=== PATIENT | female | born 1990 | race Caucasian/White ===

== ENCOUNTER 2017-12-28 11:51 | Emergency (ER) | payer MEDICAID ==
[2017-12-28] MEDS ORDERED: Cyclobenzaprine 10 MG Tab PO ONE (13:08)
[2017-12-28] MEDS ORDERED: Ketorolac 60 MG/2 ML SDV IM ONE (13:08)
--- NOTE | 2017-12-28 13:14 | EDM.PDOC ---
ED HPI GENERAL MEDICAL PROBLEM - General Chief Complaint: Back Pain or Injury Stated Complaint: BACK PAIN Time Seen by Provider: 12/28/17 13:09 Source of Information: Reports: Patient History Limitations: Reports: No Limitations - History of Present Illness INITIAL COMMENTS - FREE TEXT/NARRATIVE: HISTORY AND PHYSICAL: []27 y/o female presenting with right lower back sciatic pain History of Present Illness: []Yesterday patient was picking up her 4-year-old and felt the pain instantly in her back and now involves her sciatic History of having sciatica Review of Systems: As per history of present illness and below otherwise all systems reviewed and negative. Past medical history: As per history of present illness and as reviewed below otherwise noncontributory. Surgical history: As per history of present illness and as reviewed below otherwise noncontributory. Social history: No reported history of drug or alcohol abuse. Family history: As per history of present illness and as reviewed below otherwise noncontributory. Physical exam: Alert and oriented female obese answering questions fully without any shortness of breath. HEENT: Atraumatic, normocehpalic, pupils reactive, negative for conjunctival pallor or scleral icterus, mucous membranes moist, throat clear, neck supple, nontender, trachea midline. Lungs: Clear to auscultation, breath sounds equal bilaterally, chest non tender. Heart: S1S2, regular, negative for clicks, rubs, or JVD. Abdomen: Soft, nondistended, nontender. Negative for masses or hepatossplenmegaly. positive for right costovertebral tenderness.Sciatic tender with palpationmild radiculopathy Pelvis: Stable nontender. Genitourinary: Deferred. Rectal: Deferred Extremities: Atraumatic, negative for cords or calf pain. Neurovascular unremarkable. Neuro: Awake, alert, oriented. Cranial nerves II through XII unremarkable. Cerebellum unremarkable. Motor and sensory unremarkable throughout. Exam nonfocal. Diagnostics: [] Therapeutics: []flexeril toradal Impression: []Right lower back with sciatica and mild radiculopathy Plan: []Discharge home Prescription for diclofenac 75 mg twice a day prescription for flexeril 10 mg tid Follow-up with your primary care next week Return to emergency room as discussed and directed Work note 48 hours If you do not have a primary care call one of these numbers and establish care [facility] [address] [place] [address] [place] [address] Definitive disposition and diagnosis as appropriate pending reevaluation and review of above. lower back Pain Score (Numeric/FACES): 7 - Related Data Allergies Allergy/AdvReac Type Severity Reaction Status Date / Time methimazole [From Tapazole] Allergy Hives Verified 12/28/17 12:34 metronidazole [From Flagyl] Allergy Swollen Verified 12/28/17 12:34 Tongue proventil Liquid Allergy Other Uncoded 12/28/17 12:34 ptu Allergy Hives Uncoded 12/28/17 12:34 Home Meds: Home Meds . [No Known Home Meds] 12/28/17 [History] Past Medical History Neurological 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: Migraines Psychiatric 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: Anxiety, Depression, Other (See Below) Other Psychiatric History: Tarretts Endocrine/Metabolic 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: Hypothyroidism - Infectious Disease History Infectious Disease 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: Chicken Pox - Past Surgical History Female Surgical 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: Section Social & Family History - Family History Family Medical History: Noncontributory - Tobacco Use Smoking Status *Q: Current Every Day Smoker Years of Tobacco use: 16 Packs/Tins Daily: 0.1 - Caffeine Use Caffeine Use: Reports: Coffee, Soda - Recreational Drug Use Recreational Drug Use: No ED ROS GENERAL - Review of Systems Review Of Systems: ROS reveals no pertinent complaints other than HPI. ED EXAM,LOWER BACK PAIN/INJURY - Physical Exam Exam: See Below (See dictation) Course - Vital Signs Last Recorded V/S: Last Vital Signs Temp 36.4 C 12/28/17 12:30 Pulse 95 12/28/17 12:30 Resp 18 12/28/17 12:30 BP 138/80 12/28/17 12:30 Pulse Ox 99 12/28/17 12:30 - Orders/Labs/Meds Meds: Medications Discontinued Medications Generic Name Dose Route Start Last Admin Trade Name Freq PRN Reason Stop Dose Admin Cyclobenzaprine HCl 10 mg 12/28/17 13:08 Flexeril PO 12/28/17 13:09 ONETIME ONE Ketorolac Tromethamine 60 mg 12/28/17 13:08 Toradol IM 12/28/17 13:09 ONETIME ONE Departure - Departure Time of Disposition: 13:13 Disposition: Home, Self-Care 01 Condition: Good Clinical Impression: Sciatica Qualifiers: Laterality: right Qualified Code(s): M54.31 - Sciatica, right side Low back strain Qualifiers: Encounter type: initial encounter Qualified Code(s): S39.012A - Strain of muscle, fascia and tendon of lower back, initial encounter - Discharge Information Referrals: Rosio Preston DO [Primary Care Provider] - Additional Instructions: The following information is given to patients seen in the emergency department who are being discharged to home. This information is to outline your options for follow-up care. We provide all patients seen in our emergency department with a follow-up referral. The need for follow-up, as well as the timing and circumstances, are variable depending upon the specifics of your emergency department visit. If you don't have a primary care physician on staff, we will provide you with a referral. We always advise you to contact your personal physician following an emergency department visit to inform them of the circumstance of the visit and for follow-up with them and/or the need for any referrals to a consulting specialist. The emergency department will also refer you to a specialist when appropriate. This referral assures that you have the opportunity for followup care with a specialist. All of these measure are taken in an effort to provide you with optimal care, which includes your followup. Under all circumstances we always encourage you to contact your private physician who remains a resource for coordinating your care. When calling for followup care, please make the office aware that this follow-up is from your recent emergency room visit. If for any reason you are refused follow-up, please contact the [facility] emergency department at and asked to speak to the emergency department charge nurse. Given Toradol and Flexeril in ER Prescriptions were sent to your pharmacy for Flexeril and diclofenac Follow-up with your primary care next week D you do not have a primary care please call 1 of these numbers and establish care [facility] [address] [place] [id number] [place] [id number] Note has been written for off work 48 hours first 24 hours please ice your sciatic and then use heat or ice depending on which is feeling better
== END 2017-12-28 13:47 | disposition home or self-care (01) ==
LOC: MW.ED 11:51
DX: S39.012A Strain of muscle, fascia and tendon of lower back, initial encounter (principal); M54.31 Sciatica, right side; F32.9 Major depressive disorder, single episode, unspecified; F41.9 Anxiety disorder, unspecified; E03.9 Hypothyroidism, unspecified; F17.210 Nicotine dependence, cigarettes, uncomplicated; Z88.8 Allergy status to other drugs, medicaments and biological substances; X50.0XXA Overexertion from strenuous movement or load, initial encounter
CPT/HCPCS: 96372; 99283; A9270; J1885

== ENCOUNTER 2019-03-02 00:45 | Emergency (ER) | payer SELFPAY ==
[2019-03-02] MEDS ORDERED: Ketorolac 60 MG/2 ML SDV IM ONE (00:53)
--- NOTE | 2019-03-02 02:14 | CR ---
Indication: Left ankle pain Technique: Left ankle 3 views Comparison: None Findings: Bones: Alignment is normal. No fractures or bone lesions. Joint spaces: Joint spaces are well maintained. No degenerative changes. Soft tissues: Unremarkable. Impression: No findings to explain pain. Dictated by Saad Casillas MD @ Mar 02 2019 2:12AM Signed by Dr. Saad Casillas @ Mar 02 2019 2:13AM
--- NOTE | 2019-03-02 02:37 | EDM.PDOC ---
ED HPI GENERAL MEDICAL PROBLEM - General Chief Complaint: Lower Extremity Injury/Pain Stated Complaint: FALL Time Seen by Provider: 03/02/19 02:35 Source of Information: Reports: Patient - History of Present Illness INITIAL COMMENTS - FREE TEXT/NARRATIVE: HISTORY AND PHYSICAL: History of present illness: []Kathia presents with left ankle pain 10 out of 10 unable to bear weight tearful on arrival, Toradol provided doing much better She had fallen while going up some stairs and twisted her ankle she does have swelling over the lateral malleolus otherwise no open lesion or bruising entirely limb is neurovascularly intact Review of systems: As per history of present illness and below otherwise all systems reviewed and negative. Past medical history: As per history of present illness and as reviewed below otherwise noncontributory. Surgical history: As per history of present illness and as reviewed below otherwise noncontributory. Social history: No reported history of drug or alcohol abuse. Family history: As per history of present illness and as reviewed below otherwise noncontributory. Physical exam: HEENT: Atraumatic, normocephalic, pupils reactive, negative for conjunctival pallor or scleral icterus, mucous membranes moist, throat clear, neck supple, nontender, trachea midline. Lungs: Clear to auscultation, breath sounds equal bilaterally, chest nontender. Heart: S1S2, regular, negative for clicks, rubs, or JVD. Abdomen: Soft, nondistended, nontender. Negative for masses or hepatosplenomegaly. Negative for costovertebral tenderness. Pelvis: Stable nontender. Genitourinary: Deferred. Rectal: Deferred. Extremities: Atraumatic, negative for cords or calf pain. Neurovascular unremarkable. Neuro: Awake, alert, oriented. Cranial nerves II through XII unremarkable. Cerebellum unremarkable. Motor and sensory unremarkable throughout. Exam nonfocal. Diagnostics: [Left ankle 3 views Tib-fib left ] Therapeutics: [ CAM boot crutches nonweightbearing Rest ice ibuprofen ] Impress iLeft ankle injury ] Definitive disposition and diagnosis as appropriate pending reevaluation and review of above. left ankle Pain Score (Numeric/FACES): 10 - Related Data Allergies Allergy/AdvReac Type Severity Reaction Status Date / Time methimazole [From Tapazole] Allergy Hives Verified 03/02/19 01:01 metronidazole [From Flagyl] Allergy Swollen Verified 03/02/19 01:01 Tongue proventil Liquid Allergy Other Uncoded 03/02/19 01:01 ptu Allergy Hives Uncoded 03/02/19 01:01 Home Meds: Home Meds Levothyroxine [Synthroid] 1 tab PO DAILY 03/02/19 [History] Propranolol [Inderal] 1 tab PO BID 03/02/19 [History] Sertraline [Zoloft] 150 mg PO DAILY 03/02/19 [History] Topiramate [Topamax] 1 tab PO DAILY 03/02/19 [History] traZODone HCl [Trazodone HCl] 1 tab PO ASDIRECTED PRN 03/02/19 [History] Past Medical History REHAB RN 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: Neurological 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: Migraines, Other (See Below) Other Neuro History: Tourettes Psychiatric 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: Anxiety, Depression Other Psychiatric History: Tarretts Endocrine/Metabolic 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: Hypothyroidism - Infectious Disease History Infectious Disease 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: Chicken Pox - Past Surgical History Female Surgical 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: Section Social & Family History - Family History Family Medical History: Noncontributory - Tobacco Use Smoking Status *Q: Current Every Day Smoker Years of Tobacco use: 17 Packs/Tins Daily: 1 - Caffeine Use Caffeine Use: Reports: Coffee, Soda - Recreational Drug Use Recreational Drug Use: Yes Drug Use in Last 12 Months: Yes Recreational Drug Type: Reports: Marijuana/Hashish Recreational Drug Use Frequency: Rarely Review of Systems - Review of Systems Review Of Systems: See Below ED EXAM, GENERAL - Physical Exam Exam: See Below Course - Vital Signs Last Recorded V/S: Last Vital Signs Temp 96.8 F 03/02/19 00:45 Pulse 78 03/02/19 00:45 Resp 18 03/02/19 00:45 BP 129/83 03/02/19 00:45 Pulse Ox 98 03/02/19 00:45 - Orders/Labs/Meds Orders: Active Orders 24 hr Category Date Time Status Tibia Fibula Lt [CR] Stat Exams 03/02/19 02:09 Taken Meds: Medications Discontinued Medications Generic Name Dose Route Start Last Admin Trade Name Freq PRN Reason Stop Dose Admin Ketorolac Tromethamine 60 mg 03/02/19 00:53 03/02/19 01:09 Toradol IM 03/02/19 00:54 60 mg ONETIME ONE Administration Departure - Departure Time of Disposition: 02:36 Disposition: Home, Self-Care 01 Condition: Good Clinical Impression: Left ankle injury - Discharge Information Referrals: PCP,None [Primary Care Provider] - Additional Instructions: Cam boot crutches nonweightbearing Rest ice ibuprofen Return if symptoms persist or worsen Follow-up with orthopedist, call phone number below to schedule appropriate follow-up [facility] [address], [address] [place] [address] my orthopedic The following information is given to patients seen in the emergency department who are being discharged to home. This information is to outline your options for follow-up care. We provide all patients seen in our emergency department with a follow-up referral. The need for follow-up, as well as the timing and circumstances, are variable depending upon the specifics of your emergency department visit. If you don't have a primary care physician on staff, we will provide you with a referral. We always advise you to contact your personal physician following an emergency department visit to inform them of the circumstance of the visit and for follow-up with them and/or the need for any referrals to a consulting specialist. The emergency department will also refer you to a specialist when appropriate. This referral assures that you have the opportunity for follow-up care with a specialist. All of these measure are taken in an effort to provide you with optimal care, which includes your follow-up. Under all circumstances we always encourage you to contact your private physician who remains a resource for coordinating your care. When calling for follow-up care, please make the office aware that this follow-up is from your recent emergency room visit. If for any reason you are refused follow-up, please contact the [facility] emergency department at and asked to speak to the emergency department charge nurse. - My Orders Last 24 Hours: My Active Orders 03/02/19 02:09 Tibia Fibula Lt [CR] Stat - Assessment/Plan Last 24 Hours: My Active Orders 03/02/19 02:09 Tibia Fibula Lt [CR] Stat
--- NOTE | 2019-03-02 02:40 | CR ---
Indication: Pain after tripping Technique: Frontal and lateral views left tibia and fibula Comparison: Left ankle radiographs performed earlier today Findings: Note that the distal aspects of the tibia and fibula are not included on this exam. These areas were included on the left ankle radiographs performed earlier today which were reviewed at time of dictation. Bones: Alignment is normal. No fractures or bone lesions. Joint spaces: Unremarkable. Soft tissues: Unremarkable. Impression: Negative. Dictated by Kate De La Rosa MD @ Mar 02 2019 2:35AM Signed by Dr. Kate De La Rosa @ Mar 02 2019 2:37AM
== END 2019-03-02 03:17 | disposition home or self-care (01) ==
LOC: MW.ED 00:45
DX: S99.912A Unspecified injury of left ankle, initial encounter (principal); F17.210 Nicotine dependence, cigarettes, uncomplicated; F41.9 Anxiety disorder, unspecified; F32.9 Major depressive disorder, single episode, unspecified; E03.9 Hypothyroidism, unspecified; Z79.899 Other long term (current) drug therapy; Z88.8 Allergy status to other drugs, medicaments and biological substances; W10.9XXA Fall (on) (from) unspecified stairs and steps, initial encounter
CPT/HCPCS: 73590; 73610; 96372; 99283; J1885

== ENCOUNTER 2019-04-23 21:01 | Emergency (ER) | payer MEDICAID ==
[2019-04-23] MEDS ORDERED: Sodium Chloride 0.9% 1,000 ML IV ONE (21:33)
[2019-04-23 22:23] LABS: CHLORIDE,CL 105 mmol/L (98-107); SODIUM,NA 140 mmol/L (136-145)
--- NOTE | 2019-04-23 22:40 | EDM.PDOC ---
ED HPI GENERAL MEDICAL PROBLEM - General Chief Complaint: Genitourinary Problem Stated Complaint: BACK PAIN AND CRAMPING Time Seen by Provider: 04/23/19 21:02 Source of Information: Reports: Patient History Limitations: Reports: No Limitations - History of Present Illness INITIAL COMMENTS - FREE TEXT/NARRATIVE: HISTORY AND PHYSICAL: History of present illness: Patient is a 29-year-old female who states she found that she was one week ago, who presents to the ED today with concern of lower abdominal pain and slight vaginal bleeding yesterday and today. Patient states she's had 5 other pregnancies and none of them have presented how she feels today. Patient states she has an appointment with [facility] but has not yet been evaluated during this . Patient states the abdominal pain is lower tends to localize more to the right. Patient states yesterday and today she has had some pinkish vaginal bleeding but has not required any tampon or pad. Patient states she has been nauseous and has not been able to eat and drink much today but is unsure if this is related to typical nausea. Patient denies passing any clots. Patient denies any other symptoms or concerns at this time. Patient plans to see [facility] and has an appointment in 2 weeks. Patient denies fever, chills, chest pain, shortness of breath, or cough. Denies headache, neck stiff ness, change in vision, syncope, or near syncope. Denies vomiting, diarrhea, constipation, or dysuria. Has not noted any blood in urine or stool. Review of systems: As per history of present illness and below otherwise all systems reviewed and negative. Past medical history: As per history of present illness and as reviewed below otherwise noncontributory. Surgical history: As per history of present illness and as reviewed below otherwise noncontributory. Social history: See social history for further information Family history: As per history of present illness and as reviewed below otherwise noncontributory. Physical exam: Physical exam is limited due to body habitus. General: Patient is alert, oriented, and in no acute distress. Patient laying comfortably on exam table. HEENT: Atraumatic, normocephalic, pupils equal and reactive bilaterally, negative for conjunctival pallor or scleral icterus, mucous membranes dry, TMs normal bilaterally, throat clear, neck supple, nontender, trachea midline. No drooling or trismus noted. No meningeal signs. No hot potato voice noted. Lungs: Clear to auscultation, breath sounds equal bilaterally, chest nontender. Heart: S1S2, regular rate and rhythm without overt murmur Abdomen: Morbidly obese, soft, nondistended. Moderate suprapubic tenderness without guarding. Negative for masses or hepatosplenomegaly. Negative for costovertebral tenderness. Pelvis: Stable nontender. Genitourinary: Deferred. Rectal: Deferred. Skin: Intact, warm, dry. No lesions or rashes noted. Extremities: Atraumatic, negative for cords or calf pain. Neurovascular unremarkable. Neuro: Awake, alert, oriented. Cranial nerves II through XII unremarkable. Cerebellum unremarkable. Motor and sensory unremarkable throughout. Exam nonfocal. Notes: Dr. Stanley verbally involved in patient care. Rh is O+ Had thorough discussion with patient that ectopic is not ruled out with the limitations of today's diagnostics. Discussed with patient and per the importance of returning with worsening pain or increasing vaginal bleeding. Patient is given a prescription for repeat hCG Quant in 48 hours. Discussed the importance for follow-up with her LYE BATH OPERATOR. Voices understanding and is agreeable to plan of care. Denies any further questions or concerns at this time. Diagnostics: CBC, CMP, UA, hcg, first trimester ultrasound, Rh/blood type Therapeutics: NS Prescription: None Impression: Spotting in early Abdominal pain in early , unspecified Dehydration Plan: 1. Please start and/or continue to take your vitamin with folic acid once daily. 2. Pelvic rest until cleared by your OBGYN (no tampons, sex, etc...) Return in 48 hours to have your repeat lab draw. 3. Tylenol as needed for pain management. This is safe to use in . 4. Follow up with your LYE BATH OPERATOR as scheduled and as discussed. Return to the ED for worsening abdominal pain or increase in vaginal bleeding, and as needed and as further discussed. Definitive disposition and diagnosis as appropriate pending reevaluation and review of above. lower abdomen Pain Score (Numeric/FACES): 8 - Related Data Allergies Allergy/AdvReac Type Severity Reaction Status Date / Time methimazole [From Tapazole] Allergy Hives Verified 04/23/19 21:10 metronidazole [From Flagyl] Allergy Swollen Verified 04/23/19 21:10 Tongue proventil Liquid Allergy Other Uncoded 04/23/19 21:10 ptu Allergy Hives Uncoded 04/23/19 21:10 Home Meds: Home Meds Folic Acid 0.4 mg PO DAILY 04/23/19 [History] Pnv No.95/Ferrous Fum/Folic AC [ Caplet] 1 tab PO DAILY 04/23/19 [ History] Past Medical History Genitourinary 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: None LYE BATH OPERATOR 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: , Other (See Below) Other LYE BATH OPERATOR History: Termination of 1 Neurological 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: Migraines, Other (See Below) Other Neuro History: Tourettes Psychiatric 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: Anxiety, Depression Other Psychiatric History: Tarretts Endocrine/Metabolic 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: Hypothyroidism - Infectious Disease History Infectious Disease 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: Chicken Pox - Past Surgical History Female Surgical 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: Section Endocrine Surgical 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: None Neurological Surgical 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: None Social & Family History - Family History Family Medical History: Noncontributory - Tobacco Use Smoking Status *Q: Current Every Day Smoker Years of Tobacco use: 17 Packs/Tins Daily: 0.1 - Caffeine Use Caffeine Use: Reports: Soda - Recreational Drug Use Recreational Drug Use: Yes Recreational Drug Type: Reports: Marijuana/Hashish Recreational Drug Use Frequency: Socially Recreational Drug Last Use: "couple of weeks ago" ED ROS GENERAL - Review of Systems Review Of Systems: ROS reveals no pertinent complaints other than HPI. ED EXAM, GENERAL - Physical Exam Exam: See Below (See dictation) Course - Vital Signs Last Recorded V/S: Last Vital Signs Temp 36.3 C 04/23/19 21:08 Pulse 109 H 04/23/19 21:08 Resp 19 04/23/19 21:08 BP Pulse Ox 98 04/23/19 21:08 - Orders/Labs/Meds Labs: Laboratory Tests 04/23/19 04/23/19 04/23/19 Range/Units 21:00 21:00 21:00 WBC 10.58 (4.0-11.0) K/uL RBC 4.28 L (4.30-5.90) M/uL Hgb 11.3 L (12.0-16.0) g/dL Hct 35.5 L (36.0-46.0) % MCV 82.9 (80.0-98.0) fL MCH 26.4 L (27.0-32.0) pg MCHC 31.8 (31.0-37.0) g/dL RDW Std Deviation 52.5 (28.0-62.0) fl RDW Coeff of Rosa Maria 17 H (11.0-15.0) % Plt Count 236 (150-400) K/uL MPV 10.50 (7.40-12.00) fL Neut % (Auto) 75.3 (48.0-80.0) % Lymph % (Auto) 17.8 (16.0-40.0) % [place] % (Auto) 5.3 (0.0-15.0) % Eos % (Auto) 1.4 (0.0-7.0) % Baso % (Auto) 0.2 (0.0-1.5) % Neut # (Auto) 8.0 H (1.4-5.7) K/uL Lymph # (Auto) 1.9 (0.6-2.4) K/uL [place] # (Auto) 0.6 (0.0-0.8) K/uL Eos # (Auto) 0.2 (0.0-0.7) K/uL Baso # (Auto) 0.0 (0.0-0.1) K/uL Nucleated RBC % 0.0 /100WBC Nucleated RBCs # 0 K/uL Sodium (136-145) mmol/L Potassium (3.5-5.1) mmol/L Chloride (98-107) mmol/L Carbon Dioxide (21.0-32.0) mmol/L BUN (7.0-18.0) mg/dL Creatinine (0.6-1.0) mg/dL Est Cr Clr Drug Dosing mL/min Estimated GFR (MDRD) ml/min Glucose (74-106) mg/dL Calcium (8.5-10.1) mg/dL Total Bilirubin (0.2-1.0) mg/dL AST (15-37) IU/L ALT (14-63) IU/L Alkaline Phosphatase (46-116) U/L Total Protein (6.4-8.2) g/dL Albumin (3.4-5.0) g/dL Globulin (2.6-4.0) g/dL Albumin/Globulin Ratio (0.9-1.6) HCG, Qual (NEG) HCG, Quant 3015.0 mIU/mL Urine Color Urine Appearance Urine pH (5.0-8.0) Ur Specific [place] (1.001-1.035) Urine Protein (NEGATIVE) mg/dL Urine Glucose (UA) (NEGATIVE) mg/dL Urine Ketones (NEGATIVE) mg/dL Urine Occult Blood (NEGATIVE) Urine Nitrite (NEGATIVE) Urine Bilirubin (NEGATIVE) Urine Urobilinogen (<2.0) EU/dL Ur Leukocyte Esterase (NEGATIVE) Blood Type O POSITIVE 04/23/19 04/23/19 04/23/19 Range/Units 21:00 21:00 21:15 WBC (4.0-11.0) K/uL RBC (4.30-5.90) M/uL Hgb (12.0-16.0) g/dL Hct (36.0-46.0) % MCV (80.0-98.0) fL MCH (27.0-32.0) pg MCHC (31.0-37.0) g/dL RDW Std Deviation (28.0-62.0) fl RDW Coeff of Rosa Maria (11.0-15.0) % Plt Count (150-400) K/uL MPV (7.40-12.00) fL Neut % (Auto) (48.0-80.0) % Lymph % (Auto) (16.0-40.0) % [place] % (Auto) (0.0-15.0) % Eos % (Auto) (0.0-7.0) % Baso % (Auto) (0.0-1.5) % Neut # (Auto) (1.4-5.7) K/uL Lymph # (Auto) (0.6-2.4) K/uL [place] # (Auto) (0.0-0.8) K/uL Eos # (Auto) (0.0-0.7) K/uL Baso # (Auto) (0.0-0.1) K/uL Nucleated RBC % /100WBC Nucleated RBCs # K/uL Sodium 140 (136-145) mmol/L Potassium 3.5 (3.5-5.1) mmol/L Chloride 105 (98-107) mmol/L Carbon Dioxide 26.5 (21.0-32.0) mmol/L BUN 11 (7.0-18.0) mg/dL Creatinine 0.9 (0.6-1.0) mg/dL Est Cr Clr Drug Dosing 87.12 mL/min Estimated GFR (MDRD) > 60.0 ml/min Glucose 99 (74-106) mg/dL Calcium 9.5 (8.5-10.1) mg/dL Total Bilirubin 0.2 (0.2-1.0) mg/dL AST 12 L (15-37) IU/L ALT 16 (14-63) IU/L Alkaline Phosphatase 75 (46-116) U/L Total Protein 7.5 (6.4-8.2) g/dL Albumin 3.5 (3.4-5.0) g/dL Globulin 4.0 (2.6-4.0) g/dL Albumin/Globulin Ratio 0.9 (0.9-1.6) HCG, Qual POSITIVE H (NEG) HCG, Quant mIU/mL Urine Color YELLOW Urine Appearance SLT CLOUDY Urine pH 7.0 (5.0-8.0) Ur Specific [place] 1.025 (1.001-1.035) Urine Protein NEGATIVE (NEGATIVE) mg/dL Urine Glucose (UA) NEGATIVE (NEGATIVE) mg/dL Urine Ketones NEGATIVE (NEGATIVE) mg/dL Urine Occult Blood NEGATIVE (NEGATIVE) Urine Nitrite NEGATIVE (NEGATIVE) Urine Bilirubin NEGATIVE (NEGATIVE) Urine Urobilinogen 1.0 (<2.0) EU/dL Ur Leukocyte Esterase NEGATIVE (NEGATIVE) Blood Type Meds: Medications Discontinued Medications Generic Name Dose Route Start Last Admin Trade Name Michael PRN Reason Stop Dose Admin Sodium Chloride 1,000 mls @ 999 mls/hr 04/23/19 21:33 04/23/19 21:50 Normal Saline IV 04/23/19 22:33 999 mls/hr STAT ONE Administration Departure - Departure Time of Disposition: 00:02 Disposition: Home, Self-Care 01 Clinical Impression: Spotting in early , Abdominal pain affecting , Dehydration - Discharge Information Referrals: PCP,None [Primary Care Provider] - Forms: ED Department Discharge Additional Instructions: The following information is given to patients seen in the emergency department who are being discharged to home. This information is to outline your options for follow-up care. We provide all patients seen in our emergency department with a follow-up referral. The need for follow-up, as well as the timing and circumstances, are variable depending upon the specifics of your emergency department visit. If you don't have a primary care physician on staff, we will provide you with a referral. We always advise you to contact your personal physician following an emergency department visit to inform them of the circumstance of the visit and for follow-up with them and/or the need for any referrals to a consulting specialist. The emergency department will also refer you to a specialist when appropriate. This referral assures that you have the opportunity for follow-up care with a specialist. All of these measure are taken in an effort to provide you with optimal care, which includes your follow-up. Under all circumstances we always encourage you to contact your private physician who remains a resource for coordinating your care. When calling for follow-up care, please make the office aware that this follow-up is from your recent emergency room visit. If for any reason you are refused follow-up, please contact the [facility] Emergency Department at and asked to speak to the emergency department charge nurse. [facility] [address] [place] [address] [facility] [address] [place] [id number] [facility] [address], [place] [address] 1. Please start and/or continue to take your vitamin with folic acid once daily. 2. Pelvic rest until cleared by your OBGYN (no tampons, sex, etc...) Return in 48 hours to have your repeat lab draw. 3. Tylenol as needed for pain management. This is safe to use in . 4. Follow up with your LYE BATH OPERATOR as scheduled and as discussed. Return to the ED for worsening abdominal pain or increase in vaginal bleeding, and as needed and as further discussed.
--- NOTE | 2019-04-23 23:45 | US ---
INDICATION: Back pain. . TECHNIQUE: Ultrasound OB pelvis transvaginal. Real-time del rio-scale imaging of the pelvis was performed. COMPARISON: None available FINDINGS: There is a small sac-like structure within the endometrium with a mean sac diameter corresponding to 5 weeks and 0 days. No pole or yolk sac are seen. A 9 x 3 x 9 mm irregular hypoechoic area adjacent to the gestational sac could represent a small subchorionic hemorrhage. There is tiny fluid in the endocervical canal. The right ovary measures 2.2 x 1.7 x 2.6 cm and the left ovary measures 1.3 x 1.2 x 1.7 cm. There is small free fluid in the cul-de-sac. IMPRESSION: A small sac-like structure within the endometrium, corresponding to 5 weeks and 0 days by mean sac diameter. The findings could represent an early intrauterine gestation, however an ectopic gestation or an anembryonic gestation are not excluded. Correlate with beta hCG levels and a short-term follow-up study. Dictated by Og Dean MD @ 04/23/2019 11:44:41 PM Dictated by: Og Dean MD @ 04/23/2019 23:44:49 (Electronically Signed)
== END 2019-04-24 00:24 | disposition home or self-care (01) ==
LOC: MW.ED 21:01
DX: O26.851 Spotting complicating pregnancy, first trimester (principal); O26.891 Other specified pregnancy related conditions, first trimester; R10.31 Right lower quadrant pain; O99.89 Other specified diseases and conditions complicating pregnancy, childbirth and the puerperium; E86.0 Dehydration; O99.331 Smoking (tobacco) complicating pregnancy, first trimester; F17.210 Nicotine dependence, cigarettes, uncomplicated; E03.9 Hypothyroidism, unspecified; Z88.1 Allergy status to other antibiotic agents; Z88.8 Allergy status to other drugs, medicaments and biological substances; Z3A.01 Less than 8 weeks gestation of pregnancy
CPT/HCPCS: 36415; 76801; 80053; 81003; 84702; 84703; 85025; 86900; 86901; 96360; 99284; J7040; 99283

== ENCOUNTER 2019-04-29 10:21 | Emergency (ER) | payer MEDICAID ==
--- NOTE | 2019-04-29 10:37 | EDM.PDOC ---
ED HPI GENERAL MEDICAL PROBLEM - General Chief Complaint: HOME CARE COMPANION Problem Stated Complaint: SPOTTING/CRAMPING Time Seen by Provider: 04/29/19 10:22 Source of Information: Reports: Patient History Limitations: Reports: No Limitations - History of Present Illness INITIAL COMMENTS - FREE TEXT/NARRATIVE: HISTORY AND PHYSICAL: History of present illness: Patient is a 29-year-old female who presents to the emergency room with complaints of vaginal spotting in . Vaginal bleeding has been light and intermittent over the past 7-10 days. She states she was seen last week for this complaint and was told she is approximately 5 weeks . The ultrasound showed possible subchorionic hemorrhage, could not rule out an ectopic . She has had serial quantitative hCGs, which are trending upward. She is concerned as the bleeding has not resolved and concerned of the previous ultrasound findings. Spotting had stopped last week, but started again last night. She denies any injury, trauma or falls. States her boyfriend attempted sexual intercourse; but states she did not have any penetration. , P: 5 - Unable to get into the [facility] until next week. Review of systems: As per history of present illness and below otherwise all systems reviewed and negative. Past medical history: As per history of present illness and as reviewed below otherwise noncontributory. Surgical history: As per history of present illness and as reviewed below otherwise noncontributory. Social history: See social history for further information Family history: As per history of present illness and as reviewed below otherwise noncontributory. Physical exam: General: Well-developed and well-nourished 21 H old female. Alert and oriented. Nontoxic appearing and in no acute distress. HEENT: Atraumatic, normocephalic, pupils equal and reactive bilaterally, negative for conjunctival pallor or scleral icterus, mucous membranes moist, TMs normal bilaterally, throat clear, neck supple, nontender, trachea midline. No drooling or trismus noted. No meningeal signs. No hot potato voice noted. Lungs: Clear to auscultation, breath sounds equal bilaterally, chest nontender. Heart: S1S2, regular rate and rhythm without overt murmur Abdomen: Soft, nondistended, nontender. Negative for masses or hepatosplenomegaly. Negative for costovertebral tenderness. Skin: Intact, warm, dry. No lesions or rashes noted. Extremities: Atraumatic, moves all extremities per self without difficulty or deficits, negative for cords or calf pain. Neurovascular unremarkable. Neuro: Awake, alert, oriented. Cranial nerves II through XII unremarkable. Cerebellum unremarkable. Motor and sensory unremarkable throughout. Exam nonfocal. Notes: Previous labs show she is Rh 0+. Quant HCG on 04/23 was 3015, 04/25 was 5113, was 8422. Today's quant is 14,869. Ultrasound shows IUP with gestational age of 6 weeks and 1 day. No cardiac activity evident. pole not visible on the exam 1 week ago. Apparent intramural or subserosal anterior uterine fundal fibroid measuring 5.0 x 3.7 x 2.0 cm. discussed the need for follow-up with her HOME CARE COMPANION, has an appointment next week. Supportive care measures were reviewed and discussed. Voices understanding and is agreeable to plan of care. Denies any further questions or concerns at this time. Diagnostics: CBC, CMP, UA, Quant HCG, OB u/s Therapeutics: None Prescription: None Impression: Spotting in early Plan: 1. Please start and/or continue to take your vitamin with folic acid once daily. 2. Pelvic rest until cleared by your OBGYN (no tampons, sex, etc...) 3. Tylenol as needed for pain management. 4. Follow up with her HOME CARE COMPANION in the next 1-2 days. Return to the ED as needed and as discussed. Definitive disposition and diagnosis as appropriate pending reevaluation and review of above. cramping in lower abdomen Pain Score (Numeric/FACES): 7 - Related Data Allergies Allergy/AdvReac Type Severity Reaction Status Date / Time metronidazole [From Flagyl] Allergy Anaphylactic Verified 04/29/19 10:37 Shock proventil liquid Allergy Seizure Uncoded 04/29/19 10:37 ptu Allergy Hives Uncoded 04/29/19 10:37 tapazole Allergy Hives Uncoded 04/29/19 10:37 Home Meds: Home Meds Folic Acid 0.4 mg PO DAILY 04/23/19 [History] Pnv No.95/Ferrous Fum/Folic AC [ Caplet] 1 tab PO DAILY 04/23/19 [ History] Past Medical History Genitourinary 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: None HOME CARE COMPANION 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: , Other (See Below) Other HOME CARE COMPANION History: Termination of 1 Neurological 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: Migraines, Other (See Below) Other Neuro History: Tourettes Psychiatric 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: Anxiety, Depression Other Psychiatric History: Tarretts Endocrine/Metabolic 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: Hypothyroidism - Infectious Disease History Infectious Disease 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: Chicken Pox - Past Surgical History Female Surgical 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: Section Endocrine Surgical 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: None Neurological Surgical 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: None Social & Family History - Family History Family Medical History: Noncontributory - Caffeine Use Caffeine Use: Reports: Soda ED ROS GENERAL - Review of Systems Review Of Systems: ROS reveals no pertinent complaints other than HPI. ED EXAM - Physical Exam Exam: See Below (See dictation) Course - Vital Signs Last Recorded V/S: Last Vital Signs Temp 98.1 F 04/29/19 10:32 Pulse 108 H 04/29/19 10:32 Resp 20 04/29/19 10:32 BP 117/77 04/29/19 10:32 Pulse Ox 98 04/29/19 10:32 - Orders/Labs/Meds Orders: Active Orders 24 hr Category Date Time Status OB Transvaginal [US] Stat Exams 04/29/19 10:35 Taken Labs: Laboratory Tests 04/29/19 04/29/19 04/29/19 Range/Units 10:35 10:35 11:47 WBC 9.92 (4.0-11.0) K/uL RBC 4.64 (4.30-5.90) M/uL Hgb 12.4 (12.0-16.0) g/dL Hct 38.7 (36.0-46.0) % MCV 83.4 (80.0-98.0) fL MCH 26.7 L (27.0-32.0) pg MCHC 32.0 (31.0-37.0) g/dL RDW Std Deviation 53.7 (28.0-62.0) fl RDW Coeff of Rosa Maria 18 H (11.0-15.0) % Plt Count 242 (150-400) K/uL MPV 10.40 (7.40-12.00) fL Neut % (Auto) 64.3 (48.0-80.0) % Lymph % (Auto) 29.9 (16.0-40.0) % [place] % (Auto) 4.1 (0.0-15.0) % Eos % (Auto) 1.5 (0.0-7.0) % Baso % (Auto) 0.2 (0.0-1.5) % Neut # (Auto) 6.4 H (1.4-5.7) K/uL Lymph # (Auto) 3.0 H (0.6-2.4) K/uL [place] # (Auto) 0.4 (0.0-0.8) K/uL Eos # (Auto) 0.2 (0.0-0.7) K/uL Baso # (Auto) 0.0 (0.0-0.1) K/uL Nucleated RBC % 0.0 /100WBC Nucleated RBCs # 0 K/uL Sodium 139 (136-145) mmol/L Potassium 3.6 (3.5-5.1) mmol/L Chloride 103 (98-107) mmol/L Carbon Dioxide 24.3 (21.0-32.0) mmol/L BUN 11 (7.0-18.0) mg/dL Creatinine 0.7 (0.6-1.0) mg/dL Est Cr Clr Drug Dosing 107.67 mL/min Estimated GFR (MDRD) > 60.0 ml/min Glucose 101 (74-106) mg/dL Calcium 9.5 (8.5-10.1) mg/dL Total Bilirubin 0.4 (0.2-1.0) mg/dL AST 11 L (15-37) IU/L ALT 15 (14-63) IU/L Alkaline Phosphatase 63 (46-116) U/L Total Protein 8.2 (6.4-8.2) g/dL Albumin 3.7 (3.4-5.0) g/dL Globulin 4.5 H (2.6-4.0) g/dL Albumin/Globulin Ratio 0.8 L (0.9-1.6) HCG, Quant 37312.0 mIU/mL Urine Color YELLOW Urine Appearance SLT CLOUDY Urine pH 5.5 (5.0-8.0) Ur Specific [place] >= 1.030 (1.001-1.035) Urine Protein NEGATIVE (NEGATIVE) mg/dL Urine Glucose (UA) NEGATIVE (NEGATIVE) mg/dL Urine Ketones NEGATIVE (NEGATIVE) mg/dL Urine Occult Blood MODERATE H (NEGATIVE) Urine Nitrite NEGATIVE (NEGATIVE) Urine Bilirubin NEGATIVE (NEGATIVE) Urine Urobilinogen 0.2 (<2.0) EU/dL Ur Leukocyte Esterase NEGATIVE (NEGATIVE) Urine RBC 1-3 (0-2/HPF) Urine WBC 0-3 (0-5/HPF) Ur Epithelial Cells FEW (NONE-FEW) Amorphous Sediment LIGHT (NEGATIVE) Urine Bacteria FEW (NEGATIVE) Urine Mucus LIGHT (NONE-MOD) Departure - Departure Time of Disposition: 12:42 Disposition: Home, Self-Care 01 Clinical Impression: Spotting in early - Discharge Information Instructions: Vaginal Bleeding During , First Trimester, [id number] Referrals: PCP,Unknown [Primary Care Provider] - Forms: ED Department Discharge Additional Instructions: The following information is given to patients seen in the emergency department who are being discharged to home. This information is to outline your options for follow-up care. We provide all patients seen in our emergency department with a follow-up referral. The need for follow-up, as well as the timing and circumstances, are variable depending upon the specifics of your emergency department visit. If you don't have a primary care physician on staff, we will provide you with a referral. We always advise you to contact your personal physician following an emergency department visit to inform them of the circumstance of the visit and for follow-up with them and/or the need for any referrals to a consulting specialist. The emergency department will also refer you to a specialist when appropriate. This referral assures that you have the opportunity for follow-up care with a specialist. All of these measure are taken in an effort to provide you with optimal care, which includes your follow-up. Under all circumstances we always encourage you to contact your private physician who remains a resource for coordinating your care. When calling for follow-up care, please make the office aware that this follow-up is from your recent emergency room visit. If for any reason you are refused follow-up, please contact the [facility] Emergency Department at and asked to speak to the emergency department charge nurse. [facility] [address] [place] [id number] [facility] [address] [place] [id number] 1. Please start and/or continue to take your vitamin with folic acid once daily. 2. Pelvic rest until cleared by your OBGYN (no tampons, sex, etc...) 3. Tylenol as needed for pain management. 4. Follow up with her HOME CARE COMPANION in the next 1-2 days. Return to the ED as needed and as discussed. - My Orders Last 24 Hours: My Active Orders 04/29/19 10:35 OB Transvaginal [US] Stat - Assessment/Plan Last 24 Hours: My Active Orders 04/29/19 10:35 OB Transvaginal [US] Stat
[2019-04-29 11:32] LABS: CHLORIDE,CL 103 mmol/L (98-107); SODIUM,NA 139 mmol/L (136-145)
--- NOTE | 2019-04-29 12:41 | US ---
INDICATION: Vaginal bleeding. TECHNIQUE: Transvaginal scanning was performed to optimally evaluate the IUP and adnexa. Ovarian blood flow was evaluated with color-flow and pulsed Doppler. COMPARISON: 04/23/2019. FINDINGS: An intrauterine is demonstrated with 2 station age of 11 weeks by LMP and 6 weeks 1 day by today`s crown-rump length. EDC based on today`s crown-rump length . No cardiac activity is evident. The placenta is not yet formed. No implantation hemorrhage is evident. An intramural or subserosal anterior uterine fundal fibroid measuring 5.0 x 3.7 x 2.0 cm appears be present. The ovaries are normal is size and shape. The right ovary measures 3.1 x 2.6 x 2.2 cm and the left 2.1 x 1.9 x 1.7 cm. Ovarian blood flow is demonstrated with color-flow and pulsed Doppler. No adnexal mass or free fluid is apparent. IMPRESSION: 1. Intrauterine with gestational age of 6 weeks 1 day by today`s crown-rump length. No cardiac activity evident. pole not visible on the exam 1 week ago. Correlate with HCG levels. Follow up ultrasound in 1 week suggested if the clinical picture remains unclear. 2. Apparent intramural or subserosal anterior uterine fundal fibroid measuring 5.0 x 3.7 x 2.0 cm. Dictated by Dominick Messer MD @ Apr 29 2019 12:14PM Signed by Dr. Dominick Messer @ Apr 29 2019 12:39PM
== END 2019-04-29 12:56 | disposition home or self-care (01) ==
LOC: MW.ED 10:21
DX: O26.851 Spotting complicating pregnancy, first trimester (principal); Z3A.01 Less than 8 weeks gestation of pregnancy; Z88.8 Allergy status to other drugs, medicaments and biological substances
CPT/HCPCS: 36415; 76817; 76817-26; 80053; 81001; 84702; 85025; 99284-25

== ENCOUNTER 2019-05-03 08:59 | Emergency (ER) | payer MEDICAID ==
[2019-05-03] MEDS ORDERED: Sodium Chloride 0.9% 1,000 ML IV ONE (09:07)
[2019-05-03] MEDS ORDERED: Ondansetron 4 MG/2 ML SDV IVPUSH ONE (09:07)
--- NOTE | 2019-05-03 09:10 | EDM.PDOC ---
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 she has experienced webber related nausea prior to this but has been able take by mouth well she states over last day or 2 she feels she's been getting dehydrated with inability to take significant amount of fluids. She still does report intermittent cramping and spotting no different than her prior visits. Ultrasound on prior visit did demonstrate intrauterine Review of systems: As per history of present illness and below otherwise all systems reviewed and negative. Past medical history: As per history of present illness and as reviewed below otherwise noncontributory. Surgical history: As per history of present illness and as reviewed below otherwise noncontributory. Social history: No reported history of drug or alcohol abuse. Family history: As per history of present illness and as reviewed below otherwise noncontributory. Physical exam: HEENT: Atraumatic, normocephalic, pupils reactive, negative for conjunctival pallor or scleral icterus, mucous membranes dry, throat clear, neck supple, nontender, trachea midline. Lungs: Clear to auscultation, breath sounds equal bilaterally, chest nontender. Heart: S1S2, regular, negative for clicks, rubs, or JVD. Abdomen: Soft, nondistended, nontender. Negative for masses or hepatosplenomegaly. Negative for costovertebral tenderness. Pelvis: Stable nontender. Genitourinary: Deferred. Rectal: Deferred. Extremities: Atraumatic, negative for cords or calf pain. Neurovascular unremarkable. Neuro: Awake, alert, oriented. Cranial nerves II through XII unremarkable. Cerebellum unremarkable. Motor and sensory unremarkable throughout. Exam nonfocal. Diagnostics: CBC CMP and lipase UA UDS Therapeutics: Saline 1 L bolus Zofran 4 mg IV Impression: #1 hyperemesis gravidarum #2 dehydration #3 threatened Definitive disposition and diagnosis as appropriate pending reevaluation and review of above. 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: , Other (See Below) Other CLINICAL SUPERVISOR History: Termination of 1 Neurological 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: Migraines, Other (See Below) Other Neuro History: Tourettes Psychiatric 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: Anxiety, Depression Other Psychiatric History: Tarretts Endocrine/Metabolic 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: Hypothyroidism - Infectious Disease History Infectious Disease 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: Chicken Pox - Past Surgical History Female Surgical 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: Section Endocrine Surgical 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: None Neurological Surgical 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: None Social & Family History - Family History Family Medical History: Noncontributory - Caffeine Use Caffeine Use: Reports: Soda ED ROS GENERAL - Review of Systems Review Of Systems: ROS reveals no pertinent complaints other than HPI. ED EXAM, GENERAL - Physical Exam Exam: See Below (See dictation) Course - Vital Signs Last Recorded V/S: Last Vital Signs Temp 35.7 C 05/03/19 09:04 Pulse 84 05/03/19 09:04 Resp 16 05/03/19 09:04 BP 113/62 05/03/19 09:04 Pulse Ox 96 05/03/19 09:04 - Orders/Labs/Meds Orders: Active Orders 24 hr Category Date Time Status COMPREHENSIVE METABOLIC PN,CMP [CHEM] Stat Lab 05/03/19 09:14 Received DRUG SCREEN, URINE [URCHEM] Stat Lab 05/03/19 09:07 Ordered LIPASE [CHEM] Stat Lab 05/03/19 09:14 Received UA RFX DARSHAN AND CULT IF INDIC [URIN] Stat Lab 05/03/19 09:07 Ordered Sodium Chloride 0.9% [Normal Saline] 1,000 ml Med 05/03/19 09:07 Active IV STAT Medication Orders Sodium Chloride (Normal Saline) 1,000 mls @ 999 mls/hr IV STAT ONE Stop: 05/03/19 10:07 Last Admin: 05/03/19 09:16 Dose: 999 mls/hr Labs: Laboratory Tests 05/03/19 Range/Units 09:14 WBC 9.57 (4.0-11.0) K/uL RBC 4.18 L (4.30-5.90) M/uL Hgb 11.2 L (12.0-16.0) g/dL Hct 34.9 L (36.0-46.0) % MCV 83.5 (80.0-98.0) fL MCH 26.8 L (27.0-32.0) pg MCHC 32.1 (31.0-37.0) g/dL RDW Std Deviation 53.5 (28.0-62.0) fl RDW Coeff of Rosa Maria 17 H (11.0-15.0) % Plt Count 244 (150-400) K/uL MPV 10.20 (7.40-12.00) fL Neut % (Auto) 66.9 (48.0-80.0) % Lymph % (Auto) 25.9 (16.0-40.0) % [place] % (Auto) 6.0 (0.0-15.0) % Eos % (Auto) 0.9 (0.0-7.0) % Baso % (Auto) 0.3 (0.0-1.5) % Neut # (Auto) 6.4 H (1.4-5.7) K/uL Lymph # (Auto) 2.5 H (0.6-2.4) K/uL [place] # (Auto) 0.6 (0.0-0.8) K/uL Eos # (Auto) 0.1 (0.0-0.7) K/uL Baso # (Auto) 0.0 (0.0-0.1) K/uL Nucleated RBC % 0.0 /100WBC Nucleated RBCs # 0 K/uL Meds: Medications Generic Name Dose Route Start Last Admin Trade Name Freq PRN Reason Stop Dose Admin Sodium Chloride 1,000 mls @ 999 mls/hr 05/03/19 09:07 05/03/19 09:16 Normal Saline IV 05/03/19 10:07 999 mls/hr STAT ONE Administration Discontinued Medications Generic Name Dose Route Start Last Admin Trade Name Michael PRN Reason Stop Dose Admin Ondansetron HCl 4 mg 05/03/19 09:07 05/03/19 09:17 Zofran IVPUSH 05/03/19 09:08 4 mg ONETIME ONE Administration Departure - Departure Time of Disposition: 09:35 Disposition: Home, Self-Care 01 Condition: Good Clinical Impression: Hyperemesis gravidarum, Dehydration, Threatened - Discharge Information Referrals: PCP,Unknown [Primary Care Provider] - Forms: ED Department Discharge Additional Instructions: The following information is given to patients seen in the emergency department who are being discharged to home. This information is to outline your options for follow-up care. We provide all patients seen in our emergency department with a follow-up referral. The need for follow-up, as well as the timing and circumstances, are variable depending upon the specifics of your emergency department visit. If you don't have a primary care physician on staff, we will provide you with a referral. We always advise you to contact your personal physician following an emergency department visit to inform them of the circumstance of the visit and for follow-up with them and/or the need for any referrals to a consulting specialist. The emergency department will also refer you to a specialist when appropriate. This referral assures that you have the opportunity for followup care with a specialist. All of these measure are taken in an effort to provide you with optimal care, which includes your followup. Under all circumstances we always encourage you to contact your private physician who remains a resource for coordinating your care. When calling for followup care, please make the office aware that this follow-up is from your recent emergency room visit. If for any reason you are refused follow-up, please contact the [facility] emergency department at and asked to speak to the emergency department charge nurse. Zofran as prescribed push fluids follow-up COMPUTER GAME TESTER vaginal rest as discussed return as needed as discussed - My Orders Last 24 Hours: My Active Orders 05/03/19 09:07 DRUG SCREEN, URINE [URCHEM] Stat UA RFX DARSHAN AND CULT IF INDIC [URIN] Stat Sodium Chloride 0.9% [Normal Saline] 1,000 ml IV STAT 05/03/19 09:14 COMPREHENSIVE METABOLIC PN,CMP [CHEM] Stat LIPASE [CHEM] Stat - Assessment/Plan Last 24 Hours: My Active Orders 05/03/19 09:07 DRUG SCREEN, URINE [URCHEM] Stat UA RFX DARSHAN AND CULT IF INDIC [URIN] Stat Sodium Chloride 0.9% [Normal Saline] 1,000 ml IV STAT 05/03/19 09:14 COMPREHENSIVE METABOLIC PN,CMP [CHEM] Stat LIPASE [CHEM] Stat
[2019-05-03 10:19] LABS: BLOOD UREA NITROGEN,BUN 7 mg/dL (7.0-18.0); CARBON DIOXIDE,CO2 23.5 mmol/L (21.0-32.0); CHLORIDE,CL 106 mmol/L (98-107); GLUCOSE RANDOM 97 mg/dL (74-106); POTASSIUM,K 3.6 mmol/L (3.5-5.1); SODIUM,NA 139 mmol/L (136-145)
== END 2019-05-03 10:32 | disposition home or self-care (01) ==
LOC: MW.ED 08:59
DX: O20.0 Threatened abortion (principal); O21.1 Hyperemesis gravidarum with metabolic disturbance; Z88.1 Allergy status to other antibiotic agents; Z88.8 Allergy status to other drugs, medicaments and biological substances
CPT/HCPCS: 36415; 80053; 80305; 81001; 83690; 85025; 96361; 96374; 99284; J2405; J7040; 99283

== ENCOUNTER 2019-05-05 01:15 | Emergency (ER) | payer MEDICAID ==
--- NOTE | 2019-05-05 01:23 | EDM.PDOC ---
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 Stated Complaint: SPOTTING Time Seen by Provider: 05/05/19 01:22 Source of Information: Reports: Patient - History of Present Illness INITIAL COMMENTS - FREE TEXT/NARRATIVE: HISTORY AND PHYSICAL: History of present illness: [Patient with history of threatened presents with spotting small clots passing but increased 8 out of 10 pain today No fever vomiting chills sweats mild nausea which is also kind of normal for her course over the last week she has multiple visits on file and ultrasound within last few days demonstrating an intrauterine ] Review of systems: As per history of present illness and below otherwise all systems reviewed and negative. Past medical history: As per history of present illness and as reviewed below otherwise noncontributory. Surgical history: As per history of present illness and as reviewed below otherwise noncontributory. Social history: No reported history of drug or alcohol abuse. Family history: As per history of present illness and as reviewed below otherwise noncontributory. Physical exam: HEENT: Atraumatic, normocephalic, pupils reactive, negative for conjunctival pallor or scleral icterus, mucous membranes moist, throat clear, neck supple, nontender, trachea midline. Lungs: Clear to auscultation, breath sounds equal bilaterally, chest nontender. Heart: S1S2, regular, negative for clicks, rubs, or JVD. Abdomen: Soft, nondistended, nontender. Negative for masses or hepatosplenomegaly. Negative for costovertebral tenderness. Pelvis: Stable nontender. Genitourinary: Deferred. Rectal: Deferred. Extremities: Atraumatic, negative for cords or calf pain. Neurovascular unremarkable. Neuro: Awake, alert, oriented. Cranial nerves II through XII unremarkable. Cerebellum unremarkable. Motor and sensory unremarkable throughout. Exam nonfocal. Diagnostics: [Ultrasound on file 4 days prior CBC CMP UA hCG ] Therapeutics: [Normal saline morphine 2 mg IV ] Impression: [ threatened O positive blood type ] 6-5/7 weeks by ultrasound Definitive disposition and diagnosis as appropriate pending reevaluation and review of above. Lower Abdomen Pain Score (Numeric/FACES): 8 - Related Data Allergies Allergy/AdvReac Type Severity Reaction Status Date / Time metronidazole [From Flagyl] Allergy Anaphylactic Verified 05/05/19 01:20 Shock proventil liquid Allergy Seizure Uncoded 05/05/19 01:20 ptu Allergy Hives Uncoded 05/05/19 01:20 tapazole Allergy Hives Uncoded 05/05/19 01:20 Home Meds: Home Meds Folic Acid 0.4 mg PO DAILY 04/23/19 [History] Pnv No.95/Ferrous Fum/Folic AC [ Caplet] 1 tab PO DAILY 04/23/19 [ History] Past Medical History - Past Health History Medical/Surgical History: Denies Medical/Surgical History Cardiovascular 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: Other (See Below) Other Cardiovascular History: "cyst in my heart" Genitourinary 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: None 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 TELLER 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: , Other (See Below) 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 VAULT TELLER History: Termination of 1 Neurological 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: Migraines, Other (See Below) Other Neuro History: Tourettes Psychiatric 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: Anxiety, Depression Other Psychiatric History: Tarretts Endocrine/Metabolic 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: Hypothyroidism - Infectious Disease History Infectious Disease 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: Chicken Pox - Past Surgical History Female Surgical 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: Section Endocrine Surgical 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: None Neurological Surgical 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: None Social & Family History - Family History Family Medical History: Noncontributory - Caffeine Use Caffeine Use: Reports: Soda ED ROS GENERAL - Review of Systems Review Of Systems: See Below ED EXAM, GENERAL - Physical Exam Exam: See Below Course - Vital Signs Last Recorded V/S: Last Vital Signs Temp 96.6 F 05/05/19 01:21 Pulse 75 05/05/19 01:21 Resp 17 05/05/19 01:21 BP 107/59 L 05/05/19 01:21 Pulse Ox 98 05/05/19 01:21 - Orders/Labs/Meds Orders: Active Orders 24 hr Category Date Time Status CULTURE URINE [RM] Stat Lab 05/05/19 01:34 Received Labs: Laboratory Tests 05/05/19 05/05/19 05/05/19 Range/Units 01:34 01:57 01:57 WBC 10.33 (4.0-11.0) K/uL RBC 4.09 L (4.30-5.90) M/uL Hgb 11.0 L (12.0-16.0) g/dL Hct 34.0 L (36.0-46.0) % MCV 83.1 (80.0-98.0) fL MCH 26.9 L (27.0-32.0) pg MCHC 32.4 (31.0-37.0) g/dL RDW Std Deviation 51.9 (28.0-62.0) fl RDW Coeff of Rosa Maria 17 H (11.0-15.0) % Plt Count 254 (150-400) K/uL MPV 10.50 (7.40-12.00) fL Neut % (Auto) 60.7 (48.0-80.0) % Lymph % (Auto) 31.3 (16.0-40.0) % [place] % (Auto) 6.0 (0.0-15.0) % Eos % (Auto) 1.7 (0.0-7.0) % Baso % (Auto) 0.3 (0.0-1.5) % Neut # (Auto) 6.3 H (1.4-5.7) K/uL Lymph # (Auto) 3.2 H (0.6-2.4) K/uL [place] # (Auto) 0.6 (0.0-0.8) K/uL Eos # (Auto) 0.2 (0.0-0.7) K/uL Baso # (Auto) 0.0 (0.0-0.1) K/uL Sodium 140 (136-145) mmol/L Potassium 3.5 (3.5-5.1) mmol/L Chloride 105 (98-107) mmol/L Carbon Dioxide 24.0 (21.0-32.0) mmol/L BUN 9 (7.0-18.0) mg/dL Creatinine 0.7 (0.6-1.0) mg/dL Est Cr Clr Drug Dosing 107.67 mL/min Estimated GFR (MDRD) > 60.0 ml/min Glucose 93 (74-106) mg/dL Calcium 9.0 (8.5-10.1) mg/dL Total Bilirubin 0.3 (0.2-1.0) mg/dL AST 12 L (15-37) IU/L ALT 19 (14-63) IU/L Alkaline Phosphatase 58 (46-116) U/L Total Protein 6.7 (6.4-8.2) g/dL Albumin 3.1 L (3.4-5.0) g/dL Globulin 3.6 (2.6-4.0) g/dL Albumin/Globulin Ratio 0.9 (0.9-1.6) HCG, Quant 21884.0 mIU/mL Urine Color YELLOW Urine Appearance SLT CLOUDY Urine pH 7.0 (5.0-8.0) Ur Specific [place] 1.025 (1.001-1.035) Urine Protein NEGATIVE (NEGATIVE) mg/dL Urine Glucose (UA) NEGATIVE (NEGATIVE) mg/dL Urine Ketones 15 H (NEGATIVE) mg/dL Urine Occult Blood LARGE H (NEGATIVE) Urine Nitrite NEGATIVE (NEGATIVE) Urine Bilirubin NEGATIVE (NEGATIVE) Urine Urobilinogen 0.2 (<2.0) EU/dL Ur Leukocyte Esterase TRACE H (NEGATIVE) Urine RBC 0-1 (0-2/HPF) Urine WBC 8-10 (0-5/HPF) Ur Epithelial Cells OCCASIONAL (NONE-FEW) Amorphous Sediment LIGHT (NEGATIVE) Urine Bacteria 1+ H (NEGATIVE) Urine Mucus LIGHT (NONE-MOD) Meds: Medications Discontinued Medications Generic Name Dose Route Start Last Admin Trade Name Freq PRN Reason Stop Dose Admin Sodium Chloride 1,000 mls @ 999 mls/hr 05/05/19 01:38 05/05/19 01:49 Normal Saline IV 05/05/19 02:38 999 mls/hr STAT ONE Administration Morphine Sulfate 2 mg 05/05/19 01:40 05/05/19 01:52 Morphine IVPUSH 05/05/19 01:41 2 mg ONETIME ONE Administration Ondansetron HCl 8 mg 05/05/19 01:40 05/05/19 01:52 Zofran IVPUSH 05/05/19 01:41 8 mg ONETIME ONE Administration Departure - Departure Time of Disposition: 02:57 Disposition: Home, Self-Care 01 Condition: Good Clinical Impression: Threatened , UTI (urinary tract infection) - Discharge Information Referrals: PCP,None [Primary Care Provider] - Forms: ED Department Discharge Additional Instructions: The following information is given to patients seen in the emergency department who are being discharged to home. This information is to outline your options for follow-up care. We provide all patients seen in our emergency department with a follow-up referral. The need for follow-up, as well as the timing and circumstances, are variable depending upon the specifics of your emergency department visit. If you don't have a primary care physician on staff, we will provide you with a referral. We always advise you to contact your personal physician following an emergency department visit to inform them of the circumstance of the visit and for follow-up with them and/or the need for any referrals to a consulting specialist. The emergency department will also refer you to a specialist when appropriate. This referral assures that you have the opportunity for follow-up care with a specialist. All of these measure are taken in an effort to provide you with optimal care, which includes your follow-up. Under all circumstances we always encourage you to contact your private physician who remains a resource for coordinating your care. When calling for follow-up care, please make the office aware that this follow-up is from your recent emergency room visit. If for any reason you are refused follow-up, please contact the [facility] emergency department at and asked to speak to the emergency department charge nurse. - My Orders Last 24 Hours: My Active Orders 05/05/19 01:34 CULTURE URINE [RM] Stat - Assessment/Plan Last 24 Hours: My Active Orders 05/05/19 01:34 CULTURE URINE [RM] Stat
[2019-05-05] MEDS ORDERED: Sodium Chloride 0.9% 1,000 ML IV ONE (01:38)
[2019-05-05] MEDS ORDERED: Morphine 2 MG/ML Syringe IVPUSH ONE (01:40)
[2019-05-05] MEDS ORDERED: Ondansetron 4 MG/2 ML SDV IVPUSH ONE (01:40)
[2019-05-05 02:48] LABS: BLOOD UREA NITROGEN,BUN 9 mg/dL (7.0-18.0); CHLORIDE,CL 105 mmol/L (98-107); GLUCOSE RANDOM 93 mg/dL (74-106); POTASSIUM,K 3.5 mmol/L (3.5-5.1); SODIUM,NA 140 mmol/L (136-145)
== END 2019-05-05 03:07 | disposition home or self-care (01) ==
LOC: MW.ED 01:15
DX: O20.0 Threatened abortion (principal); O23.41 Unspecified infection of urinary tract in pregnancy, first trimester; Z88.8 Allergy status to other drugs, medicaments and biological substances; Z91.09 Other allergy status, other than to drugs and biological substances; Z3A.01 Less than 8 weeks gestation of pregnancy
CPT/HCPCS: 36415; 80053; 81001; 84702; 85025; 87086; 96361; 96374; 96375; 99284; J2270; J2405; J7040

== ENCOUNTER 2019-06-19 09:05 | Emergency (ER) | payer MEDICAID ==
--- NOTE | 2019-06-19 09:47 | EDM.PDOC ---
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 Past medical history: As per history of present illness and as reviewed below otherwise noncontributory. Surgical history: As per history of present illness and as reviewed below otherwise noncontributory. Social history: No reported history of drug or alcohol abuse. Family history: As per history of present illness and as reviewed below otherwise noncontributory. Physical exam: HEENT: Atraumatic, normocephalic, pupils reactive, negative for conjunctival pallor or scleral icterus, mucous membranes moist, throat clear, neck supple, nontender, trachea midline. Lungs: Clear to auscultation, breath sounds equal bilaterally, chest nontender. Heart: S1S2, regular, negative for clicks, rubs, or JVD. Abdomen: Soft, nondistended, nontender. Negative for masses or hepatosplenomegaly. Negative for costovertebral tenderness. Pelvis: Stable nontender. Genitourinary: Deferred. Rectal: Deferred. Extremities: Atraumatic, negative for cords or calf pain. Neurovascular unremarkable. Neuro: Awake, alert, oriented. Cranial nerves II through XII unremarkable. Cerebellum unremarkable. Motor and sensory unremarkable throughout. Exam nonfocal. Diagnostics: CBC Therapeutics: None Impression: #1 threatened miscarriage #2 second trimester Definitive disposition and diagnosis as appropriate pending reevaluation and review of above. Lower Back Pain Score (Numeric/FACES): 5 - Related Data Allergies Allergy/AdvReac Type Severity Reaction Status Date / Time metronidazole [From Flagyl] Allergy Anaphylactic Verified 06/19/19 09:11 Shock proventil liquid Allergy Seizure Uncoded 06/19/19 09:11 ptu Allergy Hives Uncoded 06/19/19 09:11 tapazole Allergy Hives Uncoded 06/19/19 09:11 Home Meds: Home Meds Folic Acid 0.4 mg PO DAILY 04/23/19 [History] Pnv No.95/Ferrous Fum/Folic AC [ Caplet] 1 tab PO DAILY 04/23/19 [ History] Levothyroxine 150 mcg PO DAILY 06/19/19 [History] Past Medical History - Past Health History Medical/Surgical History: Denies Medical/Surgical History Cardiovascular 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: Other (See Below) Other Cardiovascular History: "cyst in my heart" Genitourinary 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: None 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: , Other (See Below) Other CLINICAL LABORATORY MEDICAL DIRECTOR History: Termination of 1 Neurological 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: Migraines, Other (See Below) Other Neuro History: Tourettes Psychiatric 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: Anxiety, Depression Other Psychiatric History: Tarretts Endocrine/Metabolic 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: Hypothyroidism - Infectious Disease History Infectious Disease 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: None - Past Surgical History Female Surgical 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: Section Endocrine Surgical 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: None Neurological Surgical 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: None Social & Family History - Family History Family Medical History: Noncontributory - Tobacco Use Smoking Status *Q: Current Every Day Smoker Years of Tobacco use: 18 Packs/Tins Daily: 0.5 - Caffeine Use Caffeine Use: Reports: Coffee - Recreational Drug Use Recreational Drug Use: No ED ROS GENERAL - Review of Systems Review Of Systems: ROS reveals no pertinent complaints other than HPI. ED EXAM, GENERAL - Physical Exam Exam: See Below (See dictation) Course - Vital Signs Last Recorded V/S: Last Vital Signs Temp 36.0 C 06/19/19 09:12 Pulse 99 06/19/19 09:12 Resp 16 06/19/19 09:12 BP 117/69 06/19/19 09:12 Pulse Ox 98 06/19/19 09:12 - Orders/Labs/Meds Labs: Laboratory Tests 06/19/19 Range/Units 09:52 WBC 10.19 (4.0-11.0) K/uL RBC 4.52 (4.30-5.90) M/uL Hgb 12.5 (12.0-16.0) g/dL Hct 38.0 (36.0-46.0) % MCV 84.1 (80.0-98.0) fL MCH 27.7 (27.0-32.0) pg MCHC 32.9 (31.0-37.0) g/dL RDW Std Deviation 51.8 (28.0-62.0) fl RDW Coeff of Rosa Maria 17 H (11.0-15.0) % Plt Count 238 (150-400) K/uL MPV 10.20 (7.40-12.00) fL Neut % (Auto) 69.7 (48.0-80.0) % Lymph % (Auto) 24.0 (16.0-40.0) % Hayes % (Auto) 4.7 (0.0-15.0) % Eos % (Auto) 1.4 (0.0-7.0) % Baso % (Auto) 0.2 (0.0-1.5) % Neut # (Auto) 7.1 H (1.4-5.7) K/uL Lymph # (Auto) 2.5 H (0.6-2.4) K/uL Hayes # (Auto) 0.5 (0.0-0.8) K/uL Eos # (Auto) 0.1 (0.0-0.7) K/uL Baso # (Auto) 0.0 (0.0-0.1) K/uL Nucleated RBC % 0.0 /100WBC Nucleated RBCs # 0 K/uL Departure - Departure Time of Disposition: 10:12 Disposition: Home, Self-Care 01 Condition: Good Clinical Impression: Threatened - Discharge Information Referrals: Cindy Arita CNM [Primary Care Provider] - Forms: ED Department Discharge Additional Instructions: The following information is given to patients seen in the emergency department who are being discharged to home. This information is to outline your options for follow-up care. We provide all patients seen in our emergency department with a follow-up referral. The need for follow-up, as well as the timing and circumstances, are variable depending upon the specifics of your emergency department visit. If you don't have a primary care physician on staff, we will provide you with a referral. We always advise you to contact your personal physician following an emergency department visit to inform them of the circumstance of the visit and for follow-up with them and/or the need for any referrals to a consulting specialist. The emergency department will also refer you to a specialist when appropriate. This referral assures that you have the opportunity for followup care with a specialist. All of these measure are taken in an effort to provide you with optimal care, which includes your followup. Under all circumstances we always encourage you to contact your private physician who remains a resource for coordinating your care. When calling for followup care, please make the office aware that this follow-up is from your recent emergency room visit. If for any reason you are refused follow-up, please contact the [facility] emergency department at and asked to speak to the emergency department charge nurse. Vaginal rest as discussed follow-up OB as discussed return as needed as discussed
== END 2019-06-19 10:26 | disposition home or self-care (01) ==
LOC: MW.ED 09:05
DX: O20.0 Threatened abortion (principal); O99.331 Smoking (tobacco) complicating pregnancy, first trimester; F17.210 Nicotine dependence, cigarettes, uncomplicated; O99.281 Endocrine, nutritional and metabolic diseases complicating pregnancy, first trimester; E03.9 Hypothyroidism, unspecified; O34.219 Maternal care for unspecified type scar from previous cesarean delivery; Z3A.13 13 weeks gestation of pregnancy; Z79.890 Hormone replacement therapy; Z88.1 Allergy status to other antibiotic agents; Z88.8 Allergy status to other drugs, medicaments and biological substances
CPT/HCPCS: 36415; 85025; 99284

== ENCOUNTER 2019-06-19 23:46 | Emergency (ER) | payer MEDICAID ==
[2019-06-20] MEDS ORDERED: Ondansetron 4 MG Tab.DIS PO ONE (00:10)
--- NOTE | 2019-06-20 00:11 | EDM.PDOC ---
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 Stated Complaint: AND BLEEDING Time Seen by Provider: 06/20/19 00:11 Source of Information: Reports: Patient - History of Present Illness INITIAL COMMENTS - FREE TEXT/NARRATIVE: HISTORY AND PHYSICAL: History of present illness: [Patient with 13 week IUP presents with vaginal bleeding, she was seen earlier today with similar complaint heart rate she has developed cramping with 3-4 out of 10 pain/discomfort no apparent distress but obviously uncomfortable No fever vomiting chills sweats she does complain of some nausea no chest pain shortness breath headache dizziness palpitation no bowel or urine symptoms ] Review of systems: As per history of present illness and below otherwise all systems reviewed and negative. Past medical history: As per history of present illness and as reviewed below otherwise noncontributory. Surgical history: As per history of present illness and as reviewed below otherwise noncontributory. Social history: No reported history of drug or alcohol abuse. Family history: As per history of present illness and as reviewed below otherwise noncontributory. Physical exam: HEENT: Atraumatic, normocephalic, pupils reactive, negative for conjunctival pallor or scleral icterus, mucous membranes moist, throat clear, neck supple, nontender, trachea midline. Lungs: Clear to auscultation, breath sounds equal bilaterally, chest nontender. Heart: S1S2, regular, negative for clicks, rubs, or JVD. Abdomen: Soft, nondistended, nontender. Negative for masses or hepatosplenomegaly. Negative for costovertebral tenderness. Pelvis: Stable nontender. Genitourinary: External and vaginal exam no mass or lesion internal exam cervix is closed scant blood in the vaginal vault no mass scar or lesion, no products of conception Rectal: Deferred. Extremities: Atraumatic, negative for cords or calf pain. Neurovascular unremarkable. Neuro: Awake, alert, oriented. Cranial nerves II through XII unremarkable. Cerebellum unremarkable. Motor and sensory unremarkable throughout. Exam nonfocal. Diagnostics: [Ultrasound on file with intrauterine CBC on file from this morning ] Therapeutics: [ Elsie Zofran ] Impression: [ threatened 13weeks with IUP Blood type O positive] CVX closed Definitive disposition and diagnosis as appropriate pending reevaluation and review of above. lower abdomen Pain Score (Numeric/FACES): 7 - Related Data Allergies Allergy/AdvReac Type Severity Reaction Status Date / Time metronidazole [From Flagyl] Allergy Anaphylactic Verified 06/19/19 23:59 Shock proventil liquid Allergy Seizure Uncoded 06/19/19 23:59 ptu Allergy Hives Uncoded 06/19/19 23:59 tapazole Allergy Hives Uncoded 06/19/19 23:59 Home Meds: Home Meds Folic Acid 0.4 mg PO DAILY 04/23/19 [History] Pnv No.95/Ferrous Fum/Folic AC [ Caplet] 1 tab PO DAILY 04/23/19 [ History] Levothyroxine 150 mcg PO DAILY 06/19/19 [History] Past Medical History - Past Health History Medical/Surgical History: Denies Medical/Surgical History Cardiovascular 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: Other (See Below) Other Cardiovascular History: "cyst in my heart" Genitourinary 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: None 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: , 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 MORTGAGE CLOSING CLERK History: Termination of 1 Neurological 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: Migraines, Other (See Below) Other Neuro History: Tourettes Psychiatric 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: Anxiety, Depression Other Psychiatric History: Tourettes Endocrine/Metabolic 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: Hypothyroidism - Infectious Disease History Infectious Disease 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: None - Past Surgical History Female Surgical 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: Section Endocrine Surgical 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: None Neurological Surgical 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: None Social & Family History - Family History Family Medical History: Noncontributory - Tobacco Use Smoking Status *Q: Current Every Day Smoker Years of Tobacco use: 6 Packs/Tins Daily: 1 - Caffeine Use Caffeine Use: Reports: Coffee - Recreational Drug Use Recreational Drug Use: No ED ROS GENERAL - Review of Systems Review Of Systems: See Below ED EXAM, GENERAL - Physical Exam Exam: See Below Course - Vital Signs Last Recorded V/S: Last Vital Signs Temp 97.1 F 06/19/19 23:50 Pulse 65 06/19/19 23:50 Resp 18 06/19/19 23:50 BP 154/89 H 06/19/19 23:50 Pulse Ox 95 06/19/19 23:50 - Orders/Labs/Meds Meds: Medications Discontinued Medications Generic Name Dose Route Start Last Admin Trade Name Freq PRN Reason Stop Dose Admin Hydrocodone Bitart/Acetaminophen 1 tab 06/20/19 00:55 Elsie 325-5 Mg PO 06/20/19 00:56 ONETIME ONE Ondansetron HCl 4 mg 06/20/19 00:10 06/20/19 00:21 Zofran Odt PO 06/20/19 00:11 4 mg ONETIME ONE Administration Departure - Departure Time of Disposition: 00:57 Disposition: Home, Self-Care 01 Condition: Good Clinical Impression: Threatened , Abdominal cramping - Discharge Information Referrals: PCP,None [Primary Care Provider] - Forms: ED Department Discharge Additional Instructions: The following information is given to patients seen in the emergency department who are being discharged to home. This information is to outline your options for follow-up care. We provide all patients seen in our emergency department with a follow-up referral. The need for follow-up, as well as the timing and circumstances, are variable depending upon the specifics of your emergency department visit. If you don't have a primary care physician on staff, we will provide you with a referral. We always advise you to contact your personal physician following an emergency department visit to inform them of the circumstance of the visit and for follow-up with them and/or the need for any referrals to a consulting specialist. The emergency department will also refer you to a specialist when appropriate. This referral assures that you have the opportunity for follow-up care with a specialist. All of these measure are taken in an effort to provide you with optimal care, which includes your follow-up. Under all circumstances we always encourage you to contact your private physician who remains a resource for coordinating your care. When calling for follow-up care, please make the office aware that this follow-up is from your recent emergency room visit. If for any reason you are refused follow-up, please contact the [facility] emergency department at and asked to speak to the emergency department charge nurse.
[2019-06-20] MEDS ORDERED: Acetaminophen/HYDROcodone 325-5 MG Tab PO ONE (00:55)
== END 2019-06-20 01:29 | disposition home or self-care (01) ==
LOC: MW.ED 23:46
DX: O20.0 Threatened abortion (principal); O99.281 Endocrine, nutritional and metabolic diseases complicating pregnancy, first trimester; E03.9 Hypothyroidism, unspecified; O99.331 Smoking (tobacco) complicating pregnancy, first trimester; F17.210 Nicotine dependence, cigarettes, uncomplicated; Z3A.13 13 weeks gestation of pregnancy; Z88.1 Allergy status to other antibiotic agents; Z88.8 Allergy status to other drugs, medicaments and biological substances; Z91.048 Other nonmedicinal substance allergy status; Z79.899 Other long term (current) drug therapy
CPT/HCPCS: 99283; A9270

== ENCOUNTER 2019-08-01 13:06 | Emergency (ER) | payer MEDICAID | END 2019-08-01 13:18 | disposition left against medical advice (07) | LOC: MW.ED 13:06 | DX: Z53.21 Procedure and treatment not carried out due to patient leaving prior to being seen by health care provider (principal) ==

== ENCOUNTER 2019-09-24 12:01 | Emergency (ER) | payer MEDICAID ==
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
[2019-09-24 12:48] LABS: BLOOD UREA NITROGEN,BUN 8 mg/dL (7.0-18.0); CARBON DIOXIDE,CO2 21.1 mmol/L (21.0-32.0); CHLORIDE,CL 104 mmol/L (98-107); GLUCOSE RANDOM 122 mg/dL (74-106); POTASSIUM,K 3.4 mmol/L (3.5-5.1); SODIUM,NA 139 mmol/L (136-145)
--- NOTE | 2019-09-24 14:17 | CR ---
Left ankle: 3 views left ankle were obtained. Comparison: Previous left ankle study of 03/02/19. Plantar spur is again noted. Ankle mortise is symmetric. No fracture, dislocation or other bony abnormality is seen. Impression: 1. Stable plantar spur from prior exam. 2. No additional abnormality is appreciated on left ankle exam. Diagnostic code #2 Study was dictated in [place] Standard Time
[2019-09-24] MEDS ORDERED: Ondansetron 4 MG Tab.DIS PO ONE (15:24)
[2019-09-24] MEDS ORDERED: diphenhydrAMINE 50 MG Cap PO ONE (15:33)
[2019-09-24] MEDS ORDERED: LORazepam 1 MG Tab PO ONE (15:34)
== END 2019-09-24 17:00 | disposition home or self-care (01) ==
LOC: MW.ED 12:01
DX: O9A.212 Injury, poisoning and certain other consequences of external causes complicating pregnancy, second trimester (principal); S93.402A Sprain of unspecified ligament of left ankle, initial encounter; O99.282 Endocrine, nutritional and metabolic diseases complicating pregnancy, second trimester; E03.9 Hypothyroidism, unspecified; Z79.899 Other long term (current) drug therapy; Z3A.27 27 weeks gestation of pregnancy; V47.5XXA Car driver injured in collision with fixed or stationary object in traffic accident, initial encounter
CPT/HCPCS: 29515; 36415; 73610; 80053; 81001; 85025; 87086; 99283; A9270

== ENCOUNTER 2019-09-26 17:23 | Emergency (ER) | payer MEDICAID ==
--- NOTE | 2019-09-26 19:52 | EDM.PDOC ---
ED HPI GENERAL MEDICAL PROBLEM - General Chief Complaint: Respiratory Problem Stated Complaint: FLU SYMPTOMS Time Seen by Provider: 09/26/19 19:37 - History of Present Illness INITIAL COMMENTS - FREE TEXT/NARRATIVE: HISTORY AND PHYSICAL: History of present illness: The patient is a 29-year-old female who is here with her 6 children all who have upper respiratory symptoms of dry cough and runny nose for 4 days. This patient is a smoker but has no pulmonary history and she is 28 weeks . She has no related complaints such as abdominal pain vaginal bleeding vaginal discharge and the baby has been moving. He is eating and drinking normally and does not have a sore throat. She did get her influenza shot Review of systems: As per history of present illness and below otherwise all systems reviewed and negative. Past medical history: As per history of present illness and as reviewed below otherwise noncontributory. Surgical history: As per history of present illness and as reviewed below otherwise noncontributory. Social history: No reported history of drug or alcohol abuse. Family history: As per history of present illness and as reviewed below otherwise noncontributory. Physical exam: No: Well-developed well-nourished female who is nontoxic and vital signs are noted by me. She speaking clearly without breathlessness or hoarse voice HEENT: Atraumatic, normocephalic, pupils reactive, negative for conjunctival pallor or scleral icterus, mucous membranes moist, throat clear, neck supple, nontender, trachea midline. Lungs: Clear to auscultation, breath sounds equal bilaterally, chest nontender. Heart: S1S2, regular rhythm no overt murmurs Abdomen: Soft, nondistended, nontender. Negative for masses or hepatosplenomegaly. Negative for costovertebral tenderness. Pelvis: Deferred Genitourinary: Deferred. Rectal: Deferred. Extremities: Atraumatic, negative for cords or calf pain. Neurovascular unremarkable. Neuro: Awake, alert, oriented. Cranial nerves II through XII unremarkable. Cerebellum unremarkable. Motor and sensory unremarkable throughout. Exam nonfocal. Diagnostics: influenza rapid strep heart tones FHT = 130's per RN Therapeutics: [] Impression: URI, early third trimester stable Definitive disposition and diagnosis as appropriate pending reevaluation and review of above. - Related Data Allergies Allergy/AdvReac Type Severity Reaction Status Date / Time metronidazole [From Flagyl] Allergy Anaphylactic Verified 09/26/19 19:02 Shock proventil liquid Allergy Seizure Uncoded 09/26/19 19:02 ptu Allergy Hives Uncoded 09/26/19 19:02 tapazole Allergy Hives Uncoded 09/26/19 19:02 Home Meds: Home Meds Folic Acid 0.4 mg PO DAILY 04/23/19 [History] Pnv No.95/Ferrous Fum/Folic AC [ Caplet] 1 tab PO DAILY 04/23/19 [ History] Levothyroxine 150 mcg PO DAILY 06/19/19 [History] Past Medical History - Past Health History Medical/Surgical History: Denies Medical/Surgical History Cardiovascular 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: Other (See Below) Other Cardiovascular History: "cyst in my heart" Genitourinary 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: None 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: , 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 DEPUTY DIRECTOR OF FINANCE History: Termination of 1 Neurological 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: Migraines, Other (See Below) Other Neuro History: Tourettes Psychiatric 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: Anxiety, Depression Other Psychiatric History: Tourettes Endocrine/Metabolic 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: Hypothyroidism - Infectious Disease History Infectious Disease 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: None - Past Surgical History Female Surgical 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: Section Endocrine Surgical 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: None Neurological Surgical 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: None Social & Family History - Family History Family Medical History: Noncontributory - Tobacco Use Smoking Status *Q: Never Smoker Second Hand Smoke Exposure: No - Caffeine Use Caffeine Use: Reports: Coffee - Recreational Drug Use Recreational Drug Use: No ED ROS GENERAL - Review of Systems Review Of Systems: Comprehensive ROS is negative, except as noted in HPI. ED EXAM, GENERAL - Physical Exam Exam: See Below (see dictation) Course - Vital Signs Last Recorded V/S: Last Vital Signs Temp 36.4 C 09/26/19 19:02 Pulse 105 H 09/26/19 19:02 Resp 16 09/26/19 19:02 BP 119/71 09/26/19 19:02 Pulse Ox 98 09/26/19 19:02 - Orders/Labs/Meds Orders: Active Orders 24 hr Category Date Time Status CULTURE STREP A CONFIRMATION [RM] Stat Lab 09/26/19 18:41 Results STREP SCRN A RAPID W CULT CONF [RM] Stat Lab 09/26/19 18:41 Results Departure - Departure Time of Disposition: 20:15 Disposition: Home, Self-Care 01 Condition: Good Clinical Impression: Third trimester URI (upper respiratory infection) Qualifiers: URI type: unspecified URI Qualified Code(s): J06.9 - Acute upper respiratory infection, unspecified - Discharge Information Referrals: Tony Hutson MD [Primary Care Provider] - Forms: ED Department Discharge Additional Instructions: The following information is given to patients seen in the emergency department who are being discharged to home. This information is to outline your options for follow-up care. We provide all patients seen in our emergency department with a follow-up referral. The need for follow-up, as well as the timing and circumstances, are variable depending upon the specifics of your emergency department visit. If you don't have a primary care physician on staff, we will provide you with a referral. We always advise you to contact your personal physician following an emergency department visit to inform them of the circumstance of the visit and for follow-up with them and/or the need for any referrals to a consulting specialist. The emergency department will also refer you to a specialist when appropriate. This referral assures that you have the opportunity for followup care with a specialist. All of these measure are taken in an effort to provide you with optimal care, which includes your followup. Under all circumstances we always encourage you to contact your private physician who remains a resource for coordinating your care. When calling for followup care, please make the office aware that this follow-up is from your recent emergency room visit. If for any reason you are refused follow-up, please contact the [facility] emergency department at and ask to speak to the emergency department charge nurse. [facility] [address] [address] Please follow-up with your provider in the clinic for your and you may discuss these other symptoms with her as well. Push hydration and use over- the-counter Tylenol as you choose and any other preps. Return to ER as needed and as discussed. Sepsis Event Note - Evaluation Sepsis Screening Result: No Definite Risk - Focused Exam Vital Signs: Vital Signs Temp Pulse Resp BP Pulse Ox 09/26/19 19:02 36.4 C 105 H 16 119/71 98 Date Exam was Performed: 09/26/19 Time Exam was Performed: 20:14
== END 2019-09-26 20:30 | disposition home or self-care (01) ==
LOC: MW.ED 17:23
DX: O99.513 Diseases of the respiratory system complicating pregnancy, third trimester (principal); J06.9 Acute upper respiratory infection, unspecified; O99.283 Endocrine, nutritional and metabolic diseases complicating pregnancy, third trimester; E03.9 Hypothyroidism, unspecified; Z88.8 Allergy status to other drugs, medicaments and biological substances; Z79.899 Other long term (current) drug therapy; Z3A.28 28 weeks gestation of pregnancy
CPT/HCPCS: 87081; 87804; 87880-QW; 99282; 99284-25

== ENCOUNTER 2019-09-26 23:28 | Emergency (ER) | payer MEDICAID ==
[2019-09-27] MEDS ORDERED: Sodium Chloride 0.9% 1,000 ML IV ONE (00:08)
[2019-09-27] MEDS ORDERED: Sodium Chloride 0.9% 2.5 ML Syringe FLUSH PRN (00:08)
[2019-09-27] MEDS ORDERED: Sodium Chloride 0.9% 10 ML Syringe FLUSH PRN (00:08)
[2019-09-27] MEDS ORDERED: Ondansetron 4 MG/2 ML SDV IVPUSH ONE (00:09)
--- NOTE | 2019-09-27 00:15 | EDM.PDOC ---
ED HPI GENERAL MEDICAL PROBLEM - General Chief Complaint: Neuro Symptoms/Deficits Stated Complaint: DIZZY Time Seen by Provider: 09/26/19 23:56 - History of Present Illness INITIAL COMMENTS - FREE TEXT/NARRATIVE: HISTORY AND PHYSICAL: History of present illness: The patient is a 29-year-old female who was seen here earlier by me with 6 other family members with flulike symptoms, dry cough and runny nose for the last 4 days. The patient is 28 weeks and follows with our nurse producer assistant and had no abdominal complaints and had good heart tones. She denied any vomiting or diarrhea to me on the prior visit but is now saying that she has had some intermittent nausea and occasional vomiting over the last 2 days. She says she has been drinking fluids but she is not sure if she is behind. She is had no urinary complaints and the baby is moving and she has no vaginal bleeding or abdominal pain. Earlier she had influenza and strep testing which were negative. She came back here this evening for a second visit because as she was going home and going up the stairs she felt lightheaded but she did not pass out or blackout. She had no chest pain or shortness of breath no headache neck pain or neurosensory changes with this event. She still is having good movement and has no abdominal pain or vaginal bleeding. She said that she wanted to just go to bed but her boyfriend insisted she come back and get rechecked. She said that she had some ringing in her ears which is now improved Review of systems: As per history of present illness and below otherwise all systems reviewed and negative. Past medical history: As per history of present illness and as reviewed below otherwise noncontributory. Surgical history: As per history of present illness and as reviewed below otherwise noncontributory. Social history: No reported history of drug or alcohol abuse. Family history: As per history of present illness and as reviewed below otherwise noncontributory. Physical exam: HEENT: Atraumatic, normocephalic, pupils reactive, negative for conjunctival pallor or scleral icterus, mucous membranes moist, throat clear, neck supple, nontender, trachea midline. TMs are normal bilaterally Lungs: Clear to auscultation, breath sounds equal bilaterally, chest nontender. Heart: S1S2, regular, negative for clicks, rubs, or JVD. Abdomen: Soft, nondistended, nontender. Gravid uterus but the patient is obese so exam is challenging. Negative for masses or hepatosplenomegaly. Negative for costovertebral tenderness. Pelvis: Stable nontender. Genitourinary: Deferred. Rectal: Deferred. Extremities: Atraumatic, negative for cords or calf pain. Neurovascular unremarkable. Neuro: Awake, alert, oriented. Cranial nerves II through XII unremarkable. Cerebellum unremarkable. Motor and sensory unremarkable throughout. Exam nonfocal. Diagnostics: CMP UA with reflex orthostatic vitals urine culture Therapeutics: IV fluids Orthostatic vitals the patient did not have a change in her blood pressure but her heart rate did go up from 94-1 15. We will proceed with IV fluids Patient is feeling better and is resting comfortably Impression: LightHeadedness, third trimester early UTI Definitive disposition and diagnosis as appropriate pending reevaluation and review of above. - Related Data Allergies Allergy/AdvReac Type Severity Reaction Status Date / Time metronidazole [From Flagyl] Allergy Anaphylactic Verified 09/27/19 00:06 Shock proventil liquid Allergy Seizure Uncoded 09/27/19 00:06 ptu Allergy Hives Uncoded 09/27/19 00:06 tapazole Allergy Hives Uncoded 09/27/19 00:06 Home Meds: Home Meds Folic Acid 0.4 mg PO DAILY 04/23/19 [History] Pnv No.95/Ferrous Fum/Folic AC [ Caplet] 1 tab PO DAILY 04/23/19 [ History] Levothyroxine 150 mcg PO DAILY 06/19/19 [History] Past Medical History - Past Health History Medical/Surgical History: Denies Medical/Surgical History Cardiovascular 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: Other (See Below) Other Cardiovascular History: "cyst in my heart" Genitourinary 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: None 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: , 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 BANDER AND CELLOPHANER HELPER MACHINE History: Termination of 1 Neurological 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: Migraines, Other (See Below) Other Neuro History: Tourettes Psychiatric 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: Anxiety, Depression Other Psychiatric History: Tourettes Endocrine/Metabolic 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: Hypothyroidism - Infectious Disease History Infectious Disease 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: Chicken Pox - Past Surgical History Cardiovascular Surgical 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: None Female Surgical 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: Section Endocrine Surgical 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: None Neurological Surgical 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: None Social & Family History - Family History Family Medical History: Noncontributory - Tobacco Use Smoking Status *Q: Current Every Day Smoker Years of Tobacco use: 17 Packs/Tins Daily: 0.2 - Caffeine Use Caffeine Use: Reports: Soda - Recreational Drug Use Recreational Drug Use: No ED ROS GENERAL - Review of Systems Review Of Systems: Comprehensive ROS is negative, except as noted in HPI. ED EXAM, GENERAL - Physical Exam Exam: See Below (See dictation) Course - Vital Signs Last Recorded V/S: Last Vital Signs Temp 36.4 C 09/26/19 23:40 Pulse 87 09/26/19 23:40 Resp 21 H 09/26/19 23:40 BP 116/82 09/26/19 23:40 Pulse Ox 97 09/26/19 23:40 Orthostatic Blood Pressure [ 125/77 Standing] Orthostatic Blood Pressure [ 113/74 Sitting] Orthostatic Blood Pressure [ 111/68 Supine] - Orders/Labs/Meds Orders: Active Orders 24 hr Category Date Time Status EKG Documentation Completion [RC] STAT Care 09/27/19 00:08 Active Orthostatic Vital Signs [RC] ASDIRECTED Care 09/27/19 00:10 Active CULTURE URINE [RM] Stat Lab 09/26/19 23:45 Received Sodium Chloride 0.9% [Saline Flush] Med 09/27/19 00:08 Active 10 ml FLUSH ASDIRECTED PRN Sodium Chloride 0.9% [Saline Flush] Med 09/27/19 00:08 Active 2.5 ml FLUSH ASDIRECTED PRN Saline Lock Insert [OM.PC] Stat Oth 09/27/19 00:08 Ordered Medication Orders Sodium Chloride (Saline Flush) 10 ml FLUSH ASDIRECTED PRN PRN Reason: Keep Vein Open Last Admin: 09/27/19 00:40 Dose: 10 ml Sodium Chloride (Saline Flush) 2.5 ml FLUSH ASDIRECTED PRN PRN Reason: Keep Vein Open Last Admin: 09/27/19 00:40 Dose: 2.5 ml Labs: Laboratory Tests 09/26/19 09/27/19 09/27/19 Range/Units 23:45 00:30 00:30 WBC 12.41 H (4.0-11.0) K/uL RBC 3.63 L (4.30-5.90) M/uL Hgb 10.7 L (12.0-16.0) g/dL Hct 31.4 L (36.0-46.0) % MCV 86.5 (80.0-98.0) fL MCH 29.5 (27.0-32.0) pg MCHC 34.1 (31.0-37.0) g/dL RDW Std Deviation 45.1 (28.0-62.0) fl RDW Coeff of [place] 15 (11.0-15.0) % Plt Count 225 (150-400) K/uL MPV 9.90 (7.40-12.00) fL Neut % (Auto) 82.1 H (48.0-80.0) % Lymph % (Auto) 12.8 L (16.0-40.0) % [place] % (Auto) 4.0 (0.0-15.0) % Eos % (Auto) 0.9 (0.0-7.0) % Baso % (Auto) 0.2 (0.0-1.5) % Neut # (Auto) 10.2 H (1.4-5.7) K/uL Lymph # (Auto) 1.6 (0.6-2.4) K/uL [place] # (Auto) 0.5 (0.0-0.8) K/uL Eos # (Auto) 0.1 (0.0-0.7) K/uL Baso # (Auto) 0.0 (0.0-0.1) K/uL Sodium 139 (136-145) mmol/L Potassium 3.5 (3.5-5.1) mmol/L Chloride 104 (98-107) mmol/L Carbon Dioxide 24.5 (21.0-32.0) mmol/L BUN 11 (7.0-18.0) mg/dL Creatinine 0.6 (0.6-1.0) mg/dL Est Cr Clr Drug Dosing 125.61 mL/min Estimated GFR (MDRD) > 60.0 ml/min Glucose 107 H (74-106) mg/dL Calcium 8.8 (8.5-10.1) mg/dL Total Bilirubin 0.2 (0.2-1.0) mg/dL AST 15 (15-37) IU/L ALT 19 (14-63) IU/L Alkaline Phosphatase 104 (46-116) U/L Total Protein 7.2 (6.4-8.2) g/dL Albumin 2.4 L (3.4-5.0) g/dL Globulin 4.8 H (2.6-4.0) g/dL Albumin/Globulin Ratio 0.5 L (0.9-1.6) Urine Color YELLOW Urine Appearance CLEAR Urine pH 6.0 (5.0-8.0) Ur Specific [place] >= 1.030 (1.001-1.035) Urine Protein NEGATIVE (NEGATIVE) mg/dL Urine Glucose (UA) NEGATIVE (NEGATIVE) mg/dL Urine Ketones TRACE H (NEGATIVE) mg/dL Urine Occult Blood NEGATIVE (NEGATIVE) Urine Nitrite NEGATIVE (NEGATIVE) Urine Bilirubin NEGATIVE (NEGATIVE) Urine Urobilinogen 1.0 (<2.0) EU/dL Ur Leukocyte Esterase SMALL H (NEGATIVE) Urine RBC 0-1 (0-2/HPF) Urine WBC 1-2 (0-5/HPF) Ur Epithelial Cells MODERATE (NONE-FEW) Urine Bacteria FEW (NEGATIVE) Meds: Medications Generic Name Dose Route Start Last Admin Trade Name Freq PRN Reason Stop Dose Admin Sodium Chloride 10 ml 09/27/19 00:08 09/27/19 00:40 Saline Flush FLUSH 10 ml ASDIRECTED PRN Administration Keep Vein Open Sodium Chloride 2.5 ml 09/27/19 00:08 09/27/19 00:40 Saline Flush FLUSH 2.5 ml ASDIRECTED PRN Administration Keep Vein Open Discontinued Medications Generic Name Dose Route Start Last Admin Trade Name Freq PRN Reason Stop Dose Admin Sodium Chloride 1,000 mls @ 999 mls/hr 09/27/19 00:08 09/27/19 00:30 Normal Saline IV 09/27/19 01:08 999 mls/hr STAT ONE Administration Ondansetron HCl 4 mg 09/27/19 00:09 09/27/19 00:30 Zofran IVPUSH 09/27/19 00:10 4 mg ONETIME ONE Administration Departure - Departure Time of Disposition: 01:15 Disposition: Home, Self-Care 01 Condition: Good Clinical Impression: Light headedness, Third trimester URI (upper respiratory infection) Qualifiers: URI type: unspecified URI Qualified Code(s): J06.9 - Acute upper respiratory infection, unspecified UTI (urinary tract infection) Qualifiers: Urinary tract infection type: site unspecified Hematuria presence: without hematuria Qualified Code(s): N39.0 - Urinary tract infection, site not specified - Discharge Information Referrals: Tony Hutson MD [Primary Care Provider] - Forms: ED Department Discharge Additional Instructions: The following information is given to patients seen in the emergency department who are being discharged to home. This information is to outline your options for follow-up care. We provide all patients seen in our emergency department with a follow-up referral. The need for follow-up, as well as the timing and circumstances, are variable depending upon the specifics of your emergency department visit. If you don't have a primary care physician on staff, we will provide you with a referral. We always advise you to contact your personal physician following an emergency department visit to inform them of the circumstance of the visit and for follow-up with them and/or the need for any referrals to a consulting specialist. The emergency department will also refer you to a specialist when appropriate. This referral assures that you have the opportunity for followup care with a specialist. All of these measure are taken in an effort to provide you with optimal care, which includes your followup. Under all circumstances we always encourage you to contact your private physician who remains a resource for coordinating your care. When calling for followup care, please make the office aware that this follow-up is from your recent emergency room visit. If for any reason you are refused follow-up, please contact the [facility] emergency department at and ask to speak to the emergency department charge nurse. [facility] Primary care-[facility]'s Health [address] [address] Push Hydration and call and schedule follow-up telling your provider about tonight's 2 visits. Return to ER as needed and as discussed. Use over-the- counter symptomatic meds as you choose. Please take antibiotics you have been given from [facility], Keflex, for your early UTI. You will movements slowly and carefully so as to avoid lightheadedness. Sepsis Event Note - Evaluation Sepsis Screening Result: No Definite Risk - Focused Exam Vital Signs: Vital Signs Temp Pulse Resp BP Pulse Ox 09/26/19 23:40 36.4 C 87 21 H 116/82 97 Date Exam was Performed: 09/27/19 Time Exam was Performed: 01:15 - My Orders Last 24 Hours: My Active Orders 09/26/19 23:45 CULTURE URINE [RM] Stat 09/27/19 00:08 EKG Documentation Completion [RC] STAT Sodium Chloride 0.9% [Saline Flush] 10 ml FLUSH ASDIRECTED PRN Sodium Chloride 0.9% [Saline Flush] 2.5 ml FLUSH ASDIRECTED PRN Saline Lock Insert [OM.PC] Stat 09/27/19 00:10 Orthostatic Vital Signs [RC] ASDIRECTED - Assessment/Plan Last 24 Hours: My Active Orders 09/26/19 23:45 CULTURE URINE [RM] Stat 09/27/19 00:08 EKG Documentation Completion [RC] STAT Sodium Chloride 0.9% [Saline Flush] 10 ml FLUSH ASDIRECTED PRN Sodium Chloride 0.9% [Saline Flush] 2.5 ml FLUSH ASDIRECTED PRN Saline Lock Insert [OM.PC] Stat 09/27/19 00:10 Orthostatic Vital Signs [RC] ASDIRECTED
[2019-09-27 01:09] LABS: BLOOD UREA NITROGEN,BUN 11 mg/dL (7.0-18.0); CARBON DIOXIDE,CO2 24.5 mmol/L (21.0-32.0); CHLORIDE,CL 104 mmol/L (98-107); GLUCOSE RANDOM 107 mg/dL (74-106); POTASSIUM,K 3.5 mmol/L (3.5-5.1); SODIUM,NA 139 mmol/L (136-145)
== END 2019-09-27 01:40 | disposition home or self-care (01) ==
LOC: MW.ED 23:28
DX: O99.513 Diseases of the respiratory system complicating pregnancy, third trimester (principal); J06.9 Acute upper respiratory infection, unspecified; O23.43 Unspecified infection of urinary tract in pregnancy, third trimester; O99.89 Other specified diseases and conditions complicating pregnancy, childbirth and the puerperium; R42 Dizziness and giddiness; O99.283 Endocrine, nutritional and metabolic diseases complicating pregnancy, third trimester; E03.9 Hypothyroidism, unspecified; O99.333 Smoking (tobacco) complicating pregnancy, third trimester; F17.210 Nicotine dependence, cigarettes, uncomplicated; Z88.8 Allergy status to other drugs, medicaments and biological substances; Z79.899 Other long term (current) drug therapy; Z91.048 Other nonmedicinal substance allergy status; Z3A.28 28 weeks gestation of pregnancy
CPT/HCPCS: 36415; 80053; 81001; 85025; 87086; 93005; 96361; 96374; 99284; J2405; J7030; 99283

== ENCOUNTER 2019-11-01 08:35 | Emergency (ER) | payer MEDICAID ==
[2019-11-01] MEDS ORDERED: Acetaminophen 500 MG Tab PO ONE (09:08)
--- NOTE | 2019-11-01 09:49 | EDM.PDOC ---
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 No vaginal bleeding, pelvic pain, or cramping. Patient reports that she does not have any acetaminophen home and present for pain control. Patient denies a history of recent (additional other than catching her child) trauma, fevers, chills, unexpected weight loss, decreased perineal sensation when toileting, difficulty urinating or incontinence, morning stiffness, IV drug use, alcoholism, recent invasive medical procedures, presyncope, abdominal pain, or dysuria. Anticoagulation: denies anticoagulation and Plavix, denies stents. M/S/F/SocHx notable for: please see HPI; remainder reviewed with patient and in chart. ROS: Negative constitutional, eye, cardiovascular, pulmonary, GI, , MSK, skin , neurologic, psychiatric, endocrine unless noted in the HPI. Exam HR 124, RR 18, BP 129/67, T 36.8C, SaO2 98% on room air. Gen: Pleasant, non-toxic appearing, resting comfortably. HEENT: NC, AT, PEERL, EOMI. Resp: Clear to auscultation bilaterally. Card: RRR GI: ND, non-tender to palpation, no palpable midline masses, no palpable midline pulsatility. : No CVA tenderness to percussion bilaterally. MSK: No visible deformities, strength and tone WNL. No lower thoracic or lumbar spinal TTP, step offs or deformities. No paraspinal TTP. Skin: Normal color with no visible lesions. Neuro: alert and oriented 3, no facial asymmetry, vision and hearing WNL. Straight leg raise test - negative right, negative left. BLE distal sensation intact, 5/5 dorsiflexion / plantarflexion bilaterally. Gait: nonantalgic, normal, narrow based gait, able to walk unassisted and stand on heels and toes with full apparent strength. Psych: Mood and affect appropriate. Labs / Imaging (pertinent): post void residual 24 ML. UA for few bacteria, moderate epithelial cells, moderate leukocyte esterase, 8- 12 WBC, negative nitrate. MDM Previous chart, nursing note, and vitals reviewed. A: 29-year-old morbidly obese female ~33 weeks gestation presents for evaluation of recurrent low back pain that occurred yesterday when her child jumped up and she caught the child. DDx: muscle strain, muscle spasm, sciatica, lumbar radiculopathy, cauda equina syndrome, spinal cord abscess, vertebral osteomyelitis, vertebral diskitis, fracture, seronegative spondyloarthropathy, abdominal aortic aneurysm, abdominal aortic dissection, spontaneous hematoma, malignant spinal cord compression. Evaluation: * Cauda equina - consider unlikely given normal perineal sensation, lack of incontinence or urinary retention. * Infection - abscess, vertebral osteomyelitis, and diskitis are unlikely as the patient is immunocompetent and is with an absence of infectious signs and risk factors on ROS, and a lack of point tenderness. * Fracture - doubt given the absence of spinal TTP and lack of prior trauma * Seronegative spondyloarthropathy - unlikely, no further evaluation currently indicated given the absence of morning stiffness and negative RA, psoriatic arthritis, and autoimmune disease history. * AAA or Dissection - given the lack of a palpable pulsatile abdominal mass, abdominal pain, presyncope, an abdominal aortic aneurysm as well as dissection is considered unlikely and further investigation is not currently indicated. * Spinal Metastases - given the unremarkable ROS, absence of point spinal tenderness on exam and the lack of discernible neurological deficit, no further testing regarding this etiology is currently indicated. * complications - benign abdominal/pelvic region exam, no features on history or exam to warrant further emergency department intervention, patient transferred to L & D for further related evaluations appropriate. * Urinary - no dysuria or urinary frequency, UA concerning for contamination. Recommend repeat urinalysis at L&D. * Consider musculoskeletal etiology the patients symptoms given the above history and exam. 1 g acetaminophen given for pain control the emergency department. Counseled patient regarding natural course of back pain, given return to care instructions, and recommendation for primary care physician follow up. Disposition: patient transferred to L & D for further evaluation as appropriate. Impression: Back Pain. back Pain Score (Numeric/FACES): 9 - Related Data Allergies Allergy/AdvReac Type Severity Reaction Status Date / Time metronidazole [From Flagyl] Allergy Anaphylactic Verified 11/01/19 08:59 Shock proventil liquid Allergy Seizure Uncoded 09/27/19 00:06 ptu Allergy Hives Uncoded 09/27/19 00:06 tapazole Allergy Hives Uncoded 09/27/19 00:06 Home Meds: Home Meds Folic Acid 0.4 mg PO DAILY 04/23/19 [History] Pnv No.95/Ferrous Fum/Folic AC [ Caplet] 1 tab PO DAILY 04/23/19 [ History] Levothyroxine 150 mcg PO DAILY 06/19/19 [History] Past Medical History - Past Health History Medical/Surgical History: Denies Medical/Surgical History HEENT 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: None Cardiovascular 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: Other (See Below) Other Cardiovascular History: "cyst in my heart" Respiratory 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: None Gastrointestinal 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: None Genitourinary 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: None 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: , 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 FICTION AND NONFICTION PROSE WRITER History: Termination of 1 Musculoskeletal 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: None Neurological 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: Migraines, Other (See Below) Other Neuro History: Tourettes Psychiatric 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: Anxiety, Depression Other Psychiatric History: Tourettes Endocrine/Metabolic 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: Hypothyroidism Hematologic 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: None Immunologic 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: None Oncologic (Cancer) 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: None Dermatologic 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: None - Infectious Disease History Infectious Disease 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: None - Past Surgical History Head Surgeries/Procedures: Reports: None HEENT Surgical 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: None Cardiovascular Surgical 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: None Respiratory Surgical 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: None GI Surgical 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: None Female Surgical 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: Section Endocrine Surgical 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: None Neurological Surgical 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: None Musculoskeletal Surgical 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: None Oncologic Surgical 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: None Dermatological Surgical 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: None Social & Family History - Family History Family Medical History: Noncontributory - Tobacco Use Smoking Status *Q: Current Every Day Smoker Years of Tobacco use: 17 Packs/Tins Daily: 0.1 - Caffeine Use Caffeine Use: Reports: Soda - Recreational Drug Use Recreational Drug Use: No ED ROS GENERAL - Review of Systems Review Of Systems: See Below ED EXAM, GENERAL - Physical Exam Exam: See Below Course - Vital Signs Last Recorded V/S: Last Vital Signs Temp 36.8 C 11/01/19 08:55 Pulse 126 H 11/01/19 08:55 Resp 18 11/01/19 08:55 BP 129/67 11/01/19 08:55 Pulse Ox 98 03/03/20 08:55 - Orders/Labs/Meds Orders: Active Orders 24 hr Category Date Time Status Communication Order [RC] STAT Care 11/01/19 09:08 Active Labs: Laboratory Tests 11/01/19 Range/Units 09:05 Urine Color YELLOW Urine Appearance SLT CLOUDY Urine pH 6.5 (5.0-8.0) Ur Specific [place] >= 1.030 (1.001-1.035) Urine Protein NEGATIVE (NEGATIVE) mg/dL Urine Glucose (UA) NEGATIVE (NEGATIVE) mg/dL Urine Ketones NEGATIVE (NEGATIVE) mg/dL Urine Occult Blood NEGATIVE (NEGATIVE) Urine Nitrite NEGATIVE (NEGATIVE) Urine Bilirubin NEGATIVE (NEGATIVE) Urine Urobilinogen 1.0 (<2.0) EU/dL Ur Leukocyte Esterase MODERATE H (NEGATIVE) Urine RBC 0-2 (0-2/HPF) Urine WBC 8-12 (0-5/HPF) Ur Epithelial Cells MODERATE (NONE-FEW) Urine Bacteria FEW (NEGATIVE) Meds: Medications Discontinued Medications Generic Name Dose Route Start Last Admin Trade Name Michael PRN Reason Stop Dose Admin Acetaminophen 1,000 mg 11/01/19 09:08 11/01/19 09:44 Tylenol Extra Strength PO 11/01/19 09:09 1,000 mg ONETIME ONE Administration Departure - Departure Time of Disposition: 09:48 Disposition: DC/Tfer to Other 70 Clinical Impression: Back pain - Discharge Information Referrals: Cindy Arita CNM [Primary Care Provider] - Sepsis Event Note - Evaluation Sepsis Screening Result: No Definite Risk - Focused Exam Vital Signs: Vital Signs Temp Pulse Resp BP Pulse Ox 11/01/19 08:55 36.8 C 126 H 18 129/67 98 Date Exam was Performed: 11/01/19 Time Exam was Performed: 09:48 - My Orders Last 24 Hours: My Active Orders 11/01/19 09:08 Communication Order [RC] STAT - Assessment/Plan Last 24 Hours: My Active Orders 11/01/19 09:08 Communication Order [RC] STAT
== END 2019-11-01 09:59 | disposition other institution (70) ==
LOC: MW.ED 08:35 → MW.OB 09:59
DX: M54.5 Low back pain (principal); E03.9 Hypothyroidism, unspecified; F17.210 Nicotine dependence, cigarettes, uncomplicated; Z88.8 Allergy status to other drugs, medicaments and biological substances; Z79.899 Other long term (current) drug therapy
CPT/HCPCS: 51798; 81001; 99284; A9270; 99283

== ENCOUNTER 2019-11-27 03:04 | Observation (INO) | payer MEDICAID ==
[2019-11-27] MEDS ORDERED: Ondansetron 4 MG/2 ML SDV IVPUSH ONE ×2 (03:51→07:46)
[2019-11-27] MEDS ORDERED: Atropine/Diphenoxylate 0.025-2.5 MG Tab PO ONE (03:52)
[2019-11-27] MEDS: Lactated Ringers 1,000 ML IV ONE ×2 (04:15→05:20)
[2019-11-27] MEDS ORDERED: Calcium Carbonate 500 MG Tab.Chew PO ONE (05:45)
[2019-11-27] MEDS ORDERED: Acetaminophen 500 MG Tab PO ONE (05:45)
[2019-11-27] MEDS ORDERED: Calcium Carbonate 500 MG Tab.Chew ONE (05:49)
[2019-11-27] MEDS ORDERED: Acetaminophen 500 MG Tab ONE ×2 (05:49→22:30)
[2019-11-27] MEDS ORDERED: Lactated Ringers 1,000 ML IV SCH (10:45)
--- NOTE | 2019-11-27 11:27 | PCM.LDHP ---
L&D History of Present Illness - General Date of Service: 11/27/19 Admit Problem/Dx: Patient Status Order with Admit Dx/Problem 11/27/19 03:29 Patient Status [ADT] Routine Admission Diagnosis/Problem Admission Diagnosis/Problem Source of Information: Patient History Limitations: Reports: No Limitations - History of Present Illness Pain Score: 5 Improves with: Reports: None Worsens with: Reports: None Associated Symptoms: Reports: N - Related Data Allergies/Adverse Reactions: Allergies Allergy/AdvReac Type Severity Reaction Status Date / Time metronidazole [From Flagyl] Allergy Anaphylactic Verified 11/01/19 08:59 Shock proventil liquid Allergy Seizure Uncoded 09/27/19 00:06 ptu Allergy Hives Uncoded 09/27/19 00:06 tapazole Allergy Hives Uncoded 09/27/19 00:06 Home Medications: Home Meds Folic Acid 0.4 mg PO DAILY 04/23/19 [History] Pnv No.95/Ferrous Fum/Folic AC [ Caplet] 1 tab PO DAILY 04/23/19 [ History] Levothyroxine 150 mcg PO DAILY 06/19/19 [History] Cyclobenzaprine [Flexeril] 10 mg PO BID 7 Days #14 tab 11/01/19 [Rx] Sertraline HCl [Zoloft] 100 mg PO DAILY 11/12/19 [History] Past Medical History - Past Health History Medical/Surgical History: Denies Medical/Surgical History HEENT 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: None Cardiovascular 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: Other (See Below) Other Cardiovascular History: "cyst in my heart" Respiratory 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: None Gastrointestinal 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: None Genitourinary 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: None 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: , 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 OB/BYN History: Termination of 1 Musculoskeletal 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: None Neurological 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: Migraines, Other (See Below) Other Neuro History: Tourettes Psychiatric 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: Anxiety, Depression Other Psychiatric History: Tourettes Endocrine/Metabolic 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: Hypothyroidism Hematologic 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: None Immunologic 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: None Oncologic (Cancer) 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: None Dermatologic 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: None - Infectious Disease History Infectious Disease 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: None - Past Surgical History Head Surgeries/Procedures: Reports: None HEENT Surgical 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: None Cardiovascular Surgical 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: None Respiratory Surgical 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: None GI Surgical 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: None Female Surgical 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: Section Endocrine Surgical 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: None Neurological Surgical 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: None Musculoskeletal Surgical 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: None Oncologic Surgical 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: None Dermatological Surgical 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: None Social & Family History - Family History Family Medical History: Noncontributory - Caffeine Use Caffeine Use: Reports: Soda H&P Review of Systems - Review of Systems: Review Of Systems: See Below General: Reports: No Symptoms HEENT: Reports: No Symptoms Pulmonary: Reports: No Symptoms Cardiovascular: Reports: No Symptoms Gastrointestinal: Reports: No Symptoms Genitourinary: Reports: No Symptoms Musculoskeletal: Reports: No Symptoms Skin: Reports: No Symptoms Psychiatric: Reports: No Symptoms Neurological: Reports: No Symptoms Hematologic/Lymphatic: Reports: No Symptoms Immunologic: Reports: No Symptoms L&D Exam - Exam Exam: See Below - Vital Signs Weight: 151.5 kg - OB Specific Contraction Intensity: Mild Movement: Active Presentation: Vertex - Garcia Score Garcia Score Cervix Position: Midposition Garcia Score Consistency: Firm Garcia Score Effacement: 31-50% Garcia Score Dilation: Closed Garcia Score 's Station: -3 Garcia Score Total: 2 - Exam General: Alert, Oriented HEENT: PERRLA, Conjunctiva Clear, EACs Clear, EOMI, Hearing Intact, Mucosa Moist & [place], Nares Patent, Normal Nasal Septum, Posterior Pharynx Clear, TMs Clear Neck: Supple, Trachea Midline Lungs: Clear to Auscultation, Normal Respiratory Effort Cardiovascular: Regular Rate, Regular Rhythm GI/Abdominal Exam: Normal Bowel Sounds, Soft, Non-Tender, No Organomegaly, No Distention, No Abnormal Bruit, No Mass, Pelvis Stable Rectal Exam: Normal Exam, Normal Rectal Tone Genitourinary: Normal external exam, Normal bimanual exam, Normal speculum exam Back Exam: Normal Inspection, Full Range of Motion Extremities: Normal Inspection, Normal Range of Motion, Non-Tender, No Pedal Edema, Normal Capillary Refill Skin: Warm, Dry, Intact Neurological: Cranial Nerves Intact, Reflexes Equal Bilateral Psychiatric: Alert, Normal Affect, Normal Mood - Patient Data Lab Results Last 24 hrs: Laboratory Results - last 24 hr 11/27/19 Range/Units 03:15 Urine Opiates Screen NEGATIVE (NEGATIVE) Ur Oxycodone Screen NEGATIVE (NEGATIVE) Urine Methadone Screen NEGATIVE (NEGATIVE) Ur Barbiturates Screen NEGATIVE (NEGATIVE) Ur Phencyclidine Scrn NEGATIVE (NEGATIVE) Ur Amphetamine Screen NEGATIVE (NEGATIVE) U Methamphetamines Scrn NEGATIVE (NEGATIVE) U Benzodiazepines Scrn NEGATIVE (NEGATIVE) U Cocaine Metab Screen NEGATIVE (NEGATIVE) U Marijuana (THC) Screen NEGATIVE (NEGATIVE) Problem List Initiated/Reviewed/Updated: Yes Orders Last 24hrs: Active Orders 24 hr Category Date Time Status Patient Status [ADT] Routine ADT 11/27/19 03:29 Active Non Stress Test [RC] PER UNIT ROUTINE Care 11/27/19 03:29 Active Up ad Pamela [RC] ASDIRECTED Care 11/27/19 03:29 Active Vaginal Exam [RC] Click to Edit Care 11/27/19 03:29 Active Vital Signs [RC] PER UNIT ROUTINE Care 11/27/19 03:29 Active Lactated Ringers [Ringers, Lactated] 1,000 ml Med 11/27/19 10:45 Active IV ASDIRECTED Resuscitation Status Routine Resus Stat 11/27/19 03:29 Ordered Medication Orders Lactated Ringer's (Ringers, Lactated) 1,000 mls @ 125 mls/hr IV ASDIRECTED DONI Assessment/Plan Comment:: IUP 36 wks S/P C/section X2 admitted because of sever Gi sympyum pt admitted for suppoeteve and hydration therapy.
[2019-11-27] MEDS: Nalbuphine 10 MG/1 ML Vial IVPUSH PRN ×2 (11:54→22:39)
[2019-11-27] MEDS ORDERED: Loperamide 2 MG Cap PO PRN ×2 (12:00→13:00)
[2019-11-27 12:18] LABS: BLOOD UREA NITROGEN,BUN 13 mg/dL (7.0-18.0); CARBON DIOXIDE,CO2 21.9 mmol/L (21.0-32.0); CHLORIDE,CL 103 mmol/L (98-107); GLUCOSE RANDOM 79 mg/dL (74-106); POTASSIUM,K 3.9 mmol/L (3.5-5.1); SODIUM,NA 137 mmol/L (136-145)
[2019-11-27] MEDS: Lactated Ringers 1,000 ML IV SCH ×2 (14:15→17:23)
--- NOTE | 2019-11-28 08:47 | PCM.DCSUM1 ---
Discharge Summary - Hospital Course Free Text/Narrative:: Hannah is a 29 yo at 36.4 weeks that presented to L&D 1 day ago for supportive hydration therapy for severe N/V/D. O pos, RNI, GBS unknown. Pertinent hx: N/V/D x 2 days, depression with anxiety, hx of CS, hypothyroidism in . HR managed in office by Dr. Clayton. Patient received supportive hydration in L&D with Imodium for loose stools. Seen by Dr. Clayton and No Peralta CNM this am. NST Cat I, no contractions. Patient able to PO intake water and food, reports "I am feeling so much better, thank you", is urinating, and verbalizes readiness to be D/Cd home today. Warning S/Ss, when to call for help discussed with patient, she has no questions, comments, or concerns at this time. D/C home today. Diagnosis: Stroke: No - Discharge Data Discharge Date: 11/28/19 Discharge Disposition: Home, Self-Care 01 Condition: Good - Referral to Home Health Primary Care Physician: Moise Keller MD - Discharge Diagnosis/Problem(s) (1) Nausea vomiting and diarrhea SNOMED Code(s): 0800882 ICD Code: R11.2 - NAUSEA WITH VOMITING, UNSPECIFIED; R19.7 - DIARRHEA, UNSPECIFIED Status: Acute Priority: High Current Visit: Yes (2) High-risk in third trimester SNOMED Code(s): 66490424, 23881285 ICD Code: O09.93 - SUPERVISION OF HIGH RISK , UNSP, THIRD TRIMESTER Status: Acute Priority: High Current Visit: Yes (3) 36 weeks gestation of SNOMED Code(s): 92681668 ICD Code: Z3A.36 - 36 WEEKS GESTATION OF Status: Acute Priority : High Current Visit: Yes - Patient Instructions Diet: Drink 8-10+ Glasses/Day Diet, Other: BRAT Diet (Bananas, rice, applesauce, plain toast); Advance as tolerated Activity: As Tolerated, No Lifting Over 20 Pounds Driving: May Drive Today Showering/Bathing: May Shower Notify Provider of: Fever, Increased Pain, Nausea and/or Vomiting - Discharge Plan *PRESCRIPTION DRUG MONITORING PROGRAM REVIEWED*: Not Applicable *COPY OF PRESCRIPTION DRUG MONITORING REPORT IN PATIENT DENISE: Not Applicable Home Medications: Home Meds Folic Acid 0.4 mg PO DAILY 04/23/19 [History] Pnv No.95/Ferrous Fum/Folic AC [ Caplet] 1 tab PO DAILY 04/23/19 [ History] Levothyroxine 150 mcg PO DAILY 06/19/19 [History] Cyclobenzaprine [Flexeril] 10 mg PO BID 7 Days #14 tab 11/01/19 [Rx] Sertraline HCl [Zoloft] 100 mg PO DAILY 11/12/19 [History] Oxygen Therapy Mode: Room Air - Discharge Summary/Plan Comment DC Time >30 min.: No (December D/C home when ready.) - General Info Date of Service: 11/28/19 Functional Status: Reports: Pain Controlled - Review of Systems General: Reports: No Symptoms HEENT: Reports: No Symptoms Pulmonary: Reports: No Symptoms Cardiovascular: Reports: No Symptoms Gastrointestinal: Reports: No Symptoms Genitourinary: Reports: No Symptoms Musculoskeletal: Reports: No Symptoms Skin: Reports: No Symptoms Neurological: Reports: No Symptoms Psychiatric: Reports: No Symptoms - Patient Data Weight - Most Recent: 334 lb Lab Results - Last 24 hrs: Laboratory Results - last 24 hr 11/27/19 11/27/19 Range/Units 11:50 11:50 WBC 11.71 H (4.0-11.0) K/uL RBC 3.56 L (4.30-5.90) M/uL Hgb 9.9 L (12.0-16.0) g/dL Hct 30.5 L (36.0-46.0) % MCV 85.7 (80.0-98.0) fL MCH 27.8 (27.0-32.0) pg MCHC 32.5 (31.0-37.0) g/dL RDW Std Deviation 47.3 (28.0-62.0) fl RDW Coeff of [place] 15 (11.0-15.0) % Plt Count 243 (150-400) K/uL MPV 9.70 (7.40-12.00) fL Nucleated RBC % 0.0 /100WBC Nucleated RBCs # 0 K/uL Sodium 137 (136-145) mmol/L Potassium 3.9 (3.5-5.1) mmol/L Chloride 103 (98-107) mmol/L Carbon Dioxide 21.9 (21.0-32.0) mmol/L BUN 13 (7.0-18.0) mg/dL Creatinine 0.5 L (0.6-1.0) mg/dL Est Cr Clr Drug Dosing 156.81 mL/min Estimated GFR (MDRD) > 60.0 ml/min Glucose 79 (74-106) mg/dL Calcium 8.5 (8.5-10.1) mg/dL Med Orders - Current: Current Medications Lactated Ringer's (Ringers, Lactated) 1,000 mls @ 200 mls/hr IV ASDIRECTED DONI Last Admin: 11/27/19 17:23 Dose: 200 mls/hr Loperamide HCl (Imodium) 4 mg PO Q8H PRN PRN Reason: Diarrhea Last Admin: 11/27/19 13:05 Dose: 4 mg Nalbuphine HCl (Nubain) 5 mg IVPUSH Q3H PRN PRN Reason: Pain Last Admin: 11/27/19 22:39 Dose: 5 mg Discontinued Medications Acetaminophen (Tylenol Extra Strength) 1,000 mg PO ONETIME ONE Stop: 11/27/19 05:46 Last Admin: 11/27/19 05:51 Dose: 1,000 mg Acetaminophen (Tylenol Extra Strength) Confirm Administered Dose 1,000 mg .ROUTE .STK-MED ONE Stop: 11/27/19 05:50 Acetaminophen (Tylenol Extra Strength) Confirm Administered Dose 1,000 mg .ROUTE .STK-MED ONE Stop: 11/27/19 22:31 Calcium Carbonate/Glycine (Tums) 500 mg PO ONETIME ONE Stop: 11/27/19 05:46 Last Admin: 11/27/19 05:51 Dose: 500 mg Calcium Carbonate/Glycine (Tums) Confirm Administered Dose 500 mg .ROUTE .STK- MED ONE Stop: 11/27/19 05:50 Diphenoxylate HCl/Atropine (Lomotil 0.025-2.5 Mg) 2 tab PO ONETIME ONE Stop: 11/27/19 03:53 Last Admin: 11/27/19 04:27 Dose: 2 tab Lactated Ringer's (Ringers, Lactated) 1,000 mls @ 999 mls/hr IV .BOLUS ONE Stop: 11/27/19 04:51 Last Admin: 11/27/19 05:20 Dose: 125 mls/hr Lactated Ringer's (Ringers, Lactated) 1,000 mls @ 125 mls/hr IV ASDIRECTED [facility] Loperamide HCl (Imodium) 2 mg PO Q8H PRN PRN Reason: Diarrhea Ondansetron HCl (Zofran) 4 mg IVPUSH ONETIME ONE Stop: 11/27/19 03:52 Last Admin: 11/27/19 04:21 Dose: 4 mg Ondansetron HCl (Zofran) 4 mg IVPUSH ONETIME ONE Stop: 11/27/19 07:47 Last Admin: 11/27/19 08:03 Dose: 4 mg - Exam General: Reports: Alert, Oriented HEENT: Reports: Pupils Equal, Pupils Reactive, Mucous Membr. Moist/[place] Neck: Reports: Supple Lungs: Reports: Clear to Auscultation, Normal Respiratory Effort Cardiovascular: Reports: Regular Rate, Regular Rhythm GI/Abdominal Exam: Normal Bowel Sounds, Soft, Non-Tender, No Organomegaly, No Distention, Other (Gravid Uterus, 37 cm) (Female) Exam: Deferred Rectal (Female) Exam: Deferred Back Exam: Reports: Normal Inspection, Full Range of Motion Extremities: Normal Inspection, Normal Range of Motion, Non-Tender, No Pedal Edema, Normal Capillary Refill Skin: Reports: Warm, Dry, Intact Wound/Incisions: Reports: Healing Well Neurological: Reports: No New Focal Deficit Psy/Mental Status: Reports: Alert, Normal Affect, Normal Mood
--- NOTE | 2019-11-28 09:18 | PCM.PN ---
- General Info Date of Service: 11/28/19 Functional Status: Reports: Pain Controlled - Review of Systems General: Reports: No Symptoms HEENT: Reports: No Symptoms Pulmonary: Reports: No Symptoms Cardiovascular: Reports: No Symptoms Gastrointestinal: Reports: No Symptoms Genitourinary: Reports: No Symptoms Musculoskeletal: Reports: No Symptoms Skin: Reports: No Symptoms Neurological: Reports: No Symptoms Psychiatric: Reports: No Symptoms - Patient Data Weight - Most Recent: 151.5 kg Lab Results Last 24 Hours: Laboratory Results - last 24 hr 11/27/19 11/27/19 Range/Units 11:50 11:50 WBC 11.71 H (4.0-11.0) K/uL RBC 3.56 L (4.30-5.90) M/uL Hgb 9.9 L (12.0-16.0) g/dL Hct 30.5 L (36.0-46.0) % MCV 85.7 (80.0-98.0) fL MCH 27.8 (27.0-32.0) pg MCHC 32.5 (31.0-37.0) g/dL RDW Std Deviation 47.3 (28.0-62.0) fl RDW Coeff of Rosa Maria 15 (11.0-15.0) % Plt Count 243 (150-400) K/uL MPV 9.70 (7.40-12.00) fL Nucleated RBC % 0.0 /100WBC Nucleated RBCs # 0 K/uL Sodium 137 (136-145) mmol/L Potassium 3.9 (3.5-5.1) mmol/L Chloride 103 (98-107) mmol/L Carbon Dioxide 21.9 (21.0-32.0) mmol/L BUN 13 (7.0-18.0) mg/dL Creatinine 0.5 L (0.6-1.0) mg/dL Est Cr Clr Drug Dosing 156.81 mL/min Estimated GFR (MDRD) > 60.0 ml/min Glucose 79 (74-106) mg/dL Calcium 8.5 (8.5-10.1) mg/dL Med Orders - Current: Current Medications Lactated Ringer's (Ringers, Lactated) 1,000 mls @ 200 mls/hr IV ASDIRECTED [facility] Last Admin: 11/27/19 17:23 Dose: 200 mls/hr Loperamide HCl (Imodium) 4 mg PO Q8H PRN PRN Reason: Diarrhea Last Admin: 11/27/19 13:05 Dose: 4 mg Nalbuphine HCl (Nubain) 5 mg IVPUSH Q3H PRN PRN Reason: Pain Last Admin: 11/27/19 22:39 Dose: 5 mg Discontinued Medications Acetaminophen (Tylenol Extra Strength) 1,000 mg PO ONETIME ONE Stop: 11/27/19 05:46 Last Admin: 11/27/19 05:51 Dose: 1,000 mg Acetaminophen (Tylenol Extra Strength) Confirm Administered Dose 1,000 mg .ROUTE .STK-MED ONE Stop: 11/27/19 05:50 Acetaminophen (Tylenol Extra Strength) Confirm Administered Dose 1,000 mg .ROUTE .STK-MED ONE Stop: 11/27/19 22:31 Calcium Carbonate/Glycine (Tums) 500 mg PO ONETIME ONE Stop: 11/27/19 05:46 Last Admin: 11/27/19 05:51 Dose: 500 mg Calcium Carbonate/Glycine (Tums) Confirm Administered Dose 500 mg .ROUTE .STK- MED ONE Stop: 11/27/19 05:50 Diphenoxylate HCl/Atropine (Lomotil 0.025-2.5 Mg) 2 tab PO ONETIME ONE Stop: 11/27/19 03:53 Last Admin: 11/27/19 04:27 Dose: 2 tab Lactated Ringer's (Ringers, Lactated) 1,000 mls @ 999 mls/hr IV .BOLUS ONE Stop: 11/27/19 04:51 Last Admin: 11/27/19 05:20 Dose: 125 mls/hr Lactated Ringer's (Ringers, Lactated) 1,000 mls @ 125 mls/hr IV ASDIRECTED DONI Loperamide HCl (Imodium) 2 mg PO Q8H PRN PRN Reason: Diarrhea Ondansetron HCl (Zofran) 4 mg IVPUSH ONETIME ONE Stop: 11/27/19 03:52 Last Admin: 11/27/19 04:21 Dose: 4 mg Ondansetron HCl (Zofran) 4 mg IVPUSH ONETIME ONE Stop: 11/27/19 07:47 Last Admin: 11/27/19 08:03 Dose: 4 mg - Exam General: Alert, Oriented HEENT: Pupils Equal, Pupils Reactive, EOMI, Mucous Membr. Moist/[place] Neck: Supple Lungs: Clear to Auscultation, Normal Respiratory Effort Cardiovascular: Regular Rate, Regular Rhythm GI/Abdominal Exam: Normal Bowel Sounds, Soft, Non-Tender, No Organomegaly, No Distention, No Abnormal Bruit, No Mass, Pelvis Stable (Female) Exam: Normal External Exam, Normal Speculum Exam, Normal Bimanual Exam Back Exam: Normal Inspection, Full Range of Motion Extremities: Normal Inspection, Normal Range of Motion, Non-Tender, No Pedal Edema, Normal Capillary Refill Skin: Warm, Dry, Intact Wound/Incisions: Healing Well Neurological: No New Focal Deficit Psy/Mental Status: Alert, Normal Affect, Normal Mood Sepsis Event Note - Evaluation Sepsis Screening Result: No Definite Risk - Problem List Review Problem List Initiated/Reviewed/Updated: Yes - My Orders Last 24 Hours: My Active Orders 11/27/19 11:05 Admission Status [Patient Status] [ADT] Routine 11/27/19 11:22 Nalbuphine [Nubain] 5 mg IVPUSH Q3H PRN 11/27/19 11:40 H PYLORI STOOL ANTIGEN [MREF] Stat STOOL CULTURE/SHIGA TOXIN [MREF] Stat 11/27/19 12:00 Lactated Ringers [Ringers, Lactated] 1,000 ml IV ASDIRECTED 11/27/19 13:00 Loperamide [Imodium] 4 mg PO Q8H PRN 11/27/19 19:00 Communication Order [RC] Q12HR 11/27/19 Dinner Regular Diet [DIET] - Assessment Assessment:: Patient diarrhea is improving she is have a rather regular bowel movement today and she stopped vomiting and she tolerating by mouth fluid. I am sending the patient she is to be followed in the office sometime this week she have appointment on Thursday. - Plan Plan:: IUP 36 wks S/P C/section X2 admitted because of sever Gi sympyum pt admitted for suppoeteve and hydration therapy.
== END 2019-11-28 09:38 | disposition home or self-care (01) ==
LOC: MW.OBCHECK 03:04 → MW.OB 03:05 → MW.OBCHECK 11:05 → MW.OB 11:05
PROVIDERS: ADMIT Obstetrics & Gynecology; ATTEND Obstetrics & Gynecology
DX: O21.2 Late vomiting of pregnancy (principal); O99.89 Other specified diseases and conditions complicating pregnancy, childbirth and the puerperium; R19.7 Diarrhea, unspecified; O09.93 Supervision of high risk pregnancy, unspecified, third trimester; O99.343 Other mental disorders complicating pregnancy, third trimester; F41.9 Anxiety disorder, unspecified; F32.9 Major depressive disorder, single episode, unspecified; O99.283 Endocrine, nutritional and metabolic diseases complicating pregnancy, third trimester; E03.9 Hypothyroidism, unspecified; Z3A.36 36 weeks gestation of pregnancy; Z79.890 Hormone replacement therapy; Z79.899 Other long term (current) drug therapy; Z88.1 Allergy status to other antibiotic agents; Z88.8 Allergy status to other drugs, medicaments and biological substances; Z98.890 Other specified postprocedural states
CPT/HCPCS: 36415; 59025; 80048; 80305; 85027; 87045; 87046; 87338; 87899; 96361; 96374; 96375; 96376; A9270; G0378; J2300; J2405; J7120

== ENCOUNTER 2019-12-04 23:31 | Emergency (ER) | payer MEDICAID ==
--- NOTE | 2019-12-05 00:11 | EDM.PDOC ---
ED [facility] GENERAL MEDICAL PROBLEM - General Chief Complaint: Skin Complaint Stated Complaint: ABCESS ON LT BUTTOCKS Time Seen by Provider: 12/05/19 00:09 Source of Information: Reports: Patient History Limitations: Reports: No Limitations - History of Present Illness INITIAL COMMENTS - FREE TEXT/NARRATIVE: Patient is 29-year-old female history of morbid obesity as well as hydradinitis supportiva a part of presenting with a chief complaint of abscess to the buttocks area. Patient states that the abscess is been present for the past 2 days. Patient reports feeling a lot of swelling and pain to the left gluteal gluteal area. Patient denies any drainage. Patient denies any fevers, chills, nausea, vomiting. Patient reports recurrent abscesses to her body secondary to her condition. Patient is no history of perirectal abscess. Patient has no difficulty having a bowel movement. Pmhx: Per chart and HPI Family Hx: noncontributory Smoking history? Smokes 1 or 2 cigarettes a day Etoh use? none Drug use? none In addition to that documented in the HPI above, the additional ROS was obtained : Constitutional: Denies fevers or chills Eyes: Denies vision changes ENMT: Denies sore throat CV: Denies chest pain Resp: Denies SOB GI: Denies vomiting or diarrhea : Denies painful urination MSK: Denies recent trauma Skin: Denies new rashes Neuro: Denies new numbness or tingling or weakness Endocrine: Denies unexpected weight loss Heme: Denies bleeding disorders I have reviewed the triage vital signs Const: Well nourished, well developed, appears stated age Eyes: PERRL, no conjunctival injection HENT: NCAT, Neck supple without meningismus CV: RRR, Warm, well-perfused extremities RESP: CTAB, Unlabored respiratory effort GI: soft, non-tender, non-distended, no masses MSK: No gross deformities appreciated Skin: Demonstrates warmth and fluctuance to the left medial gluteal area. The area is 5 to 6 cm away from the anal area. There is no swelling around the rectum. There is no evidence of erythema surrounding the fluctuant area. Warm, dry. No rashes Neuro: Alert, lathe scalper operator II-XII grossly intact. Sensation and motor function of extremities grossly intact. Psych: Appropriate mood and affect Assessment and plan: Patient is a 29-year-old female presenting with left gluteal abscess. Patient had the abscess successfully drained in the emergency room. No evidence of perirectal abscess. No evidence of overlying cellulitis. No evidence of necrotizing fasciitis. Patient given return precautions. Patient directed follow-up with primary care physician in 2 days for wound check. All questions were asked and answered. Patient agrees with plan. PROCEDURE NOTE: INCISION AND DRAINAGE OF ABSCESS Indication: Abscess Insurance Counselor: Dr. Quinn Indications, risks, and benefits explained to patient and verbal informed consent obtained. Correct patient and procedure type was verified. 1) The patient was anesthetized using 5 cc lidocaine 1% w/epinephrine 2) Abscess Location: Left medial gluteal area 3) Abscess Size: Approximately 3 cm 4) Procedure description: 11 blade scalpel was used to make an incision in the abscess. Copious pus with some blood was drained from the abscess site. Forceps were inserted to break up loculations. Sterile dressing was applied. Patient tolerated procedure well with no immediate complications. 5) Culture specimen(s) obtained and sent for testing? No Left Buttock Pain Score (Numeric/FACES): 7 - Related Data Allergies Allergy/AdvReac Type Severity Reaction Status Date / Time metronidazole [From Flagyl] Allergy Anaphylactic Verified 12/04/19 23:54 Shock proventil liquid Allergy Seizure Uncoded 12/04/19 23:54 ptu Allergy Hives Uncoded 12/04/19 23:54 tapazole Allergy Hives Uncoded 12/04/19 23:54 Home Meds: Home Meds Folic Acid 0.4 mg PO DAILY 04/23/19 [History] Pnv No.95/Ferrous Fum/Folic AC [ Caplet] 1 tab PO DAILY 04/23/19 [ History] Levothyroxine 150 mcg PO DAILY 06/19/19 [History] Cyclobenzaprine [Flexeril] 10 mg PO BID 7 Days #14 tab 11/01/19 [Rx] Sertraline HCl [Zoloft] 100 mg PO DAILY 11/12/19 [History] Cephalexin [Keflex] 500 mg PO QID #28 capsule 12/05/19 [Rx] Past Medical History - Past Health History Medical/Surgical History: Denies Medical/Surgical History HEENT 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: None Cardiovascular 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: Other (See Below) Other Cardiovascular History: "cyst in my heart" Respiratory 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: None Gastrointestinal 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: None Genitourinary 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: None NEWS ANALYST 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: , 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 NEWS ANALYST History: Termination of 1 Musculoskeletal 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: None Neurological 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: Migraines, Other (See Below) Other Neuro History: Tourettes Psychiatric 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: Anxiety, Depression Other Psychiatric History: Tourettes Endocrine/Metabolic 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: Hypothyroidism Hematologic 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: None Immunologic 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: None Oncologic (Cancer) 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: None Dermatologic 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: None - Infectious Disease History Infectious Disease 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: None - Past Surgical History Head Surgeries/Procedures: Reports: None HEENT Surgical 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: None Cardiovascular Surgical 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: None Respiratory Surgical 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: None GI Surgical 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: None Female Surgical 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: Section Endocrine Surgical 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: None Neurological Surgical 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: None Musculoskeletal Surgical 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: None Oncologic Surgical 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: None Dermatological Surgical 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: None Social & Family History - Family History Family Medical History: Noncontributory - Tobacco Use Smoking Status *Q: Current Every Day Smoker Years of Tobacco use: 13 Packs/Tins Daily: 0.3 - Caffeine Use Caffeine Use: Reports: None - Recreational Drug Use Recreational Drug Use: No ED ROS GENERAL - Review of Systems Review Of Systems: See Below ED EXAM, SKIN/RASH Exam: See Below Course - Vital Signs Last Recorded V/S: Last Vital Signs Temp 35.8 C L 12/04/19 23:51 Pulse 72 12/05/19 01:02 Resp 18 12/05/19 01:02 BP 132/68 12/05/19 01:02 Pulse Ox 97 12/05/19 01:02 - Orders/Labs/Meds Meds: Medications Discontinued Medications Generic Name Dose Route Start Last Admin Trade Name Freq PRN Reason Stop Dose Admin Acetaminophen 650 mg 12/05/19 00:12 12/05/19 00:24 Tylenol PO 12/05/19 00:13 650 mg NOW ONE Administration Cephalexin 500 mg 12/05/19 00:12 12/05/19 00:24 Keflex PO 12/05/19 00:13 500 mg ONETIME ONE Administration Lidocaine/Epinephrine 20 ml 12/05/19 00:16 12/05/19 00:25 Xylocaine 1% With Epinephrine 1:100,000 INJECT 12/05/19 00:17 20 ml ONETIME ONE Administration Departure - Departure Time of Disposition: 00:43 Disposition: Home, Self-Care 01 Clinical Impression: Abscess, gluteal, left - Discharge Information Prescriptions: Cephalexin [Keflex] 500 mg PO QID #28 capsule Instructions: Incision and Drainage, Care After Referrals: PCP,None [Primary Care Provider] - Forms: ED Department Discharge Additional Instructions: The following information is given to patients seen in the emergency department who are being discharged to home. This information is to outline your options for follow-up care. We provide all patients seen in our emergency department with a follow-up referral. The need for follow-up, as well as the timing and circumstances, are variable depending upon the specifics of your emergency department visit. If you don't have a primary care physician on staff, we will provide you with a referral. We always advise you to contact your personal physician following an emergency department visit to inform them of the circumstance of the visit and for follow-up with them and/or the need for any referrals to a consulting specialist. The emergency department will also refer you to a specialist when appropriate. This referral assures that you have the opportunity for follow-up care with a specialist. All of these measure are taken in an effort to provide you with optimal care, which includes your follow-up. Under all circumstances we always encourage you to contact your private physician who remains a resource for coordinating your care. When calling for follow-up care, please make the office aware that this follow-up is from your recent emergency room visit. If for any reason you are refused follow-up, please contact the [facility] Emergency Department at and asked to speak to the emergency department charge nurse. Sepsis Event Note - Evaluation Sepsis Screening Result: No Definite Risk - Focused Exam Vital Signs: Vital Signs Temp Pulse Resp BP Pulse Ox 12/05/19 01:02 72 18 132/68 97 12/04/19 23:51 35.8 C L 112 H 18 126/61 97 Date Exam was Performed: 12/05/19 Time Exam was Performed: 01:57
[2019-12-05] MEDS ORDERED: Acetaminophen 325 MG Tab PO ONE (00:12)
[2019-12-05] MEDS ORDERED: Cephalexin 500 MG Cap PO ONE (00:12)
[2019-12-05] MEDS ORDERED: Lidocaine 1% with EPINEPHrine 1:100,000 20 ML MDV INJECT ONE (00:16)
== END 2019-12-05 00:55 | disposition home or self-care (01) ==
LOC: MW.ED 23:31
DX: L02.31 Cutaneous abscess of buttock (principal); F17.210 Nicotine dependence, cigarettes, uncomplicated; E66.01 Morbid (severe) obesity due to excess calories; Z68.43 Body mass index [BMI] 50.0-59.9, adult; F32.9 Major depressive disorder, single episode, unspecified; Z88.8 Allergy status to other drugs, medicaments and biological substances; Z79.899 Other long term (current) drug therapy; E03.9 Hypothyroidism, unspecified
CPT/HCPCS: 10061; 99282; A9270; 10060; 99283

== ENCOUNTER 2019-12-15 05:16 | Inpatient (IN) | payer MEDICAID ==
[2019-12-15] MEDS ORDERED: Phenylephrine 1% 10 MG/ML SDV ONE (05:41)
[2019-12-15] MEDS ORDERED: Ondansetron 4 MG/2 ML SDV ONE (05:45)
[2019-12-15] MEDS ORDERED: Ketorolac 30 MG/ML SDV ONE (05:45)
[2019-12-15] MEDS ORDERED: Citric Acid/Sodium Citrate Solution 30 ML Cup ONE (05:52)
[2019-12-15] MEDS ORDERED: Sodium Chloride 0.9% 2.5 ML Syringe FLUSH PRN (05:58)
[2019-12-15] MEDS ORDERED: Citric Acid/Sodium Citrate Solution 30 ML Cup PO ONE (05:58)
[2019-12-15] MEDS ORDERED: Sodium Chloride 0.9% 10 ML Syringe FLUSH PRN (05:58)
[2019-12-15] MEDS ORDERED: Sodium Chloride 0.9% 10 ML SDV IV PRN (05:58)
--- NOTE | 2019-12-15 05:59 | PCM.PREANE ---
Preanesthetic Assessment - Anesthesia/Transfusion/Family Hx Anesthesia History: Prior Anesthesia Without Reaction Other Type of Anesthesia Reaction Comment: "it took a long time for my grandmother to wake up" Family History of Anesthesia Reaction: No Transfusion History: No Prior Transfusion(s) - Physical Assessment NPO Status Date: 12/15/19 NPO Status Time: 00:05 Height: 1.65 m Weight: 151.953 kg ASA Class: 2 Mental Status: Alert & Oriented x3 Dentition: Reports: Normal Dentition Thyro-Mental Finger Breadths: 3 Mouth Opening Finger Breadths: 3 ROM/Head Extension: Full - Allergies Allergies/Adverse Reactions: Allergies Allergy/AdvReac Type Severity Reaction Status Date / Time metronidazole [From Flagyl] Allergy Anaphylactic Verified 12/09/19 08:26 Shock proventil liquid Allergy Seizure Uncoded 12/09/19 08:26 ptu Allergy Hives Uncoded 12/09/19 08:26 tapazole Allergy Hives Uncoded 12/09/19 08:26 - Acknowledgements Anesthesia Type Planned: Spinal Pt an Appropriate Candidate for the Planned Anesthesia: Yes Alternatives and Risks of Anesthesia Discussed w Pt/Guardian: Yes Pt/Guardian Understands and Agrees with Anesthesia Plan: Yes PreAnesthesia Questionnaire - Past Health History Medical/Surgical History: Denies Medical/Surgical History HEENT 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: Other (See Below) Other HEENT History: wears glasses Cardiovascular 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: Arrhythmia, Other (See Below) Other Cardiovascular History: 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" Respiratory 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: None Gastrointestinal 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: None Genitourinary 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: None ARTS THERAPIST 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: , 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 OB/BYN History: Termination of 1 Musculoskeletal 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: Back Pain, Chronic, Fracture Other Musculoskeletal History: hx of fx to jaw and hands Neurological 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: Migraines, Seizure, TIA, Other (See Below) Other Neuro History: Tourettes, hx TIA in 2015, hx seizure due to reaction to proventil liquid Psychiatric 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: Anxiety, Depression, PTSD Endocrine/Metabolic 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: Hypothyroidism, Obesity/BMI 30+ Hematologic 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: Anemia Immunologic 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: None Oncologic (Cancer) 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: None Dermatologic 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: None - Infectious Disease History Infectious Disease 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: None - Past Surgical History Head Surgeries/Procedures: Reports: None HEENT Surgical 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: None Cardiovascular Surgical 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: None Respiratory Surgical 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: None GI Surgical 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: None Female Surgical 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: Section Endocrine Surgical 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: None Neurological Surgical 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: None Musculoskeletal Surgical 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: None Oncologic Surgical 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: None Dermatological Surgical 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: None - SUBSTANCE USE Smoking Status *Q: Current Every Day Smoker Tobacco Use Within Last Twelve Months: Cigarettes Recreational Drug Type: Reports: Marijuana/Hashish - HOME MEDS Home Medications: Home Meds Folic Acid 0.4 mg PO DAILY 04/23/19 [History] Pnv No.95/Ferrous Fum/Folic AC [ Caplet] 1 tab PO DAILY 04/23/19 [ History] Levothyroxine 150 mcg PO DAILY 06/19/19 [History] Sertraline HCl [Zoloft] 100 mg PO DAILY 11/12/19 [History] Cyclobenzaprine [Flexeril] 10 mg PO BID PRN 12/09/19 [History] - CURRENT (IN HOUSE) MEDS Current Meds: Current Medications Discontinued Medications Citric Acid/Sodium Citrate (Bicitra Solution) Confirm Administered Dose 30 ml .ROUTE .STK-MED ONE Stop: 12/15/19 05:53 Ketorolac Tromethamine (Toradol) Confirm Administered Dose 30 mg .ROUTE .STK- MED ONE Stop: 12/15/19 05:46 Ondansetron HCl (Zofran) Confirm Administered Dose 4 mg .ROUTE .STK-MED ONE Stop: 12/15/19 05:46 Phenylephrine HCl (Arnulfo-Synephrine) Confirm Administered Dose 10 mg .ROUTE .STK- MED ONE Stop: 12/15/19 05:42
[2019-12-15] MEDS ORDERED: Oxytocin/0.9 % Sodium Chloride 30 UNIT/500 ML BAG IV SCH (06:00)
[2019-12-15] MEDS: Lactated Ringers 1,000 ML IV SCH ×4 (06:40→18:50)
[2019-12-15] MEDS ORDERED: ePHEDrine 50 MG/ML SDV ONE (07:04)
[2019-12-15] MEDS ORDERED: Sodium Chloride 0.9% 20 ML ONE (07:04)
[2019-12-15] MEDS ORDERED: ceFAZolin 2 GM in Premix Bag 1 BAG IV ONE (07:17)
[2019-12-15] MEDS ORDERED: Morphine PF 10 MG/10 ML SDV ONE (07:24)
--- NOTE | 2019-12-15 08:03 | PCM.LDHP ---
L&D History of Present Illness - General Date of Service: 12/15/19 Admit Problem/Dx: Patient Status Order with Admit Dx/Problem 12/15/19 05:58 Patient Status [ADT] Routine Admission Diagnosis/Problem Admission Diagnosis/Problem Source of Information: Patient History Limitations: Reports: No Limitations - History of Present Illness Improves with: Reports: None Worsens with: Reports: None Associated Symptoms: Reports: N - Related Data Allergies/Adverse Reactions: Allergies Allergy/AdvReac Type Severity Reaction Status Date / Time metronidazole [From Flagyl] Allergy Anaphylactic Verified 12/09/19 08:26 Shock proventil liquid Allergy Seizure Uncoded 12/09/19 08:26 ptu Allergy Hives Uncoded 12/09/19 08:26 tapazole Allergy Hives Uncoded 12/09/19 08:26 Home Medications: Home Meds Folic Acid 0.4 mg PO DAILY 04/23/19 [History] Pnv No.95/Ferrous Fum/Folic AC [ Caplet] 1 tab PO DAILY 04/23/19 [ History] Levothyroxine 150 mcg PO DAILY 06/19/19 [History] Sertraline HCl [Zoloft] 100 mg PO DAILY 11/12/19 [History] Cyclobenzaprine [Flexeril] 10 mg PO BID PRN 12/09/19 [History] Past Medical History - Past Health History Medical/Surgical History: Denies Medical/Surgical History HEENT 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: Other (See Below) Other HEENT History: wears glasses Cardiovascular History: Reports: Arrhythmia, Other (See Below) Other Cardiovascular History: 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" Respiratory History: Reports: None Gastrointestinal History: Reports: None Genitourinary History: Reports: None MARKETING INFORMATION MANAGER 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: Reports: , 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 OB/BYN History: Termination of 1 Musculoskeletal History: Reports: Back Pain, Chronic, Fracture Other Musculoskeletal History: hx of fx to jaw and hands Neurological History: Reports: Migraines, Seizure, TIA, Other (See Below) Other Neuro History: Tourettes, hx TIA in 2014, hx seizure due to reaction to proventil liquid Psychiatric History: Reports: Anxiety, Depression, PTSD Endocrine/Metabolic History: Reports: Hypothyroidism, Obesity/BMI 30+ Hematologic History: Reports: Anemia Immunologic History: Reports: None Oncologic (Cancer) History: Reports: None Dermatologic History: Reports: None - Infectious Disease History Infectious Disease History: Reports: None - Past Surgical History Head Surgeries/Procedures: Reports: None HEENT Surgical History: Reports: None Cardiovascular Surgical History: Reports: None Respiratory Surgical History: Reports: None GI Surgical History: Reports: None Female Surgical History: Reports: Section Endocrine Surgical History: Reports: None Neurological Surgical History: Reports: None Musculoskeletal Surgical History: Reports: None Oncologic Surgical History: Reports: None Dermatological Surgical History: Reports: None Social & Family History - Family History Family Medical History: Noncontributory HEENT: Reports: None Cardiac: Reports: None Respiratory: Reports: None GI: Reports: None : Reports: None OBGYN: Reports: None Musculoskeletal: Reports: None Neurological: Reports: None Psychiatric: Reports: None Endocrine/Metabolic: Reports: None Hematologic: Reports: None Immunologic: Reports: None Dermatologic: Reports: None Oncologic: Reports: Breast, Renal - Tobacco Use Smoking Status *Q: Current Every Day Smoker - Caffeine Use Caffeine Use: Reports: None - Recreational Drug Use Drug Use in Last 12 Months: Yes Recreational Drug Type: Reports: Marijuana/Hashish Recreational Drug Use Frequency: Not Used In Over 3 Months H&P Review of Systems - Review of Systems: Review Of Systems: See Below General: Reports: No Symptoms HEENT: Reports: No Symptoms Pulmonary: Reports: No Symptoms Cardiovascular: Reports: No Symptoms Gastrointestinal: Reports: No Symptoms Genitourinary: Reports: No Symptoms Musculoskeletal: Reports: No Symptoms Skin: Reports: No Symptoms Psychiatric: Reports: No Symptoms Neurological: Reports: No Symptoms Hematologic/Lymphatic: Reports: No Symptoms Immunologic: Reports: No Symptoms L&D Exam - Exam Exam: See Below - Vital Signs Weight: 155.582 kg - OB Specific Contraction Intensity: Mild Movement: Active Heart Tones: Present - Garcia Score Garcia Score Cervix Position: Posterior Garcia Score Consistency: Medium Garcia Score Dilation: Closed Garcia Score Infant's Station: -3 - Exam General: Alert, Oriented HEENT: PERRLA, Conjunctiva Clear, EACs Clear, EOMI, Hearing Intact, Mucosa Moist & [place], Nares Patent, Normal Nasal Septum, Posterior Pharynx Clear, TMs Clear Neck: Supple, Trachea Midline Lungs: Clear to Auscultation, Normal Respiratory Effort Cardiovascular: Regular Rate, Regular Rhythm GI/Abdominal Exam: Normal Bowel Sounds, Soft, Non-Tender, No Organomegaly, No Distention, No Abnormal Bruit, No Mass, Pelvis Stable Rectal Exam: Normal Exam, Normal Rectal Tone Genitourinary: Normal external exam, Normal bimanual exam, Normal speculum exam Back Exam: Normal Inspection, Full Range of Motion Extremities: Normal Inspection, Normal Range of Motion, Non-Tender, No Pedal Edema, Normal Capillary Refill Skin: Warm, Dry, Intact Neurological: Cranial Nerves Intact, Reflexes Equal Bilateral Psychiatric: Alert, Normal Affect, Normal Mood - Patient Data Lab Results Last 24 hrs: Laboratory Results - last 24 hr 12/15/19 Range/Units 06:28 WBC 13.34 H (4.0-11.0) K/uL RBC 3.62 L (4.30-5.90) M/uL Hgb 10.0 L (12.0-16.0) g/dL Hct 31.4 L (36.0-46.0) % MCV 86.7 (80.0-98.0) fL MCH 27.6 (27.0-32.0) pg MCHC 31.8 (31.0-37.0) g/dL RDW Std Deviation 49.2 (28.0-62.0) fl RDW Coeff of Rosa Maria 16 H (11.0-15.0) % Plt Count 266 (150-400) K/uL MPV 9.80 (7.40-12.00) fL Nucleated RBC % 0.0 /100WBC Nucleated RBCs # 0 K/uL Result Diagrams: 12/15/19 06:28 Problem List Initiated/Reviewed/Updated: Yes Orders Last 24hrs: Active Orders 24 hr Category Date Time Status Patient Status [ADT] Routine ADT 12/15/19 05:58 Active Non Stress Test [RC] PER UNIT ROUTINE Care 12/15/19 05:58 Active Notify Provider Vital Signs [RC] PRN Care 12/15/19 06:00 Active Procedure Site Prep Instruct [RC] ASDIRECTED Care 12/15/19 05:58 Active Up ad Pamela [RC] ASDIRECTED Care 12/15/19 05:58 Active Verify Patient Consent Obtain [RC] ASDIRECTED Care 12/15/19 05:58 Active Vital Signs [RC] PER UNIT ROUTINE Care 12/15/19 05:58 Active RPR (SYPHILIS SERO) W/ RFLX [REF] Routine Lab 12/15/19 06:28 Received TYPE AND SCREEN [BBK] Routine Lab 12/15/19 06:28 Received Lactated Ringers [Ringers, Lactated] 1,000 ml Med 12/15/19 06:00 Active IV BOLUS Oxytocin/0.9 % Sodium Chloride [Oxytocin 30 Unit/500 ML Med 12/15/19 06:00 Active -NS] 30 unit in 500 ml IV TITRATE Sodium Chloride 0.9% [Normal Saline] Med 12/15/19 05:58 Active 10 ml IV ASDIRECTED PRN Sodium Chloride 0.9% [Saline Flush] Med 12/15/19 05:58 Active 10 ml FLUSH ASDIRECTED PRN Sodium Chloride 0.9% [Saline Flush] Med 12/15/19 05:58 Active 2.5 ml FLUSH ASDIRECTED PRN Peripheral IV Insertion Adult [OM.PC] Routine Oth 12/15/19 05:58 Ordered Schedule Procedure [COMM] Per Unit Routine Oth 12/15/19 05:58 Ordered Resuscitation Status Routine Resus Stat 12/15/19 05:58 Ordered Medication Orders Lactated Ringer's (Ringers, Lactated) 1,000 mls @ 500 mls/hr IV BOLUS DONI Last Admin: 12/15/19 06:40 Dose: 500 mls/hr Oxytocin/Sodium Chloride (Oxytocin 30 Unit/500 Ml-Ns) 30 unit in 500 mls @ 250 mls/hr IV TITRATE DONI Sodium Chloride (Saline Flush) 10 ml FLUSH ASDIRECTED PRN PRN Reason: Keep Vein Open Sodium Chloride (Saline Flush) 2.5 ml FLUSH ASDIRECTED PRN PRN Reason: Keep Vein Open Sodium Chloride (Normal Saline) 10 ml IV ASDIRECTED PRN PRN Reason: IV Use Assessment/Plan Comment:: IUP 39 wks admitted for elective repeat C/section.
[2019-12-15] MEDS ORDERED: Acetaminophen/oxyCODONE 325-5 MG Tab PO PRN ×2 (08:38→08:57)
[2019-12-15] MEDS ORDERED: Naloxone 0.4 MG/ML Syringe IVPUSH PRN (08:38)
[2019-12-15] MEDS ORDERED: Nalbuphine 10 MG/1 ML Vial IVPUSH PRN (08:38)
[2019-12-15] MEDS ORDERED: fentaNYL 100 MCG/2 ML SDV IVPUSH PRN (08:38)
[2019-12-15] MEDS ORDERED: diphenhydrAMINE 50 MG/ML SDV IVPUSH PRN ×2 (08:38→08:57)
[2019-12-15] MEDS ORDERED: Ondansetron 4 MG/2 ML SDV IVPUSH PRN ×2 (08:38→08:57)
[2019-12-15] MEDS ORDERED: Ibuprofen 800 MG Tab PO PRN (08:57)
[2019-12-15] MEDS ORDERED: Methylergonovine 0.2 MG/1 ML Amp IM PRN (08:57)
[2019-12-15] MEDS ORDERED: Oxytocin 10 Units/1 ML SDV IM PRN (08:57)
[2019-12-15] MEDS ORDERED: Misoprostol 200 MCG Tab RECTAL PRN (08:57)
[2019-12-15] MEDS ORDERED: Bisacodyl 10 MG Supp RECTAL PRN (08:57)
[2019-12-15] MEDS ORDERED: Tranexamic Acid 1,000 MG in Sodium Chloride 0.9% 100 ML IV PRN (08:57)
[2019-12-15] MEDS ORDERED: Lanolin 100% Cream 7 GM Tube TOP PRN (08:57)
--- NOTE | 2019-12-15 09:00 | PCM.OPNOTE ---
- General Post-Op/Procedure Note Date of Surgery/Procedure: 12/15/19 Operative Procedure(s): Repeat C/section. Post-Op Diagnosis: Same Anesthesia Technique: Spinal Primary Surgeon: Trae Clayton Real Estate Transaction Manager: Cindy Arita EBL in mLs: 900 Complications: None Condition: Good
[2019-12-15] MEDS: Ketorolac 30 MG/ML SDV IVPUSH SCH ×3 (09:25→21:11)
--- NOTE | 2019-12-15 11:09 | OR ---
SURGEON: Trae Clayton MD DATE OF PROCEDURE: 12/15/2019 PREOPERATIVE DIAGNOSIS: Intrauterine at 39 weeks, previous multiple sections. POSTOPERATIVE DIAGNOSIS: Intrauterine at 39 weeks, previous multiple sections. OPERATION PERFORMED: Repeat low-transverse section. PRIMARY SURGEON: Trae Clayton MD. COLORMAN: Cindy Arita, certified nurse surgical assist. ANESTHESIA: Spinal; Imtiaz Reza and Dr. Cooper. ESTIMATED BLOOD LOSS: 900 mL. COMPLICATIONS: None. FINDINGS: Male fetus. score reported to be 8 and 9. Normal uterus, tubes, and ovary. INDICATION FOR SURGERY: This patient is 29. She had previous multiple sections. She is admitted for elective repeat section. PROCEDURE IN DETAIL: The patient was brought to the OR, properly identified. After adequate level of spinal anesthesia with a Murdock catheter in the bladder and the patient identified, the patient was prepped and draped in sterile fashion as usual. Low transverse Pfannenstiel skin incision was done. Kadeem's fascia and rectus fascia were opened in the direction of the incision. The 2 recti muscles were and peritoneal cavity was entered. Bladder flap was raised in the usual manner pushing the bladder away from lower uterine segment. Low transverse uterine incision was done and extended manually with hand. Fetus was in a vertex position, delivered without any problem, cried immediately. score reported to be 8 and 9. The weight was not available. The placenta delivered spontaneous, complete, and intact, and repair of the lower uterine segment was done with 2-0 Vicryl continuous interlocking and not achieve hemostasis. Once hemostasis was achieved and reperitonealization with 3-0 Vicryl was done and the peritoneal cavity evacuated completely from all blood clot and closed with 3-0 Vicryl continuous, the rectus fascia was closed with #1 PDS double strand continuous, Kadeem's fascia with 3-0 Vicryl continuous, and the skin closed with 3-0 on a Michael needle in subcuticular fashion. Instrument and sponge counts were correct. The patient tolerated the procedure well, went to recovery room in stable general condition. NONA / FRANCES /[id number]
[2019-12-15] MEDS: Docusate Sodium 100 MG Cap PO SCH (21:11)
[2019-12-16] MEDS: Ketorolac 30 MG/ML SDV IVPUSH SCH ×2 (03:08→08:27)
--- NOTE | 2019-12-16 07:16 | PCM48HPAN ---
Post Anesthesia Note - EVALUATION WITHIN 48HRS OF ANESTHETIC Vital Signs in Normal Range: Yes Patient Participated in Evaluation: Yes Respiratory Function Stable: Yes Airway Patent: Yes Cardiovascular Function Stable: Yes Hydration Status Stable: Yes Pain Control Satisfactory: Yes Nausea and Vomiting Control Satisfactory: Yes Mental Status Recovered: Yes Vital Signs: Last Vital Signs Temp 36.3 C 12/16/19 06:00 Pulse 84 12/16/19 06:00 Resp 18 12/16/19 06:00 BP 105/57 L 12/16/19 06:00 Pulse Ox 99 12/16/19 06:00
[2019-12-16] MEDS: Docusate Sodium 100 MG Cap PO SCH ×3 (07:32→20:58)
--- NOTE | 2019-12-16 08:18 | PCM.PNPP ---
- General Info Date of Service: 12/16/19 Admission Dx/Problem (Free Text): Patient Status Order with Admit Dx/Problem 12/15/19 05:58 Patient Status [ADT] Routine Admission Diagnosis/Problem Admission Diagnosis/Problem Functional Status: Reports: Pain Controlled, Tolerating Diet, Ambulating - Review of Systems General: Reports: No Symptoms HEENT: Reports: No Symptoms Pulmonary: Reports: No Symptoms Cardiovascular: Reports: No Symptoms Gastrointestinal: Reports: No Symptoms Genitourinary: Reports: No Symptoms Musculoskeletal: Reports: No Symptoms Skin: Reports: No Symptoms Neurological: Reports: No Symptoms Psychiatric: Reports: No Symptoms - General Info Date of Service: 12/16/19 - Patient Data Vital Signs - Most Recent: Last Vital Signs Temp 97.3 F 12/16/19 06:00 Pulse 84 12/16/19 06:00 Resp 18 12/16/19 06:00 BP 105/57 L 12/16/19 06:00 Pulse Ox 99 12/16/19 06:00 Weight - Most Recent: 343 lb I&O - Last 24 Hours: Intake & Output 12/15/19 12/16/19 12/16/19 22:59 06:59 14:59 Output Total 200 1125 Balance -200 -1125 Lab Results - Last 24 Hours: Laboratory Results - last 24 hr 12/16/19 Range/Units 05:26 Hgb 8.0 L (12.0-16.0) g/dL Hct 25.2 L (36.0-46.0) % Med Orders - Current: Current Medications Bisacodyl (Dulcolax) 10 mg RECTAL ONETIME PRN PRN Reason: Constipation Diphenhydramine HCl (Benadryl) 25 mg IVPUSH Q4H PRN PRN Reason: Itching Stop: 12/16/19 08:38 Diphenhydramine HCl (Benadryl) 25 mg IVPUSH Q6H PRN PRN Reason: Itching or Nausea Docusate Sodium (Colace) 100 mg PO BID DONI Last Admin: 12/16/19 07:32 Dose: Not Given Emollient Ointment (Lansinoh Hpa) 0 gm TOP ASDIRECTED PRN PRN Reason: Sore Nipples Fentanyl (Sublimaze) 50 mcg IVPUSH Q1H PRN PRN Reason: Pain (severe 7-10) Lactated Ringer's (Ringers, Lactated) 1,000 mls @ 500 mls/hr IV BOLUS [facility] Last Admin: 12/15/19 07:59 Dose: 500 mls/hr Oxytocin/Sodium Chloride (Oxytocin 30 Unit/500 Ml-Ns) 30 unit in 500 mls @ 250 mls/hr IV TITRATE [facility] Tranexamic Acid 1,000 mg/ (Sodium Chloride) 110 mls @ 660 mls/hr IV ONETIME PRN PRN Reason: Bleeding Lactated Ringer's (Ringers, Lactated) 1,000 mls @ 125 mls/hr IV ASDIRECTED [facility] Last Admin: 12/15/19 18:50 Dose: 125 mls/hr Ibuprofen (Motrin) 800 mg PO Q8H PRN PRN Reason: mild pain or fever Ketorolac Tromethamine (Toradol) 30 mg IVPUSH Q6H [facility] Stop: 12/16/19 09:01 Last Admin: 12/16/19 03:08 Dose: 30 mg Methylergonovine Maleate (Methergine) 0.2 mg IM ONETIME PRN PRN Reason: Excessive Vaginal Bleeding Misoprostol (Cytotec) 1,000 mcg RECTAL ONETIME PRN PRN Reason: excessive bleeding Nalbuphine HCl (Nubain) 5 mg IVPUSH ASDIRECTED PRN PRN Reason: Itching Last Admin: 12/15/19 11:18 Dose: 5 mg Naloxone HCl (Narcan) 0.1 mg IVPUSH ONETIME PRN PRN Reason: Respiratory Depression Stop: 12/16/19 08:38 Ondansetron HCl (Zofran) 4 mg IVPUSH Q6H PRN PRN Reason: Nausea Ondansetron HCl (Zofran) 4 mg IVPUSH Q4H PRN PRN Reason: Nausea/Vomiting Oxycodone/Acetaminophen (Percocet 325-5 Mg) 2 tab PO Q6H PRN PRN Reason: Pain (moderate 4-6) Oxycodone/Acetaminophen (Percocet 325-5 Mg) 1 tab PO Q4H PRN PRN Reason: Pain (moderate 4-6) Oxycodone/Acetaminophen (Percocet 325-5 Mg) 2 tab PO Q4H PRN PRN Reason: Pain (moderate 4-6) Oxytocin (Pitocin) 10 unit IM ASDIRECTED PRN PRN Reason: Excessive Vaginal Bleeding Sodium Chloride (Saline Flush) 10 ml FLUSH ASDIRECTED PRN PRN Reason: Keep Vein Open Last Admin: 12/15/19 15:54 Dose: 10 ml Sodium Chloride (Saline Flush) 2.5 ml FLUSH ASDIRECTED PRN PRN Reason: Keep Vein Open Sodium Chloride (Normal Saline) 10 ml IV ASDIRECTED PRN PRN Reason: IV Use Discontinued Medications Citric Acid/Sodium Citrate (Bicitra Solution) Confirm Administered Dose 30 ml .ROUTE .STK-MED ONE Stop: 12/15/19 05:53 Last Admin: 12/15/19 07:59 Dose: 30 ml Citric Acid/Sodium Citrate (Bicitra Solution) 30 ml PO ONETIME ONE Stop: 12/15/19 05:59 Last Admin: 12/15/19 08:36 Dose: Not Given Ephedrine Sulfate (Ephedrine Sulfate) Confirm Administered Dose 50 mg .ROUTE .STK-MED ONE Stop: 12/15/19 07:05 Sodium Chloride (Normal Saline) Confirm Administered Dose 20 mls @ as directed .ROUTE .STK-MED ONE Stop: 12/15/19 07:05 Cefazolin Sodium/Dextrose 2 gm (/ Premix) 50 mls @ 100 mls/hr IV ONETIME ONE Stop: 12/15/19 07:46 Last Admin: 12/16/19 07:32 Dose: Not Given Ketorolac Tromethamine (Toradol) Confirm Administered Dose 30 mg .ROUTE .STK- MED ONE Stop: 12/15/19 05:46 Morphine Sulfate (Duramorph Pf) Confirm Administered Dose 10 mg .ROUTE .STK-MED ONE Stop: 12/15/19 07:25 Ondansetron HCl (Zofran) Confirm Administered Dose 4 mg .ROUTE .STK-MED ONE Stop: 12/15/19 05:46 Phenylephrine HCl (Arnulfo-Synephrine) Confirm Administered Dose 10 mg .ROUTE .STK- MED ONE Stop: 12/15/19 05:42 - Infant Interaction Infant Disposition, : [place] in Room with Family Infant Interaction: Holding Infant Feeding: Breastfed ; Nursed Well Support Person: Significant Other - Recovery Exam Fundal Tone: Firm Fundal Level: 2 Fingerbreadths Below Umbilicus Fundal Placement: Midline Lochia Amount: Small Lochia Color: Rubra/Red Perineum Description: Intact, Minimal Bruising/Swelling Episiotomy/Laceration: None Bladder Status: Indwelling Catheter in Place Urinary Elimination: Indwelling Catheter - Exam General: Alert, Oriented, Cooperative, No Acute Distress Lungs: Normal Respiratory Effort GI/Abdominal Exam: Soft, Non-Tender Extremities: Normal Inspection, Normal Range of Motion, Non-Tender, Normal Capillary Refill Skin: Warm, Dry, Intact Wound/Incisions: Healing Well Neurological: Normal Gait, Normal Speech, Normal Tone, Sensation Intact Psy/Mental Status: Alert, Normal Affect, Normal Mood - Problem List & Annotations (1) delivery delivered SNOMED Code(s): 393349436 Code(s): O82 - ENCOUNTER FOR DELIVERY WITHOUT INDICATION Status: Acute Priority: High Current Visit: Yes - Problem List Review Problem List Initiated/Reviewed/Updated: Yes - Plan Plan:: IUP 39 wks admitted for elective repeat C/section. PP Day 1: A: Ambulating, urinating, well, pain well-controlled P: Routine plan of care; Dr. Clayton updated
--- NOTE | 2019-12-16 09:47 | PCM.SURGPN ---
- General Info Date of Service: 12/16/19 POD#: 1 Functional Status: Reports: Pain Controlled - Review of Systems General: Reports: No Symptoms HEENT: Reports: No Symptoms Pulmonary: Reports: No Symptoms Cardiovascular: Reports: No Symptoms Gastrointestinal: Reports: No Symptoms Genitourinary: Reports: No Symptoms Musculoskeletal: Reports: No Symptoms Skin: Reports: No Symptoms Neurological: Reports: No Symptoms Psychiatric: Reports: No Symptoms - Patient Data Vitals - Most Recent: Last Vital Signs Temp 36.3 C 12/16/19 08:00 Pulse 82 12/16/19 08:00 Resp 16 12/16/19 08:00 BP 115/61 12/16/19 08:00 Pulse Ox 100 12/16/19 08:00 Weight - Most Recent: 155.582 kg I&O - Last 24 Hours: Intake & Output 12/15/19 12/16/19 12/16/19 22:59 06:59 14:59 Output Total 200 1125 Balance -200 -1125 Lab Results Last 24 Hrs: Laboratory Results - last 24 hr 12/16/19 Range/Units 05:26 Hgb 8.0 L (12.0-16.0) g/dL Hct 25.2 L (36.0-46.0) % Med Orders - Current: Current Medications Bisacodyl (Dulcolax) 10 mg RECTAL ONETIME PRN PRN Reason: Constipation Diphenhydramine HCl (Benadryl) 25 mg IVPUSH Q6H PRN PRN Reason: Itching or Nausea Docusate Sodium (Colace) 100 mg PO BID [facility] Last Admin: 12/16/19 08:27 Dose: 100 mg Emollient Ointment (Lansinoh Hpa) 0 gm TOP ASDIRECTED PRN PRN Reason: Sore Nipples Fentanyl (Sublimaze) 50 mcg IVPUSH Q1H PRN PRN Reason: Pain (severe 7-10) Lactated Ringer's (Ringers, Lactated) 1,000 mls @ 500 mls/hr IV BOLUS [facility] Last Admin: 12/15/19 07:59 Dose: 500 mls/hr Oxytocin/Sodium Chloride (Oxytocin 30 Unit/500 Ml-Ns) 30 unit in 500 mls @ 250 mls/hr IV TITRATE [facility] Tranexamic Acid 1,000 mg/ (Sodium Chloride) 110 mls @ 660 mls/hr IV ONETIME PRN PRN Reason: Bleeding Lactated Ringer's (Ringers, Lactated) 1,000 mls @ 125 mls/hr IV ASDIRECTED [facility] Last Admin: 12/15/19 18:50 Dose: 125 mls/hr Ibuprofen (Motrin) 800 mg PO Q8H PRN PRN Reason: mild pain or fever Methylergonovine Maleate (Methergine) 0.2 mg IM ONETIME PRN PRN Reason: Excessive Vaginal Bleeding Misoprostol (Cytotec) 1,000 mcg RECTAL ONETIME PRN PRN Reason: excessive bleeding Nalbuphine HCl (Nubain) 5 mg IVPUSH ASDIRECTED PRN PRN Reason: Itching Last Admin: 12/15/19 11:18 Dose: 5 mg Ondansetron HCl (Zofran) 4 mg IVPUSH Q6H PRN PRN Reason: Nausea Ondansetron HCl (Zofran) 4 mg IVPUSH Q4H PRN PRN Reason: Nausea/Vomiting Oxycodone/Acetaminophen (Percocet 325-5 Mg) 2 tab PO Q6H PRN PRN Reason: Pain (moderate 4-6) Oxycodone/Acetaminophen (Percocet 325-5 Mg) 1 tab PO Q4H PRN PRN Reason: Pain (moderate 4-6) Oxycodone/Acetaminophen (Percocet 325-5 Mg) 2 tab PO Q4H PRN PRN Reason: Pain (moderate 4-6) Oxytocin (Pitocin) 10 unit IM ASDIRECTED PRN PRN Reason: Excessive Vaginal Bleeding Sodium Chloride (Saline Flush) 10 ml FLUSH ASDIRECTED PRN PRN Reason: Keep Vein Open Last Admin: 12/15/19 15:54 Dose: 10 ml Sodium Chloride (Saline Flush) 2.5 ml FLUSH ASDIRECTED PRN PRN Reason: Keep Vein Open Sodium Chloride (Normal Saline) 10 ml IV ASDIRECTED PRN PRN Reason: IV Use Discontinued Medications Citric Acid/Sodium Citrate (Bicitra Solution) Confirm Administered Dose 30 ml .ROUTE .STK-MED ONE Stop: 12/15/19 05:53 Last Admin: 12/15/19 07:59 Dose: 30 ml Citric Acid/Sodium Citrate (Bicitra Solution) 30 ml PO ONETIME ONE Stop: 12/15/19 05:59 Last Admin: 12/15/19 08:36 Dose: Not Given Diphenhydramine HCl (Benadryl) 25 mg IVPUSH Q4H PRN PRN Reason: Itching Stop: 12/16/19 08:38 Ephedrine Sulfate (Ephedrine Sulfate) Confirm Administered Dose 50 mg .ROUTE .STK-MED ONE Stop: 12/15/19 07:05 Sodium Chloride (Normal Saline) Confirm Administered Dose 20 mls @ as directed .ROUTE .STK-MED ONE Stop: 12/15/19 07:05 Cefazolin Sodium/Dextrose 2 gm (/ Premix) 50 mls @ 100 mls/hr IV ONETIME ONE Stop: 12/15/19 07:46 Last Admin: 12/16/19 07:32 Dose: Not Given Ketorolac Tromethamine (Toradol) Confirm Administered Dose 30 mg .ROUTE .STK- MED ONE Stop: 12/15/19 05:46 Ketorolac Tromethamine (Toradol) 30 mg IVPUSH Q6H DONI Stop: 12/16/19 09:01 Last Admin: 12/16/19 08:27 Dose: 30 mg Morphine Sulfate (Duramorph Pf) Confirm Administered Dose 10 mg .ROUTE .STK-MED ONE Stop: 12/15/19 07:25 Naloxone HCl (Narcan) 0.1 mg IVPUSH ONETIME PRN PRN Reason: Respiratory Depression Stop: 12/16/19 08:38 Ondansetron HCl (Zofran) Confirm Administered Dose 4 mg .ROUTE .STK-MED ONE Stop: 12/15/19 05:46 Phenylephrine HCl (Arnulfo-Synephrine) Confirm Administered Dose 10 mg .ROUTE .STK- MED ONE Stop: 12/15/19 05:42 - Exam Wound/Incisions: Healing Well General: Alert, Oriented HEENT: Pupils Equal Neck: Supple Lungs: Clear to Auscultation, Normal Respiratory Effort Cardiovascular: Regular Rate, Regular Rhythm GI/Abdominal Exam: Normal Bowel Sounds, Soft, Non-Tender, No Organomegaly, No Distention, No Abnormal Bruit, No Mass, Pelvis Stable Extremities: Normal Inspection, Normal Range of Motion, Non-Tender, No Pedal Edema, Normal Capillary Refill Skin: Warm, Dry, Intact Neurological: No New Focal Deficit Psy/Mental Status: Alert, Normal Affect, Normal Mood Sepsis Event Note - Evaluation Sepsis Screening Result: No Definite Risk - Focused Exam Vital Signs: Vital Signs Temp Pulse Resp BP Pulse Ox 12/16/19 08:00 36.3 C 82 16 115/61 100 12/16/19 06:00 36.3 C 84 18 105/57 L 99 12/16/19 05:00 87 17 97 12/16/19 04:00 77 16 95 12/16/19 03:00 71 14 99 12/16/19 02:00 70 15 97 12/16/19 01:00 36.3 C 72 16 101/49 L 95 12/16/19 00:00 73 16 96 12/15/19 23:00 85 16 95 12/15/19 22:00 73 16 98 Date Exam was Performed: 12/16/19 Time Exam was Performed: 09:46 - Problem List Review Problem List Initiated/Reviewed/Updated: Yes - My Orders Last 24 Hours: Active Orders 24 hr Category Date Time Status Patient Status [ADT] Routine ADT 12/15/19 08:57 Active Ambulate [RC] PER UNIT ROUTINE Care 12/15/19 08:57 Active Antiembolic Devices [RC] PER UNIT ROUTINE Care 12/15/19 08:58 Active May Shower [RC] ASDIRECTED Care 12/15/19 08:57 Active RT Incentive Spirometry [RC] Q2HWA Care 12/15/19 08:57 Active Vital Signs [RC] PER UNIT ROUTINE Care 12/15/19 08:57 Active Regular Diet [DIET] Diet 12/15/19 Dinner Active Acetaminophen/oxyCODONE [Percocet 325-5 MG] Med 12/15/19 08:57 Active 1 tab PO Q4H PRN Acetaminophen/oxyCODONE [Percocet 325-5 MG] Med 12/15/19 08:57 Active 2 tab PO Q4H PRN Docusate Sodium [Colace] Med 12/15/19 09:00 Active 100 mg PO BID Ibuprofen [Motrin] Med 12/15/19 08:57 Active 800 mg PO Q8H PRN Lactated Ringers [Ringers, Lactated] 1,000 ml Med 12/15/19 09:00 Active IV ASDIRECTED Lanolin [Lansinoh HPA] Med 12/15/19 08:57 Active See Dose Instructions TOP ASDIRECTED PRN Methylergonovine [Methergine] Med 12/15/19 08:57 Active 0.2 mg IM ONETIME PRN Ondansetron [Zofran] Med 12/15/19 08:57 Active 4 mg IVPUSH Q4H PRN Oxytocin [Pitocin] Med 12/15/19 08:57 Active 10 unit IM ASDIRECTED PRN Tranexamic Acid [Cyklokapron] 1,000 mg Med 12/15/19 08:57 Active Sodium Chloride 0.9% [Normal Saline] 100 ml IV ONETIME bisacodyL [Dulcolax] Med 12/15/19 08:57 Active 10 mg RECTAL ONETIME PRN diphenhydrAMINE [Benadryl] Med 12/15/19 08:57 Active 25 mg IVPUSH Q6H PRN miSOPROStoL [Cytotec] Med 12/15/19 08:57 Active 1,000 mcg RECTAL ONETIME PRN Assess Lochia [WOMSER] Per Unit Routine Ot 12/15/19 08:57 Ordered Assess Uterine Involution [WOMSER] Per Unit Routine Oth 12/15/19 08:57 Ordered Breast Pump [WOMSER] Per Unit Routine Ot 12/15/19 08:57 Ordered Peripheral IV Discontinue [OM.PC] Routine Oth 12/15/19 08:57 Ordered Sequential Compression Device [OM.PC] Per Unit Routine Ot 12/15/19 08:57 Ordered Medication Orders Bisacodyl (Dulcolax) 10 mg RECTAL ONETIME PRN PRN Reason: Constipation Diphenhydramine HCl (Benadryl) 25 mg IVPUSH Q6H PRN PRN Reason: Itching or Nausea Docusate Sodium (Colace) 100 mg PO BID [facility] Last Admin: 12/16/19 08:27 Dose: 100 mg Admin: 12/16/19 07:32 Dose: Admin: 12/15/19 21:11 Dose: 100 mg Emollient Ointment (Lansinoh Hpa) 0 gm TOP ASDIRECTED PRN PRN Reason: Sore Nipples Fentanyl (Sublimaze) 50 mcg IVPUSH Q1H PRN PRN Reason: Pain (severe 7-10) Lactated Ringer's (Ringers, Lactated) 1,000 mls @ 500 mls/hr IV BOLUS [facility] Last Admin: 12/15/19 07:59 Dose: 500 mls/hr Infusion: 12/15/19 07:59 Dose: 500 mls/hr Admin: 12/15/19 06:40 Dose: 500 mls/hr Oxytocin/Sodium Chloride (Oxytocin 30 Unit/500 Ml-Ns) 30 unit in 500 mls @ 250 mls/hr IV TITRATE [facility] Tranexamic Acid 1,000 mg/ (Sodium Chloride) 110 mls @ 660 mls/hr IV ONETIME PRN PRN Reason: Bleeding Lactated Ringer's (Ringers, Lactated) 1,000 mls @ 125 mls/hr IV ASDIRECTED [facility] Last Admin: 12/15/19 18:50 Dose: 125 mls/hr Infusion: 12/15/19 18:45 Dose: 125 mls/hr Admin: 12/15/19 10:45 Dose: 125 mls/hr Ibuprofen (Motrin) 800 mg PO Q8H PRN PRN Reason: mild pain or fever Methylergonovine Maleate (Methergine) 0.2 mg IM ONETIME PRN PRN Reason: Excessive Vaginal Bleeding Misoprostol (Cytotec) 1,000 mcg RECTAL ONETIME PRN PRN Reason: excessive bleeding Nalbuphine HCl (Nubain) 5 mg IVPUSH ASDIRECTED PRN PRN Reason: Itching Last Admin: 12/15/19 11:18 Dose: 5 mg Ondansetron HCl (Zofran) 4 mg IVPUSH Q6H PRN PRN Reason: Nausea Ondansetron HCl (Zofran) 4 mg IVPUSH Q4H PRN PRN Reason: Nausea/Vomiting Oxycodone/Acetaminophen (Percocet 325-5 Mg) 2 tab PO Q6H PRN PRN Reason: Pain (moderate 4-6) Oxycodone/Acetaminophen (Percocet 325-5 Mg) 1 tab PO Q4H PRN PRN Reason: Pain (moderate 4-6) Oxycodone/Acetaminophen (Percocet 325-5 Mg) 2 tab PO Q4H PRN PRN Reason: Pain (moderate 4-6) Oxytocin (Pitocin) 10 unit IM ASDIRECTED PRN PRN Reason: Excessive Vaginal Bleeding Sodium Chloride (Saline Flush) 10 ml FLUSH ASDIRECTED PRN PRN Reason: Keep Vein Open Last Admin: 12/15/19 15:54 Dose: 10 ml Sodium Chloride (Saline Flush) 2.5 ml FLUSH ASDIRECTED PRN PRN Reason: Keep Vein Open Sodium Chloride (Normal Saline) 10 ml IV ASDIRECTED PRN PRN Reason: IV Use - Assessment Assessment (Free Text/Narrative):: Status post section postoperative day #1 the patient is doing well ambulatory on regular diet pain is very well control and tolerated plan for this patient to be discharge in a.m.
[2019-12-16] MEDS: Acetaminophen/oxyCODONE 325-5 MG Tab PO PRN ×2 (14:57→20:58)
[2019-12-16] MEDS ORDERED: LORazepam 1 MG Tab PO ONE (15:05)
[2019-12-17] MEDS: Acetaminophen/oxyCODONE 325-5 MG Tab PO PRN ×2 (02:40→08:05)
[2019-12-17] MEDS: Docusate Sodium 100 MG Cap PO SCH (08:04)
--- NOTE | 2019-12-17 09:19 | PCM.DCSUM1 ---
Discharge Summary - Hospital Course Free Text/Narrative:: Discharge home with baby. Follow up in one week for incision check in the clinic. Follow up in 6 weeks for routine visit in the clinic. Diagnosis: Stroke: No Modified [place] Scale: No Symptoms at All Modified [place] Scale Score: 0 - Discharge Data Discharge Date: 12/17/19 Discharge Disposition: Home, Self-Care 01 Condition: Good - Referral to Home Health Primary Care Physician: Moise Keller MD - Discharge Diagnosis/Problem(s) (1) delivery delivered SNOMED Code(s): 986513487 ICD Code: O82 - ENCOUNTER FOR DELIVERY WITHOUT INDICATION Status: Acute Priority: High Current Visit: Yes - Patient Summary/Data Operative Procedure(s) Performed: Repeat C/section. - Patient Instructions Diet: Regular Diet as Tolerated, Drink 8-10+ Glasses/Day Activity: As Tolerated, No Strenuous Activities, Rest and Relax Today Driving: Do Not Drive Showering/Bathing: May Shower Wound/Incision Care: Keep Operative Site/Wound Site Clean and Dry, Do NOT Change Dressing Notify Provider of: Fever, Increased Pain, Swelling and Redness, Drainage, Nausea and/or Vomiting - Discharge Plan *PRESCRIPTION DRUG MONITORING PROGRAM REVIEWED*: Not Applicable *COPY OF PRESCRIPTION DRUG MONITORING REPORT IN PATIENT DENISE: Not Applicable Prescriptions/Med Rec: Acetaminophen/oxyCODONE [Percocet 325-5 MG] 1 - 2 tab PO Q6H PRN #24 tablet PRN Reason: Pain (Moderate 4-6) Docusate Sodium [Colace] 100 mg PO BID #30 cap Ibuprofen [Motrin] 800 mg PO Q8H PRN #90 tablet PRN Reason: mild pain or fever Levothyroxine 100 mcg PO DAILY #30 tablet Sertraline [Zoloft] 150 mg PO DAILY #45 tab Sertraline HCl [Zoloft] 100 mg PO DAILY #7 tablet Home Medications: Home Meds Folic Acid 0.4 mg PO DAILY 04/23/19 [History] Pnv No.95/Ferrous Fum/Folic AC [ Caplet] 1 tab PO DAILY 04/23/19 [ History] Cyclobenzaprine [Flexeril] 10 mg PO BID PRN 12/09/19 [History] Acetaminophen/oxyCODONE [Percocet 325-5 MG] 1 - 2 tab PO Q6H PRN #24 tablet [Rx] Docusate Sodium [Colace] 100 mg PO BID #30 cap 12/17/19 [Rx] Ibuprofen [Motrin] 800 mg PO Q8H PRN #90 tablet 12/17/19 [Rx] Levothyroxine 100 mcg PO DAILY #30 tablet 12/17/19 [Rx] Sertraline HCl [Zoloft] 100 mg PO DAILY #7 tablet 12/17/19 [Rx] Sertraline [Zoloft] 150 mg PO DAILY #45 tab 12/17/19 [Rx] Oxygen Therapy Mode: Room Air Referrals: [facility] [Outside] Trae Clayton MD [Physician] - 12/21/19 1:30 pm Cindy Arita CNM [Mid-] - 01/26/20 2:15 pm - Discharge Summary/Plan Comment DC Time >30 min.: Yes - General Info Date of Service: 12/17/19 Admission Dx/Problem (Free Text: Patient Status Order with Admit Dx/Problem 12/15/19 05:58 Patient Status [ADT] Routine Admission Diagnosis/Problem Admission Diagnosis/Problem Functional Status: Reports: Pain Controlled, Tolerating Diet, Ambulating, Urinating - Review of Systems General: Reports: No Symptoms HEENT: Reports: No Symptoms Pulmonary: Reports: No Symptoms Cardiovascular: Reports: No Symptoms Gastrointestinal: Reports: No Symptoms Genitourinary: Reports: No Symptoms Musculoskeletal: Reports: No Symptoms Skin: Reports: No Symptoms Neurological: Reports: No Symptoms Psychiatric: Reports: No Symptoms - Patient Data Vitals - Most Recent: Last Vital Signs Temp 97.4 F 12/17/19 04:12 Pulse 97 12/17/19 04:12 Resp 17 12/17/19 04:12 BP 122/68 12/17/19 04:12 Pulse Ox 96 12/17/19 04:12 Weight - Most Recent: 343 lb Lab Results - Last 24 hrs: Laboratory Results - last 24 hr 12/15/19 Range/Units 06:28 RPR Non-Reac (Non-Reac) Med Orders - Current: Current Medications Bisacodyl (Dulcolax) 10 mg RECTAL ONETIME PRN PRN Reason: Constipation Diphenhydramine HCl (Benadryl) 25 mg IVPUSH Q6H PRN PRN Reason: Itching or Nausea Docusate Sodium (Colace) 100 mg PO BID [facility] Last Admin: 12/17/19 08:04 Dose: 100 mg Emollient Ointment (Lansinoh Hpa) 0 gm TOP ASDIRECTED PRN PRN Reason: Sore Nipples Fentanyl (Sublimaze) 50 mcg IVPUSH Q1H PRN PRN Reason: Pain (severe 7-10) Lactated Ringer's (Ringers, Lactated) 1,000 mls @ 500 mls/hr IV BOLUS [facility] Last Admin: 12/15/19 07:59 Dose: 500 mls/hr Oxytocin/Sodium Chloride (Oxytocin 30 Unit/500 Ml-Ns) 30 unit in 500 mls @ 250 mls/hr IV TITRATE [facility] Tranexamic Acid 1,000 mg/ (Sodium Chloride) 110 mls @ 660 mls/hr IV ONETIME PRN PRN Reason: Bleeding Lactated Ringer's (Ringers, Lactated) 1,000 mls @ 125 mls/hr IV ASDIRECTED [facility] Last Admin: 12/15/19 18:50 Dose: 125 mls/hr Ibuprofen (Motrin) 800 mg PO Q8H PRN PRN Reason: mild pain or fever Last Admin: 12/17/19 02:38 Dose: 800 mg Methylergonovine Maleate (Methergine) 0.2 mg IM ONETIME PRN PRN Reason: Excessive Vaginal Bleeding Misoprostol (Cytotec) 1,000 mcg RECTAL ONETIME PRN PRN Reason: excessive bleeding Nalbuphine HCl (Nubain) 5 mg IVPUSH ASDIRECTED PRN PRN Reason: Itching Last Admin: 12/15/19 11:18 Dose: 5 mg Ondansetron HCl (Zofran) 4 mg IVPUSH Q6H PRN PRN Reason: Nausea Ondansetron HCl (Zofran) 4 mg IVPUSH Q4H PRN PRN Reason: Nausea/Vomiting Oxycodone/Acetaminophen (Percocet 325-5 Mg) 2 tab PO Q6H PRN PRN Reason: Pain (moderate 4-6) Oxycodone/Acetaminophen (Percocet 325-5 Mg) 1 tab PO Q4H PRN PRN Reason: Pain (moderate 4-6) Oxycodone/Acetaminophen (Percocet 325-5 Mg) 2 tab PO Q4H PRN PRN Reason: Pain (moderate 4-6) Last Admin: 12/17/19 08:05 Dose: 2 tab Oxytocin (Pitocin) 10 unit IM ASDIRECTED PRN PRN Reason: Excessive Vaginal Bleeding Sodium Chloride (Saline Flush) 10 ml FLUSH ASDIRECTED PRN PRN Reason: Keep Vein Open Last Admin: 12/15/19 15:54 Dose: 10 ml Sodium Chloride (Saline Flush) 2.5 ml FLUSH ASDIRECTED PRN PRN Reason: Keep Vein Open Sodium Chloride (Normal Saline) 10 ml IV ASDIRECTED PRN PRN Reason: IV Use Discontinued Medications Citric Acid/Sodium Citrate (Bicitra Solution) Confirm Administered Dose 30 ml .ROUTE .STK-MED ONE Stop: 12/15/19 05:53 Last Admin: 12/15/19 07:59 Dose: 30 ml Citric Acid/Sodium Citrate (Bicitra Solution) 30 ml PO ONETIME ONE Stop: 12/15/19 05:59 Last Admin: 12/15/19 08:36 Dose: Not Given Diphenhydramine HCl (Benadryl) 25 mg IVPUSH Q4H PRN PRN Reason: Itching Stop: 12/16/19 08:38 Ephedrine Sulfate (Ephedrine Sulfate) Confirm Administered Dose 50 mg .ROUTE .STK-MED ONE Stop: 12/15/19 07:05 Sodium Chloride (Normal Saline) Confirm Administered Dose 20 mls @ as directed .ROUTE .STK-MED ONE Stop: 12/15/19 07:05 Cefazolin Sodium/Dextrose 2 gm (/ Premix) 50 mls @ 100 mls/hr IV ONETIME ONE Stop: 12/15/19 07:46 Last Admin: 12/16/19 07:32 Dose: Not Given Ketorolac Tromethamine (Toradol) Confirm Administered Dose 30 mg .ROUTE .STK- MED ONE Stop: 12/15/19 05:46 Ketorolac Tromethamine (Toradol) 30 mg IVPUSH Q6H DONI Stop: 12/16/19 09:01 Last Admin: 12/16/19 08:27 Dose: 30 mg Lorazepam (Ativan) 0.5 mg PO ONETIME ONE Stop: 12/16/19 15:06 Last Admin: 12/16/19 15:28 Dose: 0.5 mg Morphine Sulfate (Duramorph Pf) Confirm Administered Dose 10 mg .ROUTE .STK-MED ONE Stop: 12/15/19 07:25 Naloxone HCl (Narcan) 0.1 mg IVPUSH ONETIME PRN PRN Reason: Respiratory Depression Stop: 12/16/19 08:38 Ondansetron HCl (Zofran) Confirm Administered Dose 4 mg .ROUTE .STK-MED ONE Stop: 12/15/19 05:46 Phenylephrine HCl (Arnulfo-Synephrine) Confirm Administered Dose 10 mg .ROUTE .STK- MED ONE Stop: 12/15/19 05:42 - Exam General: Reports: Alert, Oriented, Cooperative, No Acute Distress Lungs: Reports: Normal Respiratory Effort Cardiovascular: Reports: Regular Rate, Regular Rhythm GI/Abdominal Exam: Soft, Non-Tender (Female) Exam: Deferred Rectal (Female) Exam: Deferred Back Exam: Reports: Normal Inspection, Full Range of Motion Extremities: Normal Inspection, Normal Range of Motion, Non-Tender, Normal Capillary Refill Skin: Reports: Warm, Dry, Intact Wound/Incisions: Reports: Dressing Dry and Intact Neurological: Reports: No New Focal Deficit, Normal Gait, Normal Speech, Normal Tone, Sensation Intact Psy/Mental Status: Reports: Alert, Normal Affect, Normal Mood
== END 2019-12-17 12:32 | disposition home or self-care (01) | DRG 788 ==
LOC: MW.OB 05:16
PROVIDERS: ADMIT Obstetrics & Gynecology; ATTEND Obstetrics & Gynecology
PROC: 10D00Z1 Extraction of Products of Conception, Low, Open Approach (ICD-10-PCS; principal; 2019-12-15)
DX: O34.211 Maternal care for low transverse scar from previous cesarean delivery (principal); Z37.0 Single live birth; O99.344 Other mental disorders complicating childbirth; F41.9 Anxiety disorder, unspecified; F32.9 Major depressive disorder, single episode, unspecified; O99.214 Obesity complicating childbirth; E66.9 Obesity, unspecified; O99.284 Endocrine, nutritional and metabolic diseases complicating childbirth; E03.9 Hypothyroidism, unspecified; O99.02 Anemia complicating childbirth; D64.9 Anemia, unspecified; O99.334 Smoking (tobacco) complicating childbirth; F17.200 Nicotine dependence, unspecified, uncomplicated; Z79.899 Other long term (current) drug therapy; Z3A.39 39 weeks gestation of pregnancy
CPT/HCPCS: 01961; 36415; 51702; 59025; 85014; 85018; 85027; 86592; 86593; 86850; 86900; 86901; A9270-GY; J1885; J2270; J2300; J2370; J2405; J7120

== ENCOUNTER 2020-02-24 17:58 | Emergency (ER) | payer MEDICAID ==
[2020-02-24] MEDS ORDERED: Sodium Chloride 0.9% 10 ML Syringe FLUSH PRN (20:13)
[2020-02-24] MEDS ORDERED: Sodium Chloride 0.9% 2.5 ML Syringe FLUSH PRN (20:13)
--- NOTE | 2020-02-24 20:18 | EDM.PDOC ---
ED HPI GENERAL MEDICAL PROBLEM - General Chief Complaint: Abdominal Pain Stated Complaint: LOWER RIGHT ABDOMINAL PAIN Time Seen by Provider: 02/24/20 19:53 - History of Present Illness INITIAL COMMENTS - FREE TEXT/NARRATIVE: History of present illness: 29-year-old female presenting with right lower quadrant abdominal pain which has been ongoing for months but acutely worsened and progressing for the last 2 weeks. Now she has been nauseated for the last week and vomiting for the last 2 to 3 days. She had a in November 2019 and the pain has been going on since then and it is at the site of her scar. She did report that she has had some irregular periods ever since giving to the baby. She was concerned because the only time she has had nausea and vomiting was during prior pregnancies in the past. She has been following with her CASEY SAW OPERATOR and they were concerned she may have a deep infection around the csection scar. No fevers or chills. No cough. No dysuria. No vaginal discharge. Review of systems: As per history of present illness and below otherwise all systems reviewed and negative. Past medical history: As per history of present illness and as reviewed below otherwise noncontri butory. Surgical history: As per history of present illness and as reviewed below otherwise noncontributory. Social history: No reported history of drug or alcohol abuse. No tobacco Family history: As per history of present illness and as reviewed below otherwise noncontributory. Physical exam: GEN: no acute distress, well appearing HEENT: Atraumatic, normocephalic, mucous membranes moist, Neck: supple, nontender, trachea midline. Lungs: No respiratory distress. Heart: RRR Abdomen: Soft, nondistended, tender to palpation in the right lower quadrant, located deep to the scar. No rebound or guarding Back: nontender Extremities: Atraumatic. Neurovascularly intact. Neuro: Awake, alert, oriented. Neuro Exam nonfocal. Skin: warm, dry, no lesions Diagnostics: Labs, UA, CT abdomen/pelvis Therapeutics: [] MDM: Differential diagnosis: Appendicitis, infection of the scar, deep dehiscence of the incision site, scarring of the incision site, new pregnanc y/ectopic Impression: [] Plan: [] Definitive disposition and diagnosis as appropriate pending reevaluation and review of above. Right Lower Abdomen Pain Score (Numeric/FACES): 6 - Related Data Allergies Allergy/AdvReac Type Severity Reaction Status Date / Time metronidazole [From Flagyl] Allergy Anaphylactic Verified 12/09/19 08:26 Shock proventil liquid Allergy Seizure Uncoded 12/09/19 08:26 ptu Allergy Hives Uncoded 12/09/19 08:26 tapazole Allergy Hives Uncoded 12/09/19 08:26 Home Meds: Home Meds Folic Acid 0.4 mg PO DAILY 04/23/19 [History] Pnv No.95/Ferrous Fum/Folic AC [ Caplet] 1 tab PO DAILY 04/23/19 [History] Cyclobenzaprine [Flexeril] 10 mg PO BID PRN 12/09/19 [History] Acetaminophen/oxyCODONE [Percocet 325-5 MG] 1 - 2 tab PO Q6H PRN #24 tablet 12/17/19 [Rx] Docusate Sodium [Colace] 100 mg PO BID #30 cap 12/17/19 [Rx] Ibuprofen [Motrin] 800 mg PO Q8H PRN #90 tablet 12/17/19 [Rx] Levothyroxine 100 mcg PO DAILY #30 tablet 12/17/19 [Rx] Sertraline HCl [Zoloft] 100 mg PO DAILY #7 tablet 12/17/19 [Rx] Sertraline [Zoloft] 150 mg PO DAILY #45 tab 12/17/19 [Rx] Ondansetron [Zofran ODT] 4 mg PO Q6H PRN #20 tab.dis 02/24/20 [Rx] Past Medical History - Past Health History Medical/Surgical History: Denies Medical/Surgical History HEENT History: Reports: None Other HEENT History: wears glasses Cardiovascular History: Reports: Other (See Below) Other Cardiovascular History: "cyst in my heart" Respiratory History: Reports: None Gastrointestinal History: Reports: None Genitourinary History: Reports: None CASEY SAW OPERATOR History: Reports: , 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 CASEY SAW OPERATOR History: Termination of 1 Musculoskeletal History: Reports: None Other Musculoskeletal History: hx of fx to jaw and hands Neurological History: Reports: Migraines, Other (See Below) Other Neuro History: Tourettes Psychiatric History: Reports: Anxiety, Depression Other Psychiatric History: Tourettes Endocrine/Metabolic History: Reports: Hypothyroidism Hematologic History: Reports: None Immunologic History: Reports: None Oncologic (Cancer) History: Reports: None Dermatologic History: Reports: None - Infectious Disease History Infectious Disease History: Reports: None - Past Surgical History Head Surgeries/Procedures: Reports: None HEENT Surgical History: Reports: None Cardiovascular Surgical History: Reports: None Respiratory Surgical History: Reports: None GI Surgical History: Reports: None Female Surgical History: Reports: Section Endocrine Surgical History: Reports: None Neurological Surgical History: Reports: None Musculoskeletal Surgical History: Reports: None Oncologic Surgical History: Reports: None Dermatological Surgical History: Reports: None Social & Family History - Family History Family Medical History: Noncontributory HEENT: Reports: None Cardiac: Reports: None Respiratory: Reports: None GI: Reports: None : Reports: None OBGYN: Reports: None Musculoskeletal: Reports: None Neurological: Reports: None Psychiatric: Reports: None Endocrine/Metabolic: Reports: None Hematologic: Reports: None Immunologic: Reports: None Dermatologic: Reports: None Oncologic: Reports: Breast, Renal - Caffeine Use Caffeine Use: Reports: None ED ROS GENERAL - Review of Systems Review Of Systems: See Below ED EXAM, GI/ABD - Physical Exam Exam: See Below (See HPI) Course - Vital Signs Last Recorded V/S: Last Vital Signs Temp 97.3 F 02/24/20 20:20 Pulse 91 02/24/20 20:20 Resp 20 02/24/20 20:20 BP 139/88 02/24/20 20:20 Pulse Ox 97 02/24/20 20:20 - Orders/Labs/Meds Orders: Active Orders 24 hr Category Date Time Status Sodium Chloride 0.9% [Saline Flush] Med 02/24/20 20:13 Active 10 ml FLUSH ASDIRECTED PRN Sodium Chloride 0.9% [Saline Flush] Med 02/24/20 20:13 Active 2.5 ml FLUSH ASDIRECTED PRN Saline Lock Insert [OM.PC] Stat Oth 02/24/20 20:13 Ordered Medication Orders Sodium Chloride (Saline Flush) 10 ml FLUSH ASDIRECTED PRN PRN Reason: Keep Vein Open Sodium Chloride (Saline Flush) 2.5 ml FLUSH ASDIRECTED PRN PRN Reason: Keep Vein Open Labs: Laboratory Tests 02/24/20 02/24/20 02/24/20 Range/Units 19:50 20:35 20:35 WBC 12.33 H (4.0-11.0) K/uL RBC 4.19 L (4.30-5.90) M/uL Hgb 10.6 L (12.0-16.0) g/dL Hct 33.6 L (36.0-46.0) % MCV 80.2 (80.0-98.0) fL MCH 25.3 L (27.0-32.0) pg MCHC 31.5 (31.0-37.0) g/dL RDW Std Deviation 48.7 (28.0-62.0) fl RDW Coeff of Rosa Maria 17 H (11.0-15.0) % Plt Count 342 (150-400) K/uL MPV 10.20 (7.40-12.00) fL Neut % (Auto) 64.0 (48.0-80.0) % Lymph % (Auto) 29.5 (16.0-40.0) % Slope % (Auto) 4.6 (0.0-15.0) % Eos % (Auto) 1.7 (0.0-7.0) % Baso % (Auto) 0.2 (0.0-1.5) % Neut # (Auto) 7.9 H (1.4-5.7) K/uL Lymph # (Auto) 3.6 H (0.6-2.4) K/uL Slope # (Auto) 0.6 (0.0-0.8) K/uL Eos # (Auto) 0.2 (0.0-0.7) K/uL Baso # (Auto) 0.0 (0.0-0.1) K/uL Nucleated RBC % 0.0 /100WBC Nucleated RBCs # 0 K/uL Sodium 137 (136-145) mmol/L Potassium 4.0 (3.5-5.1) mmol/L Chloride 102 (98-107) mmol/L Carbon Dioxide 24.2 (21.0-32.0) mmol/L BUN 20 H (7.0-18.0) mg/dL Creatinine 0.9 (0.6-1.0) mg/dL Est Cr Clr Drug Dosing 85.43 mL/min Estimated GFR (MDRD) > 60.0 ml/min Glucose 97 (74-106) mg/dL Calcium 10.1 (8.5-10.1) mg/dL Total Bilirubin 0.2 (0.2-1.0) mg/dL AST 12 L (15-37) IU/L ALT 13 L (14-63) IU/L Alkaline Phosphatase 89 (46-116) U/L Total Protein 8.6 H (6.4-8.2) g/dL Albumin 3.9 (3.4-5.0) g/dL Globulin 4.7 H (2.6-4.0) g/dL Albumin/Globulin Ratio 0.8 L (0.9-1.6) HCG, Qual (NEG) Urine Color YELLOW Urine Appearance SLT CLOUDY Urine pH 5.5 (5.0-8.0) Ur Specific Riley >= 1.030 (1.001-1.035) Urine Protein NEGATIVE (NEGATIVE) mg/dL Urine Glucose (UA) NEGATIVE (NEGATIVE) mg/dL Urine Ketones NEGATIVE (NEGATIVE) mg/dL Urine Occult Blood NEGATIVE (NEGATIVE) Urine Nitrite NEGATIVE (NEGATIVE) Urine Bilirubin NEGATIVE (NEGATIVE) Urine Urobilinogen 0.2 (<2.0) EU/dL Ur Leukocyte Esterase SMALL H (NEGATIVE) Urine RBC 0-2 (0-2/HPF) Urine WBC 2-4 (0-5/HPF) Ur Epithelial Cells FEW (NONE-FEW) Amorphous Sediment FEW (NEGATIVE) Urine Bacteria FEW (NEGATIVE) Urine Mucus FEW (NONE-MOD) 02/24/20 Range/Units 20:35 WBC (4.0-11.0) K/uL RBC (4.30-5.90) M/uL Hgb (12.0-16.0) g/dL Hct (36.0-46.0) % MCV (80.0-98.0) fL MCH (27.0-32.0) pg MCHC (31.0-37.0) g/dL RDW Std Deviation (28.0-62.0) fl RDW Coeff of Rosa Maria (11.0-15.0) % Plt Count (150-400) K/uL MPV (7.40-12.00) fL Neut % (Auto) (48.0-80.0) % Lymph % (Auto) (16.0-40.0) % Slope % (Auto) (0.0-15.0) % Eos % (Auto) (0.0-7.0) % Baso % (Auto) (0.0-1.5) % Neut # (Auto) (1.4-5.7) K/uL Lymph # (Auto) (0.6-2.4) K/uL Slope # (Auto) (0.0-0.8) K/uL Eos # (Auto) (0.0-0.7) K/uL Baso # (Auto) (0.0-0.1) K/uL Nucleated RBC % /100WBC Nucleated RBCs # K/uL Sodium (136-145) mmol/L Potassium (3.5-5.1) mmol/L Chloride (98-107) mmol/L Carbon Dioxide (21.0-32.0) mmol/L BUN (7.0-18.0) mg/dL Creatinine (0.6-1.0) mg/dL Est Cr Clr Drug Dosing mL/min Estimated GFR (MDRD) ml/min Glucose (74-106) mg/dL Calcium (8.5-10.1) mg/dL Total Bilirubin (0.2-1.0) mg/dL AST (15-37) IU/L ALT (14-63) IU/L Alkaline Phosphatase (46-116) U/L Total Protein (6.4-8.2) g/dL Albumin (3.4-5.0) g/dL Globulin (2.6-4.0) g/dL Albumin/Globulin Ratio (0.9-1.6) HCG, Qual NEGATIVE (NEG) Urine Color Urine Appearance Urine pH (5.0-8.0) Ur Specific Riley (1.001-1.035) Urine Protein (NEGATIVE) mg/dL Urine Glucose (UA) (NEGATIVE) mg/dL Urine Ketones (NEGATIVE) mg/dL Urine Occult Blood (NEGATIVE) Urine Nitrite (NEGATIVE) Urine Bilirubin (NEGATIVE) Urine Urobilinogen (<2.0) EU/dL Ur Leukocyte Esterase (NEGATIVE) Urine RBC (0-2/HPF) Urine WBC (0-5/HPF) Ur Epithelial Cells (NONE-FEW) Amorphous Sediment (NEGATIVE) Urine Bacteria (NEGATIVE) Urine Mucus (NONE-MOD) Meds: Medications Generic Name Dose Route Start Last Admin Trade Name Freq PRN Reason Stop Dose Admin Sodium Chloride 10 ml 02/24/20 20:13 Saline Flush FLUSH ASDIRECTED PRN Keep Vein Open Sodium Chloride 2.5 ml 02/24/20 20:13 Saline Flush FLUSH ASDIRECTED PRN Keep Vein Open Discontinued Medications Generic Name Dose Route Start Last Admin Trade Name Michael PRN Reason Stop Dose Admin Iopamidol 100 ml 02/24/20 21:49 02/24/20 21:50 Isovue-370 (76%) IVPUSH 02/24/20 21:50 100 ml ONETIME ONE Administration - Re-Assessments/Exams Free Text/Narrative Re-Assessment/Exam: 02/24/20 22:47 Patient is resting comfortably and in no acute distress on reassessment. I discussed results of labs and CT scan here today. Patient is not . No acute findings on the CT scan to account for her symptoms which have been ongoing since her . Suspect possibly scar tissue related that is not visualized on the CT scan. However no deep space infection or abscess. Patient feels comfortable with plan for outpatient treatment. We discussed restarting the ibuprofen that she had been taking previously which she had stopped because she started to feel nauseated. Possibly some GERD/gastritis. We discussed plan to start Pepcid and I will send a prescription for Zofran into the patient's pharmacy. She agrees with this plan. Agrees to follow-up with her OB as well. Departure - Departure Time of Disposition: 22:48 Disposition: Home, Self-Care 01 Clinical Impression: Nausea Abdominal pain Qualifiers: Abdominal location: right lower quadrant Qualified Code(s): R10.31 - Right lower quadrant pain - Discharge Information Prescriptions: Ondansetron [Zofran ODT] 4 mg PO Q6H PRN #20 tab.dis PRN Reason: Nausea/Vomiting Instructions: Nausea, Adult, Abdominal Pain, Adult, [id number], Nausea and Vomiting, Adult, [id number], Pain Without a Known Cause Referrals: Rosio Preston DO [Primary Care Provider] - Forms: ED Department Discharge Additional Instructions: The following information is given to patients seen in the emergency department who are being discharged to home. This information is to outline your options for follow-up care. We provide all patients seen in our emergency department with a follow-up referral. The need for follow-up, as well as the timing and circumstances, are variable depending upon the specifics of your emergency department visit. If you don't have a primary care physician on staff, we will provide you with a referral. We always advise you to contact your personal physician following an emergency department visit to inform them of the circumstance of the visit and for follow-up with them and/or the need for any referrals to a consulting specialist. The emergency department will also refer you to a specialist when appropriate. This referral assures that you have the opportunity for follow-up care with a specialist. All of these measure are taken in an effort to provide you with optimal care, which includes your follow-up. Under all circumstances we always encourage you to contact your private physician who remains a resource for coordinating your care. When calling for follow-up care, please make the office aware that this follow-up is from your recent emergency room visit. If for any reason you are refused follow-up, please contact the [facility] Emergency Department at and asked to speak to the emergency department charge nurse. Please restart taking the ibuprofen, 600 mg every 8 hours. Please make sure to take this with food. Also please start taking Pepcid in case of gastritis. I have sent prescription for Zofran to your pharmacy. You may take this as needed for nausea or vomiting. Sepsis Event Note (ED) - Focused Exam Vital Signs: Vital Signs Temp Pulse Resp BP Pulse Ox 02/24/20 20:20 97.3 F 91 20 139/88 97 - My Orders Last 24 Hours: My Active Orders 02/24/20 20:13 Sodium Chloride 0.9% [Saline Flush] 10 ml FLUSH ASDIRECTED PRN Sodium Chloride 0.9% [Saline Flush] 2.5 ml FLUSH ASDIRECTED PRN Saline Lock Insert [OM.PC] Stat - Assessment/Plan Last 24 Hours: My Active Orders 02/24/20 20:13 Sodium Chloride 0.9% [Saline Flush] 10 ml FLUSH ASDIRECTED PRN Sodium Chloride 0.9% [Saline Flush] 2.5 ml FLUSH ASDIRECTED PRN Saline Lock Insert [OM.PC] Stat
[2020-02-24 21:09] LABS: BLOOD UREA NITROGEN,BUN 20 mg/dL (7.0-18.0); CARBON DIOXIDE,CO2 24.2 mmol/L (21.0-32.0); CHLORIDE,CL 102 mmol/L (98-107); GLUCOSE RANDOM 97 mg/dL (74-106); SODIUM,NA 137 mmol/L (136-145)
[2020-02-24] MEDS ORDERED: Iopamidol 755 Mg/ML 100 ML Bottle IVPUSH ONE (21:49)
--- NOTE | 2020-02-24 22:13 | CT ---
CT abdomen and pelvis Technique: Multiple axial sections were obtained from above the dome of the diaphragm inferiorly through the pubic symphysis. Intravenous contrast was utilized. No oral contrast has been given. Comparison: No prior abdominal imaging is available. Findings: Visualized lung bases show nothing acute. Liver contains no focal parenchymal abnormality. Spleen appears within normal limits. Adrenal glands show no nodule. Pancreas shows no discrete abnormality. Gallbladder contains no calcified gallstones. Aorta shows no aneurysm. Kidneys show symmetric contrast enhancement without hydronephrosis or mass. No retroperitoneal adenopathy or mesenteric abnormalities are seen. Appendix is seen which is normal in size. No pelvic mass or adenopathy is seen. No free fluid or inflammatory change is appreciated within the abdomen or pelvis. Bone window settings were reviewed which shows no acute osseous finding. Impression: 1. Nothing acute is appreciated on CT study of the abdomen and pelvis. Diagnostic code #1 Study was dictated in MDT
== END 2020-02-24 22:58 | disposition home or self-care (01) ==
LOC: MW.ED 17:58
DX: R10.31 Right lower quadrant pain (principal); R11.2 Nausea with vomiting, unspecified; F41.9 Anxiety disorder, unspecified; F32.9 Major depressive disorder, single episode, unspecified; E03.9 Hypothyroidism, unspecified; Z88.8 Allergy status to other drugs, medicaments and biological substances; Z79.899 Other long term (current) drug therapy
CPT/HCPCS: 36415; 74177; 80053; 81001; 84703; 85025; 99284; Q9967; 99283

== ENCOUNTER 2020-03-22 05:16 | Emergency (ER) | payer MEDICAID ==
[2020-03-22] MEDS ORDERED: Ibuprofen 800 MG Tab PO ONE (05:36)
--- NOTE | 2020-03-22 05:38 | EDM.PDOC ---
ED HPI GENERAL MEDICAL PROBLEM - General Chief Complaint: Lower Extremity Injury/Pain Stated Complaint: DISLOCATED RIGHT HIP Time Seen by Provider: 03/22/20 05:30 - History of Present Illness INITIAL COMMENTS - FREE TEXT/NARRATIVE: History of present illness: Patient presents the ED with right hip pain after rolling out of bed. This happened just prior to arrival she says the pain is deep in the right hip and it hurts to bear weight and move the right hip no other injuries with this fall she just rolled out of bed she did not hit her head she denies any other areas of pain she was able to get up with help and ambulate with pain with her boyfriend's help. Review of systems: As per history of present illness and below otherwise all systems reviewed and negative. Past medical history: As per history of present illness and as reviewed below otherwise noncontributory. Surgical history: As per history of present illness and as reviewed below otherwise noncontributory. Social history: No reported history of drug or alcohol abuse. Family history: As per history of present illness and as reviewed below otherwise noncontributory. Physical exam: HEENT: Atraumatic, normocephalic, pupils reactive, negative for conjunctival pallor or scleral icterus, mucous membranes moist, throat clear, neck supple, nontender, trachea midline. Lungs: Clear to auscultation, breath sounds equal bilaterally, chest nontender. Heart: S1S2, regular, negative for clicks, rubs, or JVD. Abdomen: Soft, nondistended, nontender. Negative for masses or hepatosplenomegaly. Negative for costovertebral tenderness. Pelvis: Stable nontender. Genitourinary: Deferred. Rectal: Deferred. Extremities: Atraumatic, negative for cords or calf pain. Neurovascular unremarkable. Good distal pulse motor and sensation the right leg it does hurt to logroll the thigh there is no deformity noted. Neuro: Awake, alert, oriented. Cranial nerves II through XII unremarkable. Cerebellum unremarkable. Motor and sensory unremarkable throughout. Exam non focal. Diagnostics: [] Therapeutics: [] Impression: Right hip pain [] Plan: Trend x-ray reassess [] Definitive disposition and diagnosis as appropriate pending reevaluation and review of above. right hip Pain Score (Numeric/FACES): 9 - Related Data Allergies Allergy/AdvReac Type Severity Reaction Status Date / Time metronidazole [From Flagyl] Allergy Anaphylactic Verified 03/22/20 05:39 Shock proventil liquid Allergy Seizure Uncoded 03/22/20 05:39 ptu Allergy Hives Uncoded 03/22/20 05:39 tapazole Allergy Hives Uncoded 03/22/20 05:39 Home Meds: Home Meds Folic Acid 0.4 mg PO DAILY 04/23/19 [History] Pnv No.95/Ferrous Fum/Folic AC [ Caplet] 1 tab PO DAILY 04/23/19 [History] Cyclobenzaprine [Flexeril] 10 mg PO BID PRN 12/09/19 [History] Acetaminophen/oxyCODONE [Percocet 325-5 MG] 1 - 2 tab PO Q6H PRN #24 tablet 12/17/19 [Rx] Docusate Sodium [Colace] 100 mg PO BID #30 cap 12/17/19 [Rx] Ibuprofen [Motrin] 800 mg PO Q8H PRN #90 tablet 12/17/19 [Rx] Levothyroxine 100 mcg PO DAILY #30 tablet 12/17/19 [Rx] Sertraline HCl [Zoloft] 100 mg PO DAILY #7 tablet 12/17/19 [Rx] Sertraline [Zoloft] 150 mg PO DAILY #45 tab 12/17/19 [Rx] Ondansetron [Zofran ODT] 4 mg PO Q6H PRN #20 tab.dis 02/24/20 [Rx] Cyclobenzaprine [Flexeril] 10 mg PO TID #30 tab 03/22/20 [Rx] Naproxen [Naprosyn] 500 mg PO Q12HR #20 tab 03/22/20 [Rx] Past Medical History - Past Health History Medical/Surgical History: Denies Medical/Surgical History HEENT History: Reports: None Other HEENT History: wears glasses Cardiovascular History: Reports: Other (See Below) Other Cardiovascular History: "cyst in my heart" Respiratory History: Reports: None Gastrointestinal History: Reports: None Genitourinary History: Reports: None REGIONAL SERVICE MANAGER History: Reports: , 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 REGIONAL SERVICE MANAGER History: Termination of 1 Musculoskeletal History: Reports: None Other Musculoskeletal History: hx of fx to jaw and hands Neurological History: Reports: Migraines, Other (See Below) Other Neuro History: Tourettes Psychiatric History: Reports: Anxiety, Depression Other Psychiatric History: Tourettes Endocrine/Metabolic History: Reports: Hypothyroidism Hematologic History: Reports: None Immunologic History: Reports: None Oncologic (Cancer) History: Reports: None Dermatologic History: Reports: None - Infectious Disease History Infectious Disease History: Reports: None - Past Surgical History Head Surgeries/Procedures: Reports: None HEENT Surgical History: Reports: None Cardiovascular Surgical History: Reports: None Respiratory Surgical History: Reports: None GI Surgical History: Reports: None Female Surgical History: Reports: Section Endocrine Surgical History: Reports: None Neurological Surgical History: Reports: None Musculoskeletal Surgical History: Reports: None Oncologic Surgical History: Reports: None Dermatological Surgical History: Reports: None Social & Family History - Family History Family Medical History: Noncontributory HEENT: Reports: None Cardiac: Reports: None Respiratory: Reports: None GI: Reports: None : Reports: None OBGYN: Reports: None Musculoskeletal: Reports: None Neurological: Reports: None Psychiatric: Reports: None Endocrine/Metabolic: Reports: None Hematologic: Reports: None Immunologic: Reports: None Dermatologic: Reports: None Oncologic: Reports: Breast, Renal - Caffeine Use Caffeine Use: Reports: None Review of Systems - Review of Systems Review Of Systems: See Below ED EXAM, GENERAL - Physical Exam Exam: See Below Course - Vital Signs Text/Narrative:: 3 view right hip and pelvis were read and interpreted by me no acute fractures or dislocations are appreciated. Patient be discharged home with naproxen and Flexeril follow-up with primary care. Last Recorded V/S: Last Vital Signs Temp 36.3 C 03/22/20 05:30 Pulse 97 03/22/20 05:30 Resp 18 03/22/20 05:30 BP 126/84 03/22/20 05:30 Pulse Ox 98 03/22/20 05:30 - Orders/Labs/Meds Orders: Active Orders 24 hr Category Date Time Status Hip Min 2V or 3V w Pelvis Rt [CR] Stat Exams 03/22/20 05:35 Taken Meds: Medications Discontinued Medications Generic Name Dose Route Start Last Admin Trade Name Freq PRN Reason Stop Dose Admin Ibuprofen 800 mg 03/22/20 05:36 Motrin PO 03/22/20 05:37 ONETIME ONE Departure - Departure Time of Disposition: 06:12 Disposition: Home, Self-Care 01 Condition: Good Clinical Impression: Sprain of hip - Discharge Information *PRESCRIPTION DRUG MONITORING PROGRAM REVIEWED*: Not Applicable *COPY OF PRESCRIPTION DRUG MONITORING REPORT IN PATIENT DENISE: Not Applicable Instructions: Hip Sprain Referrals: Rosio Preston DO [Primary Care Provider] - Forms: ED Department Discharge Additional Instructions: The following information is given to patients seen in the emergency department who are being discharged to home. This information is to outline your options for follow-up care. We provide all patients seen in our emergency department with a follow-up referral. The need for follow-up, as well as the timing and circumstances, are variable depending upon the specifics of your emergency department visit. If you don't have a primary care physician on staff, we will provide you with a referral. We always advise you to contact your personal physician following an emergency department visit to inform them of the circumstance of the visit and for follow-up with them and/or the need for any referrals to a consulting specialist. The emergency department will also refer you to a specialist when appropriate. This referral assures that you have the opportunity for follow-up care with a specialist. All of these measure are taken in an effort to provide you with optimal care, which includes your follow-up. Under all circumstances we always encourage you to contact your private physician who remains a resource for coordinating your care. When calling for follow-up care, please make the office aware that this follow-up is from your recent emergency room visit. If for any reason you are refused follow-up, please contact the [facility] Emergency Department at and asked to speak to the emergency department charge nurse. Sepsis Event Note (ED) - Focused Exam Vital Signs: Vital Signs Temp Pulse Resp BP Pulse Ox 03/22/20 05:30 36.3 C 97 18 126/84 98 - My Orders Last 24 Hours: My Active Orders 03/22/20 05:35 Hip Min 2V or 3V w Pelvis Rt [CR] Stat - Assessment/Plan Last 24 Hours: My Active Orders 03/22/20 05:35 Hip Min 2V or 3V w Pelvis Rt [CR] Stat
--- NOTE | 2020-03-22 06:15 | CR ---
Indication: Trauma Technique: An AP view of the pelvis was acquired as well as AP and frogleg lateral views of the right hip. Comparison: None Findings: There is no lytic or blastic lesion, fracture or dislocation identified. No significant appearing arthritic change apparent study overall limited due to patient related soft tissue attenuation factors parent Impression: Normal examination. Dictated by Yony Brennan MD @ Mar 22 2020 6:11AM Signed by Dr. Yony Brennan @ Mar 22 2020 6:12AM
== END 2020-03-22 06:28 | disposition home or self-care (01) ==
LOC: MW.ED 05:16
DX: S73.101A Unspecified sprain of right hip, initial encounter (principal); E03.9 Hypothyroidism, unspecified; F41.9 Anxiety disorder, unspecified; F32.9 Major depressive disorder, single episode, unspecified; G43.909 Migraine, unspecified, not intractable, without status migrainosus; Z88.1 Allergy status to other antibiotic agents; Z88.8 Allergy status to other drugs, medicaments and biological substances; Z79.899 Other long term (current) drug therapy; W06.XXXA Fall from bed, initial encounter
CPT/HCPCS: 73502; 99283; A9270

== ENCOUNTER 2020-08-13 08:39 | Emergency (ER) | payer MEDICAID ==
[2020-08-13] MEDS ORDERED: Prochlorperazine 10 MG/2 ML SDV IVPUSH ONE (09:12)
[2020-08-13] MEDS ORDERED: diphenhydrAMINE 50 MG/ML SDV IVPUSH ONE (09:12)
[2020-08-13] MEDS ORDERED: Ketorolac 30 MG/ML SDV IVPUSH ONE (09:12)
[2020-08-13] MEDS ORDERED: Dextrose 5%-0.9% NaCl 1,000 ML IV SCH (09:15)
[2020-08-13] MEDS ORDERED: Levothyroxine 100 MCG Tab PO STA (09:52)
--- NOTE | 2020-08-13 11:04 | EDM.PDOC ---
ED HPI GENERAL MEDICAL PROBLEM - General Chief Complaint: Headache Stated Complaint: MIGRAINE Time Seen by Provider: 08/13/20 08:49 - History of Present Illness INITIAL COMMENTS - FREE TEXT/NARRATIVE: CHIEF COMPLAINT(S): Headache HISTORY OF PRESENT ILLNESS: This is a 30-year-old woman with a longstanding history of migraine headaches, Tourette's syndrome, and hypothyroidism who comes to the emergency department with a chief complaint of headache. The patient states that for approximately 3 to 4 days now she has been experiencing a headache. She states that initially started like a tension headache located on the bilateral neck and around her head. She states that it now feels more like her normal migraines. She states that she does have some photosensitivity however it is less than before. She states that she mainly come in because she felt like it was not getting any better and felt like she was getting weak. She states that she has not yet taken any pain medication and in the past she has tried Imitrex which did work however she does not have a prescription. She states that she has not seen a neurologist in quite some time. She denies any head injury or loss of consciousness. She denies any numbness, tingling, or weakness. She denies any fevers or chills. She denies any IV drug use. She states that in addition when she started having the tension headache she started to experience bilateral shoulder and arm pain. She describes her headache as achy rated 5 out of 10 not associated with any other symptoms except photosensitivity. There are no relieving or exacerbating factors. Of note: The patient was and had given . She states that she is not been taking any of her medications which include levothyroxine. REVIEW OF SYSTEMS: Constitutional: Positive for fatigue. Denies fever, chills. Eyes: Denies eye pain Ears, Nose, Mouth, & Throat: Denies earache Cardiovascular: Denies chest pain Respiratory: Denies shortness of breath Gastrointestinal: Denies Nausea, vomiting, diarrhea, hematochezia. Genitourinary: Denies hematuria MSK: Positive for bilateral neck pain and arm pain. Neurological: Positive for headache and photosensitivity. Denies numbness, tingling, weakness. Psychiatric: Positive for Tourette's syndrome, PTSD, depression, anxiety PAST MEDICAL HISTORY: As per history of present illness and as reviewed below otherwise noncontributory. SURGICAL HISTORY: As per history of present illness and as reviewed below otherwise noncontributory. LMP: Currently on her period SOCIAL HISTORY: As per history of present illness and as reviewed below other vicente noncontributory. FAMILY HISTORY: As per history of present illness and as reviewed below otherwise noncontributory. EXAMINATION OF ORGAN SYSTEMS/BODY AREAS: Constitutional: Blood pressure was 138/86, heart rate 80, respiratory rate 20 with an oxygen saturation 97% on room air. Temperature 36.2 General: Overall well-appearing woman who is in no acute distress. Psychiatric: Appropriate mood and affect. Eyes: No scleral icterus or conjunctival erythema pupils are equal round reactive to light and accommodation. Extraocular movements were intact. ENMT: Moist mucous membranes. No pharyngeal erythema tongue protrudes midline. No uvular deviation. Cardiovascular: Regular, rate, and rhythm. No gallops, murmurs, or rubs. Bilateral upper extremity pulses symmetric and intact. No peripheral edema. No JVD. Respiratory: Lungs clear to auscultation bilaterally. No wheezes, rales, or rhonchi. Gastrointestinal: Soft, non-tender, non-distended. Normoactive bowel sounds Genitourinary: No suprapubic tenderness Musculoskeletal: Normal range of motion. Mild paracervical muscle tension. Patient has full range of motion of the arms. Distal sensation and pulses are intact no midline cervical tenderness. Skin: No lesions or abrasions. Neurological: AOx4. CN grossly intact. Stregth 5/5 in bilateral upper and lower extremity. Sensation is intact bilaterally in upper and lower extremity. Gait appears normal. MEDICAL DECISION MAKING AND COURSE IN THE ED WITH INTERPRETATION/REVIEW OF DIAGNOSTIC STUDIES: This is a 30-year-old woman with a past medical history of migraine headaches and hypothyroidism who comes to the emergency department with 4 days of continued migraine which appears to be similar to her prior migraines associated with a component of tension headache. At this time patient does not have any focal deficits and has no red flag symptoms. We will treat the patient symptomatically including Compazine, Toradol, Benadryl and 1 L of D5 normal saline. Given her history of hypothyroidism I will obtain TSH and T4 given that she is not taking the medication. She was on a pretty large dose including levothyroxine 200 mcg. Laboratory: TSH was 32.92, free T4 was 0.3 After labs I did provide the patient with her home dose of levothyroxine 200 mcg and sent a prescription to her pharmacy. I did have a discussion with the patient regarding continued management of her hypothyroidism with her primary care physician. I discussed strict compliance with her medication there could be serious consequences. She did express understanding and stated she would obtain medication and follow-up with her primary care physician. At the time of my reevaluation the patient's headache had significant improved and was amenable to discharge at this time. She was instructed to take Tylenol and Motrin for pain relief and to follow-up with neurology for continued migraines. She was amenable to discharge and had no further questions DISPOSITION: The patient was discharged home in stable condition. The patient will follow up with PCP and neurology CONDITION: Fair PROCEDURES: None FINAL IMPRESSION(S)/DIAGNOSES: 1. Acute migraine headache 2. Hypothyroidism David Daniel M.D. headache Pain Score (Numeric/FACES): 10 - Related Data Allergies Allergy/AdvReac Type Severity Reaction Status Date / Time metronidazole [From Flagyl] Allergy Anaphylactic Verified 08/13/20 08:46 Shock proventil liquid Allergy Seizure Uncoded 08/13/20 08:46 ptu Allergy Hives Uncoded 08/13/20 08:46 tapazole Allergy Hives Uncoded 08/13/20 08:46 Home Meds: Home Meds Levothyroxine 200 mcg PO ACBREAKFAST #30 tab 08/13/20 [Rx] Levothyroxine 200 mcg PO DAILY 08/13/20 [History] Past Medical History - Past Health History Medical/Surgical History: Denies Medical/Surgical History HEENT History: Reports: None Other HEENT History: wears glasses Cardiovascular History: Reports: Other (See Below) Other Cardiovascular History: "cyst in my heart" Respiratory History: Reports: None Gastrointestinal History: Reports: None Genitourinary History: Reports: None MARKET DEVELOPMENT TRAINER History: Reports: , 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 MARKET DEVELOPMENT TRAINER History: Termination of 1 Musculoskeletal History: Reports: None Other Musculoskeletal History: hx of fx to jaw and hands Neurological History: Reports: Migraines, Other (See Below) Other Neuro History: Tourettes Psychiatric History: Reports: Anxiety, Depression Other Psychiatric History: Tourettes Endocrine/Metabolic History: Reports: Hypothyroidism Insulin Pump Model and Edge Worker: None Hematologic History: Reports: None Immunologic History: Reports: None Oncologic (Cancer) History: Reports: None Dermatologic History: Reports: None - Infectious Disease History Infectious Disease History: Reports: None - Past Surgical History Head Surgeries/Procedures: Reports: None HEENT Surgical History: Reports: None Cardiovascular Surgical History: Reports: None Respiratory Surgical History: Reports: None GI Surgical History: Reports: None Other GI Surgeries/Procedures: x 3 Female Surgical History: Reports: Section Other Female Surgeries/Procedures: x 3 Endocrine Surgical History: Reports: None Neurological Surgical History: Reports: None Musculoskeletal Surgical History: Reports: None Oncologic Surgical History: Reports: None Dermatological Surgical History: Reports: None Social & Family History - Family History Family Medical History: No Pertinent Family History HEENT: Reports: None Cardiac: Reports: None Respiratory: Reports: None GI: Reports: None : Reports: None OBGYN: Reports: None Musculoskeletal: Reports: None Neurological: Reports: None Psychiatric: Reports: None Endocrine/Metabolic: Reports: None Hematologic: Reports: None Immunologic: Reports: None Dermatologic: Reports: None Oncologic: Reports: Breast, Renal - Tobacco Use Tobacco Use Status *Q: Current Every Day Tobacco User Years of Tobacco use: 17 Packs/Tins Daily: 1 - Caffeine Use Caffeine Use: Reports: Coffee, Energy Drinks - Recreational Drug Use Recreational Drug Use: Yes Recreational Drug Type: Reports: Marijuana/Hashish Recreational Drug Use Frequency: Rarely ED ROS GENERAL - Review of Systems Review Of Systems: See Below - Physical Exam Exam: See Below Course - Vital Signs Last Recorded V/S: Last Vital Signs Temp 36.2 C 08/13/20 08:48 Pulse 90 08/13/20 11:00 Resp 18 08/13/20 11:00 BP 121/76 08/13/20 10:07 Pulse Ox 98 08/13/20 11:00 - Orders/Labs/Meds Labs: Laboratory Tests 08/13/20 Range/Units 08:53 Free T4 0.30 L (0.76-1.46) ng/dL TSH 3rd Generation 32.92 H (0.36-3.74) uIU/mL Meds: Medications Discontinued Medications Generic Name Dose Route Start Last Admin Trade Name Freq PRN Reason Stop Dose Admin Diphenhydramine HCl 50 mg 08/13/20 09:12 08/13/20 10:02 Benadryl IVPUSH 08/13/20 09:13 50 mg ONETIME ONE Administration Dextrose/Sodium Chloride 1,000 mls @ 999 mls/hr 08/13/20 09:15 08/13/20 10:02 Dextrose 5%-Normal Saline IV 999 mls/hr ASDIRECTED DONI Administration Ketorolac Tromethamine 15 mg 08/13/20 09:12 08/13/20 10:02 Toradol IVPUSH 08/13/20 09:13 15 mg ONETIME ONE Administration Levothyroxine Sodium 200 mcg 08/13/20 09:52 08/13/20 10:58 Synthroid PO 08/13/20 09:53 200 mcg ONETIME STA Administration Prochlorperazine Edisylate 10 mg 08/13/20 09:12 08/13/20 10:03 Compazine IVPUSH 08/13/20 09:13 10 mg ONETIME ONE Administration Departure - Departure Time of Disposition: 11:02 Disposition: Home, Self-Care 01 Condition: Fair Clinical Impression: Migraine Hypothyroid Qualifiers: Hypothyroidism type: unspecified Qualified Code(s): E03.9 - Hypothyroidism, unspecified - Discharge Information *PRESCRIPTION DRUG MONITORING PROGRAM REVIEWED*: No *COPY OF PRESCRIPTION DRUG MONITORING REPORT IN PATIENT DENISE: No Prescriptions: Levothyroxine 200 mcg PO ACBREAKFAST #30 tab Instructions: Migraine Headache, [id number], Hypothyroidism, Recurrent Migraine Headache, [id number] Referrals: Rosio Preston DO [Primary Care Provider] - Forms: ED Department Discharge Additional Instructions: The patient is informed of any results of their evaluation and diagnostic workup and all questions are answered. They are given discharge instructions and return precautions. The patient is stable for discharge. The patient states they understand and agree with the plan and that they will return if their symptoms get worse or if they have any new concerns. The following information is given to patients seen in the emergency department who are being discharged to home. This information is to outline your options for follow-up care. We provide all patients seen in our emergency department with a follow-up referral. The need for follow-up, as well as the timing and circumstances, are variable depending upon the specifics of your emergency department visit. If you don't have a primary care physician on staff, we will provide you with a referral. We always advise you to contact your personal physician following an emergency department visit to inform them of the circumstance of the visit and for follow-up with them and/or the need for any referrals to a consulting specialist. The emergency department will also refer you to a specialist when appropriate. This referral assures that you have the opportunity for follow-up care with a specialist. All of these measure are taken in an effort to provide you with optimal care, which includes your follow-up. Under all circumstances we always encourage you to contact your private physician who remains a resource for coordinating your care. When calling for follow-up care, please make the office aware that this follow-up is from your recent emergency room visit. If for any reason you are refused follow-up, please contact the [facility] Emergency Department at and asked to speak to the emergency department charge nurse. You were evaluated today on an emergent basis. You were treated for your migraine. I would continue to use [id number] Tylenol and Motrin for headache relief and encourage you to follow-up with neurology for continued management. I also encourage you to continue to take the levothyroxine as prescribed and follow-up with your primary care doctor for further management. If you are to have any new or worsening symptoms please return to the emergency department. This includes trouble walking, trouble speaking, trouble swallowing, worsening headache. [facility] - Primary Care [address] [place], [place] [id number] [address] [address] [facility] - Neurology Professional Building [address] [facility], [address] [place] [address] Sepsis Event Note (ED) - Evaluation Sepsis Screening Result: No Definite Risk
== END 2020-08-13 11:45 | disposition home or self-care (01) ==
LOC: MW.ED 08:39
DX: G43.909 Migraine, unspecified, not intractable, without status migrainosus (principal); E03.9 Hypothyroidism, unspecified; F17.210 Nicotine dependence, cigarettes, uncomplicated; Z88.1 Allergy status to other antibiotic agents; Z88.8 Allergy status to other drugs, medicaments and biological substances; Z79.899 Other long term (current) drug therapy
CPT/HCPCS: 36415; 84439; 84443; 96374; 96375; 99283; A9270; J0780; J1200; J1885; J7042

== ENCOUNTER 2020-09-10 20:21 | Emergency (ER) | payer MEDICAID ==
[2020-09-10] MEDS ORDERED: Acetaminophen/HYDROcodone 325-5 MG Tab PO ONE (20:50)
[2020-09-10] MEDS ORDERED: Sulfamethoxazole/Trimethoprim 800-160 MG Tab PO ONE (20:50)
[2020-09-10] MEDS ORDERED: Ibuprofen 600 MG Tab PO ONE (20:50)
--- NOTE | 2020-09-10 20:55 | EDM.PDOC ---
ED HPI GENERAL MEDICAL PROBLEM - General Chief Complaint: Skin Complaint Stated Complaint: GUILLERMINA GRANADOS Time Seen by Provider: 09/10/20 20:34 - History of Present Illness INITIAL COMMENTS - FREE TEXT/NARRATIVE: HISTORY AND PHYSICAL: History of present illness: This is a 30-year-old female with a history significant for hidradenitis suppurativa who presents ER today complaining of pain and swelling to her left axilla. Patient reports that she has multiple abscesses that are small all throughout her body that come and go without need for antibiotic therapy usually. Patient reports that over the last couple days she had increasing swelling to her left axilla that she thinks will need antibiotics. Patient reports she does not think it needs to be incision and and drained quite yet. Patient denies any recent fevers, shakes, chills, nausea, vomiting, diarrhea, dysuria, frequency or urgency, chest pain Review of systems: As per history of present illness and below otherwise all systems reviewed and negative. Past medical history: As per history of present illness and as reviewed below otherwise noncontributory. Surgical history: As per history of present illness and as reviewed below otherwise noncontrib utory. Social history: No reported history of drug or alcohol abuse. Family history: As per history of present illness and as reviewed below otherwise noncontributory. Physical exam: Constitutional: Patient is oriented to person, place, and time. Appears well- developed and well-nourished. No distress. HEENT: Moist mucous membranes Head: Normocephalic and atraumatic Eyes: Right eye exhibits no discharge. Left eye exhibits no discharge. No scleral icterus Neck: Normal range of motion. No tracheal deviation present. Cardiovascular: Normal rate and regular rhythm. Pulmonary: Effort normal, no respiratory distress. Abdominal: No distention Musculoskeletal: Normal range of motion Neurologic: Alert and oriented to person, place and time. Skin: [place], warm and dry. Psychiatric: Normal mood and affect. Behavior is normal. Judgment and thought content normal. Nursing note and vital signs have been reviewed Patient's ER physical exam significant for multiple scars and fibrous tissue to her left axilla consistent with prior incision and drainages. Patient does have a small area of swelling over an old scar with a lot of fibrous tissue. The area of the proximal by 1 cm. This patient was seen and evaluated during the 2019 SARS-CoV-2 novel coronavirus pandemic period. Community viral transmission is ongoing at time of this encounter and the emergency department is operating under pandemic response procedures. Assessment and plan: 30-year-old female who presents ER today secondary to infection to her left axilla consistent with her multiple episodes of hidradenitis suppurativa in the past. Patient is requesting antibiotics and waiting to see if there is help. Patient does have a small abscess that at this time I do not think would benefit from incision and drainage. After discussion of the risks and benefits the patient opts were antibiotic trial and if worsens will return for excision. Patient be started on Bactrim DS 2 tablets p.o. twice a day for 10 days and will be given ibuprofen and [place] to assist with her pain. Reassessment at the time of disposition demonstrates that the patient is in no acute distress. The patient has remained stable throughout the entire ED visit and is without objective evidence for acute process requiring urgent intervention or hospitalization. The patient is stable for discharge, counseling is provided as documented above, discussed symptomatic treatment and specific conditions for return. I have spoken with the patient/caregiver and discussed todays findings, in addition to providing specific details for the plan of care. Questions are answered and there is agreement with the plan. Definitive disposition and diagnosis as appropriate pending reevaluation and review of above. L armpit Pain Score (Numeric/FACES): 8 - Related Data Allergies Allergy/AdvReac Type Severity Reaction Status Date / Time metronidazole [From Flagyl] Allergy Anaphylactic Verified 09/10/20 20:30 Shock proventil liquid Allergy Seizure Uncoded 09/10/20 20:30 ptu Allergy Hives Uncoded 09/10/20 20:30 tapazole Allergy Hives Uncoded 09/10/20 20:30 Home Meds: Home Meds Levothyroxine 200 mcg PO DAILY 08/13/20 [History] Acetaminophen/HYDROcodone [[place] 325-5 MG] 1 tab PO Q6H PRN #12 tablet 09/10/20 [Rx] Ibuprofen 600 mg PO Q6HR PRN #30 tablet 09/10/20 [Rx] Sulfamethoxazole/Trimethoprim [Bactrim Ds Tablet] 2 each PO BID #40 tablet 09/10/20 [Rx] Past Medical History - Past Health History Medical/Surgical History: Denies Medical/Surgical History HEENT History: Reports: None Other HEENT History: wears glasses Cardiovascular History: Reports: Other (See Below) Other Cardiovascular History: "cyst in my heart" Respiratory History: Reports: None Gastrointestinal History: Reports: None Genitourinary History: Reports: None LEADERSHIP INTERN History: Reports: , 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 LEADERSHIP INTERN History: Termination of 1 Musculoskeletal History: Reports: None Other Musculoskeletal History: hx of fx to jaw and hands Neurological History: Reports: Migraines, Other (See Below) Other Neuro History: Tourettes Psychiatric History: Reports: Anxiety, Depression Other Psychiatric History: Tourettes Endocrine/Metabolic History: Reports: Hypothyroidism Insulin Pump Model and Junior Art Director: None Hematologic History: Reports: None Immunologic History: Reports: None Oncologic (Cancer) History: Reports: None Dermatologic History: Reports: None Other Dermatologic History: hydrotitus supervitiva- HS syndrome - Infectious Disease History Infectious Disease History: Reports: Chicken Pox - Past Surgical History Head Surgeries/Procedures: Reports: None HEENT Surgical History: Reports: None Cardiovascular Surgical History: Reports: None Respiratory Surgical History: Reports: None GI Surgical History: Reports: None Other GI Surgeries/Procedures: x 3 Female Surgical History: Reports: Section Other Female Surgeries/Procedures: x 3 Endocrine Surgical History: Reports: None Neurological Surgical History: Reports: None Musculoskeletal Surgical History: Reports: None Oncologic Surgical History: Reports: None Dermatological Surgical History: Reports: None Social & Family History - Family History Family Medical History: No Pertinent Family History HEENT: Reports: None Cardiac: Reports: None Respiratory: Reports: None GI: Reports: None : Reports: None OBGYN: Reports: None Musculoskeletal: Reports: None Neurological: Reports: None Psychiatric: Reports: None Endocrine/Metabolic: Reports: None Hematologic: Reports: None Immunologic: Reports: None Dermatologic: Reports: None Oncologic: Reports: Breast, Renal - Caffeine Use Caffeine Use: Reports: Tea - Recreational Drug Use Recreational Drug Type: Reports: Other (see below) Other Recreational Drug Type: edible in july ED ROS GENERAL - Review of Systems Review Of Systems: See Below ED EXAM, SKIN/RASH Exam: See Below Course - Vital Signs Last Recorded V/S: Last Vital Signs Temp 97.2 F 09/10/20 20:30 Pulse 125 H 09/10/20 20:30 Resp 18 09/10/20 20:30 BP 147/91 H 09/10/20 20:30 Pulse Ox 97 09/10/20 20:30 - Orders/Labs/Meds Orders: Active Orders 24 hr Category Date Time Status Acetaminophen/HYDROcodone [[place] 325-5 MG] Med 09/10/20 20:50 Once 1 tab PO ONETIME ONE Ibuprofen [Motrin] Med 09/10/20 20:50 Once 600 mg PO ONETIME ONE Sulfamethoxazole/Trimethoprim [Septra DS] Med 09/10/20 20:50 Once 2 tab PO ONETIME ONE Departure - Departure Time of Disposition: 20:53 Disposition: Home, Self-Care 01 Condition: Good Clinical Impression: Abscess, Hidradenitis suppurativa - Discharge Information Instructions: Skin Abscess, Hidradenitis Suppurativa Referrals: Rosio Preston DO [Primary Care Provider] - Additional Instructions: Your seen and evaluated in the ER today secondary to your hidradenitis suppurativa. You do have a small abscess to her left axilla that we will attempt to treat with antibiotics. If the abscess worsens and does not drain spontaneously with the antibiotics he might need to have an incision and drainage performed. You will be discharged home with ibuprofen and [place] for pain as well as Bactrim for an antibiotic. Please make appointment to follow-up with your family doctor in the next 2 to 3 days for reevaluation. The following information is given to patients seen in the emergency department who are being discharged to home. This information is to outline your options for follow-up care. We provide all patients seen in our emergency department with a follow-up referral. The need for follow-up, as well as the timing and circumstances, are variable depending upon the specifics of your emergency department visit. If you don't have a primary care physician on staff, we will provide you with a referral. We always advise you to contact your personal physician following an emergency department visit to inform them of the circumstance of the visit and for follow-up with them and/or the need for any referrals to a consulting specialist. The emergency department will also refer you to a specialist when appropriate. This referral assures that you have the opportunity for follow-up care with a specialist. All of these measure are taken in an effort to provide you with optimal care, which includes your follow-up. Under all circumstances we always encourage you to contact your private physician who remains a resource for coordinating your care. When calling for follow-up care, please make the office aware that this follow-up is from your recent emergency room visit. If for any reason you are refused follow-up, please contact the [facility] Emergency Department at and asked to speak to the emergency department charge nurse. [facility] [address], [place] [address] [facility] [address] [place] [id number] Sepsis Event Note (ED) - Evaluation Sepsis Screening Result: No Definite Risk - Focused Exam Vital Signs: Vital Signs Temp Pulse Resp BP Pulse Ox 09/10/20 20:30 97.2 F 125 H 18 147/91 H 97 - My Orders Last 24 Hours: My Active Orders 09/10/20 20:50 Acetaminophen/HYDROcodone [[place] 325-5 MG] 1 tab PO ONETIME ONE Ibuprofen [Motrin] 600 mg PO ONETIME ONE Sulfamethoxazole/Trimethoprim [Septra DS] 2 tab PO ONETIME ONE - Assessment/Plan Last 24 Hours: My Active Orders 09/10/20 20:50 Acetaminophen/HYDROcodone [[place] 325-5 MG] 1 tab PO ONETIME ONE Ibuprofen [Motrin] 600 mg PO ONETIME ONE Sulfamethoxazole/Trimethoprim [Septra DS] 2 tab PO ONETIME ONE
== END 2020-09-10 21:05 | disposition home or self-care (01) ==
LOC: MW.ED 20:21
DX: L73.2 Hidradenitis suppurativa (principal); L02.412 Cutaneous abscess of left axilla; E03.9 Hypothyroidism, unspecified; Z88.1 Allergy status to other antibiotic agents; Z88.8 Allergy status to other drugs, medicaments and biological substances; Z79.899 Other long term (current) drug therapy
CPT/HCPCS: 99283; A9270; 99282

== ENCOUNTER 2020-12-16 07:24 | Emergency (ER) | payer MEDICAID ==
[2020-12-16] MEDS ORDERED: Ketorolac 30 MG/ML SDV IM STA (07:53)
--- NOTE | 2020-12-16 07:55 | EDM.PDOC ---
ED HPI GENERAL MEDICAL PROBLEM - General Chief Complaint: Upper Extremity Injury/Pain Stated Complaint: PAIN IN BOTH HANDS- CARPAL TUNNEL Time Seen by Provider: 12/16/20 07:32 - History of Present Illness INITIAL COMMENTS - FREE TEXT/NARRATIVE: 30-year-old female history of hypothyroidism and obesity with carpal tunnel syndrome while she was in the past presenting with bilateral wrist and hand pain. 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 It requires a great deal of grabbing pinching and repetitive lifting. She has had gradually worsening bilateral wrist and hand burning pain particularly in the palms and fingers that worsens with attempts to grasp things and has been worsening for the last 4 days. No acute injury or fall. Patient has some right lateral neck discomfort with right arm motion as well. Symptoms are worse on the right and the left and the patient is right-hand dominant. No fevers no chills. Pain is now so severe it is waking her up at night. Bilateral Hand Pain Score (Numeric/FACES): 10 - Related Data Allergies Allergy/AdvReac Type Severity Reaction Status Date / Time metronidazole [From Flagyl] Allergy Anaphylactic Verified 12/16/20 07:41 Shock proventil liquid Allergy Seizure Uncoded 12/16/20 07:41 ptu Allergy Hives Uncoded 12/16/20 07:41 tapazole Allergy Hives Uncoded 12/16/20 07:41 Home Meds: Home Meds Levothyroxine 25 mcg PO DAILY 08/13/20 [History] Ketorolac [Toradol] 10 mg PO TID 5 Days #15 tab 12/16/20 [Rx] Past Medical History - Past Health History Medical/Surgical History: Denies Medical/Surgical History HEENT History: Reports: None Other HEENT History: wears glasses Cardiovascular History: Reports: Other (See Below) Other Cardiovascular History: "cyst in my heart" Respiratory History: Reports: None Gastrointestinal History: Reports: None Genitourinary History: Reports: None FUND ACCOUNTING MANAGER History: Reports: , 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 FUND ACCOUNTING MANAGER History: Termination of 1 Musculoskeletal History: Reports: None Other Musculoskeletal History: hx of fx to jaw and hands Neurological History: Reports: Migraines, Other (See Below) Other Neuro History: Tourettes Psychiatric History: Reports: Anxiety, Depression Other Psychiatric History: Tourettes Endocrine/Metabolic History: Reports: Hypothyroidism Insulin Pump Model and Leather Heel Breaster: None Hematologic History: Reports: None Immunologic History: Reports: None Oncologic (Cancer) History: Reports: None Dermatologic History: Reports: None Other Dermatologic History: hydrotitus supervitiva- HS syndrome - Infectious Disease History Infectious Disease History: Reports: Chicken Pox - Past Surgical History Head Surgeries/Procedures: Reports: None HEENT Surgical History: Reports: None Cardiovascular Surgical History: Reports: None Respiratory Surgical History: Reports: None GI Surgical History: Reports: None Other GI Surgeries/Procedures: x 3 Female Surgical History: Reports: Section Other Female Surgeries/Procedures: x 3 Endocrine Surgical History: Reports: None Neurological Surgical History: Reports: None Musculoskeletal Surgical History: Reports: None Oncologic Surgical History: Reports: None Dermatological Surgical History: Reports: None Social & Family History - Family History Family Medical History: No Pertinent Family History HEENT: Reports: None Cardiac: Reports: None Respiratory: Reports: None GI: Reports: None : Reports: None OBGYN: Reports: None Musculoskeletal: Reports: None Neurological: Reports: None Psychiatric: Reports: None Endocrine/Metabolic: Reports: None Hematologic: Reports: None Immunologic: Reports: None Dermatologic: Reports: None Oncologic: Reports: Breast, Renal - Tobacco Use Tobacco Use Status *Q: Current Every Day Tobacco User Years of Tobacco use: 19 Packs/Tins Daily: 0.1 - Caffeine Use Caffeine Use: Reports: Coffee - Recreational Drug Use Recreational Drug Use: Yes Drug Use in Last 12 Months: Yes Recreational Drug Type: Reports: Marijuana/Hashish Recreational Drug Use Frequency: Socially Review of Systems - Review of Systems Review Of Systems: Comprehensive ROS is negative, except as noted in HPI. ED EXAM, GENERAL - Physical Exam Exam: See Below Free Text/Narrative:: General Appearance: No acute distress, appears comfortable Skin: No rash HEENT: Normocephalic/atraumatic, sclera anicteric, mucous membranes moist Neck: Normal range of motion, patient with right-sided neck discomfort with right-sided neck rotated towards the right and mild compressive force. Musculoskeletal: 2+ bilateral radial and ulnar pulses. Sensation intact throughout the digits. 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 Worsening pain with wrist extension bilaterally. Neurologic: Awake, alert, no obvious deficits, moving all extremities Psychiatric: Appropriate, cooperative Course - Vital Signs Last Recorded V/S: Last Vital Signs Temp 97 F 12/16/20 07:41 Pulse 100 12/16/20 07:41 Resp 18 12/16/20 07:41 BP 141/92 H 12/16/20 07:41 Pulse Ox 97 12/16/20 07:41 - Orders/Labs/Meds Orders: Active Orders 24 hr Category Date Time Status DME for Discharge [COMM] Stat Oth 12/16/20 07:56 Ordered Meds: Medications Discontinued Medications Generic Name Dose Route Start Last Admin Trade Name Freq PRN Reason Stop Dose Admin Ketorolac Tromethamine 30 mg 12/16/20 07:53 12/16/20 08:15 Ketorolac 30 Mg/Ml Sdv IM 12/16/20 07:54 30 mg NOW STA Administration Departure - Departure Time of Disposition: 07:53 Disposition: Home, Self-Care 01 Condition: Good Clinical Impression: Carpal tunnel syndrome on both sides - Discharge Information *PRESCRIPTION DRUG MONITORING PROGRAM REVIEWED*: Not Applicable *COPY OF PRESCRIPTION DRUG MONITORING REPORT IN PATIENT DENISE: Not Applicable Prescriptions: Ketorolac [Toradol] 10 mg PO TID 5 Days #15 tab Instructions: Carpal Tunnel Syndrome, [id number] Referrals: Tony Hutson MD [Primary Care Provider] - 1 Day Forms: ED Department Discharge Additional Instructions: Please be sure to follow-up with your primary care doctor. If you continue to have symptoms you may need referral to physical therapy or hand surgery. You may also need additional time off work or job modification and your primary care doctor can help you with this paperwork. The following information is given to patients seen in the emergency department who are being discharged to home. This information is to outline your options for follow-up care. We provide all patients seen in our emergency department with a follow-up referral. The need for follow-up, as well as the timing and circumstances, are variable depending upon the specifics of your emergency department visit. If you don't have a primary care physician on staff, we will provide you with a referral. We always advise you to contact your personal physician following an emergency department visit to inform them of the circumstance of the visit and for follow-up with them and/or the need for any referrals to a consulting specialist. The emergency department will also refer you to a specialist when appropriate. This referral assures that you have the opportunity for follow-up care with a specialist. All of these measure are taken in an effort to provide you with optimal care, which includes your follow-up. Under all circumstances we always encourage you to contact your private physician who remains a resource for coordinating your care. When calling for follow-up care, please make the office aware that this follow-up is from your recent emergency room visit. If for any reason you are refused follow-up, please contact the [facility] Emergency Department at and asked to speak to the emergency department charge nurse. Sepsis Event Note (ED) - Evaluation Sepsis Screening Result: No Definite Risk - Focused Exam Vital Signs: Vital Signs Temp Pulse Resp BP Pulse Ox 12/16/20 07:41 97 F 100 18 141/92 H 97 - My Orders Last 24 Hours: My Active Orders 12/16/20 07:56 DME for Discharge [COMM] Stat - Assessment/Plan Last 24 Hours: My Active Orders 12/16/20 07:56 DME for Discharge [COMM] Stat Assessment:: 30-year-old female presenting with signs and symptoms are consistent with bilateral carpal tunnel syndrome as well as some degree of nerve impingement in the right C-spine. No midline tenderness no concern for fracture. No indication for imaging at this point. No focal bony tenderness. No sign of vascular compromise. Patient tried ibuprofen without relief yesterday. We discussed schedule ibuprofen versus Toradol patient would prefer to try Toradol. Patient given a shot of Toradol here. Prescription for 5 days was provided as well. Patient will follow up with her primary care doctor she previously plan randy. We discussed the importance of follow-up. Patient was also provided with a right wrist splint. Patient will need this for protective and restorative treatment for the next 1 to 2 weeks for treatment of her carpal tunnel syndrome.
== END 2020-12-16 08:26 | disposition home or self-care (01) ==
LOC: MW.ED 07:24
DX: G56.03 Carpal tunnel syndrome, bilateral upper limbs (principal); E03.9 Hypothyroidism, unspecified; E66.9 Obesity, unspecified; Z68.44 Body mass index [BMI] 60.0-69.9, adult; Z79.899 Other long term (current) drug therapy; Z88.1 Allergy status to other antibiotic agents; Z91.048 Other nonmedicinal substance allergy status; Z72.0 Tobacco use
CPT/HCPCS: 96372; 99283; J1885

== ENCOUNTER 2021-04-09 21:31 | Emergency (ER) | payer MEDICAID ==
--- NOTE | 2021-04-09 21:55 | EDM.PDOC ---
ED HPI GENERAL MEDICAL PROBLEM - General Chief Complaint: Skin Complaint Stated Complaint: ABSCESS ON STOMACH Time Seen by Provider: 04/09/21 21:43 Source of Information: Reports: Patient History Limitations: Reports: No Limitations - History of Present Illness INITIAL COMMENTS - FREE TEXT/NARRATIVE: Patient is a 31-year-old female presents today for abscess to her abdominal wa ll. Patient she has recurrent abscesses. This was started about 3 days ago has been getting more red and painful. Denies any systemic symptoms of fever chills nausea vomiting. The redness around her area is also spreading as well. Patient has no other complaints. Abdominal Pain Score (Numeric/FACES): 8 - Related Data Allergies Allergy/AdvReac Type Severity Reaction Status Date / Time metronidazole [From Flagyl] Allergy Anaphylactic Verified 04/09/21 21:53 Shock proventil liquid Allergy Seizure Uncoded 04/09/21 21:53 ptu Allergy Hives Uncoded 04/09/21 21:53 tapazole Allergy Hives Uncoded 04/09/21 21:53 Home Meds: Home Meds Levothyroxine 25 mcg PO DAILY 08/13/20 [History] Ketorolac [Toradol] 10 mg PO TID 5 Days #15 tab 12/16/20 [Rx] DULoxetine [Cymbalta] 30 mg PO DAILY 04/09/21 [History] Past Medical History - Past Health History Medical/Surgical History: Denies Medical/Surgical History HEENT History: Reports: None Other HEENT History: wears glasses Cardiovascular History: Reports: Other (See Below) Other Cardiovascular History: "cyst in my heart" Respiratory History: Reports: None Gastrointestinal History: Reports: None Genitourinary History: Reports: None PARTY SUPPLY SPECIALIST History: Reports: , 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 PARTY SUPPLY SPECIALIST History: Termination of 1 Musculoskeletal History: Reports: None Other Musculoskeletal History: hx of fx to jaw and hands Neurological History: Reports: Migraines, Other (See Below) Other Neuro History: Tourettes Psychiatric History: Reports: Anxiety, Depression Other Psychiatric History: Tourettes Endocrine/Metabolic History: Reports: Hypothyroidism Insulin Pump Model and Floor Runner: None Hematologic History: Reports: None Immunologic History: Reports: None Oncologic (Cancer) History: Reports: None Dermatologic History: Reports: None Other Dermatologic History: hydrotitus supervitiva- HS syndrome - Infectious Disease History Infectious Disease History: Reports: Chicken Pox - Past Surgical History Head Surgeries/Procedures: Reports: None HEENT Surgical History: Reports: None Cardiovascular Surgical History: Reports: None Respiratory Surgical History: Reports: None GI Surgical History: Reports: None Other GI Surgeries/Procedures: x 3 Female Surgical History: Reports: Section Other Female Surgeries/Procedures: x 3 Endocrine Surgical History: Reports: None Neurological Surgical History: Reports: None Musculoskeletal Surgical History: Reports: None Oncologic Surgical History: Reports: None Dermatological Surgical History: Reports: None Social & Family History - Family History Family Medical History: No Pertinent Family History HEENT: Reports: None Cardiac: Reports: None Respiratory: Reports: None GI: Reports: None : Reports: None OBGYN: Reports: None Musculoskeletal: Reports: None Neurological: Reports: None Psychiatric: Reports: None Endocrine/Metabolic: Reports: None Hematologic: Reports: None Immunologic: Reports: None Dermatologic: Reports: None Oncologic: Reports: Breast, Renal - Caffeine Use Caffeine Use: Reports: Coffee ED ROS GENERAL - Review of Systems Review Of Systems: See Below Constitutional: Reports: No Symptoms HEENT: Reports: No Symptoms Respiratory: Reports: No Symptoms Cardiovascular: Reports: No Symptoms Endocrine: Reports: No Symptoms GI/Abdominal: Reports: No Symptoms : Reports: No Symptoms Musculoskeletal: Reports: No Symptoms Skin: Reports: Other (abscess) Neurological: Reports: No Symptoms Psychiatric: Reports: No Symptoms Hematologic/Lymphatic: Reports: No Symptoms Immunologic: Reports: No Symptoms ED EXAM, SKIN/RASH Exam: See Below Exam Limited By: No Limitations General Appearance: Alert, WD/WN, No Apparent Distress Respiratory/Chest: No Respiratory Distress, Lungs Clear Cardiovascular: Normal Peripheral Pulses, Regular Rate, Rhythm GI/Abdominal: Normal Bowel Sounds, Soft, Non-Tender Extremities: Normal Inspection Neurological: Alert, Oriented, Normal Cognition, Normal Gait Skin: Other (abscess to abd area of redness ) ED SKIN PROCEDURES - I&D Site: abdominal wall around umbillical area Skin Prep: Providone-Iodine (Betadine) Local Anesthesia: Lidocaine: 1% Plain Local Anesthetic Volume: 2cc Area Incised With: 11 Blade Drainage: Purulent Probed to Break Up Loculations: Yes Sterile Dressinx4(s) Complications: No Course - Vital Signs Last Recorded V/S: Last Vital Signs Temp 97.7 F 04/09/21 21:45 Pulse 120 H 04/09/21 21:45 Resp 18 04/09/21 21:45 BP 130/95 H 04/09/21 21:45 Pulse Ox 97 04/09/21 21:45 - Orders/Labs/Meds Orders: Active Orders 24 hr Category Date Time Status CULTURE, ANAEROBE & AEROBE [MREF] Stat Lab 04/09/21 21:51 Ordered Sulfamethoxazole/Trimethoprim [Septra DS] Med 04/09/21 22:27 Once 1 tab PO ONETIME ONE cephALEXin [Keflex] Med 04/09/21 22:27 Once 500 mg PO ONETIME ONE Meds: Medications Discontinued Medications Generic Name Dose Route Start Last Admin Trade Name Michael PRN Reason Stop Dose Admin Lidocaine HCl 5 ml 04/09/21 21:51 04/09/21 22:03 Lidocaine 1% 5 Ml Sdv INJECT 04/09/21 21:52 5 ml ONETIME ONE Administration - Re-Assessments/Exams Free Text/Narrative Re-Assessment/Exam: 04/09/21 22:28 I&D performed patient had culture sent as well based on antibiotics and discharged home. Departure - Departure Time of Disposition: 22:28 Disposition: Home, Self-Care 01 Condition: Good Clinical Impression: Abscess - Discharge Information *PRESCRIPTION DRUG MONITORING PROGRAM REVIEWED*: Not Applicable *COPY OF PRESCRIPTION DRUG MONITORING REPORT IN PATIENT DENISE: Not Applicable Instructions: Skin Abscess Referrals: Tony Hutson MD [Primary Care Provider] - Forms: ED Department Discharge Additional Instructions: The following information is given to patients seen in the emergency department who are being discharged to home. This information is to outline your options for follow-up care. We provide all patients seen in our emergency department with a follow-up referral. The need for follow-up, as well as the timing and circumstances, are variable depending upon the specifics of your emergency department visit. If you don't have a primary care physician on staff, we will provide you with a referral. We always advise you to contact your personal physician following an emergency department visit to inform them of the circumstance of the visit and for follow-up with them and/or the need for any referrals to a consulting specialist. The emergency department will also refer you to a specialist when appropriate. This referral assures that you have the opportunity for follow-up care with a specialist. All of these measure are taken in an effort to provide you with optimal care, which includes your follow-up. Under all circumstances we always encourage you to contact your private physician who remains a resource for coordinating your care. When calling for follow-up care, please make the office aware that this follow-up is from your recent emergency room visit. If for any reason you are refused follow-up, please contact the [facility] Emergency Department at and asked to speak to the emergency department charge nurse. Please follow up with your primary care physician. If you do not have a primary care physician, see below: [facility] [address] [place] [id number] My [facility] [address] [place] [address] Present today for an abscess to her abdomen. We were able to perform an incision and drainage and get a good amount of pus out. We also placed on antibiotics. Pl ease follow with your primary care physician for a wound check. If the area becomes more red and swollen please return to ED immediately. Sepsis Event Note (ED) - Focused Exam Vital Signs: Vital Signs Temp Pulse Resp BP Pulse Ox 04/09/21 21:45 97.7 F 120 H 18 130/95 H 97 - My Orders Last 24 Hours: My Active Orders 04/09/21 21:51 CULTURE, ANAEROBE & AEROBE [MREF] Stat 04/09/21 22:27 Sulfamethoxazole/Trimethoprim [Septra DS] 1 tab PO ONETIME ONE cephALEXin [Keflex] 500 mg PO ONETIME ONE - Assessment/Plan Last 24 Hours: My Active Orders 04/09/21 21:51 CULTURE, ANAEROBE & AEROBE [MREF] Stat 04/09/21 22:27 Sulfamethoxazole/Trimethoprim [Septra DS] 1 tab PO ONETIME ONE cephALEXin [Keflex] 500 mg PO ONETIME ONE Plan: Pt is a 31 yo F who presents for abscess to abd wall. No fever or chills. Will perform I&D, wound culuture and send home on abx.
[2021-04-09] MEDS ORDERED: Sulfamethoxazole/Trimethoprim 800-160 MG Tab PO ONE (22:27)
[2021-04-09] MEDS ORDERED: Cephalexin 500 MG Cap PO ONE (22:27)
== END 2021-04-09 22:46 | disposition home or self-care (01) ==
LOC: MW.ED 21:31
DX: L02.211 Cutaneous abscess of abdominal wall (principal); E03.9 Hypothyroidism, unspecified; Z88.1 Allergy status to other antibiotic agents; Z88.8 Allergy status to other drugs, medicaments and biological substances; Z79.899 Other long term (current) drug therapy
CPT/HCPCS: 10060; 87070; 87075; 87077; 87186; 87205; 99283-25

== ENCOUNTER 2021-05-02 19:39 | Emergency (ER) | payer MEDICAID ==
[2021-05-02] MEDS ORDERED: Ondansetron 4 MG/2 ML SDV IVPUSH ONE (20:31)
[2021-05-02] MEDS ORDERED: Sodium Chloride 0.9% 1,000 ML IV ONE (20:31)
[2021-05-02] MEDS ORDERED: LORazepam 2 MG/ML SDV IVPUSH ONE (20:31)
[2021-05-02] MEDS ORDERED: Ketorolac 30 MG/ML SDV IVPUSH ONE (20:31)
--- NOTE | 2021-05-02 21:01 | EDM.PDOC ---
ED HPI GENERAL MEDICAL PROBLEM - General Chief Complaint: Headache Stated Complaint: MIGRAINE Time Seen by Provider: 05/02/21 20:19 Source of Information: Reports: Patient History Limitations: Reports: No Limitations - History of Present Illness INITIAL COMMENTS - FREE TEXT/NARRATIVE: HISTORY AND PHYSICAL: History of present illness: Patient is a 31-year-old female who presents to the emergency room with complaints of a migraine headache. She does have a history of migraine headaches and was recently prescribed Imitrex for these. She states she has taken 2 doses of these and has not had any relief. She does have light sensitivity, noise sensitivity and mild nausea. She does not describe this as the worst headache of her life. She denies any injury, trauma or falls. Patient denies any fever, chills, change in vision, syncope or near syncope. Denies any chest pain, neck stiffness/pain, shortness of breath or cough. Denies any abdominal pain, nausea, vomiting, diarrhea, constipation or dysuria. Has not noted any blood in urine or stool. Patient has been eating and drinking appropriately. Review of systems: As per history of present illness and below otherwise all systems reviewed and negative. Past medical history: As per history of present illness and as reviewed below otherwise noncontributory. Surgical history: As per history of present illness and as reviewed below otherwise noncontributory. Social history: See social history for further information Family history: As per history of present illness and as reviewed below otherwise noncont ributory. Physical exam: General: Well developed and well nourished 31-year-old female. Alert and orientated x 3. Nontoxic in appearance and in no acute distress. Vital signs are stable and have been reviewed by me. Nursing notes were reviewed. HEENT: Atraumatic, normocephalic, pupils equal and reactive bilaterally, negative for conjunctival pallor or scleral icterus, mucous membranes moist, TMs normal bilaterally, throat clear, neck supple, nontender, trachea midline. No drooling or trismus noted. No meningeal signs. No hot potato voice noted. Lungs: Clear to auscultation bilaterally. No wheezes, rales, or rhonchi. Chest nontender. Normal work of breathing, no accessory muscles used. Heart: S1S2, regular rate and rhythm. Abdomen: Soft, obese, nontender. Skin: Intact, warm, dry. No lesions or rashes noted. Hematologic: No petechiae or purpra. Mucosa appropriate color and normal nail bed color and refill. Extremities: Atraumatic, moves all extremities per self without difficulty or d eficits. Neurovascular unremarkable. Neuro: Awake, alert, oriented. Cranial nerves II through XII unremarkable. Cerebellum unremarkable. Motor and sensory unremarkable throughout. Exam nonfocal. Psychiatric: Mood and affect are appropriate. Normal thought process. Answering questions appropriately. Please note that the patient was seen and evaluated during the 2019 SARS-CoV-2 novel coronavirus pandemic period. Community viral transmission is ongoing at time of this encounter and the emergency department is operating under pandemic response procedures. Medical Decision Making: Patient is a 31-year-old female who has a longstanding history of migraines and states she has had one over the past few days that is not alleviated by her prescribed Imitrex. She has tried [id number] remedies without any relief. She is agreeable to IV fluids and medications. Discussed imaging, at this time it is not warranted. Patient feels improved after IV medications. She does have a ride to home. VSS. I have talked with the patient about today's findings, in addition to providing specific details for plan of care. Reassessment at the time of disposition demonstrates that the patient is in no acute distress. The patient is stable for discharge, counseling was provided and we discussed in great detail signs and symptoms that would prompt them to return to the Emergency Department. Medic ation, follow up and supportive care measures were reviewed and discussed. Voices understanding and is agreeable to plan of care. Denies any further questions or concerns at this time. Diagnostics: None Therapeutics: Ativan, Toradol, Zofran, NS Prescription: None Impression: Migraine headache Plan: 1. You were evaluated today on an emergent basis. You were given medications for your migraine that may cause drowsiness, so do not drive the rest of the day. Rest in a dark quiet room the rest of the evening. 2. You can alternate Tylenol and ibuprofen as needed for pain and fever management. 3. We encourage you to follow up with your primary care provider and/or recommended specialist in the next few days for re-evaluation and further care/management. 4. If your symptoms should worsen, new symptoms develop or any of the signs and symptoms we discussed should arise please return to the emergency room or call 911 (if needed). Definitive disposition and diagnosis as appropriate pending reevaluation and review of above. Bilateral Head Pain Score (Numeric/FACES): 10 - Related Data Allergies Allergy/AdvReac Type Severity Reaction Status Date / Time metronidazole [From Flagyl] Allergy Anaphylactic Verified 04/09/21 21:53 Shock proventil liquid Allergy Seizure Uncoded 04/09/21 21:53 ptu Allergy Hives Uncoded 04/09/21 21:53 tapazole Allergy Hives Uncoded 04/09/21 21:53 Home Meds: Home Meds Levothyroxine 25 mcg PO DAILY 08/13/20 [History] Ketorolac [Toradol] 10 mg PO TID 5 Days #15 tab 12/16/20 [Rx] DULoxetine [Cymbalta] 30 mg PO DAILY 04/09/21 [History] Sulfamethoxazole/Trimethoprim [Bactrim Ds Tablet] 1 each PO BID 5 Days #10 tablet 04/09/21 [Rx] cephALEXin [Keflex] 500 mg PO Q6HR 5 Days #20 cap 04/09/21 [Rx] Past Medical History - Past Health History Medical/Surgical History: Denies Medical/Surgical History HEENT History: Reports: None Other HEENT History: wears glasses Cardiovascular History: Reports: Other (See Below) Other Cardiovascular History: "cyst in my heart" Respiratory History: Reports: None Gastrointestinal History: Reports: None Genitourinary History: Reports: None VICE PRESIDENT INTEGRATED History: Reports: , 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 VICE PRESIDENT INTEGRATED History: Termination of 1 Musculoskeletal History: Reports: None Other Musculoskeletal History: hx of fx to jaw and hands Neurological History: Reports: Migraines, Other (See Below) Other Neuro History: Tourettes Psychiatric History: Reports: Anxiety, Depression Other Psychiatric History: Tourettes Endocrine/Metabolic History: Reports: Hypothyroidism Insulin Pump Model and Plastic Welding Machine Operator: None Hematologic History: Reports: None Immunologic History: Reports: None Oncologic (Cancer) History: Reports: None Dermatologic History: Reports: Other (See Below) Other Dermatologic History: hydrotitus supervitiva- HS syndrome - Infectious Disease History Infectious Disease History: Reports: Chicken Pox - Past Surgical History Head Surgeries/Procedures: Reports: None HEENT Surgical History: Reports: None Cardiovascular Surgical History: Reports: None Respiratory Surgical History: Reports: None GI Surgical History: Reports: None Other GI Surgeries/Procedures: x 3 Female Surgical History: Reports: Section Other Female Surgeries/Procedures: x 3 Endocrine Surgical History: Reports: None Neurological Surgical History: Reports: None Musculoskeletal Surgical History: Reports: None Oncologic Surgical History: Reports: None Dermatological Surgical History: Reports: None Social & Family History - Family History Family Medical History: No Pertinent Family History HEENT: Reports: None Cardiac: Reports: None Respiratory: Reports: None GI: Reports: None : Reports: None OBGYN: Reports: None Musculoskeletal: Reports: None Neurological: Reports: None Psychiatric: Reports: None Endocrine/Metabolic: Reports: None Hematologic: Reports: None Immunologic: Reports: None Dermatologic: Reports: None Oncologic: Reports: Breast, Renal - Caffeine Use Caffeine Use: Reports: Soda ED ROS GENERAL - Review of Systems Review Of Systems: Comprehensive ROS is negative, except as noted in HPI. - Physical Exam Exam: See Below (See dictation) Course - Vital Signs Last Recorded V/S: Last Vital Signs Temp 99.1 F 05/02/21 20:27 Pulse 120 H 05/02/21 20:27 Resp 20 05/02/21 20:27 BP 128/89 05/02/21 20:27 Pulse Ox 98 05/02/21 20:27 - Orders/Labs/Meds Orders: Active Orders 24 hr Category Date Time Status Sodium Chloride 0.9% [Normal Saline] 1,000 ml Med 05/02/21 20:31 Active IV STAT Medication Orders Sodium Chloride (Normal Saline) 1,000 mls @ 999 mls/hr IV STAT ONE Stop: 05/02/21 21:31 Last Admin: 05/02/21 20:58 Dose: 999 mls/hr Documented by: HARSHAD Meds: Medications Generic Name Dose Route Start Last Admin Trade Name Freq PRN Reason Stop Dose Admin Sodium Chloride 1,000 mls @ 999 mls/hr 05/02/21 20:31 05/02/21 20:58 Normal Saline IV 05/02/21 21:31 999 mls/hr STAT ONE Administration Discontinued Medications Generic Name Dose Route Start Last Admin Trade Name Freq PRN Reason Stop Dose Admin Ketorolac Tromethamine 30 mg 05/02/21 20:31 05/02/21 21:01 Ketorolac 30 Mg/Ml Sdv IVPUSH 05/02/21 20:32 30 mg ONETIME ONE Administration Lorazepam 1 mg 05/02/21 20:31 05/02/21 21:02 Lorazepam 2 Mg/Ml Sdv IVPUSH 05/02/21 20:32 1 mg ONETIME ONE Administration Ondansetron HCl 4 mg 05/02/21 20:31 05/02/21 20:59 Ondansetron 4 Mg/2 Ml Sdv IVPUSH 05/02/21 20:32 4 mg ONETIME ONE Administration Departure - Departure Time of Disposition: 21:10 Disposition: Home, Self-Care 01 Clinical Impression: Migraine headache Qualifiers: Migraine type: with aura Intractability: not intractable - Discharge Information Instructions: Migraine Headache, [id number] Referrals: Tony Hutson MD [Primary Care Provider] - Forms: ED Department Discharge Additional Instructions: The following information is given to patients seen in the emergency department who are being discharged to home. This information is to outline your options for follow-up care. We provide all patients seen in our emergency department with a follow-up referral. The need for follow-up, as well as the timing and circumstances, are variable depending upon the specifics of your emergency department visit. If you don't have a primary care physician on staff, we will provide you with a referral. We always advise you to contact your personal physician following an emergency department visit to inform them of the circumstance of the visit and for follow-up with them and/or the need for any referrals to a consulting specialist. The emergency department will also refer you to a specialist when appropriate. This referral assures that you have the opportunity for follow-up care with a specialist. All of these measure are taken in an effort to provide you with optimal care, which includes your follow-up. Under all circumstances we always encourage you to contact your private physician who remains a resource for coordinating your care. When calling for follow-up care, please make the office aware that this follow-up is from your recent emergency room visit. If for any reason you are refused follow-up, please contact the [facility] Emergency Department at and asked to speak to the emergency department charge nurse. [facility] [address] [place] [id number] [facility] [address] [place] [phone] Thank you for choosing the [facility] emergency department in [place] for your medical needs today. It was a pleasure caring for you. Today you were seen in the emergency department for migraine headache. 1. You were evaluated today on an emergent basis. You were given medications for your migraine that may cause drowsiness, so do not drive the rest of the day. Rest in a dark quiet room the rest of the evening. 2. You can alternate Tylenol and ibuprofen as needed for pain and fever management. 3. We encourage you to follow up with your primary care provider and/or recommended specialist in the next few days for re-evaluation and further care/management. 4. If your symptoms should worsen, new symptoms develop or any of the signs and symptoms we discussed should arise please return to the emergency room or call 911 (if needed). Sepsis Event Note (ED) - Focused Exam Vital Signs: Vital Signs Temp Pulse Resp BP Pulse Ox 05/02/21 20:27 99.1 F 120 H 20 128/89 98 - My Orders Last 24 Hours: My Active Orders 05/02/21 20:31 Sodium Chloride 0.9% [Normal Saline] 1,000 ml IV STAT - Assessment/Plan Last 24 Hours: My Active Orders 05/02/21 20:31 Sodium Chloride 0.9% [Normal Saline] 1,000 ml IV STAT
== END 2021-05-02 22:49 | disposition home or self-care (01) ==
LOC: MW.ED 19:39
DX: G43.109 Migraine with aura, not intractable, without status migrainosus (principal); E03.9 Hypothyroidism, unspecified; Z88.1 Allergy status to other antibiotic agents; Z88.8 Allergy status to other drugs, medicaments and biological substances; Z91.048 Other nonmedicinal substance allergy status; Z79.899 Other long term (current) drug therapy
CPT/HCPCS: 96374; 96375; 99283; J1885; J2060; J2405; J7030

== ENCOUNTER 2021-05-05 04:06 | Inpatient (IN) | payer MEDICAID ==
[2021-05-05] MEDS ORDERED: Acetaminophen 500 MG Tab PO ONE (04:38)
[2021-05-05] MEDS ORDERED: Sodium Chloride 0.9% 1,000 ML IV ONE (04:38)
[2021-05-05] MEDS ORDERED: Metoclopramide 10 MG/2 ML SDV IVPUSH ONE (04:38)
[2021-05-05] MEDS ORDERED: Sodium Chloride 0.9% 2.5 ML Syringe FLUSH PRN (04:38)
[2021-05-05] MEDS ORDERED: Ketorolac 15 MG/ML SDV IVPUSH ONE (04:38)
[2021-05-05] MEDS ORDERED: Sodium Chloride 0.9% 10 ML Syringe FLUSH PRN (04:38)
[2021-05-05] MEDS ORDERED: diphenhydrAMINE 50 MG/ML SDV IVPUSH ONE (04:38)
--- NOTE | 2021-05-05 04:44 | EDM.PDOC ---
ED HPI GENERAL MEDICAL PROBLEM - General Chief Complaint: General Stated Complaint: BODY ACHES Time Seen by Provider: 05/05/21 04:28 - History of Present Illness INITIAL COMMENTS - FREE TEXT/NARRATIVE: HISTORY AND PHYSICAL: History of present illness: This is a 31-year-old female with history significant for hypothyroid, hidradenitis suppurativa, morbid obesity, BMI of 50, who is not vaccinated for coronavirus, migraine headaches, who presents ER today secondary to tactile fevers, shortness of breath, myalgias, headaches, cough, sore throat. Patient does complain of nausea but denies any vomiting, diarrhea. Patient denies any abdominal pain or chest pain. Patient denies any dysuria, frequency, urgency. Patient denies any photophobia. Patient reports that she does have a headache similar to her prior migraines. Review of systems: As per history of present illness and below otherwise all systems reviewed and negative. Past medical history: As per history of present illness and as reviewed below otherwise no ncontributory. Surgical history: As per history of present illness and as reviewed below otherwise noncontributory. Social history: No reported history of drug abuse. Family history: As per history of present illness and as reviewed below otherwise noncontributory. Physical exam: This patient was seen and evaluated during the 2019 SARS-CoV-2 novel coronavirus pandemic period. Community viral transmission is ongoing at time of this encounter and the emergency department is operating under pandemic response procedures. Constitutional: Patient is oriented to person, place, and time. Appears well- developed and well-nourished. No distress. HEENT: Moist mucous membranes Head: Normocephalic and atraumatic Eyes: Right eye exhibits no discharge. Left eye exhibits no discharge. No s cleral icterus Neck: Normal range of motion. No tracheal deviation present. Cardiovascular: Normal rate and regular rhythm. Pulmonary: Effort normal, no respiratory distress. Abdominal: No distention Musculoskeletal: Normal range of motion Neurologic: Alert and oriented to person, place and time. Skin: [place], warm and dry. Psychiatric: Normal mood and affect. Behavior is normal. Judgment and thought content normal. Nursing note and vital signs have been reviewed Diagnostics: CBC, CMP D-dimer elevated CTA of thorax to rule out PE. CT scan of the thorax negative for PE. CT scan is consistent with changes consistent with COVID-19 pneumonia. Covid positive Therapeutics: Toradol, Reglan, Benadryl, NSS for treatment of her migraine headache Decadron 10 mg IV, remdesivir 200 mg IV for treatment of her coronavirus NSS wide open x1 L for treatment of her migraine headache and dehydration Assessment and plan: 31-year-old female who presents ER today with signs and symptoms concerning for coronavirus. Patient does complain of shortness of breath, fevers, headaches, cough, myalgias. Patient will have labs drawn including a CBC, CMP, Covid test, influenza test, chest CT, EKG. Patient was given IV fluids, Toradol, Tylenol, Reglan, Benadryl. Patient will be reevaluated after test results. Patient's coronavirus test is positive urine ED. Patient's pulse ox has fluctua maricruz between 86 to 88% on room air. Patient has been placed on 3 L of nasal cannula O2 and her pulse ox is 95%. Given the patient's morbid obesity, her hypoxia and her positive Covid test, patient will need to be admitted for her increased O2 demand. Patient be placed on remdesivir and Decadron in the ED. Case has been discussed with Dr. Henson who agrees with current plan to admit patient. Definitive disposition and diagnosis as appropriate pending reevaluation and review of above. generalized Pain Score (Numeric/FACES): 8 - Related Data Allergies Allergy/AdvReac Type Severity Reaction Status Date / Time metronidazole [From Flagyl] Allergy Anaphylactic Verified 05/05/21 04:36 Shock proventil liquid Allergy Seizure Uncoded 05/05/21 04:36 ptu Allergy Hives Uncoded 05/05/21 04:36 tapazole Allergy Hives Uncoded 05/05/21 04:36 Home Meds: Home Meds Levothyroxine 25 mcg PO DAILY 08/13/20 [History] Ketorolac [Toradol] 10 mg PO TID 5 Days #15 tab 12/16/20 [Rx] DULoxetine [Cymbalta] 30 mg PO DAILY 04/09/21 [History] Sulfamethoxazole/Trimethoprim [Bactrim Ds Tablet] 1 each PO BID 5 Days #10 tablet 04/09/21 [Rx] cephALEXin [Keflex] 500 mg PO Q6HR 5 Days #20 cap 04/09/21 [Rx] Past Medical History - Past Health History Medical/Surgical History: Denies Medical/Surgical History HEENT History: Reports: None Other HEENT History: wears glasses Cardiovascular History: Reports: Other (See Below) Other Cardiovascular History: "cyst in my heart" Respiratory History: Reports: None Gastrointestinal History: Reports: None Genitourinary History: Reports: None [place] ALDERMAN History: Reports: , 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 [place] ALDERMAN History: Termination of 1 Musculoskeletal History: Reports: None Other Musculoskeletal History: hx of fx to jaw and hands Neurological History: Reports: Migraines, Other (See Below) Other Neuro History: Tourettes Psychiatric History: Reports: Anxiety, Depression Other Psychiatric History: Tourettes Endocrine/Metabolic History: Reports: Hypothyroidism Insulin Pump Model and Credit Or Loans Officer: None Hematologic History: Reports: None Immunologic History: Reports: None Oncologic (Cancer) History: Reports: None Dermatologic History: Reports: Other (See Below) Other Dermatologic History: hydrotitus supervitiva- HS syndrome - Infectious Disease History Infectious Disease History: Reports: Chicken Pox - Past Surgical History Head Surgeries/Procedures: Reports: None HEENT Surgical History: Reports: None Cardiovascular Surgical History: Reports: None Respiratory Surgical History: Reports: None GI Surgical History: Reports: None Other GI Surgeries/Procedures: x 3 Female Surgical History: Reports: Section Other Female Surgeries/Procedures: x 3 Endocrine Surgical History: Reports: None Neurological Surgical History: Reports: None Musculoskeletal Surgical History: Reports: None Oncologic Surgical History: Reports: None Dermatological Surgical History: Reports: None Social & Family History - Family History Family Medical History: No Pertinent Family History HEENT: Reports: None Cardiac: Reports: None Respiratory: Reports: None GI: Reports: None : Reports: None OBGYN: Reports: None Musculoskeletal: Reports: None Neurological: Reports: None Psychiatric: Reports: None Endocrine/Metabolic: Reports: None Hematologic: Reports: None Immunologic: Reports: None Dermatologic: Reports: None Oncologic: Reports: Breast, Renal - Caffeine Use Caffeine Use: Reports: Soda ED ROS GENERAL - Review of Systems Review Of Systems: See Below ED EXAM, GENERAL - Physical Exam Exam: See Below #1 Interpretation EKG Interpretation Comments: EKG: As interpreted by ER physician: Lisa: Nonspecific ST-T wave abnormalities Normal axis No evidence of ST elevation [place] Normal sinus rhythm heart rate of 107 May 05, 2021 at 5:28 AM Course - Vital Signs Last Recorded V/S: Last Vital Signs Temp 99.4 F 05/05/21 06:18 Pulse 88 05/05/21 06:54 Resp 24 H 05/05/21 06:54 BP 112/70 05/05/21 06:54 Pulse Ox 95 05/05/21 06:54 - Orders/Labs/Meds Orders: Active Orders 24 hr Category Date Time Status Patient Status [ADT] Routine ADT 05/05/21 06:52 Active EKG Documentation Completion [RC] AM Care 05/05/21 04:38 Active BILIRUBIN DIRECT [CHEM] DAILY Lab 05/06/21 06:45 Ordered BILIRUBIN DIRECT [CHEM] DAILY Lab 05/07/21 06:45 Ordered BILIRUBIN DIRECT [CHEM] DAILY Lab 05/08/21 06:45 Ordered BILIRUBIN DIRECT [CHEM] DAILY Lab 05/09/21 06:45 Ordered COMPREHENSIVE METABOLIC PN,CMP [CHEM] DAILY Lab 05/06/21 06:45 Ordered COMPREHENSIVE METABOLIC PN,CMP [CHEM] DAILY Lab 05/07/21 06:45 Ordered COMPREHENSIVE METABOLIC PN,CMP [CHEM] DAILY Lab 05/08/21 06:45 Ordered COMPREHENSIVE METABOLIC PN,CMP [CHEM] DAILY Lab 05/09/21 06:45 Ordered CULTURE BLOOD [BC] Stat Lab 05/05/21 04:45 Received CULTURE BLOOD [BC] Stat Lab 05/05/21 05:43 Received Sodium Chloride 0.9% [Saline Flush] Med 05/05/21 04:38 Active 10 ml FLUSH ASDIRECTED PRN Sodium Chloride 0.9% [Saline Flush] Med 05/05/21 04:38 Active 2.5 ml FLUSH ASDIRECTED PRN Blood Culture x2 Reflex Set [OM.PC] Stat Oth 05/05/21 04:39 Ordered Isolation [COMM] Routine Oth 05/05/21 04:39 Active Saline Lock Insert [OM.PC] Stat Oth 05/05/21 04:38 Ordered Medication Orders Sodium Chloride (Sodium Chloride 0.9% 10 Ml Syringe) 10 ml FLUSH ASDIRECTED PRN PRN Reason: Keep Vein Open Sodium Chloride (Sodium Chloride 0.9% 2.5 Ml Syringe) 2.5 ml FLUSH ASDIRECTED PRN PRN Reason: Keep Vein Open Labs: Laboratory Tests 05/05/21 05/05/21 05/05/21 Range/Units 04:45 04:45 04:45 WBC 5.22 (4.0-11.0) K/uL RBC 4.51 (4.30-5.90) M/uL Hgb 11.3 L (12.0-16.0) g/dL Hct 35.0 L (36.0-46.0) % MCV 77.6 L (80.0-98.0) fL MCH 25.1 L (27.0-32.0) pg MCHC 32.3 (31.0-37.0) g/dL RDW Std Deviation 50.1 (28.0-62.0) fl RDW Coeff of [place] 18 H (11.0-15.0) % Plt Count 239 (150-400) K/uL MPV 10.50 (7.40-12.00) fL Neut % (Auto) 65.9 (48.0-80.0) % Lymph % (Auto) 27.6 (16.0-40.0) % [place] % (Auto) 6.3 (0.0-15.0) % Eos % (Auto) 0.0 (0.0-7.0) % Baso % (Auto) 0.2 (0.0-1.5) % Neut # (Auto) 3.4 (1.4-5.7) K/uL Lymph # (Auto) 1.4 (0.6-2.4) K/uL [place] # (Auto) 0.3 (0.0-0.8) K/uL Eos # (Auto) 0.0 (0.0-0.7) K/uL Baso # (Auto) 0.0 (0.0-0.1) K/uL Nucleated RBC % 0.0 /100WBC Nucleated RBCs # 0 K/uL D-Dimer, Quantitative (0.0-0.50) mg/L FEU Sodium 134 L (136-145) mmol/L Potassium 3.7 (3.5-5.1) mmol/L Chloride 98 (98-107) mmol/L Carbon Dioxide 25.1 (21.0-32.0) mmol/L BUN 7 (7.0-18.0) mg/dL Creatinine 1.0 (0.6-1.0) mg/dL Est Cr Clr Drug Dosing 74.02 mL/min Estimated GFR (MDRD) > 60.0 ml/min Glucose 125 H (74-106) mg/dL Lactic Acid (0.4-2.0) mmol/L Calcium 7.8 L (8.5-10.1) mg/dL Total Bilirubin 0.3 (0.2-1.0) mg/dL AST 25 (15-37) IU/L ALT 21 (14-63) IU/L Alkaline Phosphatase 63 (46-116) U/L Total Protein 8.1 (6.4-8.2) g/dL Albumin 3.4 (3.4-5.0) g/dL Globulin 4.7 H (2.6-4.0) g/dL Albumin/Globulin Ratio 0.7 L (0.9-1.6) HCG, Qual (NEG) Urine Color Urine Appearance Urine pH (5.0-8.0) Ur Specific [place] (1.001-1.035) Urine Protein (NEGATIVE) mg/dL Urine Glucose (UA) (NEGATIVE) mg/dL Urine Ketones (NEGATIVE) mg/dL Urine Occult Blood (NEGATIVE) Urine Nitrite (NEGATIVE) Urine Bilirubin (NEGATIVE) Urine Ictotest Urine Urobilinogen (<2.0) EU/dL Ur Leukocyte Esterase (NEGATIVE) Urine RBC (0-2/HPF) Urine WBC (0-5/HPF) Ur Epithelial Cells (NONE-FEW) Amorphous Sediment (NEGATIVE) Urine Bacteria (NEGATIVE) Urine Mucus (NONE-MOD) SARS-CoV-2 RNA (LENORE) POSITIVE H (NEGATIVE) 05/05/21 05/05/21 05/05/21 Range/Units 04:45 04:45 04:45 WBC (4.0-11.0) K/uL RBC (4.30-5.90) M/uL Hgb (12.0-16.0) g/dL Hct (36.0-46.0) % MCV (80.0-98.0) fL MCH (27.0-32.0) pg MCHC (31.0-37.0) g/dL RDW Std Deviation (28.0-62.0) fl RDW Coeff of [place] (11.0-15.0) % Plt Count (150-400) K/uL MPV (7.40-12.00) fL Neut % (Auto) (48.0-80.0) % Lymph % (Auto) (16.0-40.0) % [place] % (Auto) (0.0-15.0) % Eos % (Auto) (0.0-7.0) % Baso % (Auto) (0.0-1.5) % Neut # (Auto) (1.4-5.7) K/uL Lymph # (Auto) (0.6-2.4) K/uL [place] # (Auto) (0.0-0.8) K/uL Eos # (Auto) (0.0-0.7) K/uL Baso # (Auto) (0.0-0.1) K/uL Nucleated RBC % /100WBC Nucleated RBCs # K/uL D-Dimer, Quantitative 0.79 H (0.0-0.50) mg/L FEU Sodium (136-145) mmol/L Potassium (3.5-5.1) mmol/L Chloride (98-107) mmol/L Carbon Dioxide (21.0-32.0) mmol/L BUN (7.0-18.0) mg/dL Creatinine (0.6-1.0) mg/dL Est Cr Clr Drug Dosing mL/min Estimated GFR (MDRD) ml/min Glucose (74-106) mg/dL Lactic Acid 0.7 (0.4-2.0) mmol/L Calcium (8.5-10.1) mg/dL Total Bilirubin (0.2-1.0) mg/dL AST (15-37) IU/L ALT (14-63) IU/L Alkaline Phosphatase (46-116) U/L Total Protein (6.4-8.2) g/dL Albumin (3.4-5.0) g/dL Globulin (2.6-4.0) g/dL Albumin/Globulin Ratio (0.9-1.6) HCG, Qual NEGATIVE (NEG) Urine Color Urine Appearance Urine pH (5.0-8.0) Ur Specific [place] (1.001-1.035) Urine Protein (NEGATIVE) mg/dL Urine Glucose (UA) (NEGATIVE) mg/dL Urine Ketones (NEGATIVE) mg/dL Urine Occult Blood (NEGATIVE) Urine Nitrite (NEGATIVE) Urine Bilirubin (NEGATIVE) Urine Ictotest Urine Urobilinogen (<2.0) EU/dL Ur Leukocyte Esterase (NEGATIVE) Urine RBC (0-2/HPF) Urine WBC (0-5/HPF) Ur Epithelial Cells (NONE-FEW) Amorphous Sediment (NEGATIVE) Urine Bacteria (NEGATIVE) Urine Mucus (NONE-MOD) SARS-CoV-2 RNA (LENORE) (NEGATIVE) 05/05/21 Range/Units 05:00 WBC (4.0-11.0) K/uL RBC (4.30-5.90) M/uL Hgb (12.0-16.0) g/dL Hct (36.0-46.0) % MCV (80.0-98.0) fL MCH (27.0-32.0) pg MCHC (31.0-37.0) g/dL RDW Std Deviation (28.0-62.0) fl RDW Coeff of [place] (11.0-15.0) % Plt Count (150-400) K/uL MPV (7.40-12.00) fL Neut % (Auto) (48.0-80.0) % Lymph % (Auto) (16.0-40.0) % [place] % (Auto) (0.0-15.0) % Eos % (Auto) (0.0-7.0) % Baso % (Auto) (0.0-1.5) % Neut # (Auto) (1.4-5.7) K/uL Lymph # (Auto) (0.6-2.4) K/uL [place] # (Auto) (0.0-0.8) K/uL Eos # (Auto) (0.0-0.7) K/uL Baso # (Auto) (0.0-0.1) K/uL Nucleated RBC % /100WBC Nucleated RBCs # K/uL D-Dimer, Quantitative (0.0-0.50) mg/L FEU Sodium (136-145) mmol/L Potassium (3.5-5.1) mmol/L Chloride (98-107) mmol/L Carbon Dioxide (21.0-32.0) mmol/L BUN (7.0-18.0) mg/dL Creatinine (0.6-1.0) mg/dL Est Cr Clr Drug Dosing mL/min Estimated GFR (MDRD) ml/min Glucose (74-106) mg/dL Lactic Acid (0.4-2.0) mmol/L Calcium (8.5-10.1) mg/dL Total Bilirubin (0.2-1.0) mg/dL AST (15-37) IU/L ALT (14-63) IU/L Alkaline Phosphatase (46-116) U/L Total Protein (6.4-8.2) g/dL Albumin (3.4-5.0) g/dL Globulin (2.6-4.0) g/dL Albumin/Globulin Ratio (0.9-1.6) HCG, Qual (NEG) Urine Color YELLOW Urine Appearance SLT CLOUDY Urine pH 6.0 (5.0-8.0) Ur Specific [place] 1.025 (1.001-1.035) Urine Protein TRACE H (NEGATIVE) mg/dL Urine Glucose (UA) NEGATIVE (NEGATIVE) mg/dL Urine Ketones 15 H (NEGATIVE) mg/dL Urine Occult Blood MODERATE H (NEGATIVE) Urine Nitrite NEGATIVE (NEGATIVE) Urine Bilirubin SMALL H (NEGATIVE) Urine Ictotest NEGATIVE Urine Urobilinogen 1.0 (<2.0) EU/dL Ur Leukocyte Esterase NEGATIVE (NEGATIVE) Urine RBC 1-3 (0-2/HPF) Urine WBC 0-4 (0-5/HPF) Ur Epithelial Cells MODERATE (NONE-FEW) Amorphous Sediment LIGHT (NEGATIVE) Urine Bacteria FEW (NEGATIVE) Urine Mucus LIGHT (NONE-MOD) SARS-CoV-2 RNA (LENORE) (NEGATIVE) Meds: Medications Generic Name Dose Route Start Last Admin Trade Name Freq PRN Reason Stop Dose Admin Sodium Chloride 10 ml 05/05/21 04:38 Sodium Chloride 0.9% 10 Ml Syringe FLUSH ASDIRECTED PRN Keep Vein Open Sodium Chloride 2.5 ml 05/05/21 04:38 Sodium Chloride 0.9% 2.5 Ml Syringe FLUSH ASDIRECTED PRN Keep Vein Open Discontinued Medications Generic Name Dose Route Start Last Admin Trade Name Freq PRN Reason Stop Dose Admin Acetaminophen 1,000 mg 05/05/21 04:38 05/05/21 05:02 Acetaminophen 500 Mg Tab PO 05/05/21 04:39 1,000 mg ONETIME ONE Administration Dexamethasone 10 mg 05/05/21 06:41 Dexamethasone 10 Mg/Ml Sdv IVPUSH 05/05/21 06:42 ONETIME ONE Diphenhydramine HCl 50 mg 05/05/21 04:38 05/05/21 05:02 Diphenhydramine 50 Mg/Ml Sdv IVPUSH 05/05/21 04:39 50 mg ONETIME ONE Administration Sodium Chloride 1,000 mls @ 999 mls/hr 05/05/21 04:38 05/05/21 05:01 Normal Saline IV 05/05/21 05:38 999 mls/hr .Bolus ONE Administration Remdesivir 200 mg/ Sodium 250 mls @ 250 mls/hr 05/05/21 06:44 Chloride IV 05/05/21 06:45 ONETIME ONE Iopamidol 100 ml 05/05/21 06:12 05/05/21 06:13 Iopamidol 755 Mg/Ml 500 Ml Multipack Bottle IVPUSH 05/05/21 06:13 100 ml ONETIME STA Administration Ketorolac Tromethamine 15 mg 05/05/21 04:38 05/05/21 05:02 Ketorolac 15 Mg/Ml Sdv IVPUSH 05/05/21 04:39 15 mg ONETIME ONE Administration Metoclopramide HCl 10 mg 05/05/21 04:38 05/05/21 05:02 Metoclopramide 10 Mg/2 Ml Sdv IVPUSH 05/05/21 04:39 10 mg ONETIME ONE Administration Departure - Departure Time of Disposition: 06:50 Disposition: Admitted As Inpatient 67 Condition: Fair Clinical Impression: Pneumonia due to COVID-19 virus Respiratory failure with hypoxia Qualifiers: Chronicity: acute Qualified Code(s): J96.01 - Acute respiratory failure with hypoxia Migraine headache Qualifiers: Migraine type: with aura Status migrainosus presence: without status migrainosus Intractability: not intractable Qualified Code(s): G43.109 - Migraine with aura, not intractable, without status migrainosus - Discharge Information Referrals: Tony Hutson MD [Primary Care Provider] - Forms: ED Department Discharge Sepsis Event Note (ED) - Focused Exam Vital Signs: Vital Signs Temp Temp Pulse Resp BP Pulse Ox 05/05/21 06:54 88 24 H 112/70 95 05/05/21 06:18 99.4 F 05/05/21 05:45 110 H 22 H 112/65 05/05/21 04:36 98.4 F 108 H 24 H 108/71 91 L - My Orders Last 24 Hours: My Active Orders 05/05/21 04:38 EKG Documentation Completion [RC] AM Sodium Chloride 0.9% [Saline Flush] 10 ml FLUSH ASDIRECTED PRN Sodium Chloride 0.9% [Saline Flush] 2.5 ml FLUSH ASDIRECTED PRN Saline Lock Insert [OM.PC] Stat 05/05/21 04:39 Blood Culture x2 Reflex Set [OM.PC] Stat Isolation [COMM] Routine 05/05/21 04:45 CULTURE BLOOD [BC] Stat 05/05/21 05:43 CULTURE BLOOD [BC] Stat 05/05/21 06:52 Patient Status [ADT] Routine 05/06/21 06:45 BILIRUBIN DIRECT [CHEM] DAILY COMPREHENSIVE METABOLIC PN,CMP [CHEM] DAILY 05/07/21 06:45 BILIRUBIN DIRECT [CHEM] DAILY COMPREHENSIVE METABOLIC PN,CMP [CHEM] DAILY 05/08/21 06:45 BILIRUBIN DIRECT [CHEM] DAILY COMPREHENSIVE METABOLIC PN,CMP [CHEM] DAILY 05/09/21 06:45 BILIRUBIN DIRECT [CHEM] DAILY COMPREHENSIVE METABOLIC PN,CMP [CHEM] DAILY - Assessment/Plan Last 24 Hours: My Active Orders 05/05/21 04:38 EKG Documentation Completion [RC] AM Sodium Chloride 0.9% [Saline Flush] 10 ml FLUSH ASDIRECTED PRN Sodium Chloride 0.9% [Saline Flush] 2.5 ml FLUSH ASDIRECTED PRN Saline Lock Insert [OM.PC] Stat 05/05/21 04:39 Blood Culture x2 Reflex Set [OM.PC] Stat Isolation [COMM] Routine 05/05/21 04:45 CULTURE BLOOD [BC] Stat 05/05/21 05:43 CULTURE BLOOD [BC] Stat 05/05/21 06:52 Patient Status [ADT] Routine 05/06/21 06:45 BILIRUBIN DIRECT [CHEM] DAILY COMPREHENSIVE METABOLIC PN,CMP [CHEM] DAILY 05/07/21 06:45 BILIRUBIN DIRECT [CHEM] DAILY COMPREHENSIVE METABOLIC PN,CMP [CHEM] DAILY 05/08/21 06:45 BILIRUBIN DIRECT [CHEM] DAILY COMPREHENSIVE METABOLIC PN,CMP [CHEM] DAILY 05/09/21 06:45 BILIRUBIN DIRECT [CHEM] DAILY COMPREHENSIVE METABOLIC PN,CMP [CHEM] DAILY
[2021-05-05 05:38] LABS: BLOOD UREA NITROGEN,BUN 7 mg/dL (7.0-18.0); CARBON DIOXIDE,CO2 25.1 mmol/L (21.0-32.0); CHLORIDE,CL 98 mmol/L (98-107); GLUCOSE RANDOM 125 mg/dL (74-106); POTASSIUM,K 3.7 mmol/L (3.5-5.1); SODIUM,NA 134 mmol/L (136-145)
[2021-05-05] MEDS ORDERED: Iopamidol 755 MG/ML 500 ML Multipack Bottle IVPUSH STA (06:12)
[2021-05-05] MEDS ORDERED: Dexamethasone 10 MG/ML SDV IVPUSH ONE (06:41)
[2021-05-05] MEDS ORDERED: REMDESIVIR 200 MG in Sodium Chloride 0.9% 250 ML IV ONE (06:44)
--- NOTE | 2021-05-05 06:56 | CT ---
INDICATION: Hypoxia. TECHNIQUE: Axial images. Sagittal and coronal reconstructions. 100 mL [id number] pulmonary angiogram protocol. COMPARISON: None. FINDINGS: Significantly limited study due to body habitus. Pulmonary arteries: Marginal contrast opacification with no filling defects to suggest an acute pulmonary embolus. Remainder of the chest: Heart size is upper limits of normal to mildly enlarged for patient`s age. No pericardial effusion. Normal caliber thoracic aorta. No appreciable aortic dissection. 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 No appreciable lymphadenopathy. There are moderate patchy nodular airspace opacities seen in both lungs, with a mid and lower lung predominance. Findings are most consistent with an acute infectious or inflammatory process such as COVID pneumonia. Trace amount of pleural fluid is noted bilaterally. Upper abdomen: The liver appears mildly decreased in attenuation, suggestive of fatty infiltration. Bones: No acute abnormality. IMPRESSION: 1. No CT evidence of an acute pulmonary embolus within the limitations of the study. 2. Moderate patchy bilateral airspace disease with a mid and lower lung predominance. Findings are likely related to an acute infectious or inflammatory process such as COVID pneumonia. 3. Nonacute findings as noted. Please note that all CT scans at this facility use dose modulation, iterative reconstruction, and/or weight-based dosing when appropriate to reduce radiation dose to as low as reasonably achievable. Dictated by Jorge Allen MD @ 05/06/2021 3:36:23 PM (Electronically Signed)
[2021-05-05] MEDS ORDERED: Levothyroxine 25 MCG Tab PO SCH (16:45)
--- NOTE | 2021-05-05 16:53 | PCM.HP.2 ---
H&P History of Present Illness - General Date of Service: 05/05/21 Admit Problem/Dx: Admission Diagnosis/Problem Admission Diagnosis/Problem Respiratory failure with hypoxia - History of Present Illness Initial Comments - Free Text/Narative: 31 yo female with pmh of hypothyroidism, obesity who presents with four days of cough, headache, shortness of breath and fevers. In the ED she was noted to be requiring simple NC to keep sats above 90%. CT angio was negative for PE but reported bilateral infiltrates. generalized Pain Score (Numeric/FACES): 8 - Related Data Allergies/Adverse Reactions: Allergies Allergy/AdvReac Type Severity Reaction Status Date / Time metronidazole [From Flagyl] Allergy Anaphylactic Verified 05/05/21 04:36 Shock proventil liquid Allergy Seizure Uncoded 05/05/21 04:36 ptu Allergy Hives Uncoded 05/05/21 04:36 tapazole Allergy Hives Uncoded 05/05/21 04:36 Home Medications: Home Meds Levothyroxine 225 mg PO DAILY 05/05/21 [History] Past Medical History - Past Health History Medical/Surgical History: Denies Medical/Surgical History HEENT History: Reports: None Other HEENT History: wears glasses Cardiovascular History: Reports: Other (See Below) Other Cardiovascular History: "cyst in my heart" Respiratory History: Reports: None Gastrointestinal History: Reports: None Genitourinary History: Reports: None 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: , 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 OB/BYN History: Termination of 1 Musculoskeletal History: Reports: None Other Musculoskeletal History: hx of fx to jaw and hands Neurological History: Reports: Migraines, Other (See Below) Other Neuro History: Tourettes Psychiatric History: Reports: Anxiety, Depression Other Psychiatric History: Tourettes Endocrine/Metabolic History: Reports: Hypothyroidism 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 Hematologic History: Reports: None Immunologic History: Reports: None Oncologic (Cancer) History: Reports: None Dermatologic History: Reports: Other (See Below) Other Dermatologic History: hydrotitus supervitiva- HS syndrome - Infectious Disease History Infectious Disease History: Reports: Chicken Pox - Past Surgical History Head Surgeries/Procedures: Reports: None HEENT Surgical History: Reports: None Cardiovascular Surgical History: Reports: None Respiratory Surgical History: Reports: None GI Surgical History: Reports: None Other GI Surgeries/Procedures: x 3 Female Surgical History: Reports: Section Other Female Surgeries/Procedures: x 3 Endocrine Surgical History: Reports: None Neurological Surgical History: Reports: None Musculoskeletal Surgical History: Reports: None Oncologic Surgical History: Reports: None Dermatological Surgical History: Reports: None Social & Family History - Family History Family Medical History: No Pertinent Family History HEENT: Reports: None Cardiac: Reports: None Respiratory: Reports: None GI: Reports: None : Reports: None OBGYN: Reports: None Musculoskeletal: Reports: None Neurological: Reports: None Psychiatric: Reports: None Endocrine/Metabolic: Reports: None Hematologic: Reports: None Immunologic: Reports: None Dermatologic: Reports: None Oncologic: Reports: Breast, Renal - Tobacco Use Tobacco Use Status *Q: Never Tobacco User Second Hand Smoke Exposure: No - Caffeine Use Caffeine Use: Reports: Coffee, Soda - Recreational Drug Use Recreational Drug Use: No H&P Review of Systems - Review of Systems: Review Of Systems: Comprehensive ROS is negative, except as noted in HPI. Exam - Exam Exam: See Below - Vital Signs Vital Signs: Last Vital Signs Temp 37.0 C 05/05/21 08:44 Pulse 83 05/05/21 12:00 Resp 21 H 05/05/21 08:44 BP 128/70 05/05/21 12:00 Pulse Ox 94 L 05/05/21 12:00 Weight: 176.447 kg - Exam General: Alert, Oriented HEENT: Posterior Pharynx Clear Lungs: Normal Respiratory Effort, Rhonchi Cardiovascular: Regular Rate, Regular Rhythm GI/Abdominal Exam: Normal Bowel Sounds, Soft, Non-Tender Extremities: Non-Tender, No Pedal Edema Skin: Warm, Dry, Intact - Patient Data Lab Results Last 24 hrs: Laboratory Results - last 24 hr 05/05/21 05/05/21 05/05/21 Range/Units 04:45 04:45 04:45 WBC 5.22 (4.0-11.0) K/uL RBC 4.51 (4.30-5.90) M/uL Hgb 11.3 L (12.0-16.0) g/dL Hct 35.0 L (36.0-46.0) % MCV 77.6 L (80.0-98.0) fL MCH 25.1 L (27.0-32.0) pg MCHC 32.3 (31.0-37.0) g/dL RDW Std Deviation 50.1 (28.0-62.0) fl RDW Coeff of Rosa Maria 18 H (11.0-15.0) % Plt Count 239 (150-400) K/uL MPV 10.50 (7.40-12.00) fL Neut % (Auto) 65.9 (48.0-80.0) % Lymph % (Auto) 27.6 (16.0-40.0) % Shannon % (Auto) 6.3 (0.0-15.0) % Eos % (Auto) 0.0 (0.0-7.0) % Baso % (Auto) 0.2 (0.0-1.5) % Neut # (Auto) 3.4 (1.4-5.7) K/uL Lymph # (Auto) 1.4 (0.6-2.4) K/uL Shannon # (Auto) 0.3 (0.0-0.8) K/uL Eos # (Auto) 0.0 (0.0-0.7) K/uL Baso # (Auto) 0.0 (0.0-0.1) K/uL Nucleated RBC % 0.0 /100WBC Nucleated RBCs # 0 K/uL D-Dimer, Quantitative (0.0-0.50) mg/L FEU Sodium 134 L (136-145) mmol/L Potassium 3.7 (3.5-5.1) mmol/L Chloride 98 (98-107) mmol/L Carbon Dioxide 25.1 (21.0-32.0) mmol/L BUN 7 (7.0-18.0) mg/dL Creatinine 1.0 (0.6-1.0) mg/dL Est Cr Clr Drug Dosing 74.02 mL/min Estimated GFR (MDRD) > 60.0 ml/min Glucose 125 H (74-106) mg/dL Lactic Acid (0.4-2.0) mmol/L Calcium 7.8 L (8.5-10.1) mg/dL Total Bilirubin 0.3 (0.2-1.0) mg/dL AST 25 (15-37) IU/L ALT 21 (14-63) IU/L Alkaline Phosphatase 63 (46-116) U/L Total Protein 8.1 (6.4-8.2) g/dL Albumin 3.4 (3.4-5.0) g/dL Globulin 4.7 H (2.6-4.0) g/dL Albumin/Globulin Ratio 0.7 L (0.9-1.6) HCG, Qual (NEG) Urine Color Urine Appearance Urine pH (5.0-8.0) Ur Specific [place] (1.001-1.035) Urine Protein (NEGATIVE) mg/dL Urine Glucose (UA) (NEGATIVE) mg/dL Urine Ketones (NEGATIVE) mg/dL Urine Occult Blood (NEGATIVE) Urine Nitrite (NEGATIVE) Urine Bilirubin (NEGATIVE) Urine Ictotest Urine Urobilinogen (<2.0) EU/dL Ur Leukocyte Esterase (NEGATIVE) Urine RBC (0-2/HPF) Urine WBC (0-5/HPF) Ur Epithelial Cells (NONE-FEW) Amorphous Sediment (NEGATIVE) Urine Bacteria (NEGATIVE) Urine Mucus (NONE-MOD) SARS-CoV-2 RNA (LENORE) POSITIVE H (NEGATIVE) 05/05/21 05/05/21 05/05/21 Range/Units 04:45 04:45 04:45 WBC (4.0-11.0) K/uL RBC (4.30-5.90) M/uL Hgb (12.0-16.0) g/dL Hct (36.0-46.0) % MCV (80.0-98.0) fL MCH (27.0-32.0) pg MCHC (31.0-37.0) g/dL RDW Std Deviation (28.0-62.0) fl RDW Coeff of Rosa Maria (11.0-15.0) % Plt Count (150-400) K/uL MPV (7.40-12.00) fL Neut % (Auto) (48.0-80.0) % Lymph % (Auto) (16.0-40.0) % Shannon % (Auto) (0.0-15.0) % Eos % (Auto) (0.0-7.0) % Baso % (Auto) (0.0-1.5) % Neut # (Auto) (1.4-5.7) K/uL Lymph # (Auto) (0.6-2.4) K/uL Shannon # (Auto) (0.0-0.8) K/uL Eos # (Auto) (0.0-0.7) K/uL Baso # (Auto) (0.0-0.1) K/uL Nucleated RBC % /100WBC Nucleated RBCs # K/uL D-Dimer, Quantitative 0.79 H (0.0-0.50) mg/L FEU Sodium (136-145) mmol/L Potassium (3.5-5.1) mmol/L Chloride (98-107) mmol/L Carbon Dioxide (21.0-32.0) mmol/L BUN (7.0-18.0) mg/dL Creatinine (0.6-1.0) mg/dL Est Cr Clr Drug Dosing mL/min Estimated GFR (MDRD) ml/min Glucose (74-106) mg/dL Lactic Acid 0.7 (0.4-2.0) mmol/L Calcium (8.5-10.1) mg/dL Total Bilirubin (0.2-1.0) mg/dL AST (15-37) IU/L ALT (14-63) IU/L Alkaline Phosphatase (46-116) U/L Total Protein (6.4-8.2) g/dL Albumin (3.4-5.0) g/dL Globulin (2.6-4.0) g/dL Albumin/Globulin Ratio (0.9-1.6) HCG, Qual NEGATIVE (NEG) Urine Color Urine Appearance Urine pH (5.0-8.0) Ur Specific [place] (1.001-1.035) Urine Protein (NEGATIVE) mg/dL Urine Glucose (UA) (NEGATIVE) mg/dL Urine Ketones (NEGATIVE) mg/dL Urine Occult Blood (NEGATIVE) Urine Nitrite (NEGATIVE) Urine Bilirubin (NEGATIVE) Urine Ictotest Urine Urobilinogen (<2.0) EU/dL Ur Leukocyte Esterase (NEGATIVE) Urine RBC (0-2/HPF) Urine WBC (0-5/HPF) Ur Epithelial Cells (NONE-FEW) Amorphous Sediment (NEGATIVE) Urine Bacteria (NEGATIVE) Urine Mucus (NONE-MOD) SARS-CoV-2 RNA (LENORE) (NEGATIVE) 05/05/21 Range/Units 05:00 WBC (4.0-11.0) K/uL RBC (4.30-5.90) M/uL Hgb (12.0-16.0) g/dL Hct (36.0-46.0) % MCV (80.0-98.0) fL MCH (27.0-32.0) pg MCHC (31.0-37.0) g/dL RDW Std Deviation (28.0-62.0) fl RDW Coeff of Rosa Maria (11.0-15.0) % Plt Count (150-400) K/uL MPV (7.40-12.00) fL Neut % (Auto) (48.0-80.0) % Lymph % (Auto) (16.0-40.0) % Shannon % (Auto) (0.0-15.0) % Eos % (Auto) (0.0-7.0) % Baso % (Auto) (0.0-1.5) % Neut # (Auto) (1.4-5.7) K/uL Lymph # (Auto) (0.6-2.4) K/uL Shannon # (Auto) (0.0-0.8) K/uL Eos # (Auto) (0.0-0.7) K/uL Baso # (Auto) (0.0-0.1) K/uL Nucleated RBC % /100WBC Nucleated RBCs # K/uL D-Dimer, Quantitative (0.0-0.50) mg/L FEU Sodium (136-145) mmol/L Potassium (3.5-5.1) mmol/L Chloride (98-107) mmol/L Carbon Dioxide (21.0-32.0) mmol/L BUN (7.0-18.0) mg/dL Creatinine (0.6-1.0) mg/dL Est Cr Clr Drug Dosing mL/min Estimated GFR (MDRD) ml/min Glucose (74-106) mg/dL Lactic Acid (0.4-2.0) mmol/L Calcium (8.5-10.1) mg/dL Total Bilirubin (0.2-1.0) mg/dL AST (15-37) IU/L ALT (14-63) IU/L Alkaline Phosphatase (46-116) U/L Total Protein (6.4-8.2) g/dL Albumin (3.4-5.0) g/dL Globulin (2.6-4.0) g/dL Albumin/Globulin Ratio (0.9-1.6) HCG, Qual (NEG) Urine Color YELLOW Urine Appearance SLT CLOUDY Urine pH 6.0 (5.0-8.0) Ur Specific [place] 1.025 (1.001-1.035) Urine Protein TRACE H (NEGATIVE) mg/dL Urine Glucose (UA) NEGATIVE (NEGATIVE) mg/dL Urine Ketones 15 H (NEGATIVE) mg/dL Urine Occult Blood MODERATE H (NEGATIVE) Urine Nitrite NEGATIVE (NEGATIVE) Urine Bilirubin SMALL H (NEGATIVE) Urine Ictotest NEGATIVE Urine Urobilinogen 1.0 (<2.0) EU/dL Ur Leukocyte Esterase NEGATIVE (NEGATIVE) Urine RBC 1-3 (0-2/HPF) Urine WBC 0-4 (0-5/HPF) Ur Epithelial Cells MODERATE (NONE-FEW) Amorphous Sediment LIGHT (NEGATIVE) Urine Bacteria FEW (NEGATIVE) Urine Mucus LIGHT (NONE-MOD) SARS-CoV-2 RNA (LENORE) (NEGATIVE) Result Diagrams: 05/05/21 04:45 05/05/21 04:45 Kit Results Last 24 hrs: Microbiology 05/05/21 04:45 Influenza Type A Antigen Screen - Final Nasopharyngeal Swab NEGATIVE INFLUENZA A VIRUS AG REFERENCE RANGE: NEGATIVE Influenza Type B Antigen Screen - Final NEGATIVE INFLUENZA B VIRUS AG REFERENCE RANGE: NEGATIVE Sepsis Event Note - Evaluation Sepsis Screening Result: No Definite Risk - Focused Exam Vital Signs: Vital Signs Temp Pulse Resp BP Pulse Ox 05/05/21 12:00 83 128/70 94 L 05/05/21 08:44 37.0 C 86 21 H 117/68 96 05/05/21 08:32 83 100/58 L 96 05/05/21 07:32 90 103/63 92 L 05/05/21 06:54 88 24 H 112/70 95 05/05/21 06:18 37.4 C 05/05/21 05:45 110 H 22 H 112/65 Problem List Initiated/Reviewed/Updated: Yes Orders Last 24hrs: Active Orders 24 hr Category Date Time Status Patient Status [ADT] Routine ADT 05/05/21 06:52 Active Oxygen Therapy [RC] PRN Care 05/05/21 16:49 Ordered Telemetry Monitoring [Cardiac Monitoring] [RC] Q8H Care 05/05/21 10:30 Active VTE/DVT Education [RC] PER UNIT ROUTINE Care 05/05/21 16:49 Ordered Vital Signs [RC] Q4H Care 05/05/21 16:49 Ordered Regular Diet [DIET] Diet 05/05/21 Breakfast Active CBC WITH AUTO DIFF [HEME] AM Lab 05/06/21 05:11 Ordered CBC WITH AUTO DIFF [HEME] AM Lab 05/07/21 05:11 Ordered CBC WITH AUTO DIFF [HEME] AM Lab 05/08/21 05:11 Ordered CBC WITH AUTO DIFF [HEME] AM Lab 05/09/21 05:11 Ordered CBC WITH AUTO DIFF [HEME] AM Lab 05/10/21 05:11 Ordered COMPREHENSIVE METABOLIC PN,CMP [CHEM] AM Lab 05/06/21 05:11 Ordered COMPREHENSIVE METABOLIC PN,CMP [CHEM] AM Lab 05/07/21 05:11 Ordered COMPREHENSIVE METABOLIC PN,CMP [CHEM] AM Lab 05/08/21 05:11 Ordered COMPREHENSIVE METABOLIC PN,CMP [CHEM] AM Lab 05/09/21 05:11 Ordered COMPREHENSIVE METABOLIC PN,CMP [CHEM] AM Lab 05/10/21 05:11 Ordered CULTURE BLOOD [BC] Stat Lab 05/05/21 04:45 Received CULTURE BLOOD [BC] Stat Lab 05/05/21 05:43 Received ClonazePAM [KlonoPIN] Med 05/05/21 16:45 Ordered 1 mg PO Q12H PRN Enoxaparin [Lovenox] Med 05/05/21 21:00 Ordered 40 mg SUBCUT Q12HR Levothyroxine Med 05/05/21 16:45 Ordered 25 mcg PO DAILY Remdesivir 100 mg Med 05/06/21 07:00 Ordered Sodium Chloride 0.9% [Normal Saline] 100 ml IV Q24H Sodium Chloride 0.9% [Saline Flush] Med 05/05/21 04:38 Active 10 ml FLUSH ASDIRECTED PRN Sodium Chloride 0.9% [Saline Flush] Med 05/05/21 04:38 Active 2.5 ml FLUSH ASDIRECTED PRN dexAMETHasone Med 05/06/21 09:00 Ordered 6 mg PO DAILY Blood Culture x2 Reflex Set [OM.PC] Stat Oth 05/05/21 04:39 Ordered Isolation [COMM] Routine Oth 05/05/21 04:39 Active Saline Lock Insert [OM.PC] Stat Oth 05/05/21 04:38 Ordered Resuscitation Status Routine Resus Stat 05/05/21 16:49 Ordered Medication Orders Clonazepam (Clonazepam 1 Mg Tab) 1 mg PO Q12H PRN PRN Reason: panic attack Dexamethasone (Dexamethasone 4 Mg Tab) 6 mg PO DAILY DONI Enoxaparin Sodium (Enoxaparin 40 Mg/0.4 Ml Syringe) 40 mg SUBCUT Q12HR DONI Remdesivir 100 mg/ Sodium (Chloride) 100 mls @ 100 mls/hr IV Q24H DONI Stop: 05/09/21 07:59 Levothyroxine Sodium (Levothyroxine 25 Mcg Tab) 25 mcg PO ACBRK DONI Sodium Chloride (Sodium Chloride 0.9% 10 Ml Syringe) 10 ml FLUSH ASDIRECTED PRN PRN Reason: Keep Vein Open Last Admin: 05/05/21 07:44 Dose: 10 ml Documented by: GILDA Sodium Chloride (Sodium Chloride 0.9% 2.5 Ml Syringe) 2.5 ml FLUSH ASDIRECTED PRN PRN Reason: Keep Vein Open Last Admin: 05/05/21 07:43 Dose: 2.5 ml Documented by: GILDA Assessment/Plan Comment:: 31 yo female admitted for acute hypoxic respiratory failure due to COVID pneumonia. Will treat with dexamethasone and remdesivir. Will wean supplemental NC oxygen as tolerated. Lovenox for DVT prophylaxis
[2021-05-05] MEDS: ClonazePAM 1 MG Tab PO PRN (16:59)
[2021-05-05] MEDS: Enoxaparin 40 MG/0.4 ML Syringe SUBCUT SCH (20:39)
[2021-05-05] MEDS: Acetaminophen 325 MG Tab PO PRN (21:58)
[2021-05-06] MEDS: Acetaminophen 325 MG Tab PO PRN (03:58)
[2021-05-06] MEDS ORDERED: REMDESIVIR 100 MG in Sodium Chloride 0.9% 100 ML IV SCH (07:00)
[2021-05-06] MEDS: Levothyroxine 25 MCG Tab PO SCH (07:04)
[2021-05-06] MEDS: Levothyroxine 100 MCG Tab PO SCH (07:04)
[2021-05-06] MEDS ORDERED: Ketorolac 15 MG/ML SDV IVPUSH ONE (07:25)
[2021-05-06] MEDS ORDERED: LORazepam 2 MG/ML SDV IVPUSH ONE (07:25)
[2021-05-06] MEDS ORDERED: SUMAtriptan 6 MG/0.5 ML SDV SUBCUT PRN (07:26)
--- NOTE | 2021-05-06 07:29 | PCM.PN ---
- General Info Date of Service: 05/06/21 - Review of Systems Systems Review Comment:: reports aches all over, migraine, shortness of breath improving - Patient Data Vitals - Most Recent: Last Vital Signs Temp 37.4 C 05/06/21 03:58 Pulse 104 H 05/06/21 03:58 Resp 18 05/06/21 03:58 BP 122/68 05/06/21 03:58 Pulse Ox 93 L 05/06/21 03:58 Weight - Most Recent: 176.447 kg I&O - Last 24 Hours: Intake & Output 05/05/21 05/06/21 05/06/21 22:59 06:59 14:59 Intake Total 590 760 Output Total 800 300 Balance -210 460 Kit Results Last 24 Hours: Microbiology 05/05/21 05:43 Aerobic Blood Culture - Preliminary Blood - Venous - Lab Draw NO GROWTH AFTER 1 DAY Anaerobic Blood Culture - Preliminary NO GROWTH AFTER 1 DAY 05/05/21 04:45 Aerobic Blood Culture - Preliminary Blood - Venous NO GROWTH AFTER 1 DAY Anaerobic Blood Culture - Preliminary NO GROWTH AFTER 1 DAY 05/05/21 04:45 Influenza Type A Antigen Screen - Final Nasopharyngeal Swab NEGATIVE INFLUENZA A VIRUS AG REFERENCE RANGE: NEGATIVE Influenza Type B Antigen Screen - Final NEGATIVE INFLUENZA B VIRUS AG REFERENCE RANGE: NEGATIVE Med Orders - Current: Current Medications Acetaminophen (Acetaminophen 325 Mg Tab) 650 mg PO Q6H PRN PRN Reason: Pain/Fever Last Admin: 05/06/21 03:58 Dose: 650 mg Documented by: Clonazepam (Clonazepam 1 Mg Tab) 1 mg PO Q12H PRN PRN Reason: panic attack Last Admin: 05/05/21 16:59 Dose: 1 mg Documented by: Dexamethasone (Dexamethasone 4 Mg Tab) 6 mg PO DAILY [facility] Enoxaparin Sodium (Enoxaparin 40 Mg/0.4 Ml Syringe) 40 mg SUBCUT Q12HR DONI Last Admin: 05/05/21 20:39 Dose: 40 mg Documented by: Guaifenesin/Codeine Phosphate (Codeine/Guaifenesin 10-100 Mg/5 Ml Syrup 5 Ml Cup) 5 ml PO Q6H PRN PRN Reason: Cough Remdesivir 100 mg/ Sodium (Chloride) 100 mls @ 100 mls/hr IV Q24H [facility] Stop: 05/09/21 07:59 Ketorolac Tromethamine (Ketorolac 15 Mg/Ml Sdv) 15 mg IVPUSH ONETIME ONE Stop: 05/06/21 07:26 Levothyroxine Sodium (Levothyroxine 100 Mcg Tab) 200 mcg PO ACBREAKFAST [facility] Last Admin: 05/06/21 07:04 Dose: 200 mcg Documented by: Levothyroxine Sodium (Levothyroxine 25 Mcg Tab) 25 mcg PO ACBRK [facility] Last Admin: 05/06/21 07:04 Dose: 25 mcg Documented by: Lorazepam (Lorazepam 2 Mg/Ml Sdv) 1 mg IVPUSH ONETIME ONE Stop: 05/06/21 07:26 Ondansetron HCl (Ondansetron 4 Mg/2 Ml Sdv) 4 mg IVPUSH Q4H PRN PRN Reason: Nausea Sodium Chloride (Sodium Chloride 0.9% 10 Ml Syringe) 10 ml FLUSH ASDIRECTED PRN PRN Reason: Keep Vein Open Last Admin: 05/05/21 07:44 Dose: 10 ml Documented by: Sodium Chloride (Sodium Chloride 0.9% 2.5 Ml Syringe) 2.5 ml FLUSH ASDIRECTED PRN PRN Reason: Keep Vein Open Last Admin: 05/05/21 07:43 Dose: 2.5 ml Documented by: Discontinued Medications Acetaminophen (Acetaminophen 500 Mg Tab) 1,000 mg PO ONETIME ONE Stop: 05/05/21 04:39 Last Admin: 05/05/21 05:02 Dose: 1,000 mg Documented by: Dexamethasone (Dexamethasone 10 Mg/Ml Sdv) 10 mg IVPUSH ONETIME ONE Stop: 05/05/21 06:42 Last Admin: 05/05/21 07:43 Dose: 10 mg Documented by: Diphenhydramine HCl (Diphenhydramine 50 Mg/Ml Sdv) 50 mg IVPUSH ONETIME ONE Stop: 05/05/21 04:39 Last Admin: 05/05/21 05:02 Dose: 50 mg Documented by: Sodium Chloride (Normal Saline) 1,000 mls @ 999 mls/hr IV .Bolus ONE Stop: 05/05/21 05:38 Last Admin: 05/05/21 05:01 Dose: 999 mls/hr Documented by: Remdesivir 200 mg/ Sodium (Chloride) 250 mls @ 250 mls/hr IV ONETIME ONE Stop: 05/05/21 06:45 Last Admin: 05/05/21 07:44 Dose: 250 mls/hr Documented by: Iopamidol (Iopamidol 755 Mg/Ml 500 Ml Multipack Bottle) 100 ml IVPUSH ONETIME STA Stop: 05/05/21 06:13 Last Admin: 05/05/21 06:13 Dose: 100 ml Documented by: Ketorolac Tromethamine (Ketorolac 15 Mg/Ml Sdv) 15 mg IVPUSH ONETIME ONE Stop: 05/05/21 04:39 Last Admin: 05/05/21 05:02 Dose: 15 mg Documented by: Levothyroxine Sodium (Levothyroxine 25 Mcg Tab) 25 mcg PO ACBRK DONI Last Admin: 05/05/21 16:59 Dose: 25 mcg Documented by: Metoclopramide HCl (Metoclopramide 10 Mg/2 Ml Sdv) 10 mg IVPUSH ONETIME ONE Stop: 05/05/21 04:39 Last Admin: 05/05/21 05:02 Dose: 10 mg Documented by: - Exam General: Alert, Oriented Neck: Supple Lungs: Clear to Auscultation, Normal Respiratory Effort GI/Abdominal Exam: Soft, Non-Tender, No Distention Extremities: Non-Tender, No Pedal Edema Skin: Warm, Dry, Intact Neurological: No New Focal Deficit - Patient Data Result Diagrams: 05/05/21 04:45 05/05/21 04:45 Kit Results Last 24 hrs: Microbiology 05/05/21 05:43 Aerobic Blood Culture - Preliminary Blood - Venous - Lab Draw NO GROWTH AFTER 1 DAY Anaerobic Blood Culture - Preliminary NO GROWTH AFTER 1 DAY 05/05/21 04:45 Aerobic Blood Culture - Preliminary Blood - Venous NO GROWTH AFTER 1 DAY Anaerobic Blood Culture - Preliminary NO GROWTH AFTER 1 DAY 05/05/21 04:45 Influenza Type A Antigen Screen - Final Nasopharyngeal Swab NEGATIVE INFLUENZA A VIRUS AG REFERENCE RANGE: NEGATIVE Influenza Type B Antigen Screen - Final NEGATIVE INFLUENZA B VIRUS AG REFERENCE RANGE: NEGATIVE Sepsis Event Note - Evaluation Sepsis Screening Result: No Definite Risk - Focused Exam Vital Signs: Vital Signs Temp Temp Pulse Resp BP Pulse Ox 05/06/21 03:58 37.4 C 104 H 18 122/68 93 L 05/06/21 00:23 36.5 C 90 18 136/68 94 L 05/05/21 20:00 36.9 C 94 18 163/68 H 96 - Problem List Review Problem List Initiated/Reviewed/Updated: Yes - My Orders Last 24 Hours: My Active Orders 05/05/21 Breakfast Regular Diet [DIET] 05/05/21 10:30 Telemetry Monitoring [Cardiac Monitoring] [RC] Q8H 05/05/21 16:45 ClonazePAM [KlonoPIN] 1 mg PO Q12H PRN 05/05/21 16:49 Oxygen Therapy [RC] PRN VTE/DVT Education [RC] PER UNIT ROUTINE Vital Signs [RC] Q4H Resuscitation Status Routine 05/05/21 16:53 Codeine/guaiFENesin [Robitussin AC] 5 ml PO Q6H PRN 05/05/21 21:00 Enoxaparin [Lovenox] 40 mg SUBCUT Q12HR 05/05/21 21:45 Acetaminophen [TylenoL] 650 mg PO Q6H PRN 05/06/21 05:11 CBC WITH AUTO DIFF [HEME] AM COMPREHENSIVE METABOLIC PN,CMP [CHEM] AM 05/06/21 07:00 Remdesivir 100 mg Sodium Chloride 0.9% [Normal Saline] 100 ml IV Q24H 05/06/21 07:25 Ketorolac [Toradol] 15 mg IVPUSH ONETIME ONE LORazepam [Ativan] 1 mg IVPUSH ONETIME ONE Ondansetron [Zofran] 4 mg IVPUSH Q4H PRN 05/06/21 07:26 SUMAtriptan [Imitrex] 6 mg SUBCUT ONETIME PRN 05/06/21 07:30 Levothyroxine 25 mcg PO ACBRK Levothyroxine [Synthroid] 200 mcg PO ACBREAKFAST 05/06/21 09:00 dexAMETHasone 6 mg PO DAILY 05/07/21 05:11 CBC WITH AUTO DIFF [HEME] AM COMPREHENSIVE METABOLIC PN,CMP [CHEM] AM 05/08/21 05:11 CBC WITH AUTO DIFF [HEME] AM COMPREHENSIVE METABOLIC PN,CMP [CHEM] AM 05/09/21 05:11 CBC WITH AUTO DIFF [HEME] AM COMPREHENSIVE METABOLIC PN,CMP [CHEM] AM 05/10/21 05:11 CBC WITH AUTO DIFF [HEME] AM COMPREHENSIVE METABOLIC PN,CMP [CHEM] AM - Plan Plan:: 31 yo female admitted for acute hypoxic respiratory failure due to COVID pneumonia. COVID: will continue dexamethasone and remdesivir. Will wean supplemental NC oxygen as tolerated. Migraine: patient reports ativan, Zofran and Toradol worked last time so will try these again. Lovenox for DVT prophylaxis
[2021-05-06 08:10] LABS: BLOOD UREA NITROGEN,BUN 9 mg/dL (7.0-18.0); CARBON DIOXIDE,CO2 27.1 mmol/L (21.0-32.0); CHLORIDE,CL 101 mmol/L (98-107); GLUCOSE RANDOM 117 mg/dL (74-106); POTASSIUM,K 3.7 mmol/L (3.5-5.1); SODIUM,NA 136 mmol/L (136-145)
[2021-05-06] MEDS: Ondansetron 4 MG/2 ML SDV IVPUSH PRN ×3 (08:39→17:30)
[2021-05-06] MEDS: Dexamethasone 4 MG Tab PO SCH (08:42)
[2021-05-06] MEDS: Enoxaparin 40 MG/0.4 ML Syringe SUBCUT SCH ×2 (10:24→21:09)
[2021-05-06] MEDS: REMDESIVIR 100 MG in Sodium Chloride 0.9% 100 ML IV SCH (10:26)
[2021-05-06] MEDS: ClonazePAM 1 MG Tab PO PRN (17:30)
[2021-05-06] MEDS: Codeine/guaiFENesin 10-100 MG/5 ML Syrup 5 ML Cup PO PRN (18:49)
[2021-05-07] MEDS: Codeine/guaiFENesin 10-100 MG/5 ML Syrup 5 ML Cup PO PRN ×3 (00:50→21:26)
[2021-05-07] MEDS: Acetaminophen 325 MG Tab PO PRN ×2 (00:51→20:58)
[2021-05-07 06:44] LABS: BLOOD UREA NITROGEN,BUN 7 mg/dL (7.0-18.0); CARBON DIOXIDE,CO2 25.2 mmol/L (21.0-32.0); CHLORIDE,CL 102 mmol/L (98-107); GLUCOSE RANDOM 99 mg/dL (74-106); POTASSIUM,K 3.5 mmol/L (3.5-5.1); SODIUM,NA 136 mmol/L (136-145)
[2021-05-07] MEDS: Levothyroxine 25 MCG Tab PO SCH (07:18)
[2021-05-07] MEDS: Levothyroxine 100 MCG Tab PO SCH (07:19)
[2021-05-07] MEDS: Enoxaparin 40 MG/0.4 ML Syringe SUBCUT SCH ×2 (09:26→21:00)
[2021-05-07] MEDS: Dexamethasone 4 MG Tab PO SCH (09:26)
[2021-05-07] MEDS: Albuterol/Ipratropium 4 GM Inhalation Spray INH SCH ×4 (10:08→21:02)
[2021-05-07] MEDS: REMDESIVIR 100 MG in Sodium Chloride 0.9% 100 ML IV SCH (11:42)
--- NOTE | 2021-05-07 12:39 | PCM.PN ---
- General Info Date of Service: 05/07/21 - Review of Systems Systems Review Comment:: feeling better, reports tightness in chest and is wondering if inhaler will help - Patient Data Vitals - Most Recent: Last Vital Signs Temp 36.7 C 05/07/21 08:00 Pulse 105 H 05/07/21 08:00 Resp 20 05/07/21 08:00 BP 120/75 05/07/21 08:00 Pulse Ox 90 L 05/07/21 08:00 Weight - Most Recent: 176.447 kg I&O - Last 24 Hours: Intake & Output 05/06/21 05/07/21 05/07/21 22:59 06:59 14:59 Intake Total 1270 550 Balance 1270 550 Lab Results Last 24 Hours: Laboratory Results - last 24 hr 05/07/21 05/07/21 Range/Units 05:30 05:30 WBC 5.72 (4.0-11.0) K/uL RBC 4.47 (4.30-5.90) M/uL Hgb 11.1 L (12.0-16.0) g/dL Hct 34.8 L (36.0-46.0) % MCV 77.9 L (80.0-98.0) fL MCH 24.8 L (27.0-32.0) pg MCHC 31.9 (31.0-37.0) g/dL RDW Std Deviation 50.7 (28.0-62.0) fl RDW Coeff of Rosa Maria 18 H (11.0-15.0) % Plt Count 237 (150-400) K/uL MPV 10.40 (7.40-12.00) fL Neut % (Auto) 58.7 (48.0-80.0) % Lymph % (Auto) 35.7 (16.0-40.0) % [place] % (Auto) 5.4 (0.0-15.0) % Eos % (Auto) 0.0 (0.0-7.0) % Baso % (Auto) 0.2 (0.0-1.5) % Neut # (Auto) 3.4 (1.4-5.7) K/uL Lymph # (Auto) 2.0 (0.6-2.4) K/uL [place] # (Auto) 0.3 (0.0-0.8) K/uL Eos # (Auto) 0.0 (0.0-0.7) K/uL Baso # (Auto) 0.0 (0.0-0.1) K/uL Nucleated RBC % 0.0 /100WBC Nucleated RBCs # 0 K/uL Sodium 136 (136-145) mmol/L Potassium 3.5 (3.5-5.1) mmol/L Chloride 102 (98-107) mmol/L Carbon Dioxide 25.2 (21.0-32.0) mmol/L BUN 7 (7.0-18.0) mg/dL Creatinine 0.8 (0.6-1.0) mg/dL Est Cr Clr Drug Dosing 92.53 mL/min Estimated GFR (MDRD) > 60.0 ml/min Glucose 99 (74-106) mg/dL Calcium 7.5 L (8.5-10.1) mg/dL Total Bilirubin 0.4 (0.2-1.0) mg/dL AST 41 H (15-37) IU/L ALT 36 (14-63) IU/L Alkaline Phosphatase 53 (46-116) U/L Total Protein 7.4 (6.4-8.2) g/dL Albumin 3.0 L (3.4-5.0) g/dL Globulin 4.4 H (2.6-4.0) g/dL Albumin/Globulin Ratio 0.7 L (0.9-1.6) Kit Results Last 24 Hours: Microbiology 05/05/21 05:43 Aerobic Blood Culture - Preliminary Blood - Venous - Lab Draw NO GROWTH AFTER 2 DAYS Anaerobic Blood Culture - Preliminary NO GROWTH AFTER 2 DAYS 05/05/21 04:45 Aerobic Blood Culture - Preliminary Blood - Venous NO GROWTH AFTER 2 DAYS Anaerobic Blood Culture - Preliminary NO GROWTH AFTER 2 DAYS Med Orders - Current: Current Medications Acetaminophen (Acetaminophen 325 Mg Tab) 650 mg PO Q6H PRN PRN Reason: Pain/Fever Last Admin: 05/07/21 00:51 Dose: 650 mg Documented by: Albuterol/Ipratropium (Albuterol/Ipratropium 4 Gm Inhalation [place]) 0 gm INH Q4H [facility]I Last Admin: 05/07/21 10:08 Dose: 1 puff Documented by: Clonazepam (Clonazepam 1 Mg Tab) 1 mg PO Q12H PRN PRN Reason: panic attack Last Admin: 05/06/21 17:30 Dose: 1 mg Documented by: Dexamethasone (Dexamethasone 4 Mg Tab) 6 mg PO DAILY [facility] Last Admin: 05/07/21 09:26 Dose: 6 mg Documented by: Enoxaparin Sodium (Enoxaparin 40 Mg/0.4 Ml Syringe) 40 mg SUBCUT Q12HR [facility] Last Admin: 05/07/21 09:26 Dose: 40 mg Documented by: Guaifenesin/Codeine Phosphate (Codeine/Guaifenesin 10-100 Mg/5 Ml Syrup 5 Ml Cup) 5 ml PO Q6H PRN PRN Reason: Cough Last Admin: 05/07/21 09:26 Dose: 5 ml Documented by: Remdesivir 100 mg/ Sodium (Chloride) 100 mls @ 100 mls/hr IV Q24H [facility] Stop: 05/09/21 10:14 Last Admin: 05/07/21 11:42 Dose: 100 mls/hr Documented by: Levothyroxine Sodium (Levothyroxine 100 Mcg Tab) 200 mcg PO ACBREAKFAST [facility] Last Admin: 05/07/21 07:19 Dose: 200 mcg Documented by: Levothyroxine Sodium (Levothyroxine 25 Mcg Tab) 25 mcg PO ACBRK [facility] Last Admin: 05/07/21 07:18 Dose: 25 mcg Documented by: Ondansetron HCl (Ondansetron 4 Mg/2 Ml Sdv) 4 mg IVPUSH Q4H PRN PRN Reason: Nausea Last Admin: 05/06/21 17:30 Dose: 4 mg Documented by: Sodium Chloride (Sodium Chloride 0.9% 10 Ml Syringe) 10 ml FLUSH ASDIRECTED PRN PRN Reason: Keep Vein Open Last Admin: 05/05/21 07:44 Dose: 10 ml Documented by: Sodium Chloride (Sodium Chloride 0.9% 2.5 Ml Syringe) 2.5 ml FLUSH ASDIRECTED PRN PRN Reason: Keep Vein Open Last Admin: 05/05/21 07:43 Dose: 2.5 ml Documented by: Sumatriptan Succinate (Sumatriptan 6 Mg/0.5 Ml Sdv) 6 mg SUBCUT ONETIME PRN PRN Reason: headache Last Admin: 05/06/21 21:14 Dose: 6 mg Documented by: Discontinued Medications Acetaminophen (Acetaminophen 500 Mg Tab) 1,000 mg PO ONETIME ONE Stop: 05/05/21 04:39 Last Admin: 05/05/21 05:02 Dose: 1,000 mg Documented by: Dexamethasone (Dexamethasone 10 Mg/Ml Sdv) 10 mg IVPUSH ONETIME ONE Stop: 05/05/21 06:42 Last Admin: 05/05/21 07:43 Dose: 10 mg Documented by: Diphenhydramine HCl (Diphenhydramine 50 Mg/Ml Sdv) 50 mg IVPUSH ONETIME ONE Stop: 05/05/21 04:39 Last Admin: 05/05/21 05:02 Dose: 50 mg Documented by: Sodium Chloride (Normal Saline) 1,000 mls @ 999 mls/hr IV .Bolus ONE Stop: 05/05/21 05:38 Last Admin: 05/05/21 05:01 Dose: 999 mls/hr Documented by: Remdesivir 200 mg/ Sodium (Chloride) 250 mls @ 250 mls/hr IV ONETIME ONE Stop: 05/05/21 06:45 Last Admin: 05/05/21 07:44 Dose: 250 mls/hr Documented by: Remdesivir 100 mg/ Sodium (Chloride) 100 mls @ 100 mls/hr IV Q24H [facility] Stop: 05/09/21 07:59 Last Admin: 05/06/21 09:19 Dose: Not Given Documented by: Iopamidol (Iopamidol 755 Mg/Ml 500 Ml Multipack Bottle) 100 ml IVPUSH ONETIME STA Stop: 05/05/21 06:13 Last Admin: 05/05/21 06:13 Dose: 100 ml Documented by: Ketorolac Tromethamine (Ketorolac 15 Mg/Ml Sdv) 15 mg IVPUSH ONETIME ONE Stop: 05/05/21 04:39 Last Admin: 05/05/21 05:02 Dose: 15 mg Documented by: Ketorolac Tromethamine (Ketorolac 15 Mg/Ml Sdv) 15 mg IVPUSH ONETIME ONE Stop: 05/06/21 07:26 Last Admin: 05/06/21 08:36 Dose: 15 mg Documented by: Levothyroxine Sodium (Levothyroxine 25 Mcg Tab) 25 mcg PO ACBRK [facility] Last Admin: 05/05/21 16:59 Dose: 25 mcg Documented by: Lorazepam (Lorazepam 2 Mg/Ml Sdv) 1 mg IVPUSH ONETIME ONE Stop: 05/06/21 07:26 Last Admin: 05/06/21 08:36 Dose: 1 mg Documented by: Metoclopramide HCl (Metoclopramide 10 Mg/2 Ml Sdv) 10 mg IVPUSH ONETIME ONE Stop: 05/05/21 04:39 Last Admin: 05/05/21 05:02 Dose: 10 mg Documented by: - Exam General: Alert, Oriented Neck: Supple Lungs: Normal Respiratory Effort, Rhonchi Cardiovascular: Regular Rate, Regular Rhythm GI/Abdominal Exam: Soft, Non-Tender, No Distention Extremities: Non-Tender, No Pedal Edema Skin: Warm, Dry, Intact Neurological: No New Focal Deficit - Patient Data Lab Results Last 24 hrs: Laboratory Results - last 24 hr 05/07/21 05/07/21 Range/Units 05:30 05:30 WBC 5.72 (4.0-11.0) K/uL RBC 4.47 (4.30-5.90) M/uL Hgb 11.1 L (12.0-16.0) g/dL Hct 34.8 L (36.0-46.0) % MCV 77.9 L (80.0-98.0) fL MCH 24.8 L (27.0-32.0) pg MCHC 31.9 (31.0-37.0) g/dL RDW Std Deviation 50.7 (28.0-62.0) fl RDW Coeff of [place] 18 H (11.0-15.0) % Plt Count 237 (150-400) K/uL MPV 10.40 (7.40-12.00) fL Neut % (Auto) 58.7 (48.0-80.0) % Lymph % (Auto) 35.7 (16.0-40.0) % [place] % (Auto) 5.4 (0.0-15.0) % Eos % (Auto) 0.0 (0.0-7.0) % Baso % (Auto) 0.2 (0.0-1.5) % Neut # (Auto) 3.4 (1.4-5.7) K/uL Lymph # (Auto) 2.0 (0.6-2.4) K/uL [place] # (Auto) 0.3 (0.0-0.8) K/uL Eos # (Auto) 0.0 (0.0-0.7) K/uL Baso # (Auto) 0.0 (0.0-0.1) K/uL Nucleated RBC % 0.0 /100WBC Nucleated RBCs # 0 K/uL Sodium 136 (136-145) mmol/L Potassium 3.5 (3.5-5.1) mmol/L Chloride 102 (98-107) mmol/L Carbon Dioxide 25.2 (21.0-32.0) mmol/L BUN 7 (7.0-18.0) mg/dL Creatinine 0.8 (0.6-1.0) mg/dL Est Cr Clr Drug Dosing 92.53 mL/min Estimated GFR (MDRD) > 60.0 ml/min Glucose 99 (74-106) mg/dL Calcium 7.5 L (8.5-10.1) mg/dL Total Bilirubin 0.4 (0.2-1.0) mg/dL AST 41 H (15-37) IU/L ALT 36 (14-63) IU/L Alkaline Phosphatase 53 (46-116) U/L Total Protein 7.4 (6.4-8.2) g/dL Albumin 3.0 L (3.4-5.0) g/dL Globulin 4.4 H (2.6-4.0) g/dL Albumin/Globulin Ratio 0.7 L (0.9-1.6) Result Diagrams: 05/07/21 05:30 05/07/21 05:30 Kit Results Last 24 hrs: Microbiology 05/05/21 05:43 Aerobic Blood Culture - Preliminary Blood - Venous - Lab Draw NO GROWTH AFTER 2 DAYS Anaerobic Blood Culture - Preliminary NO GROWTH AFTER 2 DAYS 05/05/21 04:45 Aerobic Blood Culture - Preliminary Blood - Venous NO GROWTH AFTER 2 DAYS Anaerobic Blood Culture - Preliminary NO GROWTH AFTER 2 DAYS Sepsis Event Note - Evaluation Sepsis Screening Result: No Definite Risk - Focused Exam Vital Signs: Vital Signs Temp Temp Pulse Resp BP Pulse Ox 05/07/21 08:00 36.7 C 105 H 20 120/75 90 L 05/07/21 03:55 36.8 C 98 21 H 110/66 92 L - Problem List Review Problem List Initiated/Reviewed/Updated: Yes - My Orders Last 24 Hours: My Active Orders 05/07/21 09:58 RT Post Treatment Assessment [RC] Click to Edit RT Pre-Treatment Assessment [RC] Click to Edit 05/07/21 10:00 Albuterol/Ipratropium [Combivent Respimat] 0 gm INH Q4H 05/08/21 05:11 CBC WITH AUTO DIFF [HEME] AM COMPREHENSIVE METABOLIC PN,CMP [CHEM] AM 05/09/21 05:11 CBC WITH AUTO DIFF [HEME] AM COMPREHENSIVE METABOLIC PN,CMP [CHEM] AM 05/10/21 05:11 CBC WITH AUTO DIFF [HEME] AM COMPREHENSIVE METABOLIC PN,CMP [CHEM] AM - Plan Plan:: 31 yo female admitted for acute hypoxic respiratory failure due to COVID pneumonia. We will continue dexamethasone and remdesivir. Will wean supplemental NC oxygen as tolerated. Lovenox for DVT prophylaxis
[2021-05-07] MEDS: ClonazePAM 1 MG Tab PO PRN (16:15)
[2021-05-08] MEDS: Albuterol/Ipratropium 4 GM Inhalation Spray INH SCH ×6 (01:45→21:37)
[2021-05-08] MEDS: Levothyroxine 25 MCG Tab PO SCH (06:47)
[2021-05-08] MEDS: Levothyroxine 100 MCG Tab PO SCH (06:47)
[2021-05-08] MEDS: ClonazePAM 1 MG Tab PO PRN (06:58)
[2021-05-08 07:11] LABS: BLOOD UREA NITROGEN,BUN 11 mg/dL (7.0-18.0); CARBON DIOXIDE,CO2 28.3 mmol/L (21.0-32.0); CHLORIDE,CL 103 mmol/L (98-107); GLUCOSE RANDOM 140 mg/dL (74-106); POTASSIUM,K 3.6 mmol/L (3.5-5.1); SODIUM,NA 138 mmol/L (136-145)
[2021-05-08] MEDS: Enoxaparin 40 MG/0.4 ML Syringe SUBCUT SCH ×2 (08:41→21:38)
[2021-05-08] MEDS: REMDESIVIR 100 MG in Sodium Chloride 0.9% 100 ML IV SCH (08:41)
[2021-05-08] MEDS: Dexamethasone 4 MG Tab PO SCH (08:42)
--- NOTE | 2021-05-08 13:02 | PCM.PN ---
- General Info Date of Service: 05/08/21 Admission Dx/Problem (Free Text): Admission Diagnosis/Problem Admission Diagnosis/Problem Respiratory failure with hypoxia Subjective Update: Reports she is feeling much improved complains of having a red rash under her right breast appears to be yeasty in nature. Denies any chest pain reports having significantly elevated anxiety reports she takes her Klonopin 3 times a day as well as hydroxyzine in between. We will get better med list and get these adjusted. Functional Status: Reports: Pain Controlled, Tolerating Diet, Ambulating, Urinating - Review of Systems General: Reports: No Symptoms. Denies: Weakness, Fatigue, Malaise HEENT: Reports: No Symptoms Pulmonary: Reports: No Symptoms. Denies: Shortness of Breath Cardiovascular: Reports: No Symptoms. Denies: Chest Pain Gastrointestinal: Reports: No Symptoms. Denies: Abdominal Pain, Nausea, Vom iting Skin: Reports: Rash Neurological: Reports: No Symptoms Psychiatric: Reports: Anxiety - Patient Data Vitals - Most Recent: Last Vital Signs Temp 96.8 F L 05/08/21 08:35 Pulse 85 05/08/21 08:35 Resp 17 05/08/21 08:35 BP 136/86 05/08/21 08:35 Pulse Ox 92 L 05/08/21 08:35 Weight - Most Recent: 176.447 kg I&O - Last 24 Hours: Intake & Output 05/07/21 05/08/21 05/08/21 22:59 06:59 14:59 Intake Total 900 Output Total 300 Balance -300 900 Lab Results Last 24 Hours: Laboratory Results - last 24 hr 05/08/21 05/08/21 Range/Units 06:10 06:10 WBC 4.73 (4.0-11.0) K/uL RBC 4.61 (4.30-5.90) M/uL Hgb 11.5 L (12.0-16.0) g/dL Hct 35.8 L (36.0-46.0) % MCV 77.7 L (80.0-98.0) fL MCH 24.9 L (27.0-32.0) pg MCHC 32.1 (31.0-37.0) g/dL RDW Std Deviation 49.8 (28.0-62.0) fl RDW Coeff of [place] 18 H (11.0-15.0) % Plt Count 248 (150-400) K/uL MPV 10.40 (7.40-12.00) fL Neut % (Auto) 60.7 (48.0-80.0) % Lymph % (Auto) 33.4 (16.0-40.0) % [place] % (Auto) 5.7 (0.0-15.0) % Eos % (Auto) 0.0 (0.0-7.0) % Baso % (Auto) 0.2 (0.0-1.5) % Neut # (Auto) 2.9 (1.4-5.7) K/uL Lymph # (Auto) 1.6 (0.6-2.4) K/uL [place] # (Auto) 0.3 (0.0-0.8) K/uL Eos # (Auto) 0.0 (0.0-0.7) K/uL Baso # (Auto) 0.0 (0.0-0.1) K/uL Nucleated RBC % 0.0 /100WBC Nucleated RBCs # 0 K/uL Sodium 138 (136-145) mmol/L Potassium 3.6 (3.5-5.1) mmol/L Chloride 103 (98-107) mmol/L Carbon Dioxide 28.3 (21.0-32.0) mmol/L BUN 11 (7.0-18.0) mg/dL Creatinine 0.8 (0.6-1.0) mg/dL Est Cr Clr Drug Dosing 92.53 mL/min Estimated GFR (MDRD) > 60.0 ml/min Glucose 140 H (74-106) mg/dL Calcium 8.2 L (8.5-10.1) mg/dL Total Bilirubin 0.3 (0.2-1.0) mg/dL AST 32 (15-37) IU/L ALT 45 (14-63) IU/L Alkaline Phosphatase 58 (46-116) U/L Total Protein 7.8 (6.4-8.2) g/dL Albumin 3.1 L (3.4-5.0) g/dL Globulin 4.7 H (2.6-4.0) g/dL Albumin/Globulin Ratio 0.7 L (0.9-1.6) Kit Results Last 24 Hours: Microbiology 05/05/21 05:43 Aerobic Blood Culture - Preliminary Blood - Venous - Lab Draw NO GROWTH AFTER 3 DAYS Anaerobic Blood Culture - Preliminary NO GROWTH AFTER 3 DAYS 05/05/21 04:45 Aerobic Blood Culture - Preliminary Blood - Venous NO GROWTH AFTER 3 DAYS Anaerobic Blood Culture - Preliminary NO GROWTH AFTER 3 DAYS Med Orders - Current: Current Medications Acetaminophen (Acetaminophen 325 Mg Tab) 650 mg PO Q6H PRN PRN Reason: Pain/Fever Last Admin: 05/07/21 20:58 Dose: 650 mg Documented by: Albuterol/Ipratropium (Albuterol/Ipratropium 4 Gm Inhalation [place]) 0 gm INH Q4H [facility] Last Admin: 05/08/21 11:00 Dose: 1 puff Documented by: Clonazepam (Clonazepam 1 Mg Tab) 1 mg PO Q12H PRN PRN Reason: panic attack Last Admin: 05/08/21 06:58 Dose: 1 mg Documented by: Dexamethasone (Dexamethasone 4 Mg Tab) 6 mg PO DAILY [facility] Last Admin: 05/08/21 08:42 Dose: 6 mg Documented by: Enoxaparin Sodium (Enoxaparin 40 Mg/0.4 Ml Syringe) 40 mg SUBCUT Q12HR [facility] Last Admin: 05/08/21 08:41 Dose: 40 mg Documented by: Guaifenesin/Codeine Phosphate (Codeine/Guaifenesin 10-100 Mg/5 Ml Syrup 5 Ml Cup) 5 ml PO Q6H PRN PRN Reason: Cough Last Admin: 05/07/21 21:26 Dose: 5 ml Documented by: Remdesivir 100 mg/ Sodium (Chloride) 100 mls @ 100 mls/hr IV Q24H [facility] Stop: 05/09/21 10:14 Last Admin: 05/08/21 08:41 Dose: 100 mls/hr Documented by: Levothyroxine Sodium (Levothyroxine 100 Mcg Tab) 200 mcg PO ACBREAKFAST [facility] Last Admin: 05/08/21 06:47 Dose: 200 mcg Documented by: Levothyroxine Sodium (Levothyroxine 25 Mcg Tab) 25 mcg PO ACBRK [facility] Last Admin: 05/08/21 06:47 Dose: 25 mcg Documented by: Ondansetron HCl (Ondansetron 4 Mg/2 Ml Sdv) 4 mg IVPUSH Q4H PRN PRN Reason: Nausea Last Admin: 05/06/21 17:30 Dose: 4 mg Documented by: Sodium Chloride (Sodium Chloride 0.9% 10 Ml Syringe) 10 ml FLUSH ASDIRECTED PRN PRN Reason: Keep Vein Open Last Admin: 05/05/21 07:44 Dose: 10 ml Documented by: Sodium Chloride (Sodium Chloride 0.9% 2.5 Ml Syringe) 2.5 ml FLUSH ASDIRECTED PRN PRN Reason: Keep Vein Open Last Admin: 05/05/21 07:43 Dose: 2.5 ml Documented by: Sumatriptan Succinate (Sumatriptan 6 Mg/0.5 Ml Sdv) 6 mg SUBCUT ONETIME PRN PRN Reason: headache Last Admin: 05/06/21 21:14 Dose: 6 mg Documented by: Discontinued Medications Acetaminophen (Acetaminophen 500 Mg Tab) 1,000 mg PO ONETIME ONE Stop: 05/05/21 04:39 Last Admin: 05/05/21 05:02 Dose: 1,000 mg Documented by: Dexamethasone (Dexamethasone 10 Mg/Ml Sdv) 10 mg IVPUSH ONETIME ONE Stop: 05/05/21 06:42 Last Admin: 05/05/21 07:43 Dose: 10 mg Documented by: Diphenhydramine HCl (Diphenhydramine 50 Mg/Ml Sdv) 50 mg IVPUSH ONETIME ONE Stop: 05/05/21 04:39 Last Admin: 05/05/21 05:02 Dose: 50 mg Documented by: Sodium Chloride (Normal Saline) 1,000 mls @ 999 mls/hr IV .Bolus ONE Stop: 05/05/21 05:38 Last Admin: 05/05/21 05:01 Dose: 999 mls/hr Documented by: Remdesivir 200 mg/ Sodium (Chloride) 250 mls @ 250 mls/hr IV ONETIME ONE Stop: 05/05/21 06:45 Last Admin: 05/05/21 07:44 Dose: 250 mls/hr Documented by: Remdesivir 100 mg/ Sodium (Chloride) 100 mls @ 100 mls/hr IV Q24H [facility] Stop: 05/09/21 07:59 Last Admin: 05/06/21 09:19 Dose: Not Given Documented by: Iopamidol (Iopamidol 755 Mg/Ml 500 Ml Multipack Bottle) 100 ml IVPUSH ONETIME STA Stop: 05/05/21 06:13 Last Admin: 05/05/21 06:13 Dose: 100 ml Documented by: Ketorolac Tromethamine (Ketorolac 15 Mg/Ml Sdv) 15 mg IVPUSH ONETIME ONE Stop: 05/05/21 04:39 Last Admin: 05/05/21 05:02 Dose: 15 mg Documented by: Ketorolac Tromethamine (Ketorolac 15 Mg/Ml Sdv) 15 mg IVPUSH ONETIME ONE Stop: 05/06/21 07:26 Last Admin: 05/06/21 08:36 Dose: 15 mg Documented by: Levothyroxine Sodium (Levothyroxine 25 Mcg Tab) 25 mcg PO ACBRK [facility] Last Admin: 05/05/21 16:59 Dose: 25 mcg Documented by: Lorazepam (Lorazepam 2 Mg/Ml Sdv) 1 mg IVPUSH ONETIME ONE Stop: 05/06/21 07:26 Last Admin: 05/06/21 08:36 Dose: 1 mg Documented by: Metoclopramide HCl (Metoclopramide 10 Mg/2 Ml Sdv) 10 mg IVPUSH ONETIME ONE Stop: 05/05/21 04:39 Last Admin: 05/05/21 05:02 Dose: 10 mg Documented by: - Exam Quality Assessment: Supplemental Oxygen General: Alert, Oriented, Cooperative, No Acute Distress Lungs: Clear to Auscultation, Normal Respiratory Effort Cardiovascular: Regular Rate, Regular Rhythm GI/Abdominal Exam: Normal Bowel Sounds, Soft, Non-Tender Extremities: Normal Inspection, Normal Range of Motion, Non-Tender, No Pedal Edema Skin: Rash Neurological: No New Focal Deficit Psy/Mental Status: Alert, Normal Affect, Normal Mood (under R breast) - Patient Data Lab Results Last 24 hrs: Laboratory Results - last 24 hr 05/08/21 05/08/21 Range/Units 06:10 06:10 WBC 4.73 (4.0-11.0) K/uL RBC 4.61 (4.30-5.90) M/uL Hgb 11.5 L (12.0-16.0) g/dL Hct 35.8 L (36.0-46.0) % MCV 77.7 L (80.0-98.0) fL MCH 24.9 L (27.0-32.0) pg MCHC 32.1 (31.0-37.0) g/dL RDW Std Deviation 49.8 (28.0-62.0) fl RDW Coeff of [place] 18 H (11.0-15.0) % Plt Count 248 (150-400) K/uL MPV 10.40 (7.40-12.00) fL Neut % (Auto) 60.7 (48.0-80.0) % Lymph % (Auto) 33.4 (16.0-40.0) % [place] % (Auto) 5.7 (0.0-15.0) % Eos % (Auto) 0.0 (0.0-7.0) % Baso % (Auto) 0.2 (0.0-1.5) % Neut # (Auto) 2.9 (1.4-5.7) K/uL Lymph # (Auto) 1.6 (0.6-2.4) K/uL [place] # (Auto) 0.3 (0.0-0.8) K/uL Eos # (Auto) 0.0 (0.0-0.7) K/uL Baso # (Auto) 0.0 (0.0-0.1) K/uL Nucleated RBC % 0.0 /100WBC Nucleated RBCs # 0 K/uL Sodium 138 (136-145) mmol/L Potassium 3.6 (3.5-5.1) mmol/L Chloride 103 (98-107) mmol/L Carbon Dioxide 28.3 (21.0-32.0) mmol/L BUN 11 (7.0-18.0) mg/dL Creatinine 0.8 (0.6-1.0) mg/dL Est Cr Clr Drug Dosing 92.53 mL/min Estimated GFR (MDRD) > 60.0 ml/min Glucose 140 H (74-106) mg/dL Calcium 8.2 L (8.5-10.1) mg/dL Total Bilirubin 0.3 (0.2-1.0) mg/dL AST 32 (15-37) IU/L ALT 45 (14-63) IU/L Alkaline Phosphatase 58 (46-116) U/L Total Protein 7.8 (6.4-8.2) g/dL Albumin 3.1 L (3.4-5.0) g/dL Globulin 4.7 H (2.6-4.0) g/dL Albumin/Globulin Ratio 0.7 L (0.9-1.6) Result Diagrams: 05/08/21 06:10 05/08/21 06:10 Kit Results Last 24 hrs: Microbiology 05/05/21 05:43 Aerobic Blood Culture - Preliminary Blood - Venous - Lab Draw NO GROWTH AFTER 3 DAYS Anaerobic Blood Culture - Preliminary NO GROWTH AFTER 3 DAYS 05/05/21 04:45 Aerobic Blood Culture - Preliminary Blood - Venous NO GROWTH AFTER 3 DAYS Anaerobic Blood Culture - Preliminary NO GROWTH AFTER 3 DAYS Sepsis Event Note - Evaluation Sepsis Screening Result: No Definite Risk - Focused Exam Vital Signs: Vital Signs Temp Pulse Resp BP Pulse Ox 05/08/21 08:35 96.8 F L 85 17 136/86 92 L 05/08/21 04:00 97.4 F 70 20 118/65 94 L - Problem List & Annotations (1) Anxiety SNOMED Code(s): 43551412 Code(s): F41.9 - ANXIETY DISORDER, UNSPECIFIED Status: Acute Current Visit: Yes (2) Pneumonia due to COVID-19 virus SNOMED Code(s): 604290840238469471 Code(s): U07.1 - COVID-19; J12.82 - PNEUMONIA DUE TO CORONAVIRUS DISEASE 2019 Status: Acute Current Visit: Yes (3) Respiratory failure with hypoxia SNOMED Code(s): 03516003936919412 Code(s): J96.91 - RESPIRATORY FAILURE, UNSPECIFIED WITH HYPOXIA Status: Acute Current Visit: Yes Qualifiers: Chronicity: acute Qualified Code(s): J96.01 - Acute respiratory failure with hypoxia (4) Candidiasis SNOMED Code(s): 73426377 Code(s): B37.9 - CANDIDIASIS, UNSPECIFIED Status: Acute Current Visit: Yes - Problem List Review Problem List Initiated/Reviewed/Updated: Yes - My Orders Last 24 Hours: My Active Orders 05/08/21 11:36 [employer]ice Discontinue [Cardiac Monitoring Discontinue] [RC] Click to Edit - Plan Plan:: 31 yo female admitted for acute hypoxic respiratory failure due to COVID pneumonia. We will continue dexamethasone and remdesivir. Will wean supplemental NC oxygen as tolerated, continues on nasal cannula Lovenox for DVT prophylaxis Anxiety -Increase Klonopin to 3 times daily as this is what she does at home as needed. -Obtain more accurate med list to include hydroxyzine and restart Candidiasis -Start nystatin -Discussed with her keeping skin clean and dry and placing towel or washcloth as barrier for sweat.
[2021-05-08] MEDS ORDERED: ClonazePAM 1 MG Tab PO PRN (13:21)
[2021-05-08] MEDS ORDERED: hydrOXYzine HCl 25 MG Tab PO PRN (13:39)
[2021-05-08] MEDS: Nystatin Topical Powder 15 GM Bottle TOP SCH ×2 (13:52→21:37)
[2021-05-08] MEDS: DULoxetine 30 MG Cap PO SCH (14:05)
[2021-05-08] MEDS: Gabapentin 300 MG Cap PO SCH (21:38)
[2021-05-09] MEDS: Albuterol/Ipratropium 4 GM Inhalation Spray INH SCH ×6 (02:10→22:16)
[2021-05-09] MEDS: Levothyroxine 25 MCG Tab PO SCH (06:38)
[2021-05-09] MEDS: Levothyroxine 100 MCG Tab PO SCH (06:38)
[2021-05-09] MEDS: Nystatin Topical Powder 15 GM Bottle TOP SCH ×3 (06:38→22:20)
[2021-05-09 06:57] LABS: BLOOD UREA NITROGEN,BUN 12 mg/dL (7.0-18.0); CARBON DIOXIDE,CO2 28.1 mmol/L (21.0-32.0); CHLORIDE,CL 103 mmol/L (98-107); GLUCOSE RANDOM 123 mg/dL (74-106); SODIUM,NA 138 mmol/L (136-145)
[2021-05-09] MEDS: Enoxaparin 40 MG/0.4 ML Syringe SUBCUT SCH ×2 (08:43→22:20)
[2021-05-09] MEDS: Dexamethasone 4 MG Tab PO SCH (08:43)
[2021-05-09] MEDS: DULoxetine 30 MG Cap PO SCH (08:43)
[2021-05-09] MEDS: REMDESIVIR 100 MG in Sodium Chloride 0.9% 100 ML IV SCH (08:44)
--- NOTE | 2021-05-09 13:41 | PCM.PN ---
- General Info Date of Service: 05/09/21 - Review of Systems Systems Review Comment:: feeling better, shortness of breath has improved - Patient Data Vitals - Most Recent: Last Vital Signs Temp 36.6 C 05/09/21 12:18 Pulse 80 05/09/21 12:18 Resp 16 05/09/21 12:18 BP 129/74 05/09/21 12:18 Pulse Ox 93 L 05/09/21 12:18 Weight - Most Recent: 176.447 kg I&O - Last 24 Hours: Intake & Output 05/08/21 05/09/21 05/09/21 22:59 06:59 14:59 Intake Total 1350 1000 Output Total 4 Balance 1346 1000 Lab Results Last 24 Hours: Laboratory Results - last 24 hr 05/09/21 05/09/21 Range/Units 05:50 05:50 WBC 6.42 (4.0-11.0) K/uL RBC 4.74 (4.30-5.90) M/uL Hgb 11.6 L (12.0-16.0) g/dL Hct 36.9 (36.0-46.0) % MCV 77.8 L (80.0-98.0) fL MCH 24.5 L (27.0-32.0) pg MCHC 31.4 (31.0-37.0) g/dL RDW Std Deviation 50.3 (28.0-62.0) fl RDW Coeff of Rosa Maria 18 H (11.0-15.0) % Plt Count 295 (150-400) K/uL MPV 10.00 (7.40-12.00) fL Neut % (Auto) 61.0 (48.0-80.0) % Lymph % (Auto) 31.9 (16.0-40.0) % Parmer % (Auto) 6.9 (0.0-15.0) % Eos % (Auto) 0.0 (0.0-7.0) % Baso % (Auto) 0.2 (0.0-1.5) % Neut # (Auto) 3.9 (1.4-5.7) K/uL Lymph # (Auto) 2.1 (0.6-2.4) K/uL [place]mer # (Auto) 0.4 (0.0-0.8) K/uL Eos # (Auto) 0.0 (0.0-0.7) K/uL Baso # (Auto) 0.0 (0.0-0.1) K/uL Nucleated RBC % 0.0 /100WBC Nucleated RBCs # 0 K/uL Sodium 138 (136-145) mmol/L Potassium 4.0 (3.5-5.1) mmol/L Chloride 103 (98-107) mmol/L Carbon Dioxide 28.1 (21.0-32.0) mmol/L BUN 12 (7.0-18.0) mg/dL Creatinine 0.6 (0.6-1.0) mg/dL Est Cr Clr Drug Dosing 123.37 mL/min Estimated GFR (MDRD) > 60.0 ml/min Glucose 123 H (74-106) mg/dL Calcium 8.4 L (8.5-10.1) mg/dL Total Bilirubin 0.2 (0.2-1.0) mg/dL AST 19 (15-37) IU/L ALT 36 (14-63) IU/L Alkaline Phosphatase 58 (46-116) U/L Total Protein 7.8 (6.4-8.2) g/dL Albumin 3.1 L (3.4-5.0) g/dL Globulin 4.7 H (2.6-4.0) g/dL Albumin/Globulin Ratio 0.7 L (0.9-1.6) Kit Results Last 24 Hours: Microbiology 05/05/21 05:43 Aerobic Blood Culture - Preliminary Blood - Venous - Lab Draw NO GROWTH AFTER 4 DAYS Anaerobic Blood Culture - Preliminary 05/05/21 04:45 Aerobic Blood Culture - Preliminary Blood - Venous NO GROWTH AFTER 4 DAYS Anaerobic Blood Culture - Preliminary NO GROWTH AFTER 4 DAYS Med Orders - Current: Current Medications Acetaminophen (Acetaminophen 325 Mg Tab) 650 mg PO Q6H PRN PRN Reason: Pain/Fever Last Admin: 05/07/21 20:58 Dose: 650 mg Documented by: Albuterol/Ipratropium (Albuterol/Ipratropium 4 Gm Inhalation [place]) 0 gm INH Q4H DONI Last Admin: 05/09/21 09:44 Dose: 1 puff Documented by: Clonazepam (Clonazepam 1 Mg Tab) 1 mg PO Q8H PRN PRN Reason: panic attack Dexamethasone (Dexamethasone 4 Mg Tab) 6 mg PO DAILY [facility] Last Admin: 05/09/21 08:43 Dose: 6 mg Documented by: Duloxetine HCl (Duloxetine 30 Mg Cap) 30 mg PO DAILY [facility] Last Admin: 05/09/21 08:43 Dose: 30 mg Documented by: Enoxaparin Sodium (Enoxaparin 40 Mg/0.4 Ml Syringe) 40 mg SUBCUT Q12HR [facility] Last Admin: 05/09/21 08:43 Dose: 40 mg Documented by: Gabapentin (Gabapentin 300 Mg Cap) 300 mg PO BEDTIME [facility] Last Admin: 05/08/21 21:38 Dose: 300 mg Documented by: Guaifenesin/Codeine Phosphate (Codeine/Guaifenesin 10-100 Mg/5 Ml Syrup 5 Ml Cup) 5 ml PO Q6H PRN PRN Reason: Cough Last Admin: 05/07/21 21:26 Dose: 5 ml Documented by: Hydroxyzine HCl (Hydroxyzine Hcl 25 Mg Tab) 50 mg PO BID PRN PRN Reason: Anxiety Last Admin: 05/08/21 14:17 Dose: 50 mg Documented by: Levothyroxine Sodium (Levothyroxine 100 Mcg Tab) 200 mcg PO ACBREAKFAST [facility] Last Admin: 05/09/21 06:38 Dose: 200 mcg Documented by: Levothyroxine Sodium (Levothyroxine 25 Mcg Tab) 25 mcg PO ACBRK [facility] Last Admin: 05/09/21 06:38 Dose: 25 mcg Documented by: Nystatin (Nystatin Topical Powder 15 Gm Bottle) 0 gm TOP TID [facility] Last Admin: 05/09/21 06:38 Dose: 15 gram Documented by: Ondansetron HCl (Ondansetron 4 Mg/2 Ml Sdv) 4 mg IVPUSH Q4H PRN PRN Reason: Nausea Last Admin: 05/06/21 17:30 Dose: 4 mg Documented by: Sodium Chloride (Sodium Chloride 0.9% 10 Ml Syringe) 10 ml FLUSH ASDIRECTED PRN PRN Reason: Keep Vein Open Last Admin: 05/05/21 07:44 Dose: 10 ml Documented by: Sodium Chloride (Sodium Chloride 0.9% 2.5 Ml Syringe) 2.5 ml FLUSH ASDIRECTED PRN PRN Reason: Keep Vein Open Last Admin: 05/05/21 07:43 Dose: 2.5 ml Documented by: Sumatriptan Succinate (Sumatriptan 6 Mg/0.5 Ml Sdv) 6 mg SUBCUT ONETIME PRN PRN Reason: headache Last Admin: 05/06/21 21:14 Dose: 6 mg Documented by: Discontinued Medications Acetaminophen (Acetaminophen 500 Mg Tab) 1,000 mg PO ONETIME ONE Stop: 05/05/21 04:39 Last Admin: 05/05/21 05:02 Dose: 1,000 mg Documented by: Clonazepam (Clonazepam 1 Mg Tab) 1 mg PO Q12H PRN PRN Reason: panic attack Last Admin: 05/08/21 06:58 Dose: 1 mg Documented by: Dexamethasone (Dexamethasone 10 Mg/Ml Sdv) 10 mg IVPUSH ONETIME ONE Stop: 05/05/21 06:42 Last Admin: 05/05/21 07:43 Dose: 10 mg Documented by: Diphenhydramine HCl (Diphenhydramine 50 Mg/Ml Sdv) 50 mg IVPUSH ONETIME ONE Stop: 05/05/21 04:39 Last Admin: 05/05/21 05:02 Dose: 50 mg Documented by: Sodium Chloride (Normal Saline) 1,000 mls @ 999 mls/hr IV .Bolus ONE Stop: 05/05/21 05:38 Last Admin: 05/05/21 05:01 Dose: 999 mls/hr Documented by: Remdesivir 200 mg/ Sodium (Chloride) 250 mls @ 250 mls/hr IV ONETIME ONE Stop: 05/05/21 06:45 Last Admin: 05/05/21 07:44 Dose: 250 mls/hr Documented by: Remdesivir 100 mg/ Sodium (Chloride) 100 mls @ 100 mls/hr IV Q24H DONI Stop: 05/09/21 07:59 Last Admin: 05/06/21 09:19 Dose: Not Given Documented by: Remdesivir 100 mg/ Sodium (Chloride) 100 mls @ 100 mls/hr IV Q24H DONI Stop: 05/09/21 10:14 Last Admin: 05/09/21 08:44 Dose: 100 mls/hr Documented by: Iopamidol (Iopamidol 755 Mg/Ml 500 Ml Multipack Bottle) 100 ml IVPUSH ONETIME STA Stop: 05/05/21 06:13 Last Admin: 05/05/21 06:13 Dose: 100 ml Documented by: Ketorolac Tromethamine (Ketorolac 15 Mg/Ml Sdv) 15 mg IVPUSH ONETIME ONE Stop: 05/05/21 04:39 Last Admin: 05/05/21 05:02 Dose: 15 mg Documented by: Ketorolac Tromethamine (Ketorolac 15 Mg/Ml Sdv) 15 mg IVPUSH ONETIME ONE Stop: 05/06/21 07:26 Last Admin: 05/06/21 08:36 Dose: 15 mg Documented by: Levothyroxine Sodium (Levothyroxine 25 Mcg Tab) 25 mcg PO ACBRK DONI Last Admin: 05/05/21 16:59 Dose: 25 mcg Documented by: Lorazepam (Lorazepam 2 Mg/Ml Sdv) 1 mg IVPUSH ONETIME ONE Stop: 05/06/21 07:26 Last Admin: 05/06/21 08:36 Dose: 1 mg Documented by: Metoclopramide HCl (Metoclopramide 10 Mg/2 Ml Sdv) 10 mg IVPUSH ONETIME ONE Stop: 05/05/21 04:39 Last Admin: 05/05/21 05:02 Dose: 10 mg Documented by: - Exam General: Alert, Oriented Lungs: Clear to Auscultation, Normal Respiratory Effort Cardiovascular: Regular Rate, Regular Rhythm GI/Abdominal Exam: Soft, Non-Tender, No Distention Extremities: Non-Tender, No Pedal Edema Skin: Warm, Dry, Intact - Patient Data Lab Results Last 24 hrs: Laboratory Results - last 24 hr 05/09/21 05/09/21 Range/Units 05:50 05:50 WBC 6.42 (4.0-11.0) K/uL RBC 4.74 (4.30-5.90) M/uL Hgb 11.6 L (12.0-16.0) g/dL Hct 36.9 (36.0-46.0) % MCV 77.8 L (80.0-98.0) fL MCH 24.5 L (27.0-32.0) pg MCHC 31.4 (31.0-37.0) g/dL RDW Std Deviation 50.3 (28.0-62.0) fl RDW Coeff of Rosa Maria 18 H (11.0-15.0) % Plt Count 295 (150-400) K/uL MPV 10.00 (7.40-12.00) fL Neut % (Auto) 61.0 (48.0-80.0) % Lymph % (Auto) 31.9 (16.0-40.0) % Parmer % (Auto) 6.9 (0.0-15.0) % Eos % (Auto) 0.0 (0.0-7.0) % Baso % (Auto) 0.2 (0.0-1.5) % Neut # (Auto) 3.9 (1.4-5.7) K/uL Lymph # (Auto) 2.1 (0.6-2.4) K/uL Parmer # (Auto) 0.4 (0.0-0.8) K/uL Eos # (Auto) 0.0 (0.0-0.7) K/uL Baso # (Auto) 0.0 (0.0-0.1) K/uL Nucleated RBC % 0.0 /100WBC Nucleated RBCs # 0 K/uL Sodium 138 (136-145) mmol/L Potassium 4.0 (3.5-5.1) mmol/L Chloride 103 (98-107) mmol/L Carbon Dioxide 28.1 (21.0-32.0) mmol/L BUN 12 (7.0-18.0) mg/dL Creatinine 0.6 (0.6-1.0) mg/dL Est Cr Clr Drug Dosing 123.37 mL/min Estimated GFR (MDRD) > 60.0 ml/min Glucose 123 H (74-106) mg/dL Calcium 8.4 L (8.5-10.1) mg/dL Total Bilirubin 0.2 (0.2-1.0) mg/dL AST 19 (15-37) IU/L ALT 36 (14-63) IU/L Alkaline Phosphatase 58 (46-116) U/L Total Protein 7.8 (6.4-8.2) g/dL Albumin 3.1 L (3.4-5.0) g/dL Globulin 4.7 H (2.6-4.0) g/dL Albumin/Globulin Ratio 0.7 L (0.9-1.6) Result Diagrams: 05/09/21 05:50 05/09/21 05:50 Kit Results Last 24 hrs: Microbiology 05/05/21 05:43 Aerobic Blood Culture - Preliminary Blood - Venous - Lab Draw NO GROWTH AFTER 4 DAYS Anaerobic Blood Culture - Preliminary 05/05/21 04:45 Aerobic Blood Culture - Preliminary Blood - Venous NO GROWTH AFTER 4 DAYS Anaerobic Blood Culture - Preliminary NO GROWTH AFTER 4 DAYS Sepsis Event Note - Evaluation Sepsis Screening Result: No Definite Risk - Focused Exam Vital Signs: Vital Signs Temp Pulse Resp BP Pulse Ox 05/09/21 12:18 36.6 C 80 16 129/74 93 L 05/09/21 10:45 85 94 L 05/09/21 08:37 35.7 C L 93 17 143/80 H 92 L 05/09/21 04:00 36.0 C L 69 22 H 121/67 97 - Problem List Review Problem List Initiated/Reviewed/Updated: Yes - My Orders Last 24 Hours: My Active Orders 05/10/21 05:11 CBC WITH AUTO DIFF [HEME] AM COMPREHENSIVE METABOLIC PN,CMP [CHEM] AM - Plan Plan:: 31 yo female admitted for acute hypoxic respiratory failure due to COVID pneumonia. We will continue dexamethasone. Finished five days of Remdesivir. Will wean supplemental [place] oxygen as tolerated, continues on nasal cannula Lovenox for DVT prophylaxis Anxiety -Increase Klonopin to 3 times daily as this is what she does at home as needed. -Obtain more accurate med list to include hydroxyzine and restart Candidiasis -Start nystatin -Discussed with her keeping skin clean and dry and placing towel or washcloth as barrier for sweat. Dispo: anticipate discharge home tomorrow.
--- NOTE | 2021-05-09 13:57 | PCM.PN ---
- General Info Date of Service: 05/09/21 - Review of Systems Systems Review Comment:: feeling better, shortness of breath improving - Patient Data Vitals - Most Recent: Last Vital Signs Temp 36.6 C 05/09/21 12:18 Pulse 80 05/09/21 12:18 Resp 16 05/09/21 12:18 BP 129/74 05/09/21 12:18 Pulse Ox 93 L 05/09/21 12:18 Weight - Most Recent: 176.447 kg I&O - Last 24 Hours: Intake & Output 05/08/21 05/09/21 05/09/21 22:59 06:59 14:59 Intake Total 1350 1000 Output Total 4 Balance 1346 1000 Lab Results Last 24 Hours: Laboratory Results - last 24 hr 05/09/21 05/09/21 Range/Units 05:50 05:50 WBC 6.42 (4.0-11.0) K/uL RBC 4.74 (4.30-5.90) M/uL Hgb 11.6 L (12.0-16.0) g/dL Hct 36.9 (36.0-46.0) % MCV 77.8 L (80.0-98.0) fL MCH 24.5 L (27.0-32.0) pg MCHC 31.4 (31.0-37.0) g/dL RDW Std Deviation 50.3 (28.0-62.0) fl RDW Coeff of Rosa Maria 18 H (11.0-15.0) % Plt Count 295 (150-400) K/uL MPV 10.00 (7.40-12.00) fL Neut % (Auto) 61.0 (48.0-80.0) % Lymph % (Auto) 31.9 (16.0-40.0) % Mchenry % (Auto) 6.9 (0.0-15.0) % Eos % (Auto) 0.0 (0.0-7.0) % Baso % (Auto) 0.2 (0.0-1.5) % Neut # (Auto) 3.9 (1.4-5.7) K/uL Lymph # (Auto) 2.1 (0.6-2.4) K/uL Mchenry # (Auto) 0.4 (0.0-0.8) K/uL Eos # (Auto) 0.0 (0.0-0.7) K/uL Baso # (Auto) 0.0 (0.0-0.1) K/uL Nucleated RBC % 0.0 /100WBC Nucleated RBCs # 0 K/uL Sodium 138 (136-145) mmol/L Potassium 4.0 (3.5-5.1) mmol/L Chloride 103 (98-107) mmol/L Carbon Dioxide 28.1 (21.0-32.0) mmol/L BUN 12 (7.0-18.0) mg/dL Creatinine 0.6 (0.6-1.0) mg/dL Est Cr Clr Drug Dosing 123.37 mL/min Estimated GFR (MDRD) > 60.0 ml/min Glucose 123 H (74-106) mg/dL Calcium 8.4 L (8.5-10.1) mg/dL Total Bilirubin 0.2 (0.2-1.0) mg/dL AST 19 (15-37) IU/L ALT 36 (14-63) IU/L Alkaline Phosphatase 58 (46-116) U/L Total Protein 7.8 (6.4-8.2) g/dL Albumin 3.1 L (3.4-5.0) g/dL Globulin 4.7 H (2.6-4.0) g/dL Albumin/Globulin Ratio 0.7 L (0.9-1.6) Kit Results Last 24 Hours: Microbiology 05/05/21 05:43 Aerobic Blood Culture - Preliminary Blood - Venous - Lab Draw NO GROWTH AFTER 4 DAYS Anaerobic Blood Culture - Preliminary 05/05/21 04:45 Aerobic Blood Culture - Preliminary Blood - Venous NO GROWTH AFTER 4 DAYS Anaerobic Blood Culture - Preliminary NO GROWTH AFTER 4 DAYS Med Orders - Current: Current Medications Acetaminophen (Acetaminophen 325 Mg Tab) 650 mg PO Q6H PRN PRN Reason: Pain/Fever Last Admin: 05/07/21 20:58 Dose: 650 mg Documented by: Albuterol/Ipratropium (Albuterol/Ipratropium 4 Gm Inhalation [place]) 0 gm INH Q4H DONI Last Admin: 05/09/21 13:43 Dose: 1 puff Documented by: Clonazepam (Clonazepam 1 Mg Tab) 1 mg PO Q8H PRN PRN Reason: panic attack Dexamethasone (Dexamethasone 4 Mg Tab) 6 mg PO DAILY [facility] Last Admin: 05/09/21 08:43 Dose: 6 mg Documented by: Duloxetine HCl (Duloxetine 30 Mg Cap) 30 mg PO DAILY [facility] Last Admin: 05/09/21 08:43 Dose: 30 mg Documented by: Enoxaparin Sodium (Enoxaparin 40 Mg/0.4 Ml Syringe) 40 mg SUBCUT Q12HR [facility] Last Admin: 05/09/21 08:43 Dose: 40 mg Documented by: Gabapentin (Gabapentin 300 Mg Cap) 300 mg PO BEDTIME [facility] Last Admin: 05/08/21 21:38 Dose: 300 mg Documented by: Guaifenesin/Codeine Phosphate (Codeine/Guaifenesin 10-100 Mg/5 Ml Syrup 5 Ml Cup) 5 ml PO Q6H PRN PRN Reason: Cough Last Admin: 05/07/21 21:26 Dose: 5 ml Documented by: Hydroxyzine HCl (Hydroxyzine Hcl 25 Mg Tab) 50 mg PO BID PRN PRN Reason: Anxiety Last Admin: 05/08/21 14:17 Dose: 50 mg Documented by: Levothyroxine Sodium (Levothyroxine 100 Mcg Tab) 200 mcg PO ACBREAKFAST [facility] Last Admin: 05/09/21 06:38 Dose: 200 mcg Documented by: Levothyroxine Sodium (Levothyroxine 25 Mcg Tab) 25 mcg PO ACBRK [facility] Last Admin: 05/09/21 06:38 Dose: 25 mcg Documented by: Nystatin (Nystatin Topical Powder 15 Gm Bottle) 0 gm TOP TID [facility] Last Admin: 05/09/21 06:38 Dose: 15 gram Documented by: Ondansetron HCl (Ondansetron 4 Mg/2 Ml Sdv) 4 mg IVPUSH Q4H PRN PRN Reason: Nausea Last Admin: 05/06/21 17:30 Dose: 4 mg Documented by: Sodium Chloride (Sodium Chloride 0.9% 10 Ml Syringe) 10 ml FLUSH ASDIRECTED PRN PRN Reason: Keep Vein Open Last Admin: 05/05/21 07:44 Dose: 10 ml Documented by: Sodium Chloride (Sodium Chloride 0.9% 2.5 Ml Syringe) 2.5 ml FLUSH ASDIRECTED PRN PRN Reason: Keep Vein Open Last Admin: 05/05/21 07:43 Dose: 2.5 ml Documented by: Sumatriptan Succinate (Sumatriptan 6 Mg/0.5 Ml Sdv) 6 mg SUBCUT ONETIME PRN PRN Reason: headache Last Admin: 05/06/21 21:14 Dose: 6 mg Documented by: Discontinued Medications Acetaminophen (Acetaminophen 500 Mg Tab) 1,000 mg PO ONETIME ONE Stop: 05/05/21 04:39 Last Admin: 05/05/21 05:02 Dose: 1,000 mg Documented by: Clonazepam (Clonazepam 1 Mg Tab) 1 mg PO Q12H PRN PRN Reason: panic attack Last Admin: 05/08/21 06:58 Dose: 1 mg Documented by: Dexamethasone (Dexamethasone 10 Mg/Ml Sdv) 10 mg IVPUSH ONETIME ONE Stop: 05/05/21 06:42 Last Admin: 05/05/21 07:43 Dose: 10 mg Documented by: Diphenhydramine HCl (Diphenhydramine 50 Mg/Ml Sdv) 50 mg IVPUSH ONETIME ONE Stop: 05/05/21 04:39 Last Admin: 05/05/21 05:02 Dose: 50 mg Documented by: Sodium Chloride (Normal Saline) 1,000 mls @ 999 mls/hr IV .Bolus ONE Stop: 05/05/21 05:38 Last Admin: 05/05/21 05:01 Dose: 999 mls/hr Documented by: Remdesivir 200 mg/ Sodium (Chloride) 250 mls @ 250 mls/hr IV ONETIME ONE Stop: 05/05/21 06:45 Last Admin: 05/05/21 07:44 Dose: 250 mls/hr Documented by: Remdesivir 100 mg/ Sodium (Chloride) 100 mls @ 100 mls/hr IV Q24H DONI Stop: 05/09/21 07:59 Last Admin: 05/06/21 09:19 Dose: Not Given Documented by: Remdesivir 100 mg/ Sodium (Chloride) 100 mls @ 100 mls/hr IV Q24H DONI Stop: 05/09/21 10:14 Last Admin: 05/09/21 08:44 Dose: 100 mls/hr Documented by: Iopamidol (Iopamidol 755 Mg/Ml 500 Ml Multipack Bottle) 100 ml IVPUSH ONETIME STA Stop: 05/05/21 06:13 Last Admin: 05/05/21 06:13 Dose: 100 ml Documented by: Ketorolac Tromethamine (Ketorolac 15 Mg/Ml Sdv) 15 mg IVPUSH ONETIME ONE Stop: 05/05/21 04:39 Last Admin: 05/05/21 05:02 Dose: 15 mg Documented by: Ketorolac Tromethamine (Ketorolac 15 Mg/Ml Sdv) 15 mg IVPUSH ONETIME ONE Stop: 05/06/21 07:26 Last Admin: 05/06/21 08:36 Dose: 15 mg Documented by: Levothyroxine Sodium (Levothyroxine 25 Mcg Tab) 25 mcg PO ACBRK DONI Last Admin: 05/05/21 16:59 Dose: 25 mcg Documented by: Lorazepam (Lorazepam 2 Mg/Ml Sdv) 1 mg IVPUSH ONETIME ONE Stop: 05/06/21 07:26 Last Admin: 05/06/21 08:36 Dose: 1 mg Documented by: Metoclopramide HCl (Metoclopramide 10 Mg/2 Ml Sdv) 10 mg IVPUSH ONETIME ONE Stop: 05/05/21 04:39 Last Admin: 05/05/21 05:02 Dose: 10 mg Documented by: - Exam General: Alert, Oriented Neck: Supple Lungs: Clear to Auscultation, Normal Respiratory Effort Cardiovascular: Regular Rate, Regular Rhythm GI/Abdominal Exam: Normal Bowel Sounds, Soft, Non-Tender Extremities: Non-Tender, No Pedal Edema Skin: Warm, Dry, Intact Neurological: No New Focal Deficit - Patient Data Lab Results Last 24 hrs: Laboratory Results - last 24 hr 05/09/21 05/09/21 Range/Units 05:50 05:50 WBC 6.42 (4.0-11.0) K/uL RBC 4.74 (4.30-5.90) M/uL Hgb 11.6 L (12.0-16.0) g/dL Hct 36.9 (36.0-46.0) % MCV 77.8 L (80.0-98.0) fL MCH 24.5 L (27.0-32.0) pg MCHC 31.4 (31.0-37.0) g/dL RDW Std Deviation 50.3 (28.0-62.0) fl RDW Coeff of Rosa Maria 18 H (11.0-15.0) % Plt Count 295 (150-400) K/uL MPV 10.00 (7.40-12.00) fL Neut % (Auto) 61.0 (48.0-80.0) % Lymph % (Auto) 31.9 (16.0-40.0) % Mchenry % (Auto) 6.9 (0.0-15.0) % Eos % (Auto) 0.0 (0.0-7.0) % Baso % (Auto) 0.2 (0.0-1.5) % Neut # (Auto) 3.9 (1.4-5.7) K/uL Lymph # (Auto) 2.1 (0.6-2.4) K/uL [place]hen[place] # (Auto) 0.4 (0.0-0.8) K/uL Eos # (Auto) 0.0 (0.0-0.7) K/uL Baso # (Auto) 0.0 (0.0-0.1) K/uL Nucleated RBC % 0.0 /100WBC Nucleated RBCs # 0 K/uL Sodium 138 (136-145) mmol/L Potassium 4.0 (3.5-5.1) mmol/L Chloride 103 (98-107) mmol/L Carbon Dioxide 28.1 (21.0-32.0) mmol/L BUN 12 (7.0-18.0) mg/dL Creatinine 0.6 (0.6-1.0) mg/dL Est Cr Clr Drug Dosing 123.37 mL/min Estimated GFR (MDRD) > 60.0 ml/min Glucose 123 H (74-106) mg/dL Calcium 8.4 L (8.5-10.1) mg/dL Total Bilirubin 0.2 (0.2-1.0) mg/dL AST 19 (15-37) IU/L ALT 36 (14-63) IU/L Alkaline Phosphatase 58 (46-116) U/L Total Protein 7.8 (6.4-8.2) g/dL Albumin 3.1 L (3.4-5.0) g/dL Globulin 4.7 H (2.6-4.0) g/dL Albumin/Globulin Ratio 0.7 L (0.9-1.6) Result Diagrams: 05/09/21 05:50 05/09/21 05:50 Kit Results Last 24 hrs: Microbiology 05/05/21 05:43 Aerobic Blood Culture - Preliminary Blood - Venous - Lab Draw NO GROWTH AFTER 4 DAYS Anaerobic Blood Culture - Preliminary 05/05/21 04:45 Aerobic Blood Culture - Preliminary Blood - Venous NO GROWTH AFTER 4 DAYS Anaerobic Blood Culture - Preliminary NO GROWTH AFTER 4 DAYS Sepsis Event Note - Evaluation Sepsis Screening Result: No Definite Risk - Focused Exam Vital Signs: Vital Signs Temp Pulse Resp BP Pulse Ox 05/09/21 12:18 36.6 C 80 16 129/74 93 L 05/09/21 10:45 85 94 L 05/09/21 08:37 35.7 C L 93 17 143/80 H 92 L 05/09/21 04:00 36.0 C L 69 22 H 121/67 97 - Problem List Review Problem List Initiated/Reviewed/Updated: Yes - My Orders Last 24 Hours: My Active Orders 05/10/21 05:11 CBC WITH AUTO DIFF [HEME] AM COMPREHENSIVE METABOLIC PN,CMP [CHEM] AM - Plan Plan:: 31 yo female admitted for acute hypoxic respiratory failure due to COVID pneumonia. We will continue dexamethasone. Finished five days of Remdesivir. Will wean supplemental [place] oxygen as tolerated, continues on nasal cannula Lovenox for DVT prophylaxis Anxiety -Increase Klonopin to 3 times daily as this is what she does at home as needed. -Obtain more accurate med list to include hydroxyzine and restart Candidiasis -Start nystatin -Discussed with her keeping skin clean and dry and placing towel or washcloth as barrier for sweat. Dispo: anticipate discharge home tomorrow.
[2021-05-09] MEDS: Gabapentin 300 MG Cap PO SCH (22:17)
[2021-05-10] MEDS: Albuterol/Ipratropium 4 GM Inhalation Spray INH SCH ×3 (01:34→10:06)
[2021-05-10 06:30] LABS: BLOOD UREA NITROGEN,BUN 12 mg/dL (7.0-18.0); CARBON DIOXIDE,CO2 25.5 mmol/L (21.0-32.0); CHLORIDE,CL 103 mmol/L (98-107); GLUCOSE RANDOM 100 mg/dL (74-106); SODIUM,NA 136 mmol/L (136-145)
[2021-05-10] MEDS: Nystatin Topical Powder 15 GM Bottle TOP SCH (06:41)
[2021-05-10] MEDS: Levothyroxine 25 MCG Tab PO SCH (06:42)
[2021-05-10] MEDS: Levothyroxine 100 MCG Tab PO SCH (06:42)
[2021-05-10] MEDS: Dexamethasone 4 MG Tab PO SCH (09:36)
[2021-05-10] MEDS: Enoxaparin 40 MG/0.4 ML Syringe SUBCUT SCH (09:37)
[2021-05-10] MEDS: DULoxetine 30 MG Cap PO SCH (09:40)
--- NOTE | 2021-05-10 11:59 | PCM.DCSUM1 ---
Discharge Summary - Hospital Course Free Text/Narrative:: 31 yo female with pmh of hypothyroidism, obesity , anxiety who presents with four days of cough, headache, shortness of breath and fevers. In the ED she was noted to be requiring simple NC to keep sats above 90%. She tested positive for Covid, CT angio was negative for PE but reported bilateral infiltrates. She was admitted to the hospital for further management and started on IV remdesivir, oral dexamethasone, Lovenox for DVT prophylaxis, Combivent for shortness of breath, oxygen support was provided by nasal cannula to maintain pulse ox more than 92%. Over the next few days patient's oxygen requirement significantly improved. Patient was restarted on her home dose of Klonopin due to history of anxiety, she also had some fungal rash on her skin under her breasts for which topical statin was started. Over the next 2 days patient was weaned off the oxygen. 1 out of 4 blood culture bottles returned positive after 3 days showing gram-positive cocci. First 3 days it showed no growth. It was treated as an contaminant and no antibiotic therapy was started. Patient showed no signs or symptoms of infection. Repeat cultures were also obtained which have been negative so far. Patient was sent home on remaining dose of dexamethasone and w as informed about the 1+ blood culture for which she will get a follow-up call in case it gives something significant otherwise it was treated as an contaminant. Patient is recommended to follow-up with her primary care provider upon discharge. - Discharge Data Discharge Date: 05/10/21 Discharge Disposition: Home, Self-Care 01 Condition: Stable - Referral to Home Health Primary Care Physician: Tony Hutson MD - Discharge Plan Prescriptions/Med Rec: dexAMETHasone [Dexamethasone] 6 mg PO DAILY #5 tablet Nystatin [Nystop] 1 applic TOP TID #1 bottle Home Medications: Home Meds Levothyroxine 225 mcg PO DAILY 05/05/21 [History] ClonazePAM [KlonoPIN] 1 tab PO TID PRN 05/08/21 [History] DULoxetine HCl [Cymbalta] 30 mg PO DAILY 05/08/21 [History] Gabapentin [Neurontin] 300 mg PO BEDTIME 05/08/21 [History] SUMAtriptan succinate [Imitrex] 100 mg PO DAILY PRN MDD 200 mg 05/08/21 [History] hydrOXYzine HCL [Hydroxyzine HCl] 50 mg PO BID PRN 05/08/21 [History] Baclofen 10 mg PO TID PRN 05/09/21 [History] Ondansetron [Ondansetron ODT] 8 mg PO TID PRN 05/09/21 [History] Nystatin [Nystop] 1 applic TOP TID #1 bottle 05/10/21 [Rx] dexAMETHasone [Dexamethasone] 6 mg PO DAILY #5 tablet 05/10/21 [Rx] Patient Handouts: COVID-19, Nystatin topical powder, 10 Things You Can Do to Manage Your COVID-19 Symptoms at Home - [facility] (02/29/2020), Home Oxygen Use, Adult, COVID-19: How to Protect Yourself and Others - CDC, Infection Prevention in the Home, COVID-19: Quarantine vs. Isolation - [facility] (08/16/2020), Dexamethasone tablets Referrals: Tony Hutson MD [Primary Care Provider] - 05/17/21 10:00 am - Discharge Summary/Plan Comment DC Time >30 min.: No Total # of Minutes for Discharge Time: 20 - Patient Data Vitals - Most Recent: Last Vital Signs Temp 36.0 C L 05/10/21 08:00 Pulse 89 05/10/21 08:00 Resp 20 05/10/21 08:00 BP 145/75 H 05/10/21 08:00 Pulse Ox 95 05/10/21 08:00 Weight - Most Recent: 176.447 kg I&O - Last 24 hours: Intake & Output 05/09/21 05/10/21 05/10/21 22:59 06:59 14:59 Intake Total 1560 600 Balance 1560 600 Lab Results - Last 24 hrs: Laboratory Results - last 24 hr 05/10/21 05/10/21 Range/Units 05:40 05:40 WBC 7.73 (4.0-11.0) K/uL RBC 4.88 (4.30-5.90) M/uL Hgb 12.1 (12.0-16.0) g/dL Hct 37.9 (36.0-46.0) % MCV 77.7 L (80.0-98.0) fL MCH 24.8 L (27.0-32.0) pg MCHC 31.9 (31.0-37.0) g/dL RDW Std Deviation 51.0 (28.0-62.0) fl RDW Coeff of [place] 18 H (11.0-15.0) % Plt Count 337 (150-400) K/uL MPV 10.10 (7.40-12.00) fL Neut % (Auto) 59.0 (48.0-80.0) % Lymph % (Auto) 32.5 (16.0-40.0) % [place] % (Auto) 8.4 (0.0-15.0) % Eos % (Auto) 0.0 (0.0-7.0) % Baso % (Auto) 0.1 (0.0-1.5) % Neut # (Auto) 4.6 (1.4-5.7) K/uL Lymph # (Auto) 2.5 H (0.6-2.4) K/uL [place] # (Auto) 0.7 (0.0-0.8) K/uL Eos # (Auto) 0.0 (0.0-0.7) K/uL Baso # (Auto) 0.0 (0.0-0.1) K/uL Nucleated RBC % 0.0 /100WBC Nucleated RBCs # 0 K/uL Sodium 136 (136-145) mmol/L Potassium 4.0 (3.5-5.1) mmol/L Chloride 103 (98-107) mmol/L Carbon Dioxide 25.5 (21.0-32.0) mmol/L BUN 12 (7.0-18.0) mg/dL Creatinine 0.6 (0.6-1.0) mg/dL Est Cr Clr Drug Dosing 123.37 mL/min Estimated GFR (MDRD) > 60.0 ml/min Glucose 100 (74-106) mg/dL Calcium 8.4 L (8.5-10.1) mg/dL Total Bilirubin 0.3 (0.2-1.0) mg/dL AST 20 (15-37) IU/L ALT 33 (14-63) IU/L Alkaline Phosphatase 60 (46-116) U/L Total Protein 7.8 (6.4-8.2) g/dL Albumin 3.1 L (3.4-5.0) g/dL Globulin 4.7 H (2.6-4.0) g/dL Albumin/Globulin Ratio 0.7 L (0.9-1.6) DARSHAN Results - Last 24 hrs: Microbiology 05/05/21 05:43 Blood Culture Identification Panel - Preliminary Blood Gram Positive Cocci 05/05/21 05:43 Aerobic Blood Culture - Final Blood - Venous - Lab Draw NO GROWTH AFTER 5 DAYS Anaerobic Blood Culture - Preliminary 05/05/21 04:45 Aerobic Blood Culture - Final Blood - Venous NO GROWTH AFTER 5 DAYS Anaerobic Blood Culture - Final NO GROWTH AFTER 5 DAYS Med Orders - Current: Current Medications Acetaminophen (Acetaminophen 325 Mg Tab) 650 mg PO Q6H PRN PRN Reason: Pain/Fever Last Admin: 05/07/21 20:58 Dose: 650 mg Documented by: Albuterol/Ipratropium (Albuterol/Ipratropium 4 Gm Inhalation [place]) 0 gm INH Q4H DONI Last Admin: 05/10/21 10:06 Dose: 1 puff Documented by: Clonazepam (Clonazepam 1 Mg Tab) 1 mg PO Q8H PRN PRN Reason: panic attack Last Admin: 05/09/21 18:14 Dose: 1 mg Documented by: Dexamethasone (Dexamethasone 4 Mg Tab) 6 mg PO DAILY [facility] Last Admin: 05/10/21 09:36 Dose: 6 mg Documented by: Duloxetine HCl (Duloxetine 30 Mg Cap) 30 mg PO DAILY [facility] Last Admin: 05/10/21 09:40 Dose: 30 mg Documented by: Enoxaparin Sodium (Enoxaparin 40 Mg/0.4 Ml Syringe) 40 mg SUBCUT Q12HR [facility] Last Admin: 05/10/21 09:37 Dose: 40 mg Documented by: Gabapentin (Gabapentin 300 Mg Cap) 300 mg PO BEDTIME [facility] Last Admin: 05/09/21 22:17 Dose: 300 mg Documented by: Guaifenesin/Codeine Phosphate (Codeine/Guaifenesin 10-100 Mg/5 Ml Syrup 5 Ml Cup) 5 ml PO Q6H PRN PRN Reason: Cough Last Admin: 05/07/21 21:26 Dose: 5 ml Documented by: Hydroxyzine HCl (Hydroxyzine Hcl 25 Mg Tab) 50 mg PO BID PRN PRN Reason: Anxiety Last Admin: 05/08/21 14:17 Dose: 50 mg Documented by: Levothyroxine Sodium (Levothyroxine 100 Mcg Tab) 200 mcg PO ACBREAKFAST [facility] Last Admin: 05/10/21 06:42 Dose: 200 mcg Documented by: Levothyroxine Sodium (Levothyroxine 25 Mcg Tab) 25 mcg PO ACBRK [facility] Last Admin: 05/10/21 06:42 Dose: 25 mcg Documented by: Nystatin (Nystatin Topical Powder 15 Gm Bottle) 0 gm TOP TID [facility] Last Admin: 05/10/21 06:41 Dose: 1 applic Documented by: Ondansetron HCl (Ondansetron 4 Mg/2 Ml Sdv) 4 mg IVPUSH Q4H PRN PRN Reason: Nausea Last Admin: 05/06/21 17:30 Dose: 4 mg Documented by: Sodium Chloride (Sodium Chloride 0.9% 10 Ml Syringe) 10 ml FLUSH ASDIRECTED PRN PRN Reason: Keep Vein Open Last Admin: 05/05/21 07:44 Dose: 10 ml Documented by: Sodium Chloride (Sodium Chloride 0.9% 2.5 Ml Syringe) 2.5 ml FLUSH ASDIRECTED PRN PRN Reason: Keep Vein Open Last Admin: 05/05/21 07:43 Dose: 2.5 ml Documented by: Sumatriptan Succinate (Sumatriptan 6 Mg/0.5 Ml Sdv) 6 mg SUBCUT ONETIME PRN PRN Reason: headache Last Admin: 05/06/21 21:14 Dose: 6 mg Documented by: Discontinued Medications Acetaminophen (Acetaminophen 500 Mg Tab) 1,000 mg PO ONETIME ONE Stop: 05/05/21 04:39 Last Admin: 05/05/21 05:02 Dose: 1,000 mg Documented by: Clonazepam (Clonazepam 1 Mg Tab) 1 mg PO Q12H PRN PRN Reason: panic attack Last Admin: 05/08/21 06:58 Dose: 1 mg Documented by: Dexamethasone (Dexamethasone 10 Mg/Ml Sdv) 10 mg IVPUSH ONETIME ONE Stop: 05/05/21 06:42 Last Admin: 05/05/21 07:43 Dose: 10 mg Documented by: Diphenhydramine HCl (Diphenhydramine 50 Mg/Ml Sdv) 50 mg IVPUSH ONETIME ONE Stop: 05/05/21 04:39 Last Admin: 05/05/21 05:02 Dose: 50 mg Documented by: Sodium Chloride (Normal Saline) 1,000 mls @ 999 mls/hr IV .Bolus ONE Stop: 05/05/21 05:38 Last Admin: 05/05/21 05:01 Dose: 999 mls/hr Documented by: Remdesivir 200 mg/ Sodium (Chloride) 250 mls @ 250 mls/hr IV ONETIME ONE Stop: 05/05/21 06:45 Last Admin: 05/05/21 07:44 Dose: 250 mls/hr Documented by: Remdesivir 100 mg/ Sodium (Chloride) 100 mls @ 100 mls/hr IV Q24H [facility] Stop: 05/09/21 07:59 Last Admin: 05/06/21 09:19 Dose: Not Given Documented by: Remdesivir 100 mg/ Sodium (Chloride) 100 mls @ 100 mls/hr IV Q24H [facility] Stop: 05/09/21 10:14 Last Admin: 05/09/21 08:44 Dose: 100 mls/hr Documented by: Iopamidol (Iopamidol 755 Mg/Ml 500 Ml Multipack Bottle) 100 ml IVPUSH ONETIME STA Stop: 05/05/21 06:13 Last Admin: 05/05/21 06:13 Dose: 100 ml Documented by: Ketorolac Tromethamine (Ketorolac 15 Mg/Ml Sdv) 15 mg IVPUSH ONETIME ONE Stop: 05/05/21 04:39 Last Admin: 05/05/21 05:02 Dose: 15 mg Documented by: Ketorolac Tromethamine (Ketorolac 15 Mg/Ml Sdv) 15 mg IVPUSH ONETIME ONE Stop: 05/06/21 07:26 Last Admin: 05/06/21 08:36 Dose: 15 mg Documented by: Levothyroxine Sodium (Levothyroxine 25 Mcg Tab) 25 mcg PO ACBRK [facility] Last Admin: 05/05/21 16:59 Dose: 25 mcg Documented by: Lorazepam (Lorazepam 2 Mg/Ml Sdv) 1 mg IVPUSH ONETIME ONE Stop: 05/06/21 07:26 Last Admin: 05/06/21 08:36 Dose: 1 mg Documented by: Metoclopramide HCl (Metoclopramide 10 Mg/2 Ml Sdv) 10 mg IVPUSH ONETIME ONE Stop: 05/05/21 04:39 Last Admin: 09/05/21 05:02 Dose: 10 mg Documented by:
== END 2021-05-10 13:30 | disposition home or self-care (01) | DRG 177 ==
LOC: MW.ED 04:06 → MW.MS 06:52
PROVIDERS: ADMIT Internal Medicine; ATTEND Internal Medicine
PROC: XW033E5 Introduction of Remdesivir Anti-infective into Peripheral Vein, Percutaneous Approach, New Technology Group 5 (ICD-10-PCS; principal; 2021-05-05)
PROC: 3E0333Z Introduction of Anti-inflammatory into Peripheral Vein, Percutaneous Approach (ICD-10-PCS; 2021-05-05)
PROC: 8E0ZXY6 Isolation (ICD-10-PCS; 2021-05-05)
DX: U07.1 COVID-19 (principal); J96.01 Acute respiratory failure with hypoxia; J12.82 Pneumonia due to coronavirus disease 2019; B37.9 Candidiasis, unspecified; E03.9 Hypothyroidism, unspecified; E66.9 Obesity, unspecified; F41.9 Anxiety disorder, unspecified; H54.7 Unspecified visual loss; Z88.1 Allergy status to other antibiotic agents; F32.9 Major depressive disorder, single episode, unspecified; Z86.19 Personal history of other infectious and parasitic diseases; Z79.890 Hormone replacement therapy; Z79.899 Other long term (current) drug therapy; Z88.8 Allergy status to other drugs, medicaments and biological substances; G43.109 Migraine with aura, not intractable, without status migrainosus
CPT/HCPCS: 36415; 71275; 80053; 81001; 83605; 84703; 85025; 85379; 87040 ×2; 87635; 87804 ×2; 93005; 96374; 96375; 99285; A9270; J1200; J1885; J2765; J7030; Q9967; 94640; 94664; J1100; J1650; J2060; J2405; J3030; J7050; J8540; U0002

== ENCOUNTER 2021-05-21 19:28 | Emergency (ER) | payer MEDICAID ==
[2021-05-21] MEDS ORDERED: Sodium Chloride 0.9% 1,000 ML IV ONE (20:35)
--- NOTE | 2021-05-21 21:09 | EDM.PDOC ---
<Diana Guzman E - Last Filed: 05/21/21 21:56> ED HPI GENERAL MEDICAL PROBLEM - General Chief Complaint: Lower Extremity Injury/Pain Stated Complaint: CRAMPING BACK OF LT THIGH, DIZZINESS Time Seen by Provider: 05/21/21 20:28 Source of Information: Reports: Patient History Limitations: Reports: No Limitations - History of Present Illness INITIAL COMMENTS - FREE TEXT/NARRATIVE: HISTORY AND PHYSICAL: History of present illness: Patient is a 31-year-old female who presents to the emergency room with concerns of cramping to her left posterior thigh into her popliteal region, does not extend into the calf. She also recently was diagnosed with COVID-19 and had been hospitalized due to her requiring oxygen. She states she continues to have shortness of breath since being discharged. She states she does get very dizzy with any physical exertion. She continues to use home oxygen on demand. She had a family member who had a PE related to COVID and is concerned she may have a blood clot either in her lung or her lower extremity. Patient denies any fever, chills, headache, change in vision, syncope or near syncope. Denies any chest pain, back pain, abdominal pain, nausea, vomiting, diarrhea, constipation or dysuria. Has not noted any blood in urine or stool. Patient has been eating and drinking appropriately. Review of systems: As per history of present illness and below otherwise all systems reviewed and negative. Past medical history: As per history of present illness and as reviewed below otherwise noncontributory. Surgical history: As per history of present illness and as reviewed below otherwise noncontributory. Social history: See social history for further information Family history: As per history of present illness and as reviewed below otherwise noncontributory. Physical exam: General: Well developed and well nourished 31-year-old female. Alert and orientated x 3. Nontoxic in appearance and in no acute distress. Vital signs are stable and have been reviewed by me. Nursing notes were reviewed. HEENT: Atraumatic, normocephalic, pupils equal and reactive bilaterally, negative for conjunctival pallor or scleral icterus, mucous membranes moist, TMs normal bilaterally, throat clear, neck supple, nontender, trachea midline. No drooling or trismus noted. No meningeal signs. No hot potato voice noted. Lungs: Diminished to auscultation bilaterally. No wheezes, rales, or rhonchi. Chest nontender. Normal work of breathing, no accessory muscles used. Patient does have portable oxygen per nasal cannula. Heart: S1S2, regular rate and rhythm without overt murmur, gallops, or rubs. No JVD. No peripheral edema Abdomen: Soft, obese, nontender. Normoactive bowel sounds. Negative for masses or costovertebral tenderness. Skin: Intact, warm, dry. No lesions or rashes noted. Hematologic: No petechiae or purpra. Mucosa appropriate color and normal nail bed color and refill. Extremities: Atraumatic, moves all extremities per self without difficulty or deficits, tenderness to palpation of the popliteal region without swelling or redness. She is negative for cords or calf pain. She has strong pedal and pretibial pulses bilaterally. +CMS, cap refill less than 2 seconds. Neurovascular unremarkable. Neuro: Awake, alert, oriented. Cranial nerves II through XII unremarkable. Cerebellum unremarkable. Motor and sensory unremarkable throughout. Exam nonfocal. Psychiatric: Mood and affect are appropriate. Normal thought process. Answering questions appropriately. Please note that the patient was seen and evaluated during the 2019 SARS-CoV-2 novel coronavirus pandemic period. Community viral transmission is ongoing at time of this encounter and the emergency department is operating under pandemic response procedures. Medical Decision Making: Labs are pending; report given to Son. He will assume care of this patient and treat/disposition appropriately. Diagnostics: CBC, CMP, D-dimer, chest x-ray Therapeutics: IV fluids Impression: Post COVID Plan: 1. I have given you an outpatient order for a left lower extremity ultrasound to rule out a blood clot. Emergently your evaluation of the extremity is within normal limits, suspicion for this is low although cannot rule this out until an ultrasound is completed. Please call the radiology department tomorrow morning to set this up at [phone]. 2. Please continue taking your outpatient medications as directed. Use your oxygen as directed and as needed. I would like you to follow-up with your primary care provider for reevaluation, set an appointment up tomorrow. 3. If at any time your symptoms should worsen, new symptoms develop or you feel you need to be reevaluated please return to the emergency room. Definitive disposition and diagnosis as appropriate pending reevaluation and review of above. Left Knee Pain Score (Numeric/FACES): 7 - Related Data Allergies Allergy/AdvReac Type Severity Reaction Status Date / Time metronidazole [From Flagyl] Allergy Anaphylactic Verified 05/05/21 04:36 Shock proventil liquid Allergy Seizure Uncoded 05/05/21 04:36 ptu Allergy Hives Uncoded 05/05/21 04:36 tapazole Allergy Hives Uncoded 05/05/21 04:36 Home Meds: Home Meds ClonazePAM [KlonoPIN] 1 tab PO TID PRN 05/08/21 [History] SUMAtriptan succinate [Imitrex] 100 mg PO DAILY PRN MDD 200 mg 05/08/21 [History] Baclofen 10 mg PO TID PRN 05/09/21 [History] Past Medical History - Past Health History Medical/Surgical History: Denies Medical/Surgical History HEENT History: Reports: None Other HEENT History: wears glasses Cardiovascular History: Reports: Other (See Below) Other Cardiovascular History: "cyst in my heart" Respiratory History: Reports: None Gastrointestinal History: Reports: None Genitourinary History: Reports: None WAXER TENDER History: Reports: , 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 WAXER TENDER History: Termination of 1 Musculoskeletal History: Reports: None Other Musculoskeletal History: hx of fx to jaw and hands Neurological History: Reports: Migraines, Other (See Below) Other Neuro History: Tourettes Psychiatric History: Reports: Anxiety, Depression Other Psychiatric History: Tourettes Endocrine/Metabolic History: Reports: Hypothyroidism Insulin Pump Model and Hospital Cna: None Hematologic History: Reports: None Immunologic History: Reports: None Oncologic (Cancer) History: Reports: None Dermatologic History: Reports: Other (See Below) Other Dermatologic History: hydrotitus supervitiva- HS syndrome - Infectious Disease History Infectious Disease History: Reports: Chicken Pox - Past Surgical History Head Surgeries/Procedures: Reports: None HEENT Surgical History: Reports: None Cardiovascular Surgical History: Reports: None Respiratory Surgical History: Reports: None GI Surgical History: Reports: None Other GI Surgeries/Procedures: x 3 Female Surgical History: Reports: Section Other Female Surgeries/Procedures: x 3 Endocrine Surgical History: Reports: None Neurological Surgical History: Reports: None Musculoskeletal Surgical History: Reports: None Oncologic Surgical History: Reports: None Dermatological Surgical History: Reports: None Social & Family History - Family History Family Medical History: No Pertinent Family History HEENT: Reports: None Cardiac: Reports: None Respiratory: Reports: None GI: Reports: None : Reports: None OBGYN: Reports: None Musculoskeletal: Reports: None Neurological: Reports: None Psychiatric: Reports: None Endocrine/Metabolic: Reports: None Hematologic: Reports: None Immunologic: Reports: None Dermatologic: Reports: None Oncologic: Reports: Breast, Renal - Tobacco Use Tobacco Use Status *Q: Never Tobacco User - Caffeine Use Caffeine Use: Reports: None - Recreational Drug Use Recreational Drug Use: No Departure - Departure Disposition: Home, Self-Care 01 Clinical Impression: Post-COVID syndrome, Leg pain, left - Discharge Information Referrals: Tony Hutson MD [Primary Care Provider] - Forms: ED Department Discharge Additional Instructions: The following information is given to patients seen in the emergency department who are being discharged to home. This information is to outline your options for follow-up care. We provide all patients seen in our emergency department with a follow-up referral. The need for follow-up, as well as the timing and circumstances, are variable depending upon the specifics of your emergency department visit. If you don't have a primary care physician on staff, we will provide you with a referral. We always advise you to contact your personal physician following an emergency department visit to inform them of the circumstance of the visit and for follow-up with them and/or the need for any referrals to a consulting s pecialist. The emergency department will also refer you to a specialist when appropriate. This referral assures that you have the opportunity for follow-up care with a specialist. All of these measure are taken in an effort to provide you with optimal care, which includes your follow-up. Under all circumstances we always encourage you to contact your private physician who remains a resource for coordinating your care. When calling for follow-up care, please make the office aware that this follow-up is from your recent emergency room visit. If for any reason you are refused follow-up, please contact the [facility] Emergency Department at and asked to speak to the emergency department charge nurse. [facility] [address] [place] [id number] [facility] [address] [place] [address] Thank you for choosing the [facility] emergency department in [place] for your medical needs today. It was a pleasure caring for you. Today you were seen in the emergency department for COVID symptoms and left leg pain. 1. I have given you an outpatient order for a left lower extremity ultrasound to rule out a blood clot. Emergently your evaluation of the extremity is within normal limits, suspicion for this is low although cannot rule this out until an ultrasound is completed. Please call the radiology department tomorrow morning to set this up at [phone]. 2. Please continue taking your outpatient medications as directed. Use your oxygen as directed and as needed. I would like you to follow-up with your primary care provider for reevaluation, set an appointment up tomorrow. 3. If at any time your symptoms should worsen, new symptoms develop or you feel you need to be reevaluated please return to the emergency room. Sepsis Event Note (ED) - Evaluation Sepsis Screening Result: No Definite Risk <Kamran Cline - Last Filed: 05/22/21 00:41> Review of Systems - Review of Systems Review Of Systems: See Below ED EXAM, GENERAL - Physical Exam Exam: See Below Course - Vital Signs Text/Narrative:: Patient seen in conjunction with the nurse practitioner. CT scan pending to rule out PE. This is negative for PE but it does show a cyst versus soft tissue mass of undetermined origin. Patient will follow-up primary care doctor for reevaluation as well as MRI. It does show Covid and patient is just getting over Covid earlier this month. Finally there was some leg discomfort and so patient have an ultrasound to rule out DVT. Supportive care with return precautions and PCP follow-up Last Recorded V/S: Last Vital Signs Temp 36.8 C 05/21/21 19:49 Pulse 14 L 05/21/21 19:49 Resp 18 05/21/21 19:49 BP 131/85 05/21/21 19:49 Pulse Ox 98 05/21/21 19:49 - Orders/Labs/Meds Orders: Active Orders 24 hr Category Date Time Status Sodium Chloride 0.9% [Normal Saline] 1,000 ml Med 05/21/21 20:35 Active IV STAT Medication Orders Sodium Chloride (Normal Saline) 1,000 mls @ 125 mls/hr IV STAT ONE Stop: 05/22/21 04:34 Labs: Laboratory Tests 05/21/21 05/21/21 05/21/21 Range/Units 21:02 21:02 21:02 WBC 10.42 (4.0-11.0) K/uL RBC 4.48 (4.30-5.90) M/uL Hgb 11.2 L (12.0-16.0) g/dL Hct 35.1 L (36.0-46.0) % MCV 78.3 L (80.0-98.0) fL MCH 25.0 L (27.0-32.0) pg MCHC 31.9 (31.0-37.0) g/dL RDW Std Deviation 55.4 (28.0-62.0) fl RDW Coeff of Rosa Maria 20 H (11.0-15.0) % Plt Count 285 (150-400) K/uL MPV 9.90 (7.40-12.00) fL Neut % (Auto) 66.4 (48.0-80.0) % Lymph % (Auto) 26.8 (16.0-40.0) % [facility] % (Auto) 6.0 (0.0-15.0) % Eos % (Auto) 0.6 (0.0-7.0) % Baso % (Auto) 0.2 (0.0-1.5) % Neut # (Auto) 6.9 H (1.4-5.7) K/uL Lymph # (Auto) 2.8 H (0.6-2.4) K/uL [facility] # (Auto) 0.6 (0.0-0.8) K/uL Eos # (Auto) 0.1 (0.0-0.7) K/uL Baso # (Auto) 0.0 (0.0-0.1) K/uL Nucleated RBC % 0.0 /100WBC Nucleated RBCs # 0 K/uL D-Dimer, Quantitative 0.58 H (0.0-0.50) mg/L FEU Sodium 140 (136-145) mmol/L Potassium 3.7 (3.5-5.1) mmol/L Chloride 104 (98-107) mmol/L Carbon Dioxide 24.4 (21.0-32.0) mmol/L BUN 15 (7.0-18.0) mg/dL Creatinine 0.7 (0.6-1.0) mg/dL Est Cr Clr Drug Dosing 110.01 mL/min Estimated GFR (MDRD) > 60.0 ml/min Glucose 101 (74-106) mg/dL Calcium 9.4 (8.5-10.1) mg/dL Total Bilirubin 0.4 (0.2-1.0) mg/dL AST 11 L (15-37) IU/L ALT 24 (14-63) IU/L Alkaline Phosphatase 84 (46-116) U/L Total Protein 8.3 H (6.4-8.2) g/dL Albumin 3.5 (3.4-5.0) g/dL Globulin 4.8 H (2.6-4.0) g/dL Albumin/Globulin Ratio 0.7 L (0.9-1.6) Urine Color Urine Appearance Urine pH (5.0-8.0) Ur Specific Roderfield (1.001-1.035) Urine Protein (NEGATIVE) mg/dL Urine Glucose (UA) (NEGATIVE) mg/dL Urine Ketones (NEGATIVE) mg/dL Urine Occult Blood (NEGATIVE) Urine Nitrite (NEGATIVE) Urine Bilirubin (NEGATIVE) Urine Urobilinogen (<2.0) EU/dL Ur Leukocyte Esterase (NEGATIVE) Urine RBC (0-2/HPF) Urine WBC (0-5/HPF) Urine Bacteria (NEGATIVE) Urine Mucus (NONE-MOD) Urine HCG, Qual (NEGATIVE) 05/21/21 05/21/21 Range/Units 22:49 22:49 WBC (4.0-11.0) K/uL RBC (4.30-5.90) M/uL Hgb (12.0-16.0) g/dL Hct (36.0-46.0) % MCV (80.0-98.0) fL MCH (27.0-32.0) pg MCHC (31.0-37.0) g/dL RDW Std Deviation (28.0-62.0) fl RDW Coeff of Rosa Maria (11.0-15.0) % Plt Count (150-400) K/uL MPV (7.40-12.00) fL Neut % (Auto) (48.0-80.0) % Lymph % (Auto) (16.0-40.0) % Baylor % (Auto) (0.0-15.0) % Eos % (Auto) (0.0-7.0) % Baso % (Auto) (0.0-1.5) % Neut # (Auto) (1.4-5.7) K/uL Lymph # (Auto) (0.6-2.4) K/uL [facility] # (Auto) (0.0-0.8) K/uL Eos # (Auto) (0.0-0.7) K/uL Baso # (Auto) (0.0-0.1) K/uL Nucleated RBC % /100WBC Nucleated RBCs # K/uL D-Dimer, Quantitative (0.0-0.50) mg/L FEU Sodium (136-145) mmol/L Potassium (3.5-5.1) mmol/L Chloride (98-107) mmol/L Carbon Dioxide (21.0-32.0) mmol/L BUN (7.0-18.0) mg/dL Creatinine (0.6-1.0) mg/dL Est Cr Clr Drug Dosing mL/min Estimated GFR (MDRD) ml/min Glucose (74-106) mg/dL Calcium (8.5-10.1) mg/dL Total Bilirubin (0.2-1.0) mg/dL AST (15-37) IU/L ALT (14-63) IU/L Alkaline Phosphatase (46-116) U/L Total Protein (6.4-8.2) g/dL Albumin (3.4-5.0) g/dL Globulin (2.6-4.0) g/dL Albumin/Globulin Ratio (0.9-1.6) Urine Color YELLOW Urine Appearance SLT CLOUDY Urine pH 6.0 (5.0-8.0) Ur Specific Roderfield >= 1.030 (1.001-1.035) Urine Protein NEGATIVE (NEGATIVE) mg/dL Urine Glucose (UA) NEGATIVE (NEGATIVE) mg/dL Urine Ketones NEGATIVE (NEGATIVE) mg/dL Urine Occult Blood LARGE H (NEGATIVE) Urine Nitrite NEGATIVE (NEGATIVE) Urine Bilirubin NEGATIVE (NEGATIVE) Urine Urobilinogen 0.2 (<2.0) EU/dL Ur Leukocyte Esterase NEGATIVE (NEGATIVE) Urine RBC 50-60 (0-2/HPF) Urine WBC 0-2 (0-5/HPF) Urine Bacteria FEW (NEGATIVE) Urine Mucus LIGHT (NONE-MOD) Urine HCG, Qual NEGATIVE (NEGATIVE) Meds: Medications Generic Name Dose Route Start Last Admin Trade Name Freq PRN Reason Stop Dose Admin Sodium Chloride 1,000 mls @ 125 mls/hr 05/21/21 20:35 Normal Saline IV 05/22/21 04:34 STAT ONE Discontinued Medications Generic Name Dose Route Start Last Admin Trade Name Freq PRN Reason Stop Dose Admin Iopamidol 100 ml 05/21/21 22:35 05/21/21 23:32 Iopamidol 755 Mg/Ml 100 Ml Bottle IVPUSH 05/21/21 22:36 100 ml ONETIME ONE Administration Departure - Departure Time of Disposition: 00:40 Sepsis Event Note (ED) - Focused Exam Vital Signs: Vital Signs Temp Pulse Resp BP Pulse Ox 05/21/21 19:49 36.8 C 14 L 18 131/85 98
--- NOTE | 2021-05-21 21:17 | PCM.EKG ---
#1 Interpretation EKG Interpretation Comments: EKG: NSR, nonspecific ST/T changes, Rate -100; 9:07pm
[2021-05-21 21:36] LABS: BLOOD UREA NITROGEN,BUN 15 mg/dL (7.0-18.0); CARBON DIOXIDE,CO2 24.4 mmol/L (21.0-32.0); CHLORIDE,CL 104 mmol/L (98-107); GLUCOSE RANDOM 101 mg/dL (74-106); POTASSIUM,K 3.7 mmol/L (3.5-5.1); SODIUM,NA 140 mmol/L (136-145)
--- NOTE | 2021-05-21 22:05 | CR ---
Indication: Shortness of breath, COVID positive Technique: Chest 1 view Comparison: Chest CT 05/05/2021 Findings/Impression: Cardiovascular and mediastinum: Heart size and vasculature are normal in caliber and appearance. Lungs and pleural space: No pleural effusion or pneumothorax. Hazy bilateral opacities consistent with COVID pneumonia which appears similar to minimally increased compared to the prior exam. Bones and soft tissues: No acute findings. Dictated by Glenn Vaca MD @ 05/21/2021 10:04:07 PM (Electronically Signed)
[2021-05-21] MEDS ORDERED: Iopamidol 755 Mg/ML 100 ML Bottle IVPUSH ONE (22:35)
--- NOTE | 2021-05-22 00:02 | CT ---
INDICATION: Chest pain and elevated D-dimer TECHNIQUE: CT chest PE was acquired with 100 cc Isovue 370 intravenous contrast. COMPARISON: None. FINDINGS: Heart and vasculature: Exam mildly degraded by respiratory motion. No filling defects seen within the pulmonary artery. Thoracic aorta normal in caliber. No pericardial effusion. Lungs and pleural: No pleural effusion or pneumothorax. Bilateral patchy ground-glass opacities throughout both lungs. Lymph nodes/mediastinum: Mildly hyperdense lesion within the right aspect of the mediastinum measuring 4.5 centimeters and 33 Hounsfield units. Right hilar adenopathy measuring 14 millimeters Chest wall: No masses. Upper abdomen: Normal. Bones: Unremarkable for age. IMPRESSION: 1. No evidence of pulmonary embolus. 2. Patchy bilateral ground-glass opacities suggestive of a viral pneumonia, likely COVID-19 pneumonia. 3. Incidental hyperdense lesion within the right aspect of the mediastinum measuring 4.5 centimeters. This could represent a mildly complex cystic lesion such as a pericardial cyst, however on this single-phase examination hypovascular soft tissue lesion would be in the differential diagnosis. Suggest follow-up outpatient chest MR for further characterization. Please note that all CT scans at this facility use dose modulation, iterative reconstruction, and/or weight-based dosing when appropriate to reduce radiation dose to as low as reasonably achievable. Dictated by Glenn Vaca MD @ 05/22/2021 12:02:01 AM (Electronically Signed)
== END 2021-05-22 00:56 | disposition home or self-care (01) ==
LOC: MW.ED 19:28
DX: M79.605 Pain in left leg (principal); G43.909 Migraine, unspecified, not intractable, without status migrainosus; Z86.16 Personal history of COVID-19; Z88.1 Allergy status to other antibiotic agents; Z88.8 Allergy status to other drugs, medicaments and biological substances; Z79.899 Other long term (current) drug therapy
CPT/HCPCS: 36415; 71045; 71275; 80053; 81001; 81025; 85025; 85379; 93005; 99284; Q9967

== ENCOUNTER 2021-05-26 19:18 | Emergency (ER) | payer MEDICAID ==
[2021-05-26] MEDS ORDERED: Sodium Chloride 0.9% 2.5 ML Syringe FLUSH PRN (19:32)
[2021-05-26] MEDS ORDERED: Sodium Chloride 0.9% 10 ML SDV IV PRN (19:32)
[2021-05-26] MEDS ORDERED: Sodium Chloride 0.9% 10 ML Syringe FLUSH PRN (19:32)
[2021-05-26 20:09] LABS: BLOOD UREA NITROGEN,BUN 13 mg/dL (7.0-18.0); CARBON DIOXIDE,CO2 22.2 mmol/L (21.0-32.0); CHLORIDE,CL 107 mmol/L (98-107); GLUCOSE RANDOM 110 mg/dL (74-106); POTASSIUM,K 3.9 mmol/L (3.5-5.1); SODIUM,NA 142 mmol/L (136-145)
[2021-05-26] MEDS ORDERED: Sodium Chloride 0.9% 1,000 ML IV ONE (20:45)
--- NOTE | 2021-05-26 20:46 | CT ---
CT HEAD DATE: 05/26/2021 CLINICAL HISTORY: Patient with focal neurological deficits. TECHNIQUE: Standard CT scanning of the head was performed. COMPARISON: None. FINDINGS: There is no intracranial hemorrhage. There is no territorial infarction. There are mild microangiopathic changes. There is diffuse parenchymal volume loss. There is no mass effect or midline shift. The calvarium is unremarkable. The orbits are unremarkable. The paranasal sinuses are unremarkable. The mastoid air cells are unremarkable. The soft tissues are unremarkable. IMPRESSION: 1. No intracranial hemorrhage or territorial infarction. 2. Mild microangiopathic changes and diffuse parenchymal volume loss. Please note that all CT scans at this facility use dose modulation, iterative reconstruction, and/or weight-based dosing when appropriate to reduce radiation dose to as low as reasonably achievable. Dictated by: Juan Pablo Medina MD @ 05/26/2021 20:44:30 (Electronically Signed)
--- NOTE | 2021-05-26 20:48 | CT ---
CT ANGIOGRAM HEAD AND NECK DATE: 05/26/2021 CLINICAL HISTORY: Patient with focal neurological deficits. TECHNIQUE: Standard helical CT image acquisition through the head and neck was performed after intravenous contrast bolus enhancement. Multiplanar reconstructed images were performed and interpreted. COMPARISON: CT same day. FINDINGS: There is no proximal intracranial large vessel occlusion. The origins of the great vessels from the aortic arch are patent. The origin of the right vertebral artery is patent. The origin of the left vertebral artery is patent. The common carotid arteries are patent There is no stenosis at the origin of the right internal carotid artery. There is no stenosis at the origin of the left internal carotid artery. The rest of the cervical segments of the internal carotid arteries are patent up to their intracranial segments. The intracranial segments of the internal carotid arteries are patent. The left vertebral artery is dominant. The cervical segments of the vertebral arteries are patent. The intracranial segments of the vertebral arteries are patent. The middle cerebral arteries are normal without aneurysm or proximal occlusion identified. The anterior cerebral arteries are normal without aneurysm or proximal occlusion identified. The anterior communicating artery is well visualized and appears normal. The basilar artery is normal without aneurysm or occlusion. The posterior cerebral arteries are normal without aneurysm or proximal occlusion. There is normal opacification of major intracranial venous structures. The visualized lung apices are unremarkable The thyroid gland is unremarkable. The soft tissues of the neck are unremarkable. There are degenerative changes in the cervical spine. IMPRESSION: Normal CT angiogram of the head and neck. Please note that all CT scans at this facility use dose modulation, iterative reconstruction, and/or weight-based dosing when appropriate to reduce radiation dose to as low as reasonably achievable. Dictated by: Juan Pablo Medina MD @ 05/26/2021 20:47:31 (Electronically Signed)
--- NOTE | 2021-05-26 20:54 | CT ---
Indication: Shortness of breath. Technique: Multiple contiguous axial images were obtained from the thoracic inlet through the upper abdomen after the intravenous administration of 75 cc Isovue 370. Please note that all CT scans at this facility use dose modulation, iterative reconstruction, and/or weight-based dosing when appropriate to reduce radiation dose to as low as reasonably achievable. Comparison: May 21, 2021. Findings: A right hilar lymph node is identified. This measures 20 mm in short axis. The heart is borderline in size. No pericardial effusion is identified. No mediastinal lymphadenopathy is identified. No axillary lymphadenopathy is identified. A questionable masses identified in the right mediastinum. Previously, MRI had been recommended. No pulmonary embolism is identified. No aortic dissection is identified. The visualized portions of the liver, spleen, pancreas, gallbladder, and adrenal glands are grossly normal. Patchy bilateral opacities are identified bilaterally. This is most consistent with COVID. Impression: Findings most consistent with COVID. Right hilar lymphadenopathy, most likely is reactive. Questionable right mediastinal soft tissue mass. Previously, MRI has been recommended. Please note that all CT scans at this facility use dose modulation, iterative reconstruction, and/or weight-based dosing when appropriate to reduce radiation dose to as low as reasonably achievable. Dictated by Heavenly Cook MD @ 05/26/2021 8:53:24 PM (Electronically Signed)
--- NOTE | 2021-05-26 21:30 | EDM.PDOC ---
ED HPI GENERAL MEDICAL PROBLEM - General Chief Complaint: Neuro Symptoms/Deficits Stated Complaint: BACK PAIN, CHEST PAIN Time Seen by Provider: 05/26/21 19:32 - History of Present Illness INITIAL COMMENTS - FREE TEXT/NARRATIVE: HISTORY AND PHYSICAL: History of present illness: This is a 31-year-old female who presents ER today and was evaluated as a stroke alert secondary to acute onset of chest pain with pain in her left arm resulting in tingling and weakness to her left upper and left lower extremity. Patient denies any slurred speech or facial asymmetry. Patient has any recent fevers, shakes, chills, nausea, vomiting, diarrhea. Patient reports that she does have a cough and has been feeling generalized weakness for several days. Patient has been diagnosed with coronavirus and is currently on supplemental oxygen at home secondary to her coronavirus. Patient reports that she does have a history of a TIA in the past. Patient reports that she is currently feeling weak in her left arm. Review of systems: As per history of present illness and below otherwise all systems reviewed and negative. Past medical history: As per history of present illness and as reviewed below otherwise noncontributory. Surgical history: As per history of present illness and as reviewed below otherwise noncontributory. Social history: No reported history of drug abuse. Family history: As per history of present illness and as reviewed below otherwise noncontributory. Physical exam: This patient was seen and evaluated during the 2019 SARS-CoV-2 novel coronavirus pandemic period. Community viral transmission is ongoing at time of this encounter and the emergency department is operating under pandemic response procedures. Constitutional: Patient is oriented to person, place, and time. Appears well- developed and well-nourished. No distress. HEENT: Moist mucous membranes Head: Normocephalic and atraumatic Eyes: Right eye exhibits no discharge. Left eye exhibits no discharge. No scleral icterus Neck: Normal range of motion. No tracheal deviation present. Cardiovascular: Normal rate and regular rhythm. Pulmonary: Effort normal, no respiratory distress. Abdominal: No distention Musculoskeletal: Normal range of motion Neurologic: Alert and oriented to person, place and time. Skin: [place], warm and dry. Psychiatric: Normal mood and affect. Behavior is normal. Judgment and thought content normal. Nursing note and vital signs have been reviewed Neuro: A&Ox3. Cranial nerves II-XII grossly intact, 5/5 strength to bilateral upper and lower extremities, sensation intact to bilateral upper and lower extremities, no nystagmus, PERRLA, EOMI, normal speech, proprioception intact to bilateral lower extremities, normal finger to nose test, gait normal Patient has normal gait in the ED. 1a) Level of consciousness: 0=alert; 1=not alert but arousable by minor stimulation; 2=not alert: requires repeated stimulation to attend or is obtunded and requires strong or painful stimulation to make movements; 3=responds only with reflex motor or autonomic effects or totally unresponsive, flaccid and areflexic SCORE 0 1b) LOC questions ("what month is it?", "how old are you?"): 0=answers both correctly; 1=answers one correctly; 2=answers neither correctly SCORE 0 1c) LOC commands (command patient to "open and close your eyes. Sales Facilitator and release your hand.): 0=performs both correctly; 1=performs one correctly; 2=performs neither correctly SCORE 0 2) Best gaze ("follow my finger"): 0=normal; 1=partial gaze palsy; 2=forced deviation or total gaze paresis SCORE 0 3) Visual ramirez (use confrontation, finger counting, or visual threat. confront upper/lower quadrants of visual field): 0=no visual loss; 1=partial hemianopsia; 2=complete hemianopsia; 3=bilateral hemianopsia SCORE 0 4) Facial palsy (by words or pantomime, encourage patient to: "Show me your teeth. Raise your eyebrows. Close your eyes."): 0=normal symmetrical movement; 1=minor paralysis (flattened nasolabial fold, asymmetry on smiling); 2=partial paralysis (lower face); 3=complete paralysis SCORE 0 5) Arm motor (alternately position patient's arms. extend each arm with palms down [90 degrees if sitting, 45 degrees if supine] - test each arm in turn and start with nonparetic arm first): 0=no drift; 1=drift (arm falls before 10 seconds); 2=some effort vs. gravity; 3=no effort vs. gravity; 4=no movement; UN (untestable)=amputation or joint fusion SCORE 0 6) Leg motor (alternately position patient's legs. extend each leg [30 degrees, always while supine] - test nonparetic leg first): 0=no drift; 1=drift (leg falls before 5 seconds); 2=some effort vs. gravity; 3= no effort vs. gravity; 4=no movement; UN=amputation or joint fusion SCORE 0 7) Limb ataxia (ask patient [eyes open] to: "touch your finger to your nose. touch your heel to your bravo"): 0=absent; 1=present in one limb; 2=present in two or more limbs; UN=amputation or joint fusion SCORE 0 8) Sensory (test as many body parts as possible [arms and not hands, legs, trunk, face] for sensation using pinprick or noxious stimuli [in the obtunded or aphasic patient]): 0=normal; 1=mild to moderate sensory loss; 2=severe to total sensory loss SCORE 0 9) Best language (using pictures and a sentence list, ask patient to "describe what you see in this picture. Name the items in this picture. Read these sentences"): 0=no aphasia, 1=mild to moderate aphasia; 2=severe aphasia; 3=mute, global aphasia SCORE 0 10) Dysarthria (using a simple word list, ask patient to: "read these words" or "repeat these words"): 0=normal articulation; 1=mild to moderate dysarthria; 2=severe dysarthria; UN=intubated or other physical barrier SCORE 0 11) Extinction and inattention (sufficient information to determine these scores may have been obtained during the prior testing): 0=no abnormality; 1=visual, tactile, auditory, spatial or personal inattention; 2=profound sarahy-inattention or extinction to more than one modality SCORE 0 TOTAL NIHSS Score: 0 Diagnostics: CT of head, CTA of head and neck, CTA of thorax reveals no pathology. Chest Xray: Normal cardiac silhouette No infiltrates or effusions identified. No PTX No evidence of acute bony fracture. As interpreted by ER MD: Lisa EKG: May 26, 2021 at 8:17 PM As interpreted by ER physician: Lisa: Nonspecific ST-T wave abnormalities Normal axis No evidence of ST elevation [place] Normal sinus rhythm heart rate of 96 Therapeutics: [] Assessment and plan: 31-year-old female who presents ER today with signs and symptoms concerning for stroke. During her evaluation ED the patient was extremely anxious and nervous. Patient was hyperventilating and having tingling all throughout her body. Patient does report that she has weakness to her left side although on exam her strength has been 5 out of 5 in all extremities including her left upper and left lower extremities. Patient was able ambulate in the ED with stable gait. Patient CT scan have all been unremarkable. Patient will likely need admission for further evaluation of her TIA symptoms. At this time given that she has an NIH score of 0 I do not feel that the patient will require thrombolytic therapy. Thrombolytic therapy not given secondary to NIH scale of 0 and patient has no symptoms at this time. At 934 I was informed by the patient that she will refuse admission to the hosp ital and that she needs to go home because there is nobody caring for her children this time. I have attempted to resolve the issues for her but she does not have 1 discussed with me and so that she is going to walk out of renal bladder IV. I have discussed with the patient the risks and benefits including recurrent strokes, and morbidity from recurrent strokes especially with her recent diagnosis of Covid and she understands these risks and of she has accepted all these risks. I will respect patient's autonomy and allow her to sign out AGAINST MEDICAL ADVICE. She understand that she may return to the ED if she change her mind at any time for further evaluation. Definitive disposition and diagnosis as appropriate pending reevaluation and review of above. Left Chest Pain Score (Numeric/FACES): 8 - Related Data Allergies Allergy/AdvReac Type Severity Reaction Status Date / Time metronidazole [From Flagyl] Allergy Anaphylactic Verified 05/26/21 19:40 Shock proventil liquid Allergy Seizure Uncoded 05/26/21 19:40 ptu Allergy Hives Uncoded 05/26/21 19:40 tapazole Allergy Hives Uncoded 05/26/21 19:40 Home Meds: Home Meds ClonazePAM [KlonoPIN] 1 tab PO TID PRN 05/08/21 [History] SUMAtriptan succinate [Imitrex] 100 mg PO DAILY PRN MDD 200 mg 05/08/21 [Hi story] Baclofen 10 mg PO TID PRN 05/09/21 [History] Past Medical History - Past Health History Medical/Surgical History: Denies Medical/Surgical History HEENT History: Reports: None Other HEENT History: wears glasses Cardiovascular History: Reports: Other (See Below) Other Cardiovascular History: "cyst in my heart" Respiratory History: Reports: None Gastrointestinal History: Reports: None Genitourinary History: Reports: None SENIOR FIRE PROTECTION ENGINEER History: Reports: , 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 SENIOR FIRE PROTECTION ENGINEER History: Termination of 1 Musculoskeletal History: Reports: None Other Musculoskeletal History: hx of fx to jaw and hands Neurological History: Reports: Migraines, Other (See Below) Other Neuro History: Tourettes Psychiatric History: Reports: Anxiety, Depression Other Psychiatric History: Tourettes Endocrine/Metabolic History: Reports: Hypothyroidism Insulin Pump Model and Platen Press Operator: None Hematologic History: Reports: None Immunologic History: Reports: None Oncologic (Cancer) History: Reports: None Dermatologic History: Reports: Other (See Below) Other Dermatologic History: hydrotitus supervitiva- HS syndrome - Infectious Disease History Infectious Disease History: Reports: Chicken Pox - Past Surgical History Head Surgeries/Procedures: Reports: None HEENT Surgical History: Reports: None Cardiovascular Surgical History: Reports: None Respiratory Surgical History: Reports: None GI Surgical History: Reports: None Other GI Surgeries/Procedures: x 3 Female Surgical History: Reports: Section Other Female Surgeries/Procedures: x 3 Endocrine Surgical History: Reports: None Neurological Surgical History: Reports: None Musculoskeletal Surgical History: Reports: None Oncologic Surgical History: Reports: None Dermatological Surgical History: Reports: None Social & Family History - Family History Family Medical History: No Pertinent Family History HEENT: Reports: None Cardiac: Reports: None Respiratory: Reports: None GI: Reports: None : Reports: None OBGYN: Reports: None Musculoskeletal: Reports: None Neurological: Reports: None Psychiatric: Reports: None Endocrine/Metabolic: Reports: None Hematologic: Reports: None Immunologic: Reports: None Dermatologic: Reports: None Oncologic: Reports: Breast, Renal - Tobacco Use Tobacco Use Status *Q: Former Tobacco User Used Tobacco, but Quit: Yes Month/Year Tobacco Last Used: 05/2021 - Caffeine Use Caffeine Use: Reports: Energy Drinks - Recreational Drug Use Recreational Drug Use: Yes Drug Use in Last 12 Months: Yes Recreational Drug Type: Reports: Marijuana/Hashish ED ROS GENERAL - Review of Systems Review Of Systems: See Below ED EXAM, GENERAL - Physical Exam Exam: See Below Course - Vital Signs Last Recorded V/S: Last Vital Signs Temp 97.4 F 05/26/21 19:21 Pulse 105 H 05/26/21 19:33 Resp 19 05/26/21 19:21 BP 135/82 05/26/21 19:33 Pulse Ox 100 05/26/21 19:33 - Orders/Labs/Meds Orders: Active Orders 24 hr Category Date Time Status Assess Neurological Status [RC] ASDIRECTED Care 05/26/21 19:33 Active Bedrest [RC] ASDIRECTED Care 05/26/21 19:33 Active Cardiac Monitoring [RC] . DIRECTED Care 05/26/21 19:33 Active Height and Weight [RC] UPON Care 05/26/21 19:33 Active Initiate Acute Stroke Protocol [RC] STAT Care 05/26/21 19:33 Active NIH Stroke Scale [RC] ASDIRECTED Care 05/26/21 19:33 Active Oxygen Therapy [RC] ASDIRECTED Care 05/26/21 19:33 Active Stroke Education, General [RC] Click to Edit Care 05/26/21 19:33 Active Vital Signs [RC] Q15M Care 05/26/21 19:33 Active Chest 1V Frontal [CR] Stat Exams 05/26/21 19:35 Ordered Sodium Chloride 0.9% [Normal Saline] Med 05/26/21 19:32 Active 10 ml IV ASDIRECTED PRN Sodium Chloride 0.9% [Normal Saline] 1,000 ml Med 05/26/21 20:45 Active IV .Bolus Sodium Chloride 0.9% [Saline Flush] Med 05/26/21 19:32 Active 10 ml FLUSH ASDIRECTED PRN Sodium Chloride 0.9% [Saline Flush] Med 05/26/21 19:32 Active 2.5 ml FLUSH ASDIRECTED PRN Peripheral IV Insertion Adult [OM.PC] Stat Oth 05/26/21 19:33 Ordered Peripheral IV Insertion Adult [OM.PC] Stat Oth 05/26/21 19:33 Ordered Medication Orders Sodium Chloride (Normal Saline) 1,000 mls @ 999 mls/hr IV .Bolus ONE Stop: 05/26/21 21:45 Last Admin: 05/26/21 20:47 Dose: 999 mls/hr Documented by: BHARGAVI Sodium Chloride (Sodium Chloride 0.9% 10 Ml Syringe) 10 ml FLUSH ASDIRECTED PRN PRN Reason: Keep Vein Open Last Admin: 05/26/21 20:47 Dose: 10 ml Documented by: BHARGAVI Sodium Chloride (Sodium Chloride 0.9% 2.5 Ml Syringe) 2.5 ml FLUSH ASDIRECTED PRN PRN Reason: Keep Vein Open Last Admin: 05/26/21 20:46 Dose: 2.5 ml Documented by: BHARGAVI Sodium Chloride (Sodium Chloride 0.9% 10 Ml Sdv) 10 ml IV ASDIRECTED PRN PRN Reason: IV Use Labs: Laboratory Tests 05/26/21 05/26/21 05/26/21 Range/Units 19:30 19:30 19:30 WBC 11.32 H (4.0-11.0) K/uL RBC 4.47 (4.30-5.90) M/uL Hgb 11.5 L (12.0-16.0) g/dL Hct 35.0 L (36.0-46.0) % MCV 78.3 L (80.0-98.0) fL MCH 25.7 L (27.0-32.0) pg MCHC 32.9 (31.0-37.0) g/dL RDW Std Deviation 56.2 (28.0-62.0) fl RDW Coeff of Rosa [place] 20 H (11.0-15.0) % Plt Count 257 (150-400) K/uL MPV 10.10 (7.40-12.00) fL Neut % (Auto) 66.4 (48.0-80.0) % Lymph % (Auto) 26.2 (16.0-40.0) % [place] % (Auto) 6.0 (0.0-15.0) % Eos % (Auto) 1.1 (0.0-7.0) % Baso % (Auto) 0.3 (0.0-1.5) % Neut # (Auto) 7.5 H (1.4-5.7) K/uL Lymph # (Auto) 3.0 H (0.6-2.4) K/uL [place] # (Auto) 0.7 (0.0-0.8) K/uL Eos # (Auto) 0.1 (0.0-0.7) K/uL Baso # (Auto) 0.0 (0.0-0.1) K/uL Nucleated RBC % 0.0 /100WBC Nucleated RBCs # 0 K/uL INR 1.01 APTT 26.3 (18.6-31.3) SEC Sodium 142 (136-145) mmol/L Potassium 3.9 (3.5-5.1) mmol/L Chloride 107 (98-107) mmol/L Carbon Dioxide 22.2 (21.0-32.0) mmol/L BUN 13 (7.0-18.0) mg/dL Creatinine 1.0 (0.6-1.0) mg/dL Est Cr Clr Drug Dosing TNP Estimated GFR (MDRD) > 60.0 ml/min Glucose 110 H (74-106) mg/dL Calcium 8.9 (8.5-10.1) mg/dL Total Bilirubin 0.6 (0.2-1.0) mg/dL AST 13 L (15-37) IU/L ALT 21 (14-63) IU/L Alkaline Phosphatase 85 (46-116) U/L Troponin I < 0.050 (0.000-0.056) ng/mL Total Protein 8.7 H (6.4-8.2) g/dL Albumin 3.5 (3.4-5.0) g/dL Globulin 5.2 H (2.6-4.0) g/dL Albumin/Globulin Ratio 0.7 L (0.9-1.6) Urine Color Urine Appearance Urine pH (5.0-8.0) Ur Specific [place] (1.001-1.035) Urine Protein (NEGATIVE) mg/dL Urine Glucose (UA) (NEGATIVE) mg/dL Urine Ketones (NEGATIVE) mg/dL Urine Occult Blood (NEGATIVE) Urine Nitrite (NEGATIVE) Urine Bilirubin (NEGATIVE) Urine Urobilinogen (<2.0) EU/dL Ur Leukocyte Esterase (NEGATIVE) Urine RBC (0-2/HPF) Urine WBC (0-5/HPF) Ur Epithelial Cells (NONE-FEW) Urine Bacteria (NEGATIVE) Urine HCG, Qual (NEGATIVE) Urine Opiates Screen (NEGATIVE) Ur Oxycodone Screen (NEGATIVE) Urine Methadone Screen (NEGATIVE) Ur Barbiturates Screen (NEGATIVE) Ur Phencyclidine Scrn (NEGATIVE) Ur Amphetamine Screen (NEGATIVE) U Methamphetamines Scrn (NEGATIVE) U Benzodiazepines Scrn (NEGATIVE) U Cocaine Metab Screen (NEGATIVE) U Marijuana (THC) Screen (NEGATIVE) Ethyl Alcohol < 3.0 mg/dL 05/26/21 05/26/21 05/26/21 Range/Units 20:49 20:49 20:49 WBC (4.0-11.0) K/uL RBC (4.30-5.90) M/uL Hgb (12.0-16.0) g/dL Hct (36.0-46.0) % MCV (80.0-98.0) fL MCH (27.0-32.0) pg MCHC (31.0-37.0) g/dL RDW Std Deviation (28.0-62.0) fl RDW Coeff of [place] (11.0-15.0) % Plt Count (150-400) K/uL MPV (7.40-12.00) fL Neut % (Auto) (48.0-80.0) % Lymph % (Auto) (16.0-40.0) % [place] % (Auto) (0.0-15.0) % Eos % (Auto) (0.0-7.0) % Baso % (Auto) (0.0-1.5) % Neut # (Auto) (1.4-5.7) K/uL Lymph # (Auto) (0.6-2.4) K/uL [place] # (Auto) (0.0-0.8) K/uL Eos # (Auto) (0.0-0.7) K/uL Baso # (Auto) (0.0-0.1) K/uL Nucleated RBC % /100WBC Nucleated RBCs # K/uL INR APTT (18.6-31.3) SEC Sodium (136-145) mmol/L Potassium (3.5-5.1) mmol/L Chloride (98-107) mmol/L Carbon Dioxide (21.0-32.0) mmol/L BUN (7.0-18.0) mg/dL Creatinine (0.6-1.0) mg/dL Est Cr Clr Drug Dosing Estimated GFR (MDRD) ml/min Glucose (74-106) mg/dL Calcium (8.5-10.1) mg/dL Total Bilirubin (0.2-1.0) mg/dL AST (15-37) IU/L ALT (14-63) IU/L Alkaline Phosphatase (46-116) U/L Troponin I (0.000-0.056) ng/mL Total Protein (6.4-8.2) g/dL Albumin (3.4-5.0) g/dL Globulin (2.6-4.0) g/dL Albumin/Globulin Ratio (0.9-1.6) Urine Color YELLOW Urine Appearance CLEAR Urine pH 8.0 (5.0-8.0) Ur Specific [place] 1.010 (1.001-1.035) Urine Protein NEGATIVE (NEGATIVE) mg/dL Urine Glucose (UA) NEGATIVE (NEGATIVE) mg/dL Urine Ketones NEGATIVE (NEGATIVE) mg/dL Urine Occult Blood SMALL H (NEGATIVE) Urine Nitrite NEGATIVE (NEGATIVE) Urine Bilirubin NEGATIVE (NEGATIVE) Urine Urobilinogen 1.0 (<2.0) EU/dL Ur Leukocyte Esterase NEGATIVE (NEGATIVE) Urine RBC 0-1 (0-2/HPF) Urine WBC 0-1 (0-5/HPF) Ur Epithelial Cells RARE (NONE-FEW) Urine Bacteria RARE (NEGATIVE) Urine HCG, Qual NEGATIVE (NEGATIVE) Urine Opiates Screen NEGATIVE (NEGATIVE) Ur Oxycodone Screen NEGATIVE (NEGATIVE) Urine Methadone Screen NEGATIVE (NEGATIVE) Ur Barbiturates Screen NEGATIVE (NEGATIVE) Ur Phencyclidine Scrn NEGATIVE (NEGATIVE) Ur Amphetamine Screen NEGATIVE (NEGATIVE) U Methamphetamines Scrn NEGATIVE (NEGATIVE) U Benzodiazepines Scrn NEGATIVE (NEGATIVE) U Cocaine Metab Screen NEGATIVE (NEGATIVE) U Marijuana (THC) Screen POSITIVE (NEGATIVE) Ethyl Alcohol mg/dL Meds: Medications Generic Name Dose Route Start Last Admin Trade Name Freq PRN Reason Stop Dose Admin Sodium Chloride 1,000 mls @ 999 mls/hr 05/26/21 20:45 05/26/21 20:47 Normal Saline IV 05/26/21 21:45 999 mls/hr .Bolus ONE Administration Sodium Chloride 10 ml 05/26/21 19:32 05/26/21 20:47 Sodium Chloride 0.9% 10 Ml Syringe FLUSH 10 ml ASDIRECTED PRN Administration Keep Vein Open Sodium Chloride 2.5 ml 05/26/21 19:32 05/26/21 20:46 Sodium Chloride 0.9% 2.5 Ml Syringe FLUSH 2.5 ml ASDIRECTED PRN Administration Keep Vein Open Sodium Chloride 10 ml 05/26/21 19:32 Sodium Chloride 0.9% 10 Ml Sdv IV ASDIRECTED PRN IV Use Departure - Departure Time of Disposition: 21:28 Disposition: Against Medical Advice 07 Condition: Undetermined Clinical Impression: Left-sided weakness, Chest pain, atypical, Left against medical advice - Discharge Information Instructions: Nonspecific Chest Pain, Adult, Weakness Referrals: Tony Hutson MD [Primary Care Provider] - Forms: ED Department Discharge Additional Instructions: You were seen and evaluated in the ER today secondary to possible stroke. Alth ough your CT scans have all been normal including CT scan of your chest, neck, head, there is still the possibility that you might of had a mini stroke. Since you are leaving AGAINST MEDICAL ADVICE, we are recommending that he take an aspirin a day. I have discussed to the risk that you are having a stroke that this could result in further problems including possibility of . Given your history of recent diagnosis of Covid this increases your possibility of having a stroke. Please make an appointment see your doctor in the morning to be reevaluated. Please return to the ER if you change your mind about wanting to be further evaluated for your symptoms. The following information is given to patients seen in the emergency department who are being discharged to home. This information is to outline your options for follow-up care. We provide all patients seen in our emergency department with a follow-up referral. The need for follow-up, as well as the timing and circumstances, are variable depending upon the specifics of your emergency department visit. If you don't have a primary care physician on staff, we will provide you with a referral. We always advise you to contact your personal physician following an emergency department visit to inform them of the circumstance of the visit and for follow-up with them and/or the need for any referrals to a consulting specialist. The emergency department will also refer you to a specialist when appropriate. This referral assures that you have the opportunity for follow-up care with a specialist. All of these measure are taken in an effort to provide you with optimal care, which includes your follow-up. Under all circumstances we always encourage you to contact your private physician who remains a resource for coordinating your care. When calling for follow-up care, please make the office aware that this follow-up is from your recent emergency room visit. If for any reason you are refused follow-up, please contact the [facility] Emergency Department at and asked to speak to the emergency department charge nurse. [facility] - Primary Care [address] [place] [address] [facility] [address] [place] [address] Sepsis Event Note (ED) - Focused Exam Vital Signs: Vital Signs Temp Pulse Resp BP Pulse Ox 05/26/21 19:33 105 H 135/82 100 05/26/21 19:21 97.4 F 119 H 19 140/96 H 98 - My Orders Last 24 Hours: My Active Orders 05/26/21 19:32 Sodium Chloride 0.9% [Normal Saline] 10 ml IV ASDIRECTED PRN Sodium Chloride 0.9% [Saline Flush] 10 ml FLUSH ASDIRECTED PRN Sodium Chloride 0.9% [Saline Flush] 2.5 ml FLUSH ASDIRECTED PRN 05/26/21 19:33 Assess Neurological Status [RC] ASDIRECTED Bedrest [RC] ASDIRECTED Cardiac Monitoring [RC] . DIRECTED Height and Weight [RC] UPON Initiate Acute Stroke Protocol [RC] STAT NIH Stroke Scale [RC] ASDIRECTED Oxygen Therapy [RC] ASDIRECTED Stroke Education, General [RC] Click to Edit Vital Signs [RC] Q15M Peripheral IV Insertion Adult [OM.PC] Stat Peripheral IV Insertion Adult [OM.PC] Stat 05/26/21 19:35 Chest 1V Frontal [CR] Stat 05/26/21 20:45 Sodium Chloride 0.9% [Normal Saline] 1,000 ml IV .Bolus - Assessment/Plan Last 24 Hours: My Active Orders 05/26/21 19:32 Sodium Chloride 0.9% [Normal Saline] 10 ml IV ASDIRECTED PRN Sodium Chloride 0.9% [Saline Flush] 10 ml FLUSH ASDIRECTED PRN Sodium Chloride 0.9% [Saline Flush] 2.5 ml FLUSH ASDIRECTED PRN 05/26/21 19:33 Assess Neurological Status [RC] ASDIRECTED Bedrest [RC] ASDIRECTED Cardiac Monitoring [RC] . DIRECTED Height and Weight [RC] UPON Initiate Acute Stroke Protocol [RC] STAT NIH Stroke Scale [RC] ASDIRECTED Oxygen Therapy [RC] ASDIRECTED Stroke Education, General [RC] Click to Edit Vital Signs [RC] Q15M Peripheral IV Insertion Adult [OM.PC] Stat Peripheral IV Insertion Adult [OM.PC] Stat 05/26/21 19:35 Chest 1V Frontal [CR] Stat 05/26/21 20:45 Sodium Chloride 0.9% [Normal Saline] 1,000 ml IV .Bolus
--- NOTE | 2021-05-26 22:12 | CR ---
INDICATION: Stroke code TECHNIQUE: Chest radiograph 1 view COMPARISON: 05/21/2021 FINDINGS: The sensitivity and specificity of the exam are severely limited by the patient`s body habitus. Mediastinum: The mediastinum is normal in appearance. Moderate cardiomegaly is present without significant change. Lung: Mild pulmonary vascular congestion and basilar subsegmental atelectasis is seen. No sign of pleural effusion seen. No pneumothorax is identified. Bone and Soft tissue: Unremarkable for age. IMPRESSIONS: 1. Moderate cardiomegaly is present without significant change. 2. Mild pulmonary vascular congestion and basilar subsegmental atelectasis is seen. Dictated by Ascencion Colmenares MD @ 05/26/2021 10:10:01 PM Dictated by: Ascencion Colmenares MD @ 05/26/2021 22:10:06 (Electronically Signed)
[2021-05-26] MEDS ORDERED: Iopamidol 755 MG/ML 500 ML Multipack Bottle IVPUSH STA ×2 (23:25→23:26)
== END 2021-05-26 21:34 | disposition left against medical advice (07) ==
LOC: MW.ED 19:18
DX: R07.89 Other chest pain (principal); R53.1 Weakness; Z87.891 Personal history of nicotine dependence; Z88.1 Allergy status to other antibiotic agents; Z88.8 Allergy status to other drugs, medicaments and biological substances
CPT/HCPCS: 36415; 70450; 70496; 70498; 71045; 71275; 80053; 80305; 80307; 81001; 81025; 84484; 85025; 85610; 85730; 93005; 99285; J7030; Q9967

== ENCOUNTER 2021-10-10 11:10 | Emergency (ER) | payer MEDICAID ==
[2021-10-10] MEDS ORDERED: Acetaminophen 500 MG Tab PO ONE (11:53)
[2021-10-10] MEDS ORDERED: Sodium Chloride 0.9% 1,000 ML IV ONE (11:53)
[2021-10-10 13:21] LABS: BLOOD UREA NITROGEN,BUN 7 mg/dL (7.0-18.0); CARBON DIOXIDE,CO2 21.1 mmol/L (21.0-32.0); CHLORIDE,CL 99 mmol/L (98-107); GLUCOSE RANDOM 89 mg/dL (74-106); POTASSIUM,K 3.4 mmol/L (3.5-5.1); SODIUM,NA 134 mmol/L (136-145)
== END 2021-10-10 14:30 | disposition home or self-care (01) ==
LOC: MW.ED 11:10
DX: U07.1 COVID-19 (principal); E03.9 Hypothyroidism, unspecified; Z88.1 Allergy status to other antibiotic agents; Z88.8 Allergy status to other drugs, medicaments and biological substances; Z79.899 Other long term (current) drug therapy; Z20.822 Contact with and (suspected) exposure to COVID-19
CPT/HCPCS: 36415; 76815; 80053; 81003; 82947; 84702; 85025; 87635; 87804; 93005; 99284; A9270; J7030; U0002

== ENCOUNTER 2022-02-08 00:49 | Inpatient (IN) | payer MEDICAID ==
[2022-02-08] MEDS: Cyclobenzaprine 10 MG Tab PO PRN ×2 (02:38→10:28)
[2022-02-08] MEDS ORDERED: Acetaminophen 500 MG Tab PO PRN (05:11)
[2022-02-08] MEDS ORDERED: Butorphanol 1 MG/ML SDV IVPUSH ONE (10:02)
[2022-02-08] MEDS ORDERED: SODIUM CHLORIDE 0.9% IV ONE ×2 (11:15→11:30)
[2022-02-08] MEDS ORDERED: IRON SUCROSE COMPLEX IV ONE ×2 (11:15→11:30)
== END 2022-02-08 20:30 | disposition home or self-care (01) | DRG 833 ==
LOC: MW.OBCHECK 00:49 → MW.OB 05:09 → OBSVTOIN 05:10
PROVIDERS: ADMIT Obstetrics & Gynecology; ATTEND Obstetrics & Gynecology
DX: O9A.213 Injury, poisoning and certain other consequences of external causes complicating pregnancy, third trimester (principal); O99.013 Anemia complicating pregnancy, third trimester; M54.50 Low back pain, unspecified; E03.9 Hypothyroidism, unspecified; G43.909 Migraine, unspecified, not intractable, without status migrainosus; O99.353 Diseases of the nervous system complicating pregnancy, third trimester; O99.283 Endocrine, nutritional and metabolic diseases complicating pregnancy, third trimester; W10.8XXA Fall (on) (from) other stairs and steps, initial encounter; Z98.891 History of uterine scar from previous surgery; Z88.8 Allergy status to other drugs, medicaments and biological substances
CPT/HCPCS: 36415; 59025; 81001; 84112; 85025; 85027; 85384; 85610; 86850; 86900; 86901; A9270-GY; J0595; J1756; J3490; J7050

== ENCOUNTER 2022-03-05 09:54 | Emergency (ER) | payer MEDICAID ==
[2022-03-05] MEDS ORDERED: Sodium Chloride 0.9% 1,000 ML IV ONE (10:01)
[2022-03-05] MEDS ORDERED: Morphine 4 MG/ML VIAL IVPUSH ONE (10:18)
[2022-03-05] MEDS ORDERED: Ondansetron 4 MG/2 ML SDV IVPUSH ONE (10:19)
[2022-03-05 11:02] LABS: CARBON DIOXIDE,CO2 22.3 mmol/L (21.0-32.0); POTASSIUM,K 4.1 mmol/L (3.5-5.1)
== END 2022-03-05 13:29 | disposition home or self-care (01) ==
LOC: MW.ED 09:54
DX: N93.9 Abnormal uterine and vaginal bleeding, unspecified (principal); E03.9 Hypothyroidism, unspecified; Z88.1 Allergy status to other antibiotic agents; Z88.8 Allergy status to other drugs, medicaments and biological substances; Z79.899 Other long term (current) drug therapy
CPT/HCPCS: 36415; 76830; 80053; 81001; 85025; 87086; 96361; 96374; 96375; 99284; J2270; J2405; J7030

== ENCOUNTER 2022-06-09 04:28 | Emergency (ER) | payer MEDICAID | END 2022-06-09 05:30 | disposition left against medical advice (07) | LOC: MW.ED 04:28 | DX: R07.9 Chest pain, unspecified (principal); Z88.8 Allergy status to other drugs, medicaments and biological substances | CPT/HCPCS: 99283; 99284 ==

== ENCOUNTER 2022-07-05 17:55 | Emergency (ER) | payer MEDICAID ==
[2022-07-05] MEDS ORDERED: Ondansetron 4 MG/2 ML SDV IVPUSH ONE (19:46)
[2022-07-05] MEDS ORDERED: Sodium Chloride 0.9% 1,000 ML IV ONE (19:46)
[2022-07-05] MEDS ORDERED: Ketorolac 60 MG/2 ML SDV IM ONE (19:46)
[2022-07-05 19:47] LABS: CARBON DIOXIDE,CO2 24.6 mmol/L (21.0-32.0); POTASSIUM,K 3.5 mmol/L (3.5-5.1)
[2022-07-05] MEDS ORDERED: Ketorolac 30 MG/ML SDV IVPUSH ONE (19:50)
[2022-07-05] MEDS ORDERED: Iopamidol 755 MG/ML 500 ML Multipack Bottle IVPUSH ONE (20:11)
[2022-07-05] MEDS ORDERED: Metoclopramide 10 MG/2 ML SDV IVPUSH ONE (21:10)
[2022-07-05] MEDS ORDERED: diphenhydrAMINE 50 MG/ML SDV IVPUSH ONE (21:10)
[2022-07-05] MEDS ORDERED: Nitrofurantoin Monohydrate/Macrocrystalline 100 MG Cap PO ONE (21:52)
== END 2022-07-05 22:14 | disposition home or self-care (01) ==
LOC: MW.ED 17:55
DX: G43.109 Migraine with aura, not intractable, without status migrainosus (principal); N39.0 Urinary tract infection, site not specified; E03.9 Hypothyroidism, unspecified; Z88.8 Allergy status to other drugs, medicaments and biological substances; Z91.048 Other nonmedicinal substance allergy status; Z79.899 Other long term (current) drug therapy; Z72.0 Tobacco use; Z20.822 Contact with and (suspected) exposure to COVID-19
CPT/HCPCS: 36415; 74177; 80053; 81001; 81025; 83690; 85025; 87086; 87635; 96361; 96374; 96375; 99284; A9270; J1200; J1885; J2405; J2765; J7030; Q9967; U0002

== ENCOUNTER 2022-10-11 10:41 | Emergency (ER) | payer SELFPAY | END 2022-10-11 11:54 | LOC: MW.ED 10:41 | DX: N39.0 Urinary tract infection, site not specified (principal); E03.9 Hypothyroidism, unspecified; Z88.1 Allergy status to other antibiotic agents; Z88.8 Allergy status to other drugs, medicaments and biological substances; Z79.899 Other long term (current) drug therapy | CPT/HCPCS: 81001; 87086; 87088; 87186; 99283 ==

== ENCOUNTER 2023-01-22 09:15 | Emergency (ER) | payer MEDICAID | END 2023-01-22 10:32 | disposition home or self-care (01) | LOC: MW.ED 09:15 | DX: L73.2 Hidradenitis suppurativa (principal); E03.9 Hypothyroidism, unspecified; Z88.1 Allergy status to other antibiotic agents; Z88.8 Allergy status to other drugs, medicaments and biological substances; Z79.899 Other long term (current) drug therapy; Z72.0 Tobacco use | CPT/HCPCS: 99283 ==

== ENCOUNTER 2023-02-25 02:35 | Emergency (ER) | payer MEDICAID | END 2023-02-25 03:00 | LOC: MW.ED 02:35 | DX: F10.10 Alcohol abuse, uncomplicated (principal); E03.9 Hypothyroidism, unspecified; F17.210 Nicotine dependence, cigarettes, uncomplicated; Z88.8 Allergy status to other drugs, medicaments and biological substances; Z79.899 Other long term (current) drug therapy | CPT/HCPCS: 99284 ==

== ENCOUNTER 2023-03-08 11:20 | Emergency (ER) | payer MEDICAID ==
[2023-03-08] MEDS ORDERED: Ondansetron 4 MG Tab.DIS PO ONE (11:53)
[2023-03-08] MEDS ORDERED: Ketorolac 60 MG/2 ML SDV IM ONE (11:53)
[2023-03-08 12:11] LABS: BASOPHILS PERCENT AUTO 0.3 % (0.0-1.5); EOSINOPHILS ABSOLUTE AUTO 0.1 K/uL (0.0-0.7); EOSINOPHILS PERCENT AUTO 0.6 % (0.0-7.0); HEMATOCRIT 39.7 % (36.0-46.0); LYMPHOCYTES PERCENT AUTO 29.1 % (16.0-40.0); MEAN CORPUSCULAR HEMOGLOBIN 27.2 pg (27.0-32.0); MEAN CORPUSCULAR HGB CONC 32.7 g/dL (31.0-37.0); MEAN CORPUSCULAR VOLUME 83.1 fL (80.0-98.0); MONOCYTES ABSOLUTE AUTO 0.5 K/uL (0.0-0.8); MONOCYTES PERCENT AUTO 4.7 % (0.0-15.0); NEUTROPHILS ABSOLUTE AUTO 6.8 K/uL (1.4-5.7); NEUTROPHILS PERCENT AUTO 65.3 % (48.0-80.0); PLATELET COUNT,PLT 226 K/uL (150-400); RED BLOOD CELL COUNT 4.78 M/uL (4.30-5.90); WHITE BLOOD CELL COUNT,WBC 10.34 K/uL (4.0-11.0)
[2023-03-08 12:32] LABS: A/G RATIO 0.7 (0.9-1.6); ALBUMIN 3.2 g/dL (3.4-5.0); BILIRUBIN TOTAL 0.2 mg/dL (0.2-1.0); CALCIUM 8.4 mg/dL (8.5-10.1); CARBON DIOXIDE,CO2 24.5 mmol/L (21.0-32.0); CREATININE 0.6 mg/dL (0.6-1.0); EST CRCL DRUG DOSING (CG) 121.13 mL/min; POTASSIUM,K 3.9 mmol/L (3.5-5.1); PROTEIN TOTAL,TP 7.7 g/dL (6.4-8.2)
[2023-03-08 13:21] LABS: APPEARANCE,URINE SLT CLOUDY; BILIRUBIN,URINE NEGATIVE (NEGATIVE); GLUCOSE,URINE NEGATIVE (NEGATIVE); KETONES,URINE NEGATIVE (NEGATIVE); LEUKOCYTE ESTERASE,URINE NEGATIVE (NEGATIVE); NITRITE,URINE NEGATIVE (NEGATIVE); OCCULT BLOOD,URINE LARGE (NEGATIVE); PROTEIN,URINE NEGATIVE (NEGATIVE); UROBILINOGEN,URINE 0.2 EU/dL (<2.0)
[2023-03-08 13:27] LABS: COLOR,URINE DARK YELLOW
[2023-03-08 13:32] LABS: BACTERIA,URINE RARE (NEGATIVE); EPITHELIAL CELLS,URINE RARE (NONE-FEW); RBC,URINE 25-35 (0-2/HPF); WBC,URINE 0-2 (0-5/HPF)
== END 2023-03-08 13:41 | disposition home or self-care (01) ==
LOC: MW.ED 11:20
DX: N92.6 Irregular menstruation, unspecified (principal); E03.9 Hypothyroidism, unspecified; Z79.899 Other long term (current) drug therapy; Z88.8 Allergy status to other drugs, medicaments and biological substances
CPT/HCPCS: 36415; 80053; 81001; 84703; 85025; 96372; 99284; A9270; J1885; 99283

== ENCOUNTER 2023-04-25 09:20 | Emergency (ER) | payer MEDICAID ==
[2023-04-25] MEDS ORDERED: Sodium Chloride 0.9% 2.5 ML Syringe FLUSH PRN (10:18)
[2023-04-25] MEDS ORDERED: Sodium Chloride 0.9% 10 ML Syringe FLUSH PRN (10:18)
[2023-04-25] MEDS ORDERED: Sodium Chloride 0.9% 1,000 ML IV STA (10:19)
[2023-04-25 10:26] LABS: BASOPHILS PERCENT AUTO 0.2 % (0.0-1.5); EOSINOPHILS ABSOLUTE AUTO 0.1 K/uL (0.0-0.7); EOSINOPHILS PERCENT AUTO 0.7 % (0.0-7.0); HEMATOCRIT 39.4 % (36.0-46.0); HEMOGLOBIN 12.9 g/dL (12.0-16.0); LYMPHOCYTES ABSOLUTE AUTO 3.1 K/uL (0.6-2.4); LYMPHOCYTES PERCENT AUTO 29.3 % (16.0-40.0); MEAN CORPUSCULAR HEMOGLOBIN 27.7 pg (27.0-32.0); MEAN CORPUSCULAR HGB CONC 32.7 g/dL (31.0-37.0); MEAN CORPUSCULAR VOLUME 84.5 fL (80.0-98.0); MONOCYTES ABSOLUTE AUTO 0.5 K/uL (0.0-0.8); MONOCYTES PERCENT AUTO 4.9 % (0.0-15.0); NEUTROPHILS ABSOLUTE AUTO 6.9 K/uL (1.4-5.7); NEUTROPHILS PERCENT AUTO 64.9 % (48.0-80.0); NRBC ABSOLUTE 0 K/uL; PLATELET COUNT,PLT 279 K/uL (150-400); RED BLOOD CELL COUNT 4.66 M/uL (4.30-5.90); WHITE BLOOD CELL COUNT,WBC 10.62 K/uL (4.0-11.0)
[2023-04-25 10:33] LABS: APPEARANCE,URINE CLEAR; BILIRUBIN,URINE NEGATIVE (NEGATIVE); COLOR,URINE YELLOW; GLUCOSE,URINE NEGATIVE (NEGATIVE); KETONES,URINE NEGATIVE (NEGATIVE); LEUKOCYTE ESTERASE,URINE NEGATIVE (NEGATIVE); NITRITE,URINE NEGATIVE (NEGATIVE); OCCULT BLOOD,URINE TRACE-INTACT (NEGATIVE); PH,URINE 5.5 (5.0-8.0); PROTEIN,URINE NEGATIVE (NEGATIVE); UROBILINOGEN,URINE 0.2 EU/dL (<2.0)
[2023-04-25 10:37] LABS: A/G RATIO 0.7 (0.9-1.6); ALBUMIN 3.7 g/dL (3.4-5.0); BILIRUBIN TOTAL 0.3 mg/dL (0.2-1.0); CALCIUM 8.9 mg/dL (8.5-10.1); CARBON DIOXIDE,CO2 24.5 mmol/L (21.0-32.0); CREATININE 0.7 mg/dL (0.6-1.0); EST CRCL DRUG DOSING (CG) 103.82 mL/min; MAGNESIUM 1.8 mg/dL (1.8-2.4); POTASSIUM,K 3.9 mmol/L (3.5-5.1); PROTEIN TOTAL,TP 8.8 g/dL (6.4-8.2)
[2023-04-25 10:44] LABS: BACTERIA,URINE NOT SEEN (NEGATIVE); EPITHELIAL CELLS,URINE OCCASIONAL (NONE-FEW); RBC,URINE 0-1 (0-2/HPF); WBC,URINE NONE SEEN (0-5/HPF)
[2023-04-25] MEDS ORDERED: Ondansetron 4 MG/2 ML SDV IVPUSH STA (11:14)
[2023-04-25] MEDS ORDERED: Ketorolac 30 MG/ML SDV IVPUSH STA (11:14)
[2023-04-25] MEDS ORDERED: Acetaminophen 500 MG Tab PO STA (11:14)
[2023-04-25] MEDS ORDERED: Iopamidol 755 Mg/ML 100 ML Bottle IVPUSH ONE (12:58)
== END 2023-04-25 13:19 | disposition home or self-care (01) ==
LOC: MW.ED 09:20
DX: K52.9 Noninfective gastroenteritis and colitis, unspecified (principal); E03.9 Hypothyroidism, unspecified; F17.210 Nicotine dependence, cigarettes, uncomplicated; Z79.899 Other long term (current) drug therapy; Z88.8 Allergy status to other drugs, medicaments and biological substances; Z20.822 Contact with and (suspected) exposure to COVID-19
CPT/HCPCS: 36415; 74177; 80053; 81001; 83690; 83735; 84703; 85025; 87635; 96361; 96374; 96375; 99284; A9270; J1885; J2405; J3490; J7030; Q9967; U0002

== ENCOUNTER 2023-05-13 06:14 | Emergency (ER) | payer MEDICAID ==
[2023-05-13] MEDS ORDERED: Acetaminophen/HYDROcodone 325-5 MG Tab PO ONE (07:09)
[2023-05-13] MEDS ORDERED: Ondansetron 4 MG Tab.DIS PO ONE (07:09)
[2023-05-13 07:40] LABS: BASOPHILS PERCENT AUTO 0.1 % (0.0-1.5); EOSINOPHILS ABSOLUTE AUTO 0.1 K/uL (0.0-0.7); EOSINOPHILS PERCENT AUTO 0.9 % (0.0-7.0); HEMATOCRIT 38.8 % (36.0-46.0); HEMOGLOBIN 12.7 g/dL (12.0-16.0); LYMPHOCYTES ABSOLUTE AUTO 1.9 K/uL (0.6-2.4); LYMPHOCYTES PERCENT AUTO 26.7 % (16.0-40.0); MEAN CORPUSCULAR HEMOGLOBIN 27.6 pg (27.0-32.0); MEAN CORPUSCULAR HGB CONC 32.7 g/dL (31.0-37.0); MEAN CORPUSCULAR VOLUME 84.3 fL (80.0-98.0); MONOCYTES ABSOLUTE AUTO 0.3 K/uL (0.0-0.8); MONOCYTES PERCENT AUTO 4.5 % (0.0-15.0); NEUTROPHILS ABSOLUTE AUTO 4.8 K/uL (1.4-5.7); NEUTROPHILS PERCENT AUTO 67.8 % (48.0-80.0); NRBC ABSOLUTE 0 K/uL; PLATELET COUNT,PLT 250 K/uL (150-400); WHITE BLOOD CELL COUNT,WBC 7.05 K/uL (4.0-11.0)
[2023-05-13 08:20] LABS: A/G RATIO 0.7 (0.9-1.6); ALBUMIN 3.4 g/dL (3.4-5.0); BILIRUBIN TOTAL 0.5 mg/dL (0.2-1.0); CALCIUM 8.9 mg/dL (8.5-10.1); CARBON DIOXIDE,CO2 24.2 mmol/L (21.0-32.0); CREATININE 0.7 mg/dL (0.6-1.0); EST CRCL DRUG DOSING (CG) 103.82 mL/min; PHOSPHORUS 2.5 mg/dL (2.6-4.7); POTASSIUM,K 3.8 mmol/L (3.5-5.1); PROTEIN TOTAL,TP 8.1 g/dL (6.4-8.2); TSH ULTRASENSITIVE 0.75 uIU/mL (0.36-3.74)
== END 2023-05-13 09:30 | disposition home or self-care (01) ==
LOC: MW.ED 06:14
DX: G56.03 Carpal tunnel syndrome, bilateral upper limbs (principal); E03.9 Hypothyroidism, unspecified; Z88.8 Allergy status to other drugs, medicaments and biological substances; Z91.048 Other nonmedicinal substance allergy status; Z79.899 Other long term (current) drug therapy
CPT/HCPCS: 36415; 80053; 83735; 84100; 84443; 84703; 85025; 99284; A9270; 99283

== ENCOUNTER 2023-05-23 14:25 | Emergency (ER) | payer MEDICAID ==
[2023-05-23] MEDS ORDERED: Diazepam 5 MG Tab PO ONE (17:10)
[2023-05-23] MEDS ORDERED: methylPREDNISolone Sodium Succinate 125 MG/2 ML SDV IM ONE (17:10)
[2023-05-23] MEDS ORDERED: Ketorolac 30 MG/ML SDV IM ONE (17:10)
[2023-05-23] MEDS ORDERED: Lidocaine 4% 1 each Patch TOP PRN (17:51)
== END 2023-05-23 18:16 | disposition home or self-care (01) ==
LOC: MW.ED 14:25
DX: S39.92XA Unspecified injury of lower back, initial encounter (principal); F17.210 Nicotine dependence, cigarettes, uncomplicated; E03.9 Hypothyroidism, unspecified; Z86.16 Personal history of COVID-19; Z79.899 Other long term (current) drug therapy; Z88.1 Allergy status to other antibiotic agents; Z88.8 Allergy status to other drugs, medicaments and biological substances; X50.0XXA Overexertion from strenuous movement or load, initial encounter
CPT/HCPCS: 96372; 99283; A9270; J1885; J2930

== ENCOUNTER 2023-06-04 09:09 | Emergency (ER) | payer MEDICAID ==
[2023-06-04] MEDS ORDERED: Acetaminophen 500 MG Tab PO STA (10:19)
[2023-06-04] MEDS ORDERED: Ketorolac 30 MG/ML SDV IM STA (10:19)
[2023-06-04] MEDS ORDERED: oxyCODONE 5 MG Tab PO STA (11:18)
[2023-06-04] MEDS ORDERED: Morphine 4 MG/ML Syringe IM ONE (11:53)
[2023-06-04] MEDS ORDERED: Naloxone 0.4 MG/ML SDV IVPUSH PRN (11:53)
[2023-06-04] MEDS ORDERED: Bacitracin Oint 1 GM U/D Packet TOP ONE (12:55)
[2023-06-04] MEDS ORDERED: Bacitracin Oint 1 GM U/D Packet TOP STA (13:06)
== END 2023-06-04 13:43 | disposition home or self-care (01) ==
LOC: MW.ED 09:09
DX: S90.212A Contusion of left great toe with damage to nail, initial encounter (principal); E03.9 Hypothyroidism, unspecified; Z79.899 Other long term (current) drug therapy; Z88.8 Allergy status to other drugs, medicaments and biological substances; Z86.16 Personal history of COVID-19; W06.XXXA Fall from bed, initial encounter
CPT/HCPCS: 73630; 96372; 99283; A9270; J1885; J2270; 99284

== ENCOUNTER 2023-07-12 10:16 | Emergency (ER) | payer MEDICAID ==
[2023-07-12] MEDS ORDERED: Ondansetron 4 MG/2 ML SDV IVPUSH ONE (10:58)
[2023-07-12] MEDS ORDERED: Sodium Chloride 0.9% 1,000 ML IV ONE (10:58)
[2023-07-12 11:29] LABS: BASOPHILS ABSOLUTE AUTO 0.03 K/uL (0.00-0.20); BASOPHILS PERCENT AUTO 0.3 % (0.0-1.0); EOSINOPHILS ABSOLUTE AUTO 0.07 K/uL (0.00-0.45); EOSINOPHILS PERCENT AUTO 0.6 % (0.0-6.0); HEMATOCRIT 40.4 % (37.0-47.0); HEMOGLOBIN 13.1 g/dL (12.0-16.0); IMMATURE GRAN ABSOLUTE AUTO 0.05 K/uL (0.00-0.05); IMMATURE GRAN PERCENT AUTO 0.4 % (0.0-0.4); LYMPHOCYTES ABSOLUTE AUTO 2.99 K/uL (1.00-4.80); LYMPHOCYTES PERCENT AUTO 26.5 % (24.0-44.0); MEAN CORPUSCULAR HEMOGLOBIN 26.6 pg (28.0-32.0); MEAN CORPUSCULAR HGB CONC 32.4 g/dL (32.0-36.0); MEAN CORPUSCULAR VOLUME 82.1 fL (83.0-99.0); MEAN PLATELET VOLUME 10.2 fL (9.4-12.3); MONOCYTES ABSOLUTE AUTO 0.55 K/uL (0.00-0.80); MONOCYTES PERCENT AUTO 4.9 % (0.0-8.0); NEUTROPHILS ABSOLUTE AUTO 7.61 K/uL (1.80-7.70); NEUTROPHILS PERCENT AUTO 67.3 % (41.0-71.0); PLATELET COUNT,PLT 310 K/uL (150-400); RED BLOOD CELL COUNT 4.92 M/uL (4.10-5.30)
[2023-07-12 11:53] LABS: A/G RATIO 0.8 (0.9-1.6); ALBUMIN 3.7 g/dL (3.4-5.0); BILIRUBIN TOTAL 0.3 mg/dL (0.2-1.0); CALCIUM 8.8 mg/dL (8.5-10.1); CARBON DIOXIDE,CO2 25.7 mmol/L (21.0-32.0); CREATININE 0.8 mg/dL (0.6-1.0); EST CRCL DRUG DOSING (CG) 90.84 mL/min; POTASSIUM,K 3.9 mmol/L (3.5-5.1); PROTEIN TOTAL,TP 8.4 g/dL (6.4-8.2)
== END 2023-07-12 12:09 | disposition home or self-care (01) ==
LOC: MW.ED 10:16
DX: K52.9 Noninfective gastroenteritis and colitis, unspecified (principal); E03.9 Hypothyroidism, unspecified; F17.210 Nicotine dependence, cigarettes, uncomplicated; Z86.16 Personal history of COVID-19; Z79.899 Other long term (current) drug therapy; Z88.1 Allergy status to other antibiotic agents; Z88.8 Allergy status to other drugs, medicaments and biological substances
CPT/HCPCS: 36415; 80053; 83690; 84703; 85025; 96361; 96374; 99284; J2405; J7030

== ENCOUNTER 2023-11-23 16:32 | Emergency (ER) | payer MEDICAID | END 2023-11-23 18:20 | disposition home or self-care (01) | LOC: MW.ED 16:32 | DX: R44.0 Auditory hallucinations (principal); T43.215A Adverse effect of selective serotonin and norepinephrine reuptake inhibitors, initial encounter; F41.9 Anxiety disorder, unspecified; Z75.8 Other problems related to medical facilities and other health care; Z88.8 Allergy status to other drugs, medicaments and biological substances; E03.9 Hypothyroidism, unspecified; Z79.899 Other long term (current) drug therapy; Z86.16 Personal history of COVID-19 | CPT/HCPCS: 99283; 99284 ==

== ENCOUNTER 2023-12-14 16:13 | Emergency (ER) | payer MEDICAID ==
[2023-12-14] MEDS: Ketorolac 60 MG/2 ML SDV IM ONE (16:30)
== END 2023-12-14 16:44 | disposition home or self-care (01) ==
LOC: MW.ED 16:13
DX: R51.9 Headache, unspecified (principal); E03.9 Hypothyroidism, unspecified; Z88.8 Allergy status to other drugs, medicaments and biological substances; Z91.048 Other nonmedicinal substance allergy status; Z79.899 Other long term (current) drug therapy
CPT/HCPCS: 93005; 96372; 99283; J1885; 93010